=== PATIENT | male | born 1940 | race Two or more races ===

== ENCOUNTER 2020-01-24 09:19 | Emergency (ER) | payer MEDICARE, MEDICAID, SELFPAY | END 2020-01-24 12:16 | disposition left against medical advice (07) | PROVIDERS: Emergency Provider Emergency Medicine; PCP Family Medicine | DX: R10.9 Unspecified abdominal pain (principal) | CPT/HCPCS: 99281 ==

== ENCOUNTER 2020-04-13 00:20 | Emergency (ER) | payer OTHER, SELFPAY ==
[2020-04-13 00:28] VITALS: BMI 33.5
[2020-04-13 01:19] VITALS: BP 143/82; PULSE 72; RESP 16; TEMP 37.1; O2SAT 96
--- NOTE | 2020-04-13 01:20 | ED.EAR ---
HPI - Ear Problem General Chief complaint: Ear Problems Stated complaint: EAR INFECTION Time Seen by Provider: 04/13/20 01:19 Source: patient Mode of arrival: ambulatory Limitations: language barrier History of Present Illness HPI Narrative: Patient complaining of pain in the left ear for last 2 days got worse today no trauma no discharge MD Complaint: ear pain Location: left ear Duration: constant Severity: moderate Relieving factors: nothing Exacerbating factors: nothing Related Data Previous Rx's Medication Instructions Recorded amoxicillin-pot clavulanate 1 tab PO BID #20 tab 04/13/20 [Augmentin] ibuprofen 600 mg PO Q6H PRN #20 tab 04/13/20 Allergies Allergy/AdvReac Type Severity Reaction Status Date / Time Seafood Allergy Mild SWELLING Uncoded 12/27/19 15:18 shellfish Allergy Unknown Uncoded 03/14/14 00:00 Review of Systems Review of Systems: Yes all other systems are reviewed and are negative [facility] Social History Social History Advance Directives: No Advance Directives Information Provided: No Physical Exam Vital Signs: Vital Signs: Last Vital Signs Temp 98.8 F 04/13/20 01:19 Pulse 72 04/13/20 01:19 Resp 16 04/13/20 01:19 BP 143/82 H 04/13/20 01:19 Pulse Ox 96 04/13/20 01:19 Body Mass Index 33.5 Const: General: cooperative, healthy appearing, comfortable and no acute distress Orientation/consciousness: patient oriented x3 HENMT: Head: Yes normal to inspection Ears: hearing grossly normal bilaterally, TM normal on the right, Abnormal EAC present (Left ear) cerumen impaction and TM abnormal (Left side) dull and erythematous General nose exam: Normal external nose present Eyes: General: appearance normal, both eyes and all related structures Resp: Effort & Inspection: normal respiratory effort Auscultation: clear to auscultation bilaterally Cardio: Rate: regular rate Rhythm: regular rhythm Heart sounds: S1 normal heart sound present and S2 normal heart sound present Neuro: General: patient oriented x3 Procedures Ear Wax Removal Left Ear: Cerumenolytic Used: other (Water irrigation) Results: Re-examined: cerumen removed completely TM Examination: TM(s) erythematous Ear Canal Exam: atraumatic Patient Tolerated Procedure: well Complications: no problems Technique: ear canal irrigated Discharge Plan Discharge Clinical Impression: Excessive cerumen in left ear canal Otitis media Qualifiers: Otitis media type: suppurative Chronicity: acute Laterality: left Recurrence: non-recurrent Spontaneous tympanic membrane rupture: without spontaneous rupture Qualified Code(s): H66.002 - Acute suppurative otitis media without spontaneous rupture of ear drum, left ear Patient Disposition: Home, Self-Care Instructions: Ear Infection (ED) Additional Instructions: Take antibiotics as prescribed and follow with PCP Prescriptions: New amoxicillin-pot clavulanate [Augmentin] 875-125 mg tablet 1 tab PO BID Qty: 20 RF: 0 ibuprofen 600 mg tablet 600 mg PO Q6H PRN (Reason: pain) Qty: 20 RF: 0 Interventions: ED Discharge Assessment Last Done: 04/13/20 01:58 Discharge Date/Time: 04/13/20 01:58 Print Language: Bahamian
[2020-04-13] MEDS: Amoxicillin/Potassium Clav 875 MG TABLET PO (01:54)
[2020-04-13] MEDS: Ibuprofen 600 MG TABLET PO (01:55)
== END 2020-04-13 01:58 | disposition home or self-care (01) ==
PROVIDERS: Emergency Provider Internal Medicine
DX: H61.22 Impacted cerumen, left ear (principal); H92.02 Otalgia, left ear
CPT/HCPCS: 69209; 99283

== ENCOUNTER 2020-04-21 23:31 | Emergency (ER) | payer OTHER, SELFPAY ==
--- NOTE | 2020-04-22 | ECG_ITS ---
Test Reason : PE Blood Pressure : / mmHG Vent. Rate : 070 BPM Atrial Rate : 070 BPM P-R Int : 174 ms QRS Dur : 122 ms QT Int : 378 ms P-R-T Axes : 025 003 -16 degrees QTc Int : 408 ms Normal sinus rhythm Right bundle branch block T wave abnormality, consider lateral ischemia Abnormal ECG No previous ECGs available Referred By: Marie Triana Electronically Signed By:ZACKERY OLMOS MD
[2020-04-22 00:19] VITALS: BP 144/90; PULSE 101; PULSE 78; RESP 18; TEMP 36.8; O2SAT 95; BMI 32.3
--- NOTE | 2020-04-22 00:23 | PC.NURSE ---
PT TO ROOM WITH C/O BACK PAIN, FEVER, UNWITNESSED FALL, GENERAL WEAKNESS SINCE TODAY. PT LIVES AT HOME BUT HAS SERVICES COME TO HOME. PT ARRIVES ALERT, RESPIRATIONS N/L ON 4L NC WITH A PO 95%. PT CHG INTO GOWN AND ON MONITOR WITH A HR 78. PT AWAITING MD'S EVAL.
[2020-04-22 02:00] VITALS: BP 113/56; PULSE 76; RESP 16; TEMP 38.2; O2SAT 96
--- NOTE | 2020-04-22 03:29 | XR_ITS ---
EXAMINATION: XR CHEST CLINICAL INFORMATION: Fever COMPARISON: None TECHNIQUE: Frontal view of the chest was obtained. FINDINGS: Lung volumes are low. No focal airspace consolidation. A few reticular opacities are present in the bases, most likely related to the low lung volumes and atelectasis in the supine patient. No pneumothorax or pleural effusion. Cardiac and mediastinal contours are normal. No acute osseous findings. Osteoarthritis is present in the acromioclavicular and glenohumeral joints. XR/XR chest 1V IMPRESSION: Low lung volumes. No acute pulmonary findings.
--- NOTE | 2020-04-22 03:32 | XR_ITS ---
EXAMINATION: XR THORACIC SPINE XR LUMBAR SPINE CLINICAL INFORMATION: Fall. COMPARISON: None. TECHNIQUE: AP and lateral views of the thoracic spine and three views of the lumbar spine. FINDINGS: Thoracic: Vertebral body heights are normal. Alignment is anatomic without spondylolisthesis. Mild degenerative disc disease in the thoracic spine is characterized primarily by small marginal osteophytes. Vertebral body and intervertebral disc heights appear well-preserved. Paraspinal soft tissues are unremarkable. No osseous lesions are identified. Lumbar: Vertebral body heights are normal. No fracture or spondylolisthesis. Endplate osteophytes are present at most levels. Intervertebral disc height appear relatively well-preserved. There is facet arthropathy in the lower lumbar spine at L4-L5. Soft tissues are unremarkable. Imaged portions of the sacroiliac joints are normal. XR/XR thoracic spine 2V IMPRESSION: No acute fracture or malalignment in the thoracolumbar spine. Mild multilevel degenerative disc disease.
--- NOTE | 2020-04-22 03:32 | XR_ITS ---
EXAMINATION: XR THORACIC SPINE XR LUMBAR SPINE CLINICAL INFORMATION: Fall. COMPARISON: None. TECHNIQUE: AP and lateral views of the thoracic spine and three views of the lumbar spine. FINDINGS: Thoracic: Vertebral body heights are normal. Alignment is anatomic without spondylolisthesis. Mild degenerative disc disease in the thoracic spine is characterized primarily by small marginal osteophytes. Vertebral body and intervertebral disc heights appear well-preserved. Paraspinal soft tissues are unremarkable. No osseous lesions are identified. Lumbar: Vertebral body heights are normal. No fracture or spondylolisthesis. Endplate osteophytes are present at most levels. Intervertebral disc height appear relatively well-preserved. There is facet arthropathy in the lower lumbar spine at L4-L5. Soft tissues are unremarkable. Imaged portions of the sacroiliac joints are normal. XR/XR lumbar spine 2-3V IMPRESSION: No acute fracture or malalignment in the thoracolumbar spine. Mild multilevel degenerative disc disease.
[2020-04-22 04:30] VITALS: PULSE 70; RESP 20; O2SAT 92
--- NOTE | 2020-04-22 04:31 | PC.NURSE ---
IV #18G TO LAC, LABS DRAWN TO LAB, COVID SWAB OBTAINED TO LAB. PT TRYING TO URINATE AT THIS TIME. WILL CONTINUE TO MONITOR PT. PT REMAINS ON MONITOR WITH HR 70. PT DENIES ANY COMPLAINTS AT THIS TIME.
[2020-04-22 04:36] LABS: Basophils Percent Auto 0.2 % (0-2); MANUAL DIFF FLAG SCAN; PLT CLUMP 1; Red Cell Distribution Width 12.6 % (11.0-16.0); SCAN SMEAR FLAG 1
[2020-04-22 04:38] LABS: Hematocrit 38.7 % (42-52); Hemoglobin 13.2 g/dl (14.0-18.0); Imm Gran Abs Auto 0.02 X10*3/uL (0.00-0.03); Imm Gran Pct Auto 0.3 % (0.0-0.4); Lymphocytes Absolute Auto 1.3 X10*3/uL (1.2-4.9); Lymphocytes Percent Auto 20.8 % (20-40); Mean Corpuscular HGB Conc 34.1 g/dl (31.0-36.0); Mean Corpuscular Hemoglobin 32.2 pg (27.0-33.0); Mean Corpuscular Volume 94.4 fL (80-98); Mean Platelet Volume 11.5 fL (9.4-12.4); Monocytes Absolute Auto 0.3 X10*3/uL (0.1-1.2); Monocytes Percent Auto 4.6 % (2-11); Neutrophils Absolute Auto 4.5 X10*3/uL (2.0-8.3); Neutrophils Percent Auto 74.1 % (45-73); Platelet Count 123 X10*3/uL (160-400); White Blood Count 6.1 X10*3/uL (4.8-10.8)
[2020-04-22 04:39] LABS: Prothrombin Time 12.2 SEC (10.8-13.0)
[2020-04-22 04:42] LABS: Partial Thromboplastin Time 30.1 SEC (24.1-38.0)
[2020-04-22 04:47] LABS: Lactic Acid 0.9 mmol/L (0.5-2.0)
[2020-04-22 04:54] LABS: Alanine Aminotransferase 11 U/L (0-40); Albumin Level 4.3 g/dL (3.5-5.0); Alkaline Phosphatase 48 U/L (39-117); Anion Gap 14 (12-20); Aspartate Amino Transferase 43 U/L (5-37); Bilirubin Direct 0.2 mg/dL (0.0-0.5); Bilirubin Total 0.3 mg/dL (0.0-1.0); Blood Urea Nitrogen 35 mg/dL (9-16); Calcium 9.5 mg/dL (8.4-10.2); Carbon Dioxide 31 mmol/L (22-29); Chloride 99 mmol/L (96-108); Creatinine Clr Calc Pharmacy 44.2; Estimated Glomerular Filt Rate 49; Glucose Random 167 mg/dL (60-115); Potassium 5.2 mmol/l (3.3-5.1); Sodium 139 mmol/L (135-145)
[2020-04-22 04:54] LABS: Glucose Urine UA NEG (NEG); Leukocyte Esterase Urine NEG (NEG); Nitrite Urine NEG (NEG); Specific Gravity - Urine >= 1.030 (1.005-1.025); Urine Blood TRACE (NEG); Urine Ketones 5 MG/DL (NEG); Urine Protein 1+ MG/DL (NEG-TRACE)
[2020-04-22 04:55] LABS: Appearance Urine CLEAR; Color Urine AMBER
[2020-04-22 05:02] LABS: Bacteria Urine TRACE /LPF; Mucus Urine 1+ /LPF; Squamous Epithelial Cell Urine 1+ /LPF; WBC Urine 0-2 /HPF (0-4)
[2020-04-22 05:03] LABS: SLIDE REVIEW VERIFIED
[2020-04-22 05:09] LABS: Influenza A PCR NEGATIVE (Negative); Influenza B PCR NEGATIVE (Negative); Resp Syncy Virus RNA Qual PCR NEGATIVE (Negative)
[2020-04-22 05:13] LABS: SARS COV2 PCR INHOUSE POSITIVE (Negative)
[2020-04-22 05:19] LABS: B Type Natriuretic Peptide 23 pg/mL (<100); Troponin-I High Sensitivity 15.3 ng/L (<3.5-35.0)
[2020-04-22] MEDS: 0.9 % Sodium Chloride 2,721 ML 2721 ML IVCONT (05:23)
--- NOTE | 2020-04-22 05:24 | PC.NURSE ---
PT STRAIGHT CATH FOR URINE SAMPLE. PT ON MONITOR WITH HR OF 70. VS OBTAINED. PT AWAITING FOR FURTHER ORDERS.
[2020-04-22 06:00] VITALS: BP 132/78; PULSE 78; RESP 18; O2SAT 95
--- NOTE | 2020-04-22 06:35 | ED_ITS ---
HPI - General Adult General Chief complaint: Back Pain/Injury Stated complaint: flu like symptoms Time Seen by Provider: 04/22/20 02:55 Source: patient and EMS Mode of arrival: EMS Limitations: no limitations History of Present Illness HPI narrative: Patient comes to emergency room via EMS, according to the family, EMS reports the patient has had general weakness, complaining of back pain, unwitnessed fall today, patient states that he did not hit his head, did not lose consciousness, does not have any head or neck pain. Patient states that he was getting out of his bed, hit his back on a piece of furniture, then went down to the floor sitting, head was not injured. Patient denies coughing, no shortness of breath, complaining of chills, but no known fever. MD complaint: Generalized weakness, fall Related Data Home Medications Medication Instructions Recorded Confirmed aripiprazole 15 mg tablet 15 mg PO DAILY 01/29/20 04/22/20 calcium carbonate 600 mg (1,500 1 tab PO BID 01/29/20 mg)-vitamin D3 400 unit tablet carbidopa 25 mg-levodopa 100 mg 0 tab PO 01/29/20 tablet gabapentin 300 mg capsule mg PO 01/29/20 lisinopril 10 mg tablet 10 mg PO DAILY 01/29/20 metformin 1,000 mg tablet 1,000 mg PO BID 01/29/20 mirtazapine 15 mg tablet 15 mg PO DAILY 01/29/20 paroxetine HCl 20 mg tablet 20 mg PO BEDTIME 01/29/20 simvastatin 20 mg tablet 20 mg PO BEDTIME 01/29/20 Allergies Allergy/AdvReac Type Severity Reaction Status Date / Time No Known Allergies Allergy Verified 04/22/20 03:28 Review of Systems Review of Systems: Constitutional : No Weight loss, complaining of chills, generalized weakness ENT/Mouth : No Hearing loss, No Ear Pain, No Nasal Congestion, No Sinus Pain, No Hoarseness, No sore throat, No Rhinorrhea, No Swallowing Difficulty Eyes: No Eye Pain, No Swelling, No Redness, No Foreign Body, No Discharge, No Vision Changes Cardiovascular : No Chest Pain, No SOB, No Dyspnea on Exertion, No Orthopnea, No Edema, No Palpitations Respiratory : No Cough, No Sputum, No Wheezing, No Smoke Exposure, No Dyspnea Gastrointestinal : No Nausea, No Vomiting, No Diarrhea, No Constipation, No abdominal Pain, No Hematochezia, No Melena Genitourinary : no irregular bleeding, No Dysuria, No Urinary Frequency, No Hematuria, No Urinary Incontinence, No Urgency, No Flank Pain, No Urinary Flow Changes, No Hesitancy Musculoskeletal : No joint pain, No Myalgias, No Joint Swelling Skin : No Skin Lesions, No rash Neuro : No Weakness, No Numbness, No Paresthesias, No Loss of Consciousness, No Dizziness, No Headache Psych : No Anxiety/Panic, No Depression, No SI/HI/AH/VH, No Social Issues, Heme/Lymph: No Bruising, No Bleeding,No Lymphadenopathy Endocrine : No Polyuria, No Polydipsia, No Temperature Intolerance [facility] Social History Social History Advance Directives: No Physical Exam Vital Signs: Vital Signs: Last Vital Signs Temp 100.8 F H 04/22/20 02:00 Pulse 70 04/22/20 04:30 Resp 20 04/22/20 04:30 BP 113/56 L 04/22/20 02:00 Pulse Ox 92 04/22/20 04:30 Body Mass Index 32.3 Course Course Course Narrative: No acute findings in the thoracic and lumbar spine. Chest x- ray do not show any infiltrates. Patient has been on room air saturating at 94%, patient was walked by me and his nurse, patient needs assistance of his cane, patient's oxygen saturation remained between 94 and 95%. Patient's COVID-19 test was positive. Sepsis is not suspected Medical Decision Making Lab Data Result diagrams: 04/22/20 04:16 04/22/20 04:15 Labs: Lab Results 04/22/20 04/22/20 04/22/20 Range/Units 04:12 04:15 04:16 WBC (4.8-10.8) X10*3/uL RBC (4.60-5.80) X10*6/uL Hgb (14.0-18.0) g/dl Hct (42-52) % MCV (80-98) fL MCH (27.0-33.0) pg MCHC (31.0-36.0) g/dl RDW (11.0-16.0) % Plt Count (160-400) X10*3/uL MPV (9.4-12.4) fL Immature Gran % (Auto) (0.0-0.4) % Neut % (Auto) (45-73) % Lymph % (Auto) (20-40) % Mcdowell % (Auto) (2-11) % Eos % (Auto) (0-4) % Baso % (Auto) (0-2) % Lymph # (Auto) (1.2-4.9) X10*3/uL Mcdowell # (Auto) (0.1-1.2) X10*3/uL Eos # (Auto) (0.0-0.4) X10*3/uL Baso # (Auto) (0.0-0.2) X10*3/uL Abs Immat Gran (auto) (0.00-0.03) X10*3/uL Absolute Neuts (auto) (2.0-8.3) X10*3/uL Absolute Nucleated RBC (0.0-0.012) X10*3/uL Nucleated RBC % (auto) (0.0-0.2) /100WBC Smear Tech's Comments PT (10.8-13.0) SEC INR (0.9-1.1) APTT (24.1-38.0) SEC Sodium 139 (135-145) mmol/L Potassium 5.2 H (3.3-5.1) mmol/l Chloride 99 (96-108) mmol/L Carbon Dioxide 31 H (22-29) mmol/L Anion Gap 14 (12-20) BUN 35 H (9-16) mg/dL Creatinine 1.38 (0.5-1.4) mg/dL Estim Creat Clear Calc 44.2 Estimated GFR 49 Random Glucose 167 H (60-115) mg/dL Lactic Acid 0.9 (0.5-2.0) mmol/L Calcium 9.5 (8.4-10.2) mg/dL Total Bilirubin 0.3 (0.0-1.0) mg/dL Direct Bilirubin 0.2 (0.0-0.5) mg/dL AST 43 H (5-37) U/L ALT 11 (0-40) U/L Alkaline Phosphatase 48 (39-117) U/L Troponin I High Sens 15.3 (<3.5-35.0) ng/L B-Natriuretic Peptide 23 (<100) pg/mL Total Protein 7.0 (6.5-8.0) g/dL Albumin 4.3 (3.5-5.0) g/dL Urine Color Urine Appearance Urine pH (5.0-8.0) Ur Specific [place] (1.005-1.025) Urine Protein (NEG-TRACE) MG/DL Urine Glucose (UA) (NEG) MG/DL Urine Ketones (NEG) MG/DL Urine Blood (NEG) Urine Nitrite (NEG) Ur Leukocyte Esterase (NEG) Urine RBC (0) /HPF Urine WBC (0-4) /HPF Ur Squamous Epith Cells /LPF Urine Bacteria /LPF Hyaline Casts /LPF Urine Mucus /LPF Coronavirus (PCR) (Negative) Influenza Type A (PCR) (Negative) Influenza Type B (PCR) (Negative) RSV RNA Qual (PCR) (Negative) 04/22/20 04/22/20 04/22/20 Range/Units 04:16 04:16 04:17 WBC 6.1 (4.8-10.8) X10*3/uL RBC 4.10 L (4.60-5.80) X10*6/uL Hgb 13.2 L (14.0-18.0) g/dl Hct 38.7 L (42-52) % MCV 94.4 (80-98) fL MCH 32.2 (27.0-33.0) pg MCHC 34.1 (31.0-36.0) g/dl RDW 12.6 (11.0-16.0) % Plt Count 123 L (160-400) X10*3/uL MPV 11.5 (9.4-12.4) fL Immature Gran % (Auto) 0.3 (0.0-0.4) % Neut % (Auto) 74.1 H (45-73) % Lymph % (Auto) 20.8 (20-40) % Mcdowell % (Auto) 4.6 (2-11) % Eos % (Auto) 0.0 (0-4) % Baso % (Auto) 0.2 (0-2) % Lymph # (Auto) 1.3 (1.2-4.9) X10*3/uL Mcdowell # (Auto) 0.3 (0.1-1.2) X10*3/uL Eos # (Auto) 0.0 (0.0-0.4) X10*3/uL Baso # (Auto) 0.0 (0.0-0.2) X10*3/uL Abs Immat Gran (auto) 0.02 (0.00-0.03) X10*3/uL Absolute Neuts (auto) 4.5 (2.0-8.3) X10*3/uL Absolute Nucleated RBC 0.000 (0.0-0.012) X10*3/uL Nucleated RBC % (auto) 0.0 (0.0-0.2) /100WBC Smear Tech's Comments VERIFIED PT 12.2 (10.8-13.0) SEC INR 1.0 (0.9-1.1) APTT 30.1 (24.1-38.0) SEC Sodium (135-145) mmol/L Potassium (3.3-5.1) mmol/l Chloride (96-108) mmol/L Carbon Dioxide (22-29) mmol/L Anion Gap (12-20) BUN (9-16) mg/dL Creatinine (0.5-1.4) mg/dL Estim Creat Clear Calc Estimated GFR Random Glucose (60-115) mg/dL Lactic Acid (0.5-2.0) mmol/L Calcium (8.4-10.2) mg/dL Total Bilirubin (0.0-1.0) mg/dL Direct Bilirubin (0.0-0.5) mg/dL AST (5-37) U/L ALT (0-40) U/L Alkaline Phosphatase (39-117) U/L Troponin I High Sens (<3.5-35.0) ng/L B-Natriuretic Peptide (<100) pg/mL Total Protein (6.5-8.0) g/dL Albumin (3.5-5.0) g/dL Urine Color Urine Appearance Urine pH (5.0-8.0) Ur Specific [place] (1.005-1.025) Urine Protein (NEG-TRACE) MG/DL Urine Glucose (UA) (NEG) MG/DL Urine Ketones (NEG) MG/DL Urine Blood (NEG) Urine Nitrite (NEG) Ur Leukocyte Esterase (NEG) Urine RBC (0) /HPF Urine WBC (0-4) /HPF Ur Squamous Epith Cells /LPF Urine Bacteria /LPF Hyaline Casts /LPF Urine Mucus /LPF Coronavirus (PCR) POSITIVE A (Negative) Influenza Type A (PCR) NEGATIVE (Negative) Influenza Type B (PCR) NEGATIVE (Negative) RSV RNA Qual (PCR) NEGATIVE (Negative) 04/22/20 Range/Units 04:17 WBC (4.8-10.8) X10*3/uL RBC (4.60-5.80) X10*6/uL Hgb (14.0-18.0) g/dl Hct (42-52) % MCV (80-98) fL MCH (27.0-33.0) pg MCHC (31.0-36.0) g/dl RDW (11.0-16.0) % Plt Count (160-400) X10*3/uL MPV (9.4-12.4) fL Immature Gran % (Auto) (0.0-0.4) % Neut % (Auto) (45-73) % Lymph % (Auto) (20-40) % Mcdowell % (Auto) (2-11) % Eos % (Auto) (0-4) % Baso % (Auto) (0-2) % Lymph # (Auto) (1.2-4.9) X10*3/uL Mcdowell # (Auto) (0.1-1.2) X10*3/uL Eos # (Auto) (0.0-0.4) X10*3/uL Baso # (Auto) (0.0-0.2) X10*3/uL Abs Immat Gran (auto) (0.00-0.03) X10*3/uL Absolute Neuts (auto) (2.0-8.3) X10*3/uL Absolute Nucleated RBC (0.0-0.012) X10*3/uL Nucleated RBC % (auto) (0.0-0.2) /100WBC Smear Tech's Comments PT (10.8-13.0) SEC INR (0.9-1.1) APTT (24.1-38.0) SEC Sodium (135-145) mmol/L Potassium (3.3-5.1) mmol/l Chloride (96-108) mmol/L Carbon Dioxide (22-29) mmol/L Anion Gap (12-20) BUN (9-16) mg/dL Creatinine (0.5-1.4) mg/dL Estim Creat Clear Calc Estimated GFR Random Glucose (60-115) mg/dL Lactic Acid (0.5-2.0) mmol/L Calcium (8.4-10.2) mg/dL Total Bilirubin (0.0-1.0) mg/dL Direct Bilirubin (0.0-0.5) mg/dL AST (5-37) U/L ALT (0-40) U/L Alkaline Phosphatase (39-117) U/L Troponin I High Sens (<3.5-35.0) ng/L B-Natriuretic Peptide (<100) pg/mL Total Protein (6.5-8.0) g/dL Albumin (3.5-5.0) g/dL Urine Color MISTY Urine Appearance CLEAR Urine pH 5.0 (5.0-8.0) Ur Specific [place] >= 1.030 H (1.005-1.025) Urine Protein 1+ H (NEG-TRACE) MG/DL Urine Glucose (UA) NEG (NEG) MG/DL Urine Ketones 5 (NEG) MG/DL Urine Blood TRACE (NEG) Urine Nitrite NEG (NEG) Ur Leukocyte Esterase NEG (NEG) Urine RBC 1-4 (0) /HPF Urine WBC 0-2 (0-4) /HPF Ur Squamous Epith Cells 1+ /LPF Urine Bacteria TRACE /LPF Hyaline Casts 1-4 /LPF Urine Mucus 1+ /LPF Coronavirus (PCR) (Negative) Influenza Type A (PCR) (Negative) Influenza Type B (PCR) (Negative) RSV RNA Qual (PCR) (Negative) Imaging Data Thoracic and lumbar spine x-ray: Radiologist's impression: Thoracic: Vertebral body heights are normal. Alignment is anatomic without spondylolisthesis. Mild degenerative disc disease in the thoracic spine is characterized primarily by small marginal osteophytes. Vertebral body and intervertebral disc heights appear well-preserved. Paraspinal soft tissues are unremarkable. No osseous lesions are identified. Lumbar: Vertebral body heights are normal. No fracture or spondylolisthesis. Endplate osteophytes are present at most levels. Intervertebral disc height appear relatively well-preserved. There is facet arthropathy in the lower lumbar spine at L4-L5. Soft tissues are unremarkable. Imaged portions of the sacroiliac joints are normal. XR/XR thoracic spine 2V IMPRESSION: No acute fracture or malalignment in the thoracolumbar spine. Mild multilevel degenerative disc disease. Chest x-ray: Radiologist's impression: Lung volumes are low. No focal airspace consolidation. A few reticular opacities are present in the bases, most likely related to the low lung volumes and atelectasis in the supine patient. No pneumothorax or pleural effusion. Cardiac and mediastinal contours are normal. No acute osseous findings. Osteoarthritis is present in the acromioclavicular and glenohumeral joints. XR/XR chest 1V IMPRESSION: Low lung volumes. No acute pulmonary findings. Discharge Plan Discharge Clinical Impression: COVID-19, Weakness Patient Disposition: Home, Self-Care Instructions: COVID-19 (Coronavirus Disease 2019) (ED) Additional Instructions: You tested positive for COVID-19. Please remain in quarantine for 14 days. If you have difficulty breathing, please return to the emergency room. Please follow-up with your primary care physician tomorrow. If you have any worsening or new symptoms, please return to the emergency room or call 911 Prescriptions: No Action aripiprazole 15 mg tablet 15 mg PO DAILY RF: 0 calcium carbonate-vitamin D3 600 mg(1,500mg) -400 unit tablet 1 tab PO BID RF: 0 lisinopril 10 mg tablet 10 mg PO DAILY RF: 0 mirtazapine 15 mg tablet 15 mg PO DAILY RF: 0 simvastatin 20 mg tablet 20 mg PO BEDTIME RF: 0 gabapentin 300 mg capsule PO RF: 0 metformin 1,000 mg tablet 1,000 mg PO BID RF: 0 carbidopa-levodopa 25-100 mg tablet 0 tab PO RF: 0 paroxetine HCl 20 mg tablet 20 mg PO BEDTIME RF: 0
--- NOTE | 2020-04-22 06:38 | PC.NURSE ---
PT AMBULATES WITH A CANE WITH A PO 95% ON RA WITH MD AT BEDSIDE. PT AWAITING FOR POSSIBLE D/C TO HOME.
[2020-04-22 09:10] VITALS: BP 129/66; PULSE 71; RESP 18; TEMP 36.9; O2SAT 94
== END 2020-04-22 10:36 | disposition home or self-care (01) ==
PROVIDERS: Emergency Provider Emergency Medicine
DX: U07.1 COVID-19 (principal); R53.1 Weakness; M54.5 Low back pain; Z79.899 Other long term (current) drug therapy
CPT/HCPCS: 0241U; 36415; 71045; 72070; 72100; 80048; 80076; 81001; 83605; 83880; 84484; 85025; 85610; 85730; 87040; 93005; 96361; 96374; 99284

== ENCOUNTER 2020-04-26 19:08 | Inpatient (IN) | payer OTHER, SELFPAY ==
[2020-04-26] VITALS (7 sets, daily range): BP systolic 126–148; BP diastolic 53–88; PULSE 61–78; RESP 18; TEMP 36.9–37.2; O2SAT 85–98; BMI 23.8
--- NOTE | 2020-04-26 19:27 | PC.NURSE ---
PT TO ED VIA AMBULANCE WITH C/O BACK PAIN. PT CHG INTO GOWN AND AWAITING MD'S EVAL. PT IS NIGERIAN SPEAKING. PT ARRIVES ALERT, RESPIRATIONS EASY, N/L.
--- NOTE | 2020-04-26 19:51 | ECG_ITS ---
Test Reason : CHEST PAIN Blood Pressure : / mmHG Vent. Rate : 067 BPM Atrial Rate : 067 BPM P-R Int : 200 ms QRS Dur : 124 ms QT Int : 372 ms P-R-T Axes : 053 003 -14 degrees QTc Int : 393 ms Normal sinus rhythm Right bundle branch block T wave abnormality, consider lateral ischemia Abnormal ECG When compared with ECG of 22-APR-2020 03:23, No significant change was found Referred By: Florencio Boucher Electronically Signed By:ZACKERY OLMOS MD
[2020-04-26] MEDS: 0.9 % Sodium Chloride 1,000 ML 999 ML IV ×2 (20:01→20:34)
[2020-04-26 20:23] LABS: Basophils Percent Auto 0.1 % (0-2); Hematocrit 37.9 % (42-52); Hemoglobin 12.9 g/dl (14.0-18.0); Imm Gran Abs Auto 0.09 X10*3/uL (0.00-0.03); Imm Gran Pct Auto 1.1 % (0.0-0.4); Lymphocytes Absolute Auto 0.5 X10*3/uL (1.2-4.9); MANUAL DIFF FLAG SCAN; Mean Corpuscular Hemoglobin 31.7 pg (27.0-33.0); Mean Corpuscular Volume 93.1 fL (80-98); Mean Platelet Volume 10.7 fL (9.4-12.4); Monocytes Absolute Auto 0.2 X10*3/uL (0.1-1.2); Monocytes Percent Auto 2.2 % (2-11); Neutrophils Absolute Auto 7.6 X10*3/uL (2.0-8.3); Neutrophils Percent Auto 90.6 % (45-73); Platelet Count 181 X10*3/uL (160-400); Red Blood Count 4.07 X10*6/uL (4.60-5.80); Red Cell Distribution Width 12.6 % (11.0-16.0); SCAN SMEAR FLAG 1; White Blood Count 8.3 X10*3/uL (4.8-10.8)
--- NOTE | 2020-04-26 20:25 | PC.NURSE ---
pt's son susan colorado jr will be calling back later this evening for updates regarding his father.
--- NOTE | 2020-04-26 20:26 | ED.GENADULT ---
HPI - General Adult General Chief complaint: Back Pain/Injury Stated complaint: BACK PAIN,PHILLIPS,DIZZY,COVID+ Time Seen by Provider: 04/26/20 19:34 Source: patient, EMS and RN notes reviewed History of Present Illness HPI narrative: Patient presents to the ED for upper back pain, headache, and dizziness. Patient was seen here for similar symptoms on the 22 of April. Patient brought to ED because he still having no symptoms. Patient denies any recent trauma to the back or falling to the ground. Patient also states generalized body aches. Related Data Home Medications Medication Instructions Recorded Confirmed aripiprazole 15 mg tablet 15 mg PO DAILY 01/29/20 04/22/20 calcium carbonate 600 mg (1,500 1 tab PO BID 01/29/20 mg)-vitamin D3 400 unit tablet carbidopa 25 mg-levodopa 100 mg 0 tab PO 01/29/20 tablet gabapentin 300 mg capsule mg PO 01/29/20 lisinopril 10 mg tablet 10 mg PO DAILY 01/29/20 metformin 1,000 mg tablet 1,000 mg PO BID 01/29/20 mirtazapine 15 mg tablet 15 mg PO DAILY 01/29/20 paroxetine HCl 20 mg tablet 20 mg PO BEDTIME 01/29/20 simvastatin 20 mg tablet 20 mg PO BEDTIME 01/29/20 Allergies Allergy/AdvReac Type Severity Reaction Status Date / Time No Known Allergies Allergy Verified 04/22/20 03:28 Review of Systems Review of Systems: Yes all other systems are reviewed and are negative Constitutional: Constitutional: Reports headache(s) Eyes: Eyes: Reports as per HPI and Reports no additional eye complaints ENT: Reports system reviewed and no additional complaints, except as documented, Reports as per HPI, Reports dizziness and Reports headache(s) Cardiovascular: Cardiovascular: Reports as per HPI and Reports no additional cardiovascular complaints Respiratory: Respiratory: Reports as per HPI and Reports no additional respiratory complaints Gastrointestinal: Gastrointestinal: Reports as per HPI and Reports no additional gastrointestinal complaints Genitourinary: Genitourinary: Reports no additional male genitourinary complaints and Reports as per HPI Musculoskeletal: Musculoskeletal: Reports no additional musculoskeletal complaints, Reports as per HPI and Reports back pain Comments: Upper back pain Neurologic: Reports system reviewed and no additional complaints, except as documented, Reports as per HPI, Reports dizziness and Reports headache(s) Psychiatric: Psychiatric: Reports no additional psychiatric complaints and Reports as per HPI [facility] Social History Social History Advance Directives: No Advance Directives Information Provided: No Physical Exam Vital Signs: Vital Signs: Last Vital Signs Temp 98.9 F 04/26/20 23:48 Pulse 61 04/26/20 23:48 Resp 18 04/26/20 23:48 BP 126/53 L 04/26/20 23:48 Pulse Ox 93 04/26/20 23:58 Body Mass Index 23.8 Const: General: cooperative, healthy appearing, comfortable, no acute distress and well developed HENMT: Head: Yes normal to inspection, Yes No palpable skull fracture present, Yes normocephalic and Yes atraumatic Eyes: General: appearance normal, both eyes and all related structures Neck: Neck: Yes normal visual inspection, Yes full ROM, Yes no lymphadenopathy, Yes no meningeal signs, Yes trachea midline, Yes supple and No tender Chest: Other: Positive for bilateral chest wall tenderness on palpation Chest palpation & inspection: normal inspection of the chest Resp: Effort & Inspection: normal respiratory effort and able to speak in complete sentences Auscultation: clear to auscultation bilaterally Cardio: Jugular venous distension: no JVD Heart sounds: S1 normal heart sound present and S2 normal heart sound present GI: Inspection: Yes normal to inspection Palpation (GI): Soft to palpation, not firm, nontender, no guarding and not rigid : General: No CVA tenderness and Yes no CVA tenderness Back/Spine/Pelvis: Back: no CVA tenderness, No CVA tenderness and back tenderness (Positive thoracic spine tenderness) Skin: General skin exam: no rashes or lesions noted and elasticity normal Neuro: Other: Patient is slow to answer which is baseline. Patient has chronic tremors due to Parkinson's. General: no meningeal signs Extrem: Other: Lower extremity negative for any swelling, pitting edema, calf tenderness General: Yes normal to inspection and Yes full ROM Psych: Appearance: grossly normal, well kempt and not disheveled Course Course Course Narrative: Patient was seen on the 12th of this month for similar symptoms. Patient had normal lumbar and thoracic x-ray. Chest x-ray was normal at that time. Due to patient's COVID positive and upper back pain will just send patient for chest CT to rule out PE. Patient given Toradol for pain Reevaluation(s) Reevaluation #1: Patient chest CT came back negative for PE. Chest CT confirmed bilateral COVID pneumonia. On ambulation patient oxygen saturation went down to 87% on room air. Plan is to admit patient and give Decadron. Time: 00:14 Reevaluation #2: Tried to contact son Zain gonzalez and daughter Lidia, but they could not be reached. Each of the cell phone number was called and there was no response back. Patient given Decadron and antibiotics. Case presented to hospitalist for admission. Time: 01:52 Medical Decision Making MDM Narrative Medical decision making narrative: COVID pneumonia Lab Data Result diagrams: 04/26/20 20:14 04/26/20 20:14 Labs: Lab Results 04/26/20 04/26/20 04/26/20 Range/Units 20:14 20:14 20:14 WBC 8.3 (4.8-10.8) X10*3/uL RBC 4.07 L (4.60-5.80) X10*6/uL Hgb 12.9 L (14.0-18.0) g/dl Hct 37.9 L (42-52) % MCV 93.1 (80-98) fL MCH 31.7 (27.0-33.0) pg MCHC 34.0 (31.0-36.0) g/dl RDW 12.6 (11.0-16.0) % Plt Count 181 D (160-400) X10*3/uL MPV 10.7 (9.4-12.4) fL Immature Gran % (Auto) 1.1 H (0.0-0.4) % Neut % (Auto) 90.6 H (45-73) % Lymph % (Auto) 6.0 L (20-40) % [place] % (Auto) 2.2 (2-11) % Eos % (Auto) 0.0 (0-4) % Baso % (Auto) 0.1 (0-2) % Lymph # (Auto) 0.5 L (1.2-4.9) X10*3/uL [place] # (Auto) 0.2 (0.1-1.2) X10*3/uL Eos # (Auto) 0.0 (0.0-0.4) X10*3/uL Baso # (Auto) 0.0 (0.0-0.2) X10*3/uL Abs Immat Gran (auto) 0.09 H (0.00-0.03) X10*3/uL Absolute Neuts (auto) 7.6 (2.0-8.3) X10*3/uL Absolute Nucleated RBC 0.000 (0.0-0.012) X10*3/uL Nucleated RBC % (auto) 0.0 (0.0-0.2) /100WBC Smear Tech's Comments VERIFIED PT 12.6 (10.8-13.0) SEC INR 1.1 (0.9-1.1) APTT 32.7 (24.1-38.0) SEC Sodium 140 (135-145) mmol/L Potassium 4.5 (3.3-5.1) mmol/l Chloride 101 (96-108) mmol/L Carbon Dioxide 26 (22-29) mmol/L Anion Gap 18 (12-20) BUN 34 H (9-16) mg/dL Creatinine 1.29 (0.5-1.4) mg/dL Estim Creat Clear Calc 39.0 Estimated GFR 53 Random Glucose 211 H (60-115) mg/dL Calcium 8.4 D (8.4-10.2) mg/dL Total Bilirubin 0.3 (0.0-1.0) mg/dL AST 41 H (5-37) U/L ALT 31 (0-40) U/L Alkaline Phosphatase 58 D (39-117) U/L Troponin I High Sens (<3.5-35.0) ng/L B-Natriuretic Peptide (<100) pg/mL Total Protein 6.8 (6.5-8.0) g/dL Albumin 3.9 (3.5-5.0) g/dL Urine Color Urine Appearance Urine pH (5.0-8.0) Ur Specific [place] (1.005-1.025) Urine Protein (NEG-TRACE) MG/DL Urine Glucose (UA) (NEG) MG/DL Urine Ketones (NEG) MG/DL Urine Blood (NEG) Urine Nitrite (NEG) Ur Leukocyte Esterase (NEG) Urine RBC (0) /HPF Urine WBC (0-4) /HPF Ur Squamous Epith Cells /LPF Amorphous Sediment /LPF Urine Bacteria /LPF Hyaline Casts /LPF Granular Casts /LPF Urine Mucus /LPF 04/26/20 04/26/20 04/26/20 Range/Units 20:14 22:40 22:41 WBC (4.8-10.8) X10*3/uL RBC (4.60-5.80) X10*6/uL Hgb (14.0-18.0) g/dl Hct (42-52) % MCV (80-98) fL MCH (27.0-33.0) pg MCHC (31.0-36.0) g/dl RDW (11.0-16.0) % Plt Count (160-400) X10*3/uL MPV (9.4-12.4) fL Immature Gran % (Auto) (0.0-0.4) % Neut % (Auto) (45-73) % Lymph % (Auto) (20-40) % [place] % (Auto) (2-11) % Eos % (Auto) (0-4) % Baso % (Auto) (0-2) % Lymph # (Auto) (1.2-4.9) X10*3/uL [place] # (Auto) (0.1-1.2) X10*3/uL Eos # (Auto) (0.0-0.4) X10*3/uL Baso # (Auto) (0.0-0.2) X10*3/uL Abs Immat Gran (auto) (0.00-0.03) X10*3/uL Absolute Neuts (auto) (2.0-8.3) X10*3/uL Absolute Nucleated RBC (0.0-0.012) X10*3/uL Nucleated RBC % (auto) (0.0-0.2) /100WBC Smear Tech's Comments PT (10.8-13.0) SEC INR (0.9-1.1) APTT (24.1-38.0) SEC Sodium (135-145) mmol/L Potassium (3.3-5.1) mmol/l Chloride (96-108) mmol/L Carbon Dioxide (22-29) mmol/L Anion Gap (12-20) BUN (9-16) mg/dL Creatinine (0.5-1.4) mg/dL Estim Creat Clear Calc Estimated GFR Random Glucose (60-115) mg/dL Calcium (8.4-10.2) mg/dL Total Bilirubin (0.0-1.0) mg/dL AST (5-37) U/L ALT (0-40) U/L Alkaline Phosphatase (39-117) U/L Troponin I High Sens 9.1 10.1 (<3.5-35.0) ng/L B-Natriuretic Peptide 88 (<100) pg/mL Total Protein (6.5-8.0) g/dL Albumin (3.5-5.0) g/dL Urine Color DARK YELLOW Urine Appearance CLEAR Urine pH 5.5 (5.0-8.0) Ur Specific [place] >= 1.030 H (1.005-1.025) Urine Protein 2+ H (NEG-TRACE) MG/DL Urine Glucose (UA) 250 H (NEG) MG/DL Urine Ketones 15 (NEG) MG/DL Urine Blood 1+ H (NEG) Urine Nitrite NEG (NEG) Ur Leukocyte Esterase NEG (NEG) Urine RBC 0-2 (0) /HPF Urine WBC 0-2 (0-4) /HPF Ur Squamous Epith Cells TRACE /LPF Amorphous Sediment 3+ /LPF Urine Bacteria NONE /LPF Hyaline Casts 1-4 /LPF Granular Casts 0-2 /LPF Urine Mucus TRACE /LPF ECG Data Interpretation: Normal sinus rhythm. Right bundle branch block. Ventricular rate 67. Pr interval 200. Care is 124. QTC 393. Negative STEMI Discharge Plan Discharge Clinical Impression: COVID-19 Patient Disposition: Admitted As Inpatient
[2020-04-26] MEDS: Ketorolac Tromethamine 15 MG/ML VIAL IVPUSH (20:33)
[2020-04-26 20:34] LABS: INTERNATIONAL NORM RATIO 1.1 (0.9-1.1); Prothrombin Time 12.6 SEC (10.8-13.0)
[2020-04-26 20:36] LABS: Partial Thromboplastin Time 32.7 SEC (24.1-38.0)
--- NOTE | 2020-04-26 20:41 | PC.NURSE ---
HL PLACED BY EMS 20G TO LFA. LABS DRAWN TO LAB. NS UP AND RUNNING W/O SITE INTACT. PT C/O UPPER BACK PAIN AND RATING PAIN 10/10, PT MEDICATED PER EMAR FOR PAIN. WILL CONTINUE TO MONITOR PT.
[2020-04-26 20:42] LABS: SLIDE REVIEW VERIFIED
[2020-04-26 20:47] LABS: Alanine Aminotransferase 31 U/L (0-40); Albumin Level 3.9 g/dL (3.5-5.0); Alkaline Phosphatase 58 U/L (39-117); Anion Gap 18 (12-20); Aspartate Amino Transferase 41 U/L (5-37); Bilirubin Total 0.3 mg/dL (0.0-1.0); Blood Urea Nitrogen 34 mg/dL (9-16); Calcium 8.4 mg/dL (8.4-10.2); Carbon Dioxide 26 mmol/L (22-29); Chloride 101 mmol/L (96-108); Estimated Glomerular Filt Rate 53; Glucose Random 211 mg/dL (60-115); Potassium 4.5 mmol/l (3.3-5.1); Sodium 140 mmol/L (135-145); Total Protein 6.8 g/dL (6.5-8.0)
[2020-04-26 20:50] LABS: B Type Natriuretic Peptide 88 pg/mL (<100); Troponin-I High Sensitivity 9.1 ng/L (<3.5-35.0)
--- NOTE | 2020-04-26 21:11 | CT_ITS ---
EXAMINATION: CT ANGIOGRAM OF THE CHEST WITH AND WITHOUT CONTRAST (CT PULMONARY ANGIOGRAM FOR PE) CLINICAL INFORMATION: Reason for Exam Covid positive. upper back pain. PE? spine fracture COMPARISON: None TECHNIQUE: Prior to contrast administration, noncontrast localization images were obtained. Subsequently, multidetector volumetric imaging was performed from the thoracic inlet to below the diaphragms following the administration of 80 mL Omnipaque 350 intravenous contrast. No contrast reaction reported Sagittal, coronal, and MIP oblique sagittal reformatted images were obtained on the CT workstation, uploaded to PACS, and reviewed. This CT examination was performed using dose optimization techniques as appropriate, variously including the following: *Automated exposure control *Adjustment of mA and/or kV according to patient size (this includes techniques or standardized protocols for targeted exams where dose is matched to indication/reason for exam; i.e. extremities or head) *Use of iterative reconstruction technique Total exam dose-length product 1354 mGy-cm FINDINGS: QUALITY OF STUDY/CONTRAST BOLUS: Satisfactory. PULMONARY ARTERIES: No central or segmental pulmonary emboli. THORACIC AORTA: No aneurysm or dissection. LUNG: The lungs are well-expanded with groundglass attenuation seen in both upper lobes, lower lobes, lingula and right middle lobe consistent with inflammatory or infectious etiology. PLEURA: No pleural effusion or pneumothorax. MEDIASTINUM: Normal heart size. No pericardial effusion. No hilar or mediastinal lymphadenopathy. No evidence of septal bowing or right heart strain. There is a small hiatal hernia CHEST WALL/AXILLA: No axillary or internal mammary lymphadenopathy. OSSEOUS STRUCTURES: No lytic or sclerotic process seen. UPPER ABDOMEN: Small gallstones visualized. Visualized liver, spleen, pancreas and bilateral adrenal glands are unremarkable. No reflux of contrast into the hepatic veins to suggest elevated right heart pressures. CT/CT angio chest PE protocol IMPRESSION: No evidence of PE. No evidence of aortic dissection. Diffuse parenchymal lung disease suggestive of infiltrative likely related to Covid disease Small hiatal hernia. Cholelithiasis. VTE: negative
--- NOTE | 2020-04-26 21:11 | CT_ITS ---
EXAMINATION: CT HEAD WITHOUT CONTRAST CLINICAL INFORMATION: ] Positive. COMPARISON: None TECHNIQUE: Contiguous axial imaging was performed from the skull base to vertex without intravenous administration of contrast. This CT examination was performed using dose optimization techniques as appropriate, variously including the following: *Automated exposure control *Adjustment of mA and/or kV according to patient size (this includes techniques or standardized protocols for targeted exams where dose is matched to indication/reason for exam; i.e. extremities or head) *Use of iterative reconstruction technique DLP: 1354 mGy-cm FINDINGS: There is no evidence of acute intracranial hemorrhage or territorial infarction. No abnormal mass effect or midline shift is seen. Campbell to white matter differentiation is well preserved. No extra-axial fluid collections are identified. The ventricles are normal in size. There is no abnormal attenuation within the brain parenchyma. The osseous structures and soft tissues are normal. The mastoid air cells and visualized portions of the paranasal sinuses are well aerated. CT/CT head/brain wo con IMPRESSION: No acute intracranial process seen
--- NOTE | 2020-04-26 21:54 | PC.NURSE ---
pt returned from ct scan.
[2020-04-26] MEDS: iohexoL 350 MG/ML 100 ML INFUS..BTL IV (22:04)
[2020-04-26 22:59] LABS: Glucose Urine UA 250 MG/DL (NEG); Leukocyte Esterase Urine NEG (NEG); Nitrite Urine NEG (NEG); PH 5.5 (5.0-8.0); Specific Gravity - Urine >= 1.030 (1.005-1.025); Urine Blood 1+ (NEG); Urine Ketones 15 MG/DL (NEG); Urine Protein 2+ MG/DL (NEG-TRACE)
[2020-04-26 23:02] LABS: Appearance Urine CLEAR; Color Urine DARK YELLOW
[2020-04-26 23:18] LABS: Amorphous Sediment Urine 3+ /LPF; Granular Casts Urine 0-2 /LPF; Mucus Urine TRACE /LPF; RBC Urine 0-2 /HPF (0); Squamous Epithelial Cell Urine TRACE /LPF; WBC Urine 0-2 /HPF (0-4)
[2020-04-26 23:22] LABS: Troponin-I High Sensitivity 10.1 ng/L (<3.5-35.0)
--- NOTE | 2020-04-26 23:51 | PC.NURSE ---
PT UP AND IN A STANDING POSITION WITH A PO OF 89% TIFFANY MACIAS AWARE. PT GETTING ADMITTED AT THIS TIME.
--- NOTE | 2020-04-26 23:55 | PC.NURSE ---
This pct ambulated pt with Jeff Matias his o2 sats were 85% on room air . rn aware
[2020-04-27] VITALS (11 sets, daily range): BP systolic 127–168; BP diastolic 58–75; PULSE 49–86; RESP 11–27; TEMP 36.6–37.2; O2SAT 92–97
[2020-04-27] MEDS: cefTRIAXone sodium 1 GM in 0.9 % Sodium Chloride 50 ML IV ×2 (01:10→21:02)
[2020-04-27] MEDS: Azithromycin 500 MG in 0.9 % Sodium Chloride 250 ML 125 MG IV ×2 (01:40→21:03)
[2020-04-27 01:50] LABS: Lactic Acid 1.4 mmol/L (0.5-2.0)
--- NOTE | 2020-04-27 01:54 | PC.NURSE ---
pt medicated as per emar.
--- NOTE | 2020-04-27 03:59 | P.HPHOSP_ITS ---
History of Present Illness Date of Service: 04/27/20 Chief Complaint: Back pain, body pain Patient is hard of hearing and could not answer questions so majority of history comes from the ED documentation. 79 year old man who originally presented on 04/22 with upper back pain, weakness, and malaise and had an unwitnessed fall at home. He tested positive for COVID and was discharged then as he was ambulating without difficulty and not hypoxic. He returns today with similar complaints- ongoing upper back pain and generalized weakness and body pain. He had lower oxygen sats on room air and dropped into the 80's with ambulation. He had CT angio done to eval for PE and scan noted bilateral groundglass opacities so he was started on decadron and antibiotics and referred for admission. He is resting quietly and not tachypneic at present. Review of Systems Review of Systems: Patient unable to offer ROS due to being very hard of hearing and due to language barrier. Neurologic: Reports system reviewed and no additional complaints, except as documented and Reports as per [facility] Medical History DMII (diabetes mellitus, type 2) Dyslipidemia HTN (hypertension) Parkinson disease Family history: reviewed and not pertinent Social History Advance Directives: No Advance Directives Information Provided: No Meds Allergies Allergy/AdvReac Type Severity Reaction Status Date / Time No Known Allergies Allergy Verified 04/22/20 03:28 Home Medications Medication Instructions Recorded Confirmed Type aripiprazole 15 mg tablet 15 mg PO DAILY 01/29/20 04/22/20 History calcium carbonate 600 mg (1,500 1 tab PO BID 01/29/20 History mg)-vitamin D3 400 unit tablet carbidopa 25 mg-levodopa 100 mg 0 tab PO 01/29/20 History tablet gabapentin 300 mg capsule mg PO 01/29/20 History lisinopril 10 mg tablet 10 mg PO DAILY 01/29/20 History metformin 1,000 mg tablet 1,000 mg PO BID 01/29/20 History mirtazapine 15 mg tablet 15 mg PO DAILY 01/29/20 History paroxetine HCl 20 mg tablet 20 mg PO BEDTIME 01/29/20 History simvastatin 20 mg tablet 20 mg PO BEDTIME 10/20/20 History omeprazole 1 cap PO QAM 04/27/20 04/27/20 History Physical Exam Vital Signs and Narrative: Vital Signs: Last Vital Signs Temp 98.8 F 04/27/20 02:00 Pulse 50 04/27/20 03:34 Resp 26 H 04/27/20 03:34 BP 134/64 04/27/20 03:34 Pulse Ox 97 04/27/20 03:34 Body Mass Index 23.8 Const: Other: Awake, alert, no distress HENMT: Mouth: Normal oral and palatal mucosa present Eyes: Other: No scleral icterus or conjunctival injections Neck: Other: Supple, no JVD Resp: Other: Diminished breath sounds at lung bases, slight insp crackles heard at bases, no exp wheezing Effort & Inspection: normal respiratory effort Cardio: Rate: regular rate Rhythm: regular rhythm Heart sounds: S1 normal heart sound present and S2 normal heart sound present GI: Other: Soft, nontender, bowel sounds present, no guarding or masses Skin: Other: No rashes or lesions Neuro: Other: Alert to voice. Extrem: Other: No leg edema Psych: Other: Not anxious or agitated Results Labs CBC and Chem 7: 04/26/20 20:14 04/26/20 20:14 Labs: Laboratory Results - last 24 hr 04/26/20 04/26/20 04/26/20 20:14 20:14 20:14 MCV 93.1 MCH 31.7 MCHC 34.0 RDW 12.6 Plt Count 181 D MPV 10.7 Immature Gran % (Auto) 1.1 H Neut % (Auto) 90.6 H Lymph % (Auto) 6.0 L [place] % (Auto) 2.2 Eos % (Auto) 0.0 Baso % (Auto) 0.1 Lymph # (Auto) 0.5 L [place] # (Auto) 0.2 Eos # (Auto) 0.0 Baso # (Auto) 0.0 Abs Immat Gran (auto) 0.09 H Absolute Neuts (auto) 7.6 Absolute Nucleated RBC 0.000 Nucleated RBC % (auto) 0.0 Smear Tech's Comments VERIFIED PT 12.6 INR 1.1 APTT 32.7 Anion Gap 18 Estim Creat Clear Calc 39.0 Estimated GFR 53 Random Glucose 211 H Lactic Acid Calcium 8.4 D Total Bilirubin 0.3 AST 41 H ALT 31 Alkaline Phosphatase 58 D Troponin I High Sens B-Natriuretic Peptide Total Protein 6.8 Albumin 3.9 Urine Color Urine Appearance Urine pH Ur Specific [place] Urine Protein Urine Glucose (UA) Urine Ketones Urine Blood Urine Nitrite Ur Leukocyte Esterase Urine RBC Urine WBC Ur Squamous Epith Cells Amorphous Sediment Urine Bacteria Hyaline Casts Granular Casts Urine Mucus 04/26/20 04/26/20 04/26/20 20:14 22:40 22:41 MCV MCH MCHC RDW Plt Count MPV Immature Gran % (Auto) Neut % (Auto) Lymph % (Auto) [place] % (Auto) Eos % (Auto) Baso % (Auto) Lymph # (Auto) [place] # (Auto) Eos # (Auto) Baso # (Auto) Abs Immat Gran (auto) Absolute Neuts (auto) Absolute Nucleated RBC Nucleated RBC % (auto) Smear Tech's Comments PT INR APTT Anion Gap Estim Creat Clear Calc Estimated GFR Random Glucose Lactic Acid Calcium Total Bilirubin AST ALT Alkaline Phosphatase Troponin I High Sens 9.1 10.1 B-Natriuretic Peptide 88 Total Protein Albumin Urine Color DARK YELLOW Urine Appearance CLEAR Urine pH 5.5 Ur Specific [place] >= 1.030 H Urine Protein 2+ H Urine Glucose (UA) 250 H Urine Ketones 15 Urine Blood 1+ H Urine Nitrite NEG Ur Leukocyte Esterase NEG Urine RBC 0-2 Urine WBC 0-2 Ur Squamous Epith Cells TRACE Amorphous Sediment 3+ Urine Bacteria NONE Hyaline Casts 1-4 Granular Casts 0-2 Urine Mucus TRACE 04/27/20 01:04 MCV MCH MCHC RDW Plt Count MPV Immature Gran % (Auto) Neut % (Auto) Lymph % (Auto) [place] % (Auto) Eos % (Auto) Baso % (Auto) Lymph # (Auto) [place] # (Auto) Eos # (Auto) Baso # (Auto) Abs Immat Gran (auto) Absolute Neuts (auto) Absolute Nucleated RBC Nucleated RBC % (auto) Smear Tech's Comments PT INR APTT Anion Gap Estim Creat Clear Calc Estimated GFR Random Glucose Lactic Acid 1.4 Calcium Total Bilirubin AST ALT Alkaline Phosphatase Troponin I High Sens B-Natriuretic Peptide Total Protein Albumin Urine Color Urine Appearance Urine pH Ur Specific [place] Urine Protein Urine Glucose (UA) Urine Ketones Urine Blood Urine Nitrite Ur Leukocyte Esterase Urine RBC Urine WBC Ur Squamous Epith Cells Amorphous Sediment Urine Bacteria Hyaline Casts Granular Casts Urine Mucus Imaging Radiologist's Impressions: Impressions Chest CTA 04/26/20 21:11 IMPRESSION: No evidence of PE. No evidence of aortic dissection. Diffuse parenchymal lung disease suggestive of infiltrative likely related to Covid disease Small hiatal hernia. Cholelithiasis. VTE: negative Head CT 04/26/20 21:11 IMPRESSION: No acute intracranial process seen Assessment and Plan (1) COVID-19: Status: Acute 79 year old man presenting with ongoing COVID symptoms and new hypoxia. Noted to have diffuse findings on CT angio suggestive of COVID inflammation and also relative lymphpenia on CBC. COVID, pneumonia Started on dexamethasome in ED. ID consult for Remdesivir. Trend CRP, D dimer, LDH and continue supportive care with supplemental oxygen-wean as tolerated. Started on Ceftriaxone and Azithromycin out of concern for superimposed pneumonia-continue for now. Parkinson disease Continue Sinemet at outpt dose. DM type 2, mild hyperglycemia Creatinine slightly elevated in 1.2-1.3 range. In light of this will hold Metformin and use sliding scale insulin. HTN Continue Lisinopril. Dyslipidemia Simvastatin is nonformulary so holding statin acutely. Depression Continue Paxil, Remeron GERD Continue PPI. Note: will need to confirm med list in AM once family can be reached. Especially for Sinement to confirm how often he takes it daily. DVT proph SC Heparin Code status Assume Full.
[2020-04-27] MEDS: 0.9 % Sodium Chloride 1,000 ML 100 ML IVCONT (04:30)
--- NOTE | 2020-04-27 04:30 | PC.NURSE ---
NS UP AND RUNNING AT 100ML/HR. PT DENIES ANY COMPLAINTS. PT AWAKE, SKIN W/D, RESPIRATIONS EASY, N/L. WILL CONTINUE TO MONITOR PT.
[2020-04-27] MEDS: Heparin Sodium,Porcine 5,000 UNIT/ML VIAL 5000 UNIT SUBCUT ×3 (05:28→21:03)
--- NOTE | 2020-04-27 06:18 | PC.NURSE ---
MESSAGE SENT TO DR DENNISON REGARDING HR DROPPING DOWN TO 34 AND SEVERAL TIMES INTO THE LOW 40S.
[2020-04-27 06:27] LABS: Glucose, Whole Blood 229 mg/dL (60-115)
--- NOTE | 2020-04-27 06:42 | ECG_ITS ---
Test Reason : LOW HR Blood Pressure : / mmHG Vent. Rate : 047 BPM Atrial Rate : 054 BPM P-R Int : 000 ms QRS Dur : 128 ms QT Int : 480 ms P-R-T Axes : 018 018 003 degrees QTc Int : 424 ms Sinus bradycardia with 2nd degree A-V block ([place] I) Right bundle branch block Abnormal ECG When compared with ECG of 26-APR-2020 20:25, Sinus rhythm is now with 2nd degree A-V block ([place] I) T wave inversion less evident in Anterior leads Referred By: Modesta Ascencio Electronically Signed By:ZACKERY OLMOS MD
[2020-04-27 06:51] LABS: D Dimer 810 NG/ML
[2020-04-27 06:55] LABS: Lactate Dehydrogenase 350 U/L (118-273)
[2020-04-27] MEDS: Insulin Lispro 100 UNIT/ML 3 ML VIAL SUBCUT ×4 (07:40→22:04)
--- NOTE | 2020-04-27 07:58 | PC.NURSE ---
INTRODUCED SELF TO PT. PT ALERT AND ORIENTED TO PERSON ONLY. PADS IN PLACE, BRADYCARDIC ON MONITOR IN LOW 40S WHILE ASLEEP, UP TO MID 50S WHEN AWAKE. SKIN COLOUR APPROPRIATE FOR ETHNICITY, WARM, DRY. SPO2 IN LOW 90S, O2 INCREASED TO 3.5L. FED BREAKFAST WITH NO ISSUE, NO COMPLAINTS OF PAIN OR SHORTNESS OF BREATH.
[2020-04-27] MEDS: Omeprazole 20 MG CAPSULE.DR PO (09:02)
[2020-04-27] MEDS: 0.9 % Sodium Chloride Flush 3 ML SYRINGE IVFLUSH ×2 (09:02→17:16)
[2020-04-27] MEDS: Carbidopa/Levodopa 25/100 TABLET 1 TAB PO ×4 (09:02→21:03)
[2020-04-27] MEDS: PARoxetine HCL 20 MG TABLET PO (09:02)
--- NOTE | 2020-04-27 11:31 | P.CONCA_ITS ---
History of Present Illness History of Present Illness Date of Service: 04/27/20 Requesting physician: Leonard Casillas Consult reason: shortness of breath and other (Bradycardia) Chief complaint: Covid, hypoxia Narrative: This is the inter professional consult on [facility] for noted bradycardia on the telemetry. Patient presented with progressive shortness of breath and noticed to be have hypoxic respiratory failure suspected to be secondary to COVID pneumonia. He is being admitted to the hospital and on currently cardiac telemetry. Noted to have bradycardia. Reviewed all the strips, all of these strips are consistent with Mobitz type 1 second-degree AV block consistent with AV Wenckebach. There junctional escapes and rare ventricular escape. There is no clear cardiac symptoms reported. Patient has significant oxygen requirement and respiratory distress. History was mostly obtained from the chart. Review of Systems Review of Systems: Yes Unobtainable due to mental condition Constitutional: Constitutional: Reports headache(s) ENT: Reports dizziness and Reports headache(s) Neurologic: Reports system reviewed and no additional complaints, except as documented, Reports as per HPI, Reports dizziness and Reports headache(s) [facility] Past Medical History Medical History DMII (diabetes mellitus, type 2) Dyslipidemia HTN (hypertension) Parkinson disease Family History Family history: reviewed and not pertinent Social History Social History Advance Directives: No Advance Directives Information Provided: No Meds Allergies Allergy/AdvReac Type Severity Reaction Status Date / Time No Known Allergies Allergy Verified 04/22/20 03:28 Home Medications Medication Instructions Recorded Confirmed Type aripiprazole 15 mg tablet 15 mg PO DAILY 01/29/20 04/22/20 History calcium carbonate 600 mg (1,500 1 tab PO BID 01/29/20 History mg)-vitamin D3 400 unit tablet carbidopa 25 mg-levodopa 100 mg 0 tab PO 01/29/20 History tablet gabapentin 300 mg capsule mg PO 01/29/20 History lisinopril 10 mg tablet 10 mg PO DAILY 01/29/20 History metformin 1,000 mg tablet 1,000 mg PO BID 01/29/20 History mirtazapine 15 mg tablet 15 mg PO DAILY 01/29/20 History paroxetine HCl 20 mg tablet 20 mg PO BEDTIME 01/29/20 History simvastatin 20 mg tablet 20 mg PO BEDTIME 01/29/20 History omeprazole 1 cap PO QAM 04/27/20 04/27/20 History Physical Exam Vital Signs: Vital Signs: Last Vital Signs Temp 98.7 F 04/27/20 10:45 Pulse 51 04/27/20 10:45 Resp 27 H 04/27/20 10:45 BP 131/58 L 04/27/20 10:45 Pulse Ox 92 04/27/20 10:45 Body Mass Index 23.8 Exam as per the hospitalist team Results Labs and Meds Result diagrams: 04/26/20 20:14 04/26/20 20:14 Lab results: Laboratory Results - last 24 hr 04/26/20 04/26/20 04/26/20 20:14 20:14 20:14 WBC 8.3 RBC 4.07 L Hgb 12.9 L Hct 37.9 L MCV 93.1 MCH 31.7 MCHC 34.0 RDW 12.6 Plt Count 181 D MPV 10.7 Immature Gran % (Auto) 1.1 H Neut % (Auto) 90.6 H Lymph % (Auto) 6.0 L [place] % (Auto) 2.2 Eos % (Auto) 0.0 Baso % (Auto) 0.1 Lymph # (Auto) 0.5 L [place] # (Auto) 0.2 Eos # (Auto) 0.0 Baso # (Auto) 0.0 Abs Immat Gran (auto) 0.09 H Absolute Neuts (auto) 7.6 Absolute Nucleated RBC 0.000 Nucleated RBC % (auto) 0.0 Smear Tech's Comments VERIFIED PT 12.6 INR 1.1 APTT 32.7 D-Dimer Sodium 140 Potassium 4.5 Chloride 101 Carbon Dioxide 26 Anion Gap 18 BUN 34 H Creatinine 1.29 Estim Creat Clear Calc 39.0 Estimated GFR 53 POC Glucose Random Glucose 211 H Lactic Acid Calcium 8.4 D Total Bilirubin 0.3 AST 41 H ALT 31 Alkaline Phosphatase 58 D Lactate Dehydrogenase Troponin I High Sens C-Reactive Protein B-Natriuretic Peptide Total Protein 6.8 Albumin 3.9 Urine Color Urine Appearance Urine pH Ur Specific [place] Urine Protein Urine Glucose (UA) Urine Ketones Urine Blood Urine Nitrite Ur Leukocyte Esterase Urine RBC Urine WBC Ur Squamous Epith Cells Amorphous Sediment Urine Bacteria Hyaline Casts Granular Casts Urine Mucus 04/26/20 04/26/2021 20:14 22:40 22:41 WBC RBC Hgb Hct MCV MCH MCHC RDW Plt Count MPV Immature Gran % (Auto) Neut % (Auto) Lymph % (Auto) [place] % (Auto) Eos % (Auto) Baso % (Auto) Lymph # (Auto) [place] # (Auto) Eos # (Auto) Baso # (Auto) Abs Immat Gran (auto) Absolute Neuts (auto) Absolute Nucleated RBC Nucleated RBC % (auto) Smear Tech's Comments PT INR APTT D-Dimer Sodium Potassium Chloride Carbon Dioxide Anion Gap BUN Creatinine Estim Creat Clear Calc Estimated GFR POC Glucose Random Glucose Lactic Acid Calcium Total Bilirubin AST ALT Alkaline Phosphatase Lactate Dehydrogenase Troponin I High Sens 9.1 10.1 C-Reactive Protein B-Natriuretic Peptide 88 Total Protein Albumin Urine Color DARK YELLOW Urine Appearance CLEAR Urine pH 5.5 Ur Specific [place] >= 1.030 H Urine Protein 2+ H Urine Glucose (UA) 250 H Urine Ketones 15 Urine Blood 1+ H Urine Nitrite NEG Ur Leukocyte Esterase NEG Urine RBC 0-2 Urine WBC 0-2 Ur Squamous Epith Cells TRACE Amorphous Sediment 3+ Urine Bacteria NONE Hyaline Casts 1-4 Granular Casts 0-2 Urine Mucus TRACE 04/27/20 04/27/20 04/27/20 01:04 06:20 06:20 WBC RBC Hgb Hct MCV MCH MCHC RDW Plt Count MPV Immature Gran % (Auto) Neut % (Auto) Lymph % (Auto) [place] % (Auto) Eos % (Auto) Baso % (Auto) Lymph # (Auto) [place] # (Auto) Eos # (Auto) Baso # (Auto) Abs Immat Gran (auto) Absolute Neuts (auto) Absolute Nucleated RBC Nucleated RBC % (auto) Smear Tech's Comments PT INR APTT D-Dimer 810 Sodium Potassium Chloride Carbon Dioxide Anion Gap BUN Creatinine Estim Creat Clear Calc Estimated GFR POC Glucose Random Glucose Lactic Acid 1.4 Calcium Total Bilirubin AST ALT Alkaline Phosphatase Lactate Dehydrogenase 350 H Troponin I High Sens C-Reactive Protein 16.30 H B-Natriuretic Peptide Total Protein Albumin Urine Color Urine Appearance Urine pH Ur Specific [place] Urine Protein Urine Glucose (UA) Urine Ketones Urine Blood Urine Nitrite Ur Leukocyte Esterase Urine RBC Urine WBC Ur Squamous Epith Cells Amorphous Sediment Urine Bacteria Hyaline Casts Granular Casts Urine Mucus 04/27/20 06:20 WBC RBC Hgb Hct MCV MCH MCHC RDW Plt Count MPV Immature Gran % (Auto) Neut % (Auto) Lymph % (Auto) [place] % (Auto) Eos % (Auto) Baso % (Auto) Lymph # (Auto) [place] # (Auto) Eos # (Auto) Baso # (Auto) Abs Immat Gran (auto) Absolute Neuts (auto) Absolute Nucleated RBC Nucleated RBC % (auto) Smear Tech's Comments PT INR APTT D-Dimer Sodium Potassium Chloride Carbon Dioxide Anion Gap BUN Creatinine Estim Creat Clear Calc Estimated GFR POC Glucose 229 H Random Glucose Lactic Acid Calcium Total Bilirubin AST ALT Alkaline Phosphatase Lactate Dehydrogenase Troponin I High Sens C-Reactive Protein B-Natriuretic Peptide Total Protein Albumin Urine Color Urine Appearance Urine pH Ur Specific [place] Urine Protein Urine Glucose (UA) Urine Ketones Urine Blood Urine Nitrite Ur Leukocyte Esterase Urine RBC Urine WBC Ur Squamous Epith Cells Amorphous Sediment Urine Bacteria Hyaline Casts Granular Casts Urine Mucus Initial EKG shows sinus rhythm with right bundle-branch block EKG this a.m. shows sinus bradycardia with Mobitz type 1 second-degree AV block and right bundle-branch block. Imaging Radiologist's impression: Impressions Chest CTA 04/26/20 21:11 IMPRESSION: No evidence of PE. No evidence of aortic dissection. Diffuse parenchymal lung disease suggestive of infiltrative likely related to Covid disease Small hiatal hernia. Cholelithiasis. VTE: negative Head CT 04/26/20 21:11 IMPRESSION: No acute intracranial process seen Assessment and Plan (1) Bradycardia: Status: Acute Bradycardia related to Mobitz type 1 second-degree AV block, see below. (2) Mobitz (type) I (Wenckebach's) atrioventricular block: Status: Acute Mobitz type 1 second-degree AV block is usually related to AV brittany block. Etiology is unclear. He does have underlying right bundle-branch block. However does not meet the criteria for any pacing at this time given that he is hemodynamically stable. His respiratory failure secondary to COVID pneumonia and not related to heart failure. No active interventions required. Avoid rate lowering medications. (3) Respiratory failure with hypoxia: Status: Acute Hypoxic respiratory failure due to COVID pneumonia. Continue supportive care and treatment as per the protocol. Continue high-flow oxygen therapy. Prognosis is guarded. Will follow the patient for bradycardia.
[2020-04-27 12:50] LABS: Glucose, Whole Blood 221 mg/dL (60-115)
--- NOTE | 2020-04-27 13:19 | PM.EVENT ---
Event Note Date of Service: 04/27/20 Event Note: S Seen and examined this afternoon in the ED sleeping currently d/w the RN - no issues; HR drops to high 30s while asleep and into the 50s when awake; she reports o2 sats dropping during sleep as well O vitals - last documented Gen - sleeping CVS - bradycardic in the 40s on the monitor Lungs - no distress, on 4L; sats 90s A/P 79 yo admitted for covid 19 causing hypoxic resp failure bradycardia with hearblock -- seen by cardiology, felt to be mobitz typ 1 - no indication for PPM; monitor and avoid rate control drugs med rec still incomplete -- resume home meds remainder per H&P done this AM
--- NOTE | 2020-04-27 13:28 | PC.NURSE ---
pt moved to armchair. fluids dc'd as per order.
[2020-04-27 18:12] LABS: Glucose, Whole Blood 216 mg/dL (60-115)
[2020-04-27] MEDS: Mirtazapine 15 MG TABLET PO (21:03)
[2020-04-28] VITALS (7 sets, daily range): BP systolic 138–196; BP diastolic 53–86; PULSE 46–82; RESP 18–26; TEMP 36.4–37; O2SAT 91–97; BMI 30.6
[2020-04-28] MEDS: 0.9 % Sodium Chloride Flush 3 ML SYRINGE IVFLUSH ×4 (00:16→23:50)
[2020-04-28] MEDS: Heparin Sodium,Porcine 5,000 UNIT/ML VIAL 5000 UNIT SUBCUT ×3 (05:20→20:44)
[2020-04-28 06:22] LABS: MANUAL DIFF FLAG NO
[2020-04-28 06:26] LABS: Hematocrit 38.7 % (42-52); Hemoglobin 12.9 g/dl (14.0-18.0); Imm Gran Pct Auto 1.3 % (0.0-0.4); Lymphocytes Absolute Auto 1.1 X10*3/uL (1.2-4.9); Lymphocytes Percent Auto 13.5 % (20-40); Mean Corpuscular HGB Conc 33.3 g/dl (31.0-36.0); Mean Corpuscular Hemoglobin 31.3 pg (27.0-33.0); Mean Corpuscular Volume 93.9 fL (80-98); Mean Platelet Volume 10.2 fL (9.4-12.4); Monocytes Absolute Auto 0.3 X10*3/uL (0.1-1.2); Monocytes Percent Auto 3.9 % (2-11); Neutrophils Absolute Auto 6.4 X10*3/uL (2.0-8.3); Neutrophils Percent Auto 81.3 % (45-73); Platelet Count 226 X10*3/uL (160-400); Red Blood Count 4.12 X10*6/uL (4.60-5.80); Red Cell Distribution Width 12.6 % (11.0-16.0); White Blood Count 7.9 X10*3/uL (4.8-10.8)
[2020-04-28 06:41] LABS: Glucose, Whole Blood 177 mg/dL (60-115)
[2020-04-28 06:41] LABS: Glucose, Whole Blood 187 mg/dL (60-115)
[2020-04-28 06:49] LABS: Anion Gap 15 (12-20); Blood Urea Nitrogen 22 mg/dL (9-16); Calcium 8.3 mg/dL (8.4-10.2); Carbon Dioxide 27 mmol/L (22-29); Chloride 104 mmol/L (96-108); Creatinine Clr Calc Pharmacy 71.1; Estimated Glomerular Filt Rate > 60; Glucose Random 198 mg/dL (60-115); Potassium 4.5 mmol/l (3.3-5.1); Sodium 141 mmol/L (135-145)
[2020-04-28 08:10] LABS: Glucose, Whole Blood 215 mg/dL (60-115)
[2020-04-28] MEDS: Insulin Lispro 100 UNIT/ML 3 ML VIAL SUBCUT ×4 (08:38→20:44)
[2020-04-28] MEDS: Carbidopa/Levodopa 25/100 TABLET 1 TAB PO ×2 (08:39→12:10)
[2020-04-28] MEDS: PARoxetine HCL 20 MG TABLET PO (08:39)
[2020-04-28] MEDS: Omeprazole 20 MG CAPSULE.DR PO (08:39)
--- NOTE | 2020-04-28 10:57 | P.PNCA_ITS ---
Subjective Subjective Date of Service: 04/28/20 Interval history: No relevant cardiac concerns in the last 24 hours. No specific symptoms. Review of Systems Review of Systems Yes all other systems are reviewed and are negative Constitutional: Reports headache(s) Reports dizziness and Reports headache(s) Cardiovascular: Reports as per HPI and Reports no additional cardiovascular complaints Reports system reviewed and no additional complaints, except as documented, Reports as per HPI, Reports dizziness and Reports headache(s) Physical Exam Vital Signs: Last Vital Signs Temp 98.1 F 04/28/20 07:36 Pulse 53 04/28/20 07:36 Resp 20 04/28/20 07:36 BP 170/68 H 04/28/20 07:36 Pulse Ox 93 04/28/20 07:36 Body Mass Index 30.6 Const General: cooperative, comfortable and no acute distress Orientation/consciousness: patient oriented x3 HENMT Other: Unremarkable Neck Neck: Yes normal visual inspection Chest Chest palpation & inspection: normal inspection of the chest Resp Auscultation: clear to auscultation bilaterally, no crackles and no wheezes Cardio Jugular venous distension: no JVD Palpation: normal PMI Heart sounds: S1 normal heart sound present, S2 normal heart sound present, no gallops, no murmurs and no rubs GI Palpation (GI): Soft to palpation Back/Spine/Pelvis Other: unremarkable Skin General skin exam: no rashes or lesions noted Neuro General: patient oriented x3 Extrem General: Yes no clubbing, cyanosis or edema Psych Mental Status: mental status grossly normal Results Labs and Meds Result diagrams: 04/28/20 06:18 04/28/20 06:18 Lab results: Laboratory Results - last 24 hr 04/27/20 04/27/20 04/27/20 07:27 13:45 18:15 WBC RBC Hgb Hct MCV MCH MCHC RDW Plt Count MPV Immature Gran % (Auto) Neut % (Auto) Lymph % (Auto) [place] % (Auto) Eos % (Auto) Baso % (Auto) Lymph # (Auto) [place] # (Auto) Eos # (Auto) Baso # (Auto) Abs Immat Gran (auto) Absolute Neuts (auto) Absolute Nucleated RBC Nucleated RBC % (auto) Sodium Potassium Chloride Carbon Dioxide Anion Gap BUN Creatinine Estim Creat Clear Calc Estimated GFR POC Glucose 221 H 216 H 187 H Random Glucose Calcium 0104/28/20 04/28/20 22:02 06:18 06:18 WBC 7.9 RBC 4.12 L Hgb 12.9 L Hct 38.7 L MCV 93.9 MCH 31.3 MCHC 33.3 RDW 12.6 Plt Count 226 MPV 10.2 Immature Gran % (Auto) 1.3 H Neut % (Auto) 81.3 H Lymph % (Auto) 13.5 L [place] % (Auto) 3.9 Eos % (Auto) 0.0 Baso % (Auto) 0.0 Lymph # (Auto) 1.1 L [place] # (Auto) 0.3 Eos # (Auto) 0.0 Baso # (Auto) 0.0 Abs Immat Gran (auto) 0.10 H Absolute Neuts (auto) 6.4 Absolute Nucleated RBC 0.000 Nucleated RBC % (auto) 0.0 Sodium 141 Potassium 4.5 Chloride 104 Carbon Dioxide 27 Anion Gap 15 BUN 22 H Creatinine 0.81 Estim Creat Clear Calc 71.1 Estimated GFR > 60 POC Glucose 177 H Random Glucose 198 H Calcium 8.3 L 04/28/20 07:34 WBC RBC Hgb Hct MCV MCH MCHC RDW Plt Count MPV Immature Gran % (Auto) Neut % (Auto) Lymph % (Auto) [place] % (Auto) Eos % (Auto) Baso % (Auto) Lymph # (Auto) [place] # (Auto) Eos # (Auto) Baso # (Auto) Abs Immat Gran (auto) Absolute Neuts (auto) Absolute Nucleated RBC Nucleated RBC % (auto) Sodium Potassium Chloride Carbon Dioxide Anion Gap BUN Creatinine Estim Creat Clear Calc Estimated GFR POC Glucose 215 H Random Glucose Calcium Progress Note: A&P Assessment and plan (1) Mobitz (type) I (Wenckebach's) atrioventricular block: Status: Acute (2) Bradycardia: Status: Acute (3) COVID-19: Status: Acute (4) Respiratory failure with hypoxia: Status: Acute Assessment and Plan: Telemetry reveals periods of Wenckebach type second-degree heart block but no evidence of any high-grade heart blocks. This is stable. No specific intervention is required at this time. Avoid rate slowing medications. Fall Risk Details Current Medications: Current Medications Generic Name Dose Route Start Last Admin Trade Name Freq PRN Reason Stop Dose Admin Acetaminophen 650 mg 04/27/20 04:29 Acetaminophen 325 Mg Tablet PO Q6H PRN Pain, Mild (Pain Scale 1-3) Carbidopa/Levodopa 1 tab 04/27/20 09:00 04/28/20 08:39 Carbidopa/Levodopa 25/100 Tablet PO 1 tab QID WILMA Administration Dexamethasone Sodium Phosphate 6 mg 04/28/20 09:05 Dexamethasone Sod Phosphate/Pf 10 Mg/Ml Vial IVPUSH DAILY WILMA Heparin Sodium (Porcine) 5,000 unit 04/27/20 04:30 04/28/20 05:20 Heparin Sodium,Porcine 5,000 Unit/Ml Vial SUBCUT 5,000 unit Q8H WILMA Administration Insulin Human Lispro 0 unit 04/27/20 07:30 04/28/20 08:38 Insulin Lispro 100 Unit/Ml 3 Ml Vial SUBCUT 4 unit QIDACHS WILMA Administration Protocol Lisinopril 10 mg 04/27/20 09:00 04/28/20 08:39 Lisinopril 10 Mg Tablet PO 10 mg DAILY WILMA Administration Protocol Mirtazapine 15 mg 04/27/20 21:00 04/27/20 21:03 Mirtazapine 15 Mg Tablet PO 15 mg BEDTIME WILMA Administration Omeprazole 20 mg 04/27/20 09:00 04/28/20 08:39 Omeprazole 20 Mg Capsule.Dr PO 20 mg DAILY WILMA Administration Paroxetine HCl 20 mg 04/27/20 09:00 04/28/20 08:39 Paroxetine Hcl 20 Mg Tablet PO 20 mg DAILY WILMA Administration Pharmacy Consult 1 each 04/27/20 13:11 Consult Rx Perform Med Rec MISCELLANE ONCE PRN Consult order Sodium Chloride 3 ml 04/27/20 08:00 04/28/20 08:38 0.9 % Sodium Chloride Flush 3 Ml Syringe IVFLUSH 3 ml QSHIFT WILMA Administration Time Spent With Patient Time: Total time spent is greater than 50% in coordination of care (as documented) at patient's floor/unit and/or counseling patient: Time with patient: less than 15 minutes
--- NOTE | 2020-04-28 12:02 | MHC.CM.PN ---
IMM 04/28/2020 Male 79 lives in the same building as his son. His son is hia [employer] thru [employer]. He was independent until recent illness. 2 assist to BR here. PCP Gabbie Hanson. He has daily VNA for medication management. He also has [employer] as mentioned. DP resume existing services vs STR. CM will follow.
[2020-04-28 12:06] LABS: Glucose, Whole Blood 191 mg/dL (60-115)
--- NOTE | 2020-04-28 14:56 | HO.PM.IMPN ---
Subjective Subjective Date of Service: 04/28/20 Interval History: sob Cardiovascular Cardiovascular: Reports no additional cardiovascular complaints Gastrointestinal Gastrointestinal: Reports no additional gastrointestinal complaints Physical Exam Vital Signs: Vital Signs: Last Vital Signs Temp 97.6 F 04/28/20 11:24 Pulse 82 04/28/20 11:24 Resp 18 04/28/20 11:24 BP 138/67 04/28/20 11:24 Pulse Ox 91 L 04/28/20 11:24 Body Mass Index 30.6 General: AO X 3, no acute distress Resp: CTA bilateral CVS: S1,S2,RRR GI: soft, non tender, non distended Neuro: motor grossly intact Psych: appropriate affect Objective Data Current Medications Generic Name Dose Route Start Last Admin Trade Name Freq PRN Reason Stop Dose Admin Acetaminophen 650 mg 04/27/20 04:29 Acetaminophen 325 Mg Tablet PO Q6H PRN Pain, Mild (Pain Scale 1-3) Aripiprazole 15 mg 04/29/20 09:00 Aripiprazole 15 Mg Tablet PO DAILY WILMA Carbidopa/Levodopa 1.5 tab 04/28/20 21:00 Carbidopa/Levodopa 25/100 Tablet PO BEDTIME WILMA Carbidopa/Levodopa 2 tab 04/28/20 17:00 Carbidopa/Levodopa 25/100 Tablet PO BID@0900,1700 WILMA Dexamethasone Sodium Phosphate 6 mg 04/28/20 09:05 04/28/20 12:10 Dexamethasone Sod Phosphate/Pf 10 Mg/Ml Vial IVPUSH 6 mg DAILY WILMA Administration Gabapentin 300 mg 04/28/20 14:53 Gabapentin 300 Mg Capsule PO BID PRN Pain Heparin Sodium (Porcine) 5,000 unit 04/27/20 04:30 04/28/20 12:10 Heparin Sodium,Porcine 5,000 Unit/Ml Vial SUBCUT 5,000 unit Q8H [facility] Administration Insulin Human Lispro 0 unit 04/27/20 07:30 04/28/20 12:10 Insulin Lispro 100 Unit/Ml 3 Ml Vial SUBCUT 2 unit QIDACHS [facility] Administration Protocol Lisinopril 10 mg 04/27/20 09:00 04/28/20 08:39 Lisinopril 10 Mg Tablet PO 10 mg DAILY WILMA Administration Protocol Metformin HCl 1,000 mg 04/28/20 17:00 Metformin Hcl 1,000 Mg Tablet PO BIDWM [facility] Mirtazapine 15 mg 04/27/20 21:00 04/27/20 21:03 Mirtazapine 15 Mg Tablet PO 15 mg BEDTIME WILMA Administration Omeprazole 20 mg 04/27/20 09:00 04/28/20 08:39 Omeprazole 20 Mg Capsule.Dr PO 20 mg DAILY WILMA Administration Paroxetine HCl 20 mg 04/27/20 09:00 04/28/20 08:39 Paroxetine Hcl 20 Mg Tablet PO 20 mg DAILY WILMA Administration Pharmacy Consult 1 each 04/27/20 13:11 Consult Rx Perform Med Rec MISCELLANE ONCE PRN Consult order Sodium Chloride 3 ml 04/27/20 08:00 04/28/20 08:38 0.9 % Sodium Chloride Flush 3 Ml Syringe IVFLUSH 3 ml QSHIFT [facility] Administration Labs CBC & Chem 7: 04/28/20 06:18 04/28/20 06:18 Microbiology Microbiology Results: Microbiology 04/27/20 01:26 Blood - Venous Blood Culture - Preliminary No growth after 24 hours. 04/27/20 01:04 Blood - Venous Blood Culture - Preliminary No growth after 24 hours. Assessment and Plan (1) COVID-19: Status: Acute Assessment and Plan: 79 year old man presenting with ongoing COVID symptoms and new hypoxia. Noted to have diffuse findings on CT angio suggestive of COVID inflammation and also relative lymphpenia on CBC. acute hypoxic respiratory failure due to COVID decadron Parkinson disease Continue Sinemet DM type 2, mild hyperglycemia insulin, metformin HTN Lisinopril. Depression Continue Paxil, Remeron GERD Continue PPI.
--- NOTE | 2020-04-28 16:00 | W.PM.IDCN ---
History of Present Illness Data of Consult Service Date: 04/28/20 Requesting physician: Robert Chamorro Primary Care Provider: Unknown Physician HPI Reason for consult: COVID He presents with weakness He has third degree heart block COVID positive on 04/22 and had symptoms several days before Review of Systems Review of Systems: Yes all other systems are reviewed and are negative Constitutional: Constitutional: Reports headache(s) ENT: Reports dizziness and Reports headache(s) Neurologic: Reports system reviewed and no additional complaints, except as documented, Reports as per HPI, Reports dizziness and Reports headache(s) PMFSH Past Medical History Medical History DMII (diabetes mellitus, type 2) Dyslipidemia HTN (hypertension) Parkinson disease Family History Family history: reviewed and not pertinent Social History Social History Household Members: Children Housing: Apartment Smoking Status: Never smoker service: No Current occupational status: retired [employer] Allergies Allergy/AdvReac Type Severity Reaction Status Date / Time No Known Allergies Allergy Verified 04/22/20 03:28 Home Medications Medication Instructions Recorded Confirmed Type aripiprazole 15 mg tablet 15 mg PO DAILY 01/29/20 04/28/20 History calcium carbonate 600 mg (1,500 1 tab PO BID 01/29/20 04/28/20 History mg)-vitamin D3 400 unit tablet carbidopa 25 mg-levodopa 100 mg 2 tab PO BID@0900,1700 01/29/20 04/28/20 History tablet gabapentin 300 mg capsule 300 mg PO BID PRN 01/29/20 04/28/20 History metformin 1,000 mg tablet 1,000 mg PO BIDWM 01/29/20 04/28/20 History mirtazapine 15 mg tablet 15 mg PO DAILY 01/29/20 04/28/20 History paroxetine HCl 20 mg tablet 20 mg PO BEDTIME 01/29/20 04/28/20 History omeprazole 1 cap PO DAILY@0630 04/27/20 04/28/20 History acetaminophen [Mapap Arthritis 650 mg PO Q8H PRN 04/28/20 04/28/20 History Pain] carbidopa-levodopa 1.5 tab PO BEDTIME 04/28/20 04/28/20 History Physical Exam Vital Signs: Vital Signs: Last Vital Signs Temp 97.9 F 04/28/20 15:30 Pulse 58 04/28/20 15:30 Resp 19 04/28/20 15:30 BP 163/77 H 04/28/20 15:30 Pulse Ox 92 04/28/20 15:30 Body Mass Index 30.6 Const: General: cooperative HENMT: Head: Yes normal to inspection General nose exam: Normal external nose present Face and sinus: Yes dry mucous membranes Resp: Effort & Inspection: normal respiratory effort Cardio: Rate: regular rate Rhythm: regular rhythm GI: Inspection: Yes normal to inspection Skin: General skin exam: no rashes or lesions noted Assessment and Plan (1) Respiratory failure with hypoxia: Problem details: He has long standing COVID He has no benefit of Remdesivir at this point Status: Acute Continue oxygen/supportive care Can use steroids No Remdesivir (2) Mobitz (type) I (Wenckebach's) atrioventricular block: Status: Acute Results Labs CBC & Chem 7: 05/04/20 05:56 05/04/20 05:56 Labs: Short CBC 04/28/20 Range/Units 06:18 WBC 7.9 (4.8-10.8) X10*3/uL Hgb 12.9 L (14.0-18.0) g/dl Hct 38.7 L (42-52) % Plt Count 226 (160-400) X10*3/uL BMP 04/28/20 06:18 Sodium 141 Potassium 4.5 Chloride 104 Carbon Dioxide 27 BUN 22 H Creatinine 0.81 Calcium 8.3 L Microbiology Microbiology Results: Microbiology 04/27/20 01:26 Blood - Venous Blood Culture - Preliminary No growth after 24 hours. 04/27/20 01:04 Blood - Venous Blood Culture - Preliminary No growth after 24 hours.
[2020-04-28 16:35] LABS: Glucose, Whole Blood 225 mg/dL (60-115)
[2020-04-28] MEDS: metFORMIN HCl 1,000 MG TABLET 1000 MG PO (16:42)
[2020-04-28] MEDS: Carbidopa/Levodopa 25/100 TABLET 2 TAB PO (16:43)
[2020-04-28 20:16] LABS: Glucose, Whole Blood 170 mg/dL (60-115)
[2020-04-28] MEDS: Carbidopa/Levodopa 25/100 TABLET 1.5 TAB PO (20:44)
[2020-04-28] MEDS: Mirtazapine 15 MG TABLET PO (20:44)
[2020-04-29] VITALS (7 sets, daily range): BP systolic 118–159; BP diastolic 61–83; PULSE 58–89; RESP 18–19; TEMP 36.3–37; O2SAT 91–94
[2020-04-29] MEDS: Heparin Sodium,Porcine 5,000 UNIT/ML VIAL 5000 UNIT SUBCUT ×3 (03:24→21:52)
[2020-04-29 06:18] LABS: MANUAL DIFF FLAG NO
[2020-04-29 06:20] LABS: Basophils Percent Auto 0.1 % (0-2); Imm Gran Abs Auto 0.09 X10*3/uL (0.00-0.03); Imm Gran Pct Auto 1.3 % (0.0-0.4); Lymphocytes Absolute Auto 0.9 X10*3/uL (1.2-4.9); Lymphocytes Percent Auto 12.5 % (20-40); Mean Corpuscular HGB Conc 33.3 g/dl (31.0-36.0); Mean Corpuscular Volume 92.9 fL (80-98); Mean Platelet Volume 10.4 fL (9.4-12.4); Monocytes Absolute Auto 0.4 X10*3/uL (0.1-1.2); Monocytes Percent Auto 5.1 % (2-11); Neutrophils Absolute Auto 5.6 X10*3/uL (2.0-8.3); Platelet Count 269 X10*3/uL (160-400); Red Cell Distribution Width 12.5 % (11.0-16.0); White Blood Count 6.9 X10*3/uL (4.8-10.8)
[2020-04-29 06:36] LABS: D Dimer 1188 NG/ML
[2020-04-29 06:54] LABS: Anion Gap 18 (12-20); Blood Urea Nitrogen 23 mg/dL (9-16); Calcium 8.2 mg/dL (8.4-10.2); Carbon Dioxide 22 mmol/L (22-29); Chloride 104 mmol/L (96-108); Estimated Glomerular Filt Rate > 60; Glucose Fasting 161 mg/dL (60-99); Potassium 4.6 mmol/l (3.3-5.1); Sodium 139 mmol/L (135-145)
[2020-04-29] MEDS: Insulin Lispro 100 UNIT/ML 3 ML VIAL SUBCUT ×4 (07:48→21:52)
[2020-04-29] MEDS: Omeprazole 20 MG CAPSULE.DR PO (07:55)
[2020-04-29] MEDS: metFORMIN HCl 1,000 MG TABLET 1000 MG PO ×2 (07:55→17:05)
[2020-04-29] MEDS: PARoxetine HCL 20 MG TABLET PO (07:55)
[2020-04-29] MEDS: ARIPiprazole 15 MG TABLET PO (07:55)
[2020-04-29] MEDS: 0.9 % Sodium Chloride Flush 3 ML SYRINGE IVFLUSH ×2 (07:57→14:47)
[2020-04-29 08:03] LABS: Glucose, Whole Blood 178 mg/dL (60-115)
[2020-04-29] MEDS: Carbidopa/Levodopa 25/100 TABLET 2 TAB PO ×2 (08:05→17:05)
[2020-04-29 11:59] LABS: Glucose, Whole Blood 208 mg/dL (60-115)
--- NOTE | 2020-04-29 12:10 | HO.PM.IMPN ---
Subjective Subjective Date of Service: 04/29/20 Interval History: improving Cardiovascular Cardiovascular: Reports no additional cardiovascular complaints Gastrointestinal Gastrointestinal: Reports no additional gastrointestinal complaints Physical Exam Vital Signs: Vital Signs: Last Vital Signs Temp 98.2 F 04/29/20 11:45 Pulse 62 04/29/20 11:45 Resp 18 04/29/20 11:45 BP 118/63 04/29/20 11:45 Pulse Ox 91 L 04/29/20 11:45 Body Mass Index 30.6 General: AO X 3, no acute distress Resp: CTA bilateral CVS: S1,S2,RRR GI: soft, non tender, non distended Neuro: motor grossly intact Psych: appropriate affect Objective Data Current Medications Generic Name Dose Route Start Last Admin Trade Name Freq PRN Reason Stop Dose Admin Acetaminophen 650 mg 04/27/20 04:29 Acetaminophen 325 Mg Tablet PO Q6H PRN Pain, Mild (Pain Scale 1-3) Aripiprazole 15 mg 04/29/20 09:00 04/29/20 07:55 Aripiprazole 15 Mg Tablet PO 15 mg DAILY WILMA Administration Carbidopa/Levodopa 1.5 tab 04/28/20 21:00 04/28/20 20:44 Carbidopa/Levodopa 25/100 Tablet PO 1.5 tab BEDTIME WILMA Administration Carbidopa/Levodopa 2 tab 04/28/20 17:00 04/29/20 08:05 Carbidopa/Levodopa 25/100 Tablet PO 2 tab BID@0900,1700 WILMA Administration Dexamethasone Sodium Phosphate 6 mg 04/28/20 09:05 04/29/20 07:48 Dexamethasone Sod Phosphate/Pf 10 Mg/Ml Vial IVPUSH 6 mg DAILY WILMA Administration Gabapentin 300 mg 04/28/20 14:53 Gabapentin 300 Mg Capsule PO BID PRN Pain Heparin Sodium (Porcine) 5,000 unit 04/27/20 04:30 04/29/20 12:03 Heparin Sodium,Porcine 5,000 Unit/Ml Vial SUBCUT 5,000 unit Q8H WILMA Administration Insulin Human Lispro 0 unit 04/27/20 07:30 04/29/20 12:03 Insulin Lispro 100 Unit/Ml 3 Ml Vial SUBCUT 4 unit QIDACHS WILMA Administration Protocol Lisinopril 10 mg 04/27/20 09:00 04/29/20 07:56 Lisinopril 10 Mg Tablet PO 10 mg DAILY WILMA Administration Protocol Metformin HCl 1,000 mg 04/28/20 17:00 04/29/20 07:55 Metformin Hcl 1,000 Mg Tablet PO 1,000 mg BIDWM WILMA Administration Mirtazapine 15 mg 04/27/20 21:00 04/28/20 20:44 Mirtazapine 15 Mg Tablet PO 15 mg BEDTIME WILMA Administration Omeprazole 20 mg 04/27/20 09:00 04/29/20 07:55 Omeprazole 20 Mg Capsule. PO 20 mg DAILY WILMA Administration Paroxetine HCl 20 mg 04/27/20 09:00 04/29/20 07:55 Paroxetine Hcl 20 Mg Tablet PO 20 mg DAILY WILMA Administration Pharmacy Consult 1 each 04/27/20 13:11 Consult Rx Perform Med Rec MISCELLANE ONCE PRN Consult order Sodium Chloride 3 ml 04/27/20 08:00 04/29/20 07:57 0.9 % Sodium Chloride Flush 3 Ml Syringe IVFLUSH 3 ml QSHIFT WILMA Administration Labs CBC & Chem 7: 04/29/20 05:30 04/29/20 05:30 Microbiology Microbiology Results: Microbiology 04/27/20 01:26 Blood - Venous Blood Culture - Preliminary No growth after 48 hours. 04/27/20 01:04 Blood - Venous Blood Culture - Preliminary No growth after 48 hours. Assessment and Plan (1) Respiratory failure with hypoxia: Problem details: He has long standing COVID He has no benefit of Remdesivir at this point Status: Acute (2) Mobitz (type) I (Wenckebach's) atrioventricular block: Status: Acute (3) COVID-19: Status: Acute Assessment and Plan: 79 year old man presenting with ongoing COVID symptoms and new hypoxia. Noted to have diffuse findings on CT angio suggestive of COVID inflammation and also relative lymphpenia on CBC. acute hypoxic respiratory failure due to COVID decadron day 2 Parkinson disease Continue Sinemet DM type 2, mild hyperglycemia insulin, metformin HTN Lisinopril. Depression Continue Paxil, Remeron GERD Continue PPI.
[2020-04-29 16:56] LABS: Glucose, Whole Blood 195 mg/dL (60-115)
[2020-04-29 20:15] LABS: Glucose, Whole Blood 167 mg/dL (60-115)
[2020-04-29] MEDS: Mirtazapine 15 MG TABLET PO (21:53)
[2020-04-29] MEDS: Carbidopa/Levodopa 25/100 TABLET 1.5 TAB PO (21:53)
[2020-04-30] MEDS: 0.9 % Sodium Chloride Flush 3 ML SYRINGE IVFLUSH ×3 (00:25→15:28)
[2020-04-30 04:00] VITALS: BP 159/63; PULSE 56; RESP 18; TEMP 36.8; O2SAT 91
[2020-04-30] MEDS: Heparin Sodium,Porcine 5,000 UNIT/ML VIAL 5000 UNIT SUBCUT ×3 (04:41→20:43)
[2020-04-30 07:47] LABS: Glucose, Whole Blood 120 mg/dL (60-115)
[2020-04-30 08:00] VITALS: BP 125/64; PULSE 58; RESP 22; TEMP 36.7; O2SAT 90
[2020-04-30] MEDS: Carbidopa/Levodopa 25/100 TABLET 2 TAB PO ×2 (09:41→17:06)
[2020-04-30] MEDS: Omeprazole 20 MG CAPSULE.DR PO (09:41)
[2020-04-30] MEDS: metFORMIN HCl 1,000 MG TABLET 1000 MG PO ×2 (09:41→17:06)
[2020-04-30] MEDS: PARoxetine HCL 20 MG TABLET PO (09:41)
[2020-04-30] MEDS: ARIPiprazole 15 MG TABLET PO (09:41)
[2020-04-30 11:04] VITALS: BP 100/53; PULSE 115; RESP 22; TEMP 36.6; O2SAT 98
[2020-04-30 11:24] LABS: Glucose, Whole Blood 189 mg/dL (60-115)
[2020-04-30] MEDS: Insulin Lispro 100 UNIT/ML 3 ML VIAL SUBCUT ×3 (11:34→20:45)
--- NOTE | 2020-04-30 12:27 | MHC.CM.PN ---
DP will be dependent on Pts recovery. Male 79 DX Covid+. DP return to home with services vs STR. CM will follow.
--- NOTE | 2020-04-30 12:28 | HO.PM.IMPN ---
Subjective Subjective Date of Service: 04/30/20 Interval History: sob Cardiovascular Cardiovascular: Reports no additional cardiovascular complaints Gastrointestinal Gastrointestinal: Reports no additional gastrointestinal complaints Physical Exam Vital Signs: Vital Signs: Last Vital Signs Temp 97.9 F 04/30/20 11:04 Pulse 115 H 04/30/20 11:04 Resp 22 H 04/30/20 11:04 BP 100/53 L 04/30/20 11:04 Pulse Ox 98 04/30/20 11:04 Body Mass Index 30.6 General: AO X 3, no acute distress Resp: CTA bilateral CVS: S1,S2,RRR GI: soft, non tender, non distended Neuro: motor grossly intact Psych: appropriate affect Objective Data Current Medications Generic Name Dose Route Start Last Admin Trade Name Freq PRN Reason Stop Dose Admin Acetaminophen 650 mg 04/27/20 04:29 Acetaminophen 325 Mg Tablet PO Q6H PRN Pain, Mild (Pain Scale 1-3) Aripiprazole 15 mg 04/29/20 09:00 04/30/20 09:41 Aripiprazole 15 Mg Tablet PO 15 mg DAILY WILMA Administration Carbidopa/Levodopa 1.5 tab 04/28/20 21:00 04/29/20 21:53 Carbidopa/Levodopa 25/100 Tablet PO 1.5 tab BEDTIME WILMA Administration Carbidopa/Levodopa 2 tab 04/28/20 17:00 04/30/20 09:41 Carbidopa/Levodopa 25/100 Tablet PO 2 tab BID@0900,1700 WILMA Administration Dexamethasone Sodium Phosphate 6 mg 04/28/20 09:05 04/30/20 09:41 Dexamethasone Sod Phosphate/Pf 10 Mg/Ml Vial IVPUSH 6 mg DAILY WILMA Administration Gabapentin 300 mg 04/28/20 14:53 Gabapentin 300 Mg Capsule PO BID PRN Pain Heparin Sodium (Porcine) 5,000 unit 04/27/20 04:30 04/30/20 04:41 Heparin Sodium,Porcine 5,000 Unit/Ml Vial SUBCUT 5,000 unit Q8H WILMA Administration Insulin Human Lispro 0 unit 04/27/20 07:30 04/30/20 11:34 Insulin Lispro 100 Unit/Ml 3 Ml Vial SUBCUT 2 unit QIDACHS WILMA Administration Protocol Lisinopril 10 mg 04/27/20 09:00 04/30/20 09:41 Lisinopril 10 Mg Tablet PO 10 mg DAILY WILMA Administration Protocol Metformin HCl 1,000 mg 04/28/20 17:00 04/30/20 09:41 Metformin Hcl 1,000 Mg Tablet PO 1,000 mg BIDWM WILMA Administration Mirtazapine 15 mg 04/27/20 21:00 04/29/20 21:53 Mirtazapine 15 Mg Tablet PO 15 mg BEDTIME WILMA Administration Omeprazole 20 mg 04/27/20 09:00 04/30/20 09:41 Omeprazole 20 Mg Capsule.Dr PO 20 mg DAILY WILMA Administration Paroxetine HCl 20 mg 04/27/20 09:00 04/30/20 09:41 Paroxetine Hcl 20 Mg Tablet PO 20 mg DAILY WILMA Administration Pharmacy Consult 1 each 04/27/20 13:11 Consult Rx Perform Med Rec MISCELLANE ONCE PRN Consult order Sodium Chloride 3 ml 04/27/20 08:00 04/30/20 09:40 0.9 % Sodium Chloride Flush 3 Ml Syringe IVFLUSH 3 ml QSHIFT WILMA Administration Labs CBC & Chem 7: 04/29/20 05:30 04/29/20 05:30 Microbiology Microbiology Results: Microbiology 04/27/20 01:26 Blood - Venous Blood Culture - Preliminary No growth after 48 hours. 04/27/20 01:04 Blood - Venous Blood Culture - Preliminary No growth after 48 hours. Assessment and Plan (1) Respiratory failure with hypoxia: Problem details: He has long standing COVID He has no benefit of Remdesivir at this point Status: Acute (2) Mobitz (type) I (Wenckebach's) atrioventricular block: Status: Acute (3) COVID-19: Status: Acute Assessment and Plan: 79 year old man presenting with ongoing COVID symptoms and new hypoxia. acute hypoxic respiratory failure due to COVID decadron day 3 Parkinson disease Continue Sinemet DM type 2, mild hyperglycemia insulin, metformin HTN Lisinopril. Depression Continue Paxil, Remeron GERD Continue PPI.
[2020-04-30 16:00] VITALS: BP 136/65; PULSE 56; RESP 18; TEMP 36.3; O2SAT 91
[2020-04-30 17:13] LABS: Glucose, Whole Blood 194 mg/dL (60-115)
[2020-04-30] MEDS: Acetaminophen 325 MG TABLET 650 MG PO (18:51)
[2020-04-30] MEDS: Gabapentin 300 MG CAPSULE PO (18:51)
[2020-04-30 19:30] VITALS: BP 148/67; PULSE 64; RESP 19; TEMP 36.3; O2SAT 91
[2020-04-30] MEDS: Carbidopa/Levodopa 25/100 TABLET 1.5 TAB PO (20:42)
[2020-04-30] MEDS: Mirtazapine 15 MG TABLET PO (20:42)
[2020-04-30 20:46] LABS: Glucose, Whole Blood 181 mg/dL (60-115)
[2020-04-30 23:48] VITALS: BP 145/69; PULSE 56; RESP 18; TEMP 37; O2SAT 92
[2020-05-01] VITALS (12 sets, daily range): BP systolic 116–170; BP diastolic 58–84; PULSE 33–70; RESP 18–20; TEMP 36.3–37.1; O2SAT 89–92; BMI 30.9
--- NOTE | 2020-05-01 | ECG_ITS ---
Test Reason : woodrow Blood Pressure : / mmHG Vent. Rate : 053 BPM Atrial Rate : 053 BPM P-R Int : 198 ms QRS Dur : 128 ms QT Int : 446 ms P-R-T Axes : 038 001 -05 degrees QTc Int : 418 ms Sinus bradycardia Right bundle branch block cannot exclude old Septal infarct , age undetermined Nonspecific ST and T wave abnormality Abnormal ECG When compared to the previous EKG of 27 apr 2020, no significant changes Referred By: Ghazal Multani Electronically Signed By:FREDY VALDEZ
[2020-05-01] MEDS: 0.9 % Sodium Chloride Flush 3 ML SYRINGE IVFLUSH ×4 (00:23→23:37)
--- NOTE | 2020-05-01 00:40 | PC.NURSE ---
Addendum entered by Natacha Jerez RN 05/01/20 01:59: gave the order for the 0.5mg atropine after EKG was given. HR went up to 60-70s for a bit, its been about 1.5hr since pt HR remaining 40-50s at this time. will cont to monitor pt and telemetry Original Note: pt woodrow most of evening when asleep 40s - approx 0030am pt dropped to 35 and then 33HR BP 145/69 - woke pt up - asymptomatic but can be poor historian at [facility]. contacted - new order to EKG and atropine
[2020-05-01] MEDS: Atropine Sulfate 1 MG/10 ML SYRINGE 0.5 MG IVPUSH (00:57)
[2020-05-01] MEDS: Heparin Sodium,Porcine 5,000 UNIT/ML VIAL 5000 UNIT SUBCUT ×3 (03:59→20:10)
--- NOTE | 2020-05-01 04:29 | PM.EVENT ---
Event Note Date of Service: 05/01/20 Event Note: pt Bradycardic with HR is the low 30s while asleep. Asymptomatic. received one dose of atropine. EKG shows sinus woodrow.
[2020-05-01] MEDS: ARIPiprazole 15 MG TABLET PO (07:34)
[2020-05-01] MEDS: PARoxetine HCL 20 MG TABLET PO (07:34)
[2020-05-01] MEDS: Carbidopa/Levodopa 25/100 TABLET 2 TAB PO ×2 (07:35→16:09)
[2020-05-01] MEDS: Omeprazole 20 MG CAPSULE.DR PO (07:35)
[2020-05-01] MEDS: metFORMIN HCl 1,000 MG TABLET 1000 MG PO ×2 (07:35→16:09)
[2020-05-01 07:36] LABS: Glucose, Whole Blood 123 mg/dL (60-115)
--- NOTE | 2020-05-01 10:05 | P.PNIM_ITS ---
Subjective Subjective Date of Service: 05/01/20 Interval History: no complaints, asking to go home Cardiovascular Cardiovascular: Reports no additional cardiovascular complaints Gastrointestinal Gastrointestinal: Reports no additional gastrointestinal complaints Physical Exam Vital Signs: Vital Signs: Last Vital Signs Temp 98.1 F 05/01/20 07:50 Pulse 56 05/01/20 07:50 Resp 20 05/01/20 07:50 BP 170/76 H 05/01/20 07:50 Pulse Ox 91 L 05/01/20 07:50 Body Mass Index 30.9 General: AO X 3, no acute distress Resp: CTA bilateral CVS: S1,S2,RRR GI: soft, non tender, non distended Neuro: motor grossly intact Psych: appropriate affect Objective Data Current Medications Generic Name Dose Route Start Last Admin Trade Name Freq PRN Reason Stop Dose Admin Acetaminophen 650 mg 04/27/20 04:29 04/30/20 18:51 Acetaminophen 325 Mg Tablet PO 650 mg Q6H PRN Administration Pain, Mild (Pain Scale 1-3) Aripiprazole 15 mg 04/29/20 09:00 05/01/20 07:34 Aripiprazole 15 Mg Tablet PO 15 mg DAILY WILMA Administration Carbidopa/Levodopa 1.5 tab 04/28/20 21:00 04/30/20 20:42 Carbidopa/Levodopa 25/100 Tablet PO 1.5 tab BEDTIME WILMA Administration Carbidopa/Levodopa 2 tab 04/28/20 17:00 05/01/20 07:35 Carbidopa/Levodopa 25/100 Tablet PO 2 tab BID@0900,1700 WILMA Administration Dexamethasone Sodium Phosphate 6 mg 04/28/20 09:05 05/01/20 07:34 Dexamethasone Sod Phosphate/Pf 10 Mg/Ml Vial IVPUSH 6 mg DAILY WILMA Administration Gabapentin 300 mg 04/28/20 14:53 04/30/20 18:51 Gabapentin 300 Mg Capsule PO 300 mg BID PRN Administration Pain Heparin Sodium (Porcine) 5,000 unit 04/27/20 04:30 05/01/20 03:59 Heparin Sodium,Porcine 5,000 Unit/Ml Vial SUBCUT 5,000 unit Q8H WILMA Administration Insulin Human Lispro 0 unit 04/27/20 07:30 05/01/20 07:34 Insulin Lispro 100 Unit/Ml 3 Ml Vial SUBCUT Not Given QIDACHS [facility] Protocol Lisinopril 10 mg 04/27/20 09:00 05/01/20 07:35 Lisinopril 10 Mg Tablet PO 10 mg DAILY WILMA Administration Protocol Metformin HCl 1,000 mg 04/28/20 17:00 05/01/20 07:35 Metformin Hcl 1,000 Mg Tablet PO 1,000 mg BIDWM WILMA Administration Mirtazapine 15 mg 04/27/20 21:00 04/30/20 20:42 Mirtazapine 15 Mg Tablet PO 15 mg BEDTIME WILMA Administration Omeprazole 20 mg 04/27/20 09:00 05/01/20 07:35 Omeprazole 20 Mg Capsule. PO 20 mg DAILY WILMA Administration Paroxetine HCl 20 mg 04/27/20 09:00 05/01/20 07:34 Paroxetine Hcl 20 Mg Tablet PO 20 mg DAILY WILMA Administration Pharmacy Consult 1 each 04/27/20 13:11 Consult Rx Perform Med Rec MISCELLANE ONCE PRN Consult order Sodium Chloride 3 ml 04/27/20 08:00 05/01/20 07:34 0.9 % Sodium Chloride Flush 3 Ml Syringe IVFLUSH 3 ml QSHIFT WILMA Administration Labs CBC & Chem 7: 04/29/20 05:30 04/29/20 05:30 Microbiology Microbiology Results: Microbiology 04/27/20 01:26 Blood - Venous Blood Culture - Preliminary No growth after 48 hours. 04/27/20 01:04 Blood - Venous Blood Culture - Preliminary No growth after 48 hours. Assessment and Plan (1) Respiratory failure with hypoxia: Problem details: He has long standing COVID He has no benefit of Remdesivir at this point Status: Acute (2) Mobitz (type) I (Wenckebach's) atrioventricular block: Status: Acute (3) COVID-19: Status: Acute Assessment and Plan: 79 year old man presenting with ongoing COVID symptoms and new hypoxia. acute hypoxic respiratory failure due to COVID decadron day 4 Mobitz type I asymptomatic no need for pacer, avoid chronotropes Parkinson disease Continue Sinemet DM type 2, mild hyperglycemia insulin, metformin HTN Lisinopril. Depression Continue Paxil, Remeron GERD Continue PPI.
[2020-05-01 11:47] LABS: Glucose, Whole Blood 173 mg/dL (60-115)
[2020-05-01] MEDS: Insulin Lispro 100 UNIT/ML 3 ML VIAL SUBCUT ×2 (11:56→16:10)
[2020-05-01 16:05] LABS: Glucose, Whole Blood 185 mg/dL (60-115)
[2020-05-01 20:04] LABS: Glucose, Whole Blood 137 mg/dL (60-115)
[2020-05-01] MEDS: Carbidopa/Levodopa 25/100 TABLET 1.5 TAB PO (20:09)
[2020-05-01] MEDS: Mirtazapine 15 MG TABLET PO (20:09)
[2020-05-02 03:51] VITALS: BP 139/65; PULSE 65; RESP 18; TEMP 36.8; O2SAT 92
[2020-05-02] MEDS: Heparin Sodium,Porcine 5,000 UNIT/ML VIAL 5000 UNIT SUBCUT ×3 (04:30→21:33)
--- NOTE | 2020-05-02 06:15 | PC.NURSE ---
CARE ASSUMED 23:15...RESTFUL/NAPPING OVERNIGHT..EASILY AROUSED..VERY HARD OF HEARING...VAGUE AT TIME...MONITOR S.POLA WITH FREQUENTS RUNS MOBITZ 1...VENTRICULAR RATE 40'S-50'S..ASYMPTOMATIC WHEN AWAKENED...RESPIRATIONS EASY ON 3 L/M NASAL CANNULA..
[2020-05-02 07:10] LABS: Hematocrit 40.1 % (42-52); Hemoglobin 13.6 g/dl (14.0-18.0); Mean Corpuscular HGB Conc 33.9 g/dl (31.0-36.0); Mean Corpuscular Hemoglobin 31.5 pg (27.0-33.0); Mean Corpuscular Volume 92.8 fL (80-98); Mean Platelet Volume 10.3 fL (9.4-12.4); Platelet Count 291 X10*3/uL (160-400); Red Blood Count 4.32 X10*6/uL (4.60-5.80); Red Cell Distribution Width 12.4 % (11.0-16.0); White Blood Count 9.2 X10*3/uL (4.8-10.8)
[2020-05-02 07:39] LABS: D Dimer 1434 NG/ML
[2020-05-02 07:41] LABS: Anion Gap 14 (12-20); Blood Urea Nitrogen 30 mg/dL (9-16); C Reactive Protein 3.65 mg/dL (< or = 0.50); Calcium 8.6 mg/dL (8.4-10.2); Carbon Dioxide 25 mmol/L (22-29); Chloride 104 mmol/L (96-108); Creatinine Clr Calc Pharmacy 69.7; Estimated Glomerular Filt Rate > 60; Glucose Fasting 123 mg/dL (60-99); Potassium 4.3 mmol/l (3.3-5.1); Sodium 139 mmol/L (135-145)
[2020-05-02 07:59] LABS: Glucose, Whole Blood 133 mg/dL (60-115)
[2020-05-02 08:00] VITALS: BP 135/60; PULSE 56; RESP 20; TEMP 36.3; O2SAT 89
[2020-05-02] MEDS: Carbidopa/Levodopa 25/100 TABLET 2 TAB PO ×2 (09:01→16:52)
[2020-05-02] MEDS: Omeprazole 20 MG CAPSULE.DR PO (09:01)
[2020-05-02] MEDS: metFORMIN HCl 1,000 MG TABLET 1000 MG PO ×2 (09:01→16:52)
[2020-05-02] MEDS: ARIPiprazole 15 MG TABLET PO (09:01)
[2020-05-02] MEDS: 0.9 % Sodium Chloride Flush 3 ML SYRINGE IVFLUSH ×3 (09:01→21:31)
[2020-05-02 10:10] LABS: Atypical Lymph Absolute Manual 0.2 x10*3/uL; Atypical Lymphs Percent Manual 2 % (0-6); Band Neutrophils Percent 1 % (3-5); Lymphocytes Percent Manual 11 % (20-40); Metamyelocytes Absolute 0.1 X10*3/uL; Metamyelocytes Percent 1 %; Monocytes Absolute Manual 0.2 X10*3/uL (0.0-1.2); Monocytes Percent Manual 2 % (2-11); Myelocytes Absolute 0.1 X10*/uL; Myelocytes Percent 1 %; Neutrophils Absolute Manual 7.6 X10*3/uL (2.2-7.9); Neutrophils Percent Manual 82 % (45-73)
[2020-05-02 10:11] LABS: Acanthocytes 1+; Platelet Estimate NORMAL (NORMAL); Platelet Morphology Comment NORMAL; RBC Morphology NOTED
[2020-05-02] MEDS: PARoxetine HCL 20 MG TABLET PO (10:24)
[2020-05-02 11:52] LABS: Glucose, Whole Blood 193 mg/dL (60-115)
--- NOTE | 2020-05-02 12:02 | HO.PM.IMPN ---
Subjective Subjective Date of Service: 05/02/20 Interval History: stable despite hypoxia Cardiovascular Cardiovascular: Reports no additional cardiovascular complaints Gastrointestinal Gastrointestinal: Reports no additional gastrointestinal complaints Physical Exam Vital Signs: Vital Signs: Last Vital Signs Temp 97.4 F 05/02/20 08:00 Pulse 56 05/02/20 08:00 Resp 20 05/02/20 08:00 BP 135/60 05/02/20 08:00 Pulse Ox 89 L 05/02/20 08:00 Body Mass Index 30.9 General: AO X 3, no acute distress Resp: CTA bilateral CVS: S1,S2,RRR GI: soft, non tender, non distended Neuro: motor grossly intact Psych: appropriate affect Objective Data Current Medications Generic Name Dose Route Start Last Admin Trade Name Freq PRN Reason Stop Dose Admin Acetaminophen 650 mg 04/27/20 04:29 04/30/20 18:51 Acetaminophen 325 Mg Tablet PO 650 mg Q6H PRN Administration Pain, Mild (Pain Scale 1-3) Aripiprazole 15 mg 04/29/20 09:00 05/02/20 09:01 Aripiprazole 15 Mg Tablet PO 15 mg DAILY WILMA Administration Carbidopa/Levodopa 1.5 tab 04/28/20 21:00 05/01/20 20:09 Carbidopa/Levodopa 25/100 Tablet PO 1.5 tab BEDTIME WILMA Administration Carbidopa/Levodopa 2 tab 04/28/20 17:00 05/02/20 09:01 Carbidopa/Levodopa 25/100 Tablet PO 2 tab BID@0900,1700 WILMA Administration Dexamethasone Sodium Phosphate 6 mg 04/28/20 09:05 05/02/20 09:02 Dexamethasone Sod Phosphate/Pf 10 Mg/Ml Vial IVPUSH 6 mg DAILY WILMA Administration Gabapentin 300 mg 04/28/20 14:53 04/30/20 18:51 Gabapentin 300 Mg Capsule PO 300 mg BID PRN Administration Pain Heparin Sodium (Porcine) 5,000 unit 04/27/20 04:30 05/02/20 04:30 Heparin Sodium,Porcine 5,000 Unit/Ml Vial SUBCUT 5,000 unit Q8H WILMA Administration Insulin Human Lispro 0 unit 04/27/20 07:30 05/02/20 08:58 Insulin Lispro 100 Unit/Ml 3 Ml Vial SUBCUT Not Given QIDACHS [facility] Protocol Lisinopril 10 mg 04/27/20 09:00 05/02/20 09:02 Lisinopril 10 Mg Tablet PO 10 mg DAILY WILMA Administration Protocol Metformin HCl 1,000 mg 04/28/20 17:00 05/02/20 09:01 Metformin Hcl 1,000 Mg Tablet PO 1,000 mg BIDWM WILMA Administration Mirtazapine 15 mg 04/27/20 21:00 05/01/20 20:09 Mirtazapine 15 Mg Tablet PO 15 mg BEDTIME WILMA Administration Omeprazole 20 mg 04/27/20 09:00 05/02/20 09:01 Omeprazole 20 Mg Capsule. PO 20 mg DAILY WILMA Administration Paroxetine HCl 20 mg 04/27/20 09:00 05/02/20 10:24 Paroxetine Hcl 20 Mg Tablet PO 20 mg DAILY WILMA Administration Pharmacy Consult 1 each 04/27/20 13:11 Consult Rx Perform Med Rec MISCELLANE ONCE PRN Consult order Sodium Chloride 3 ml 04/27/20 08:00 05/02/20 09:01 0.9 % Sodium Chloride Flush 3 Ml Syringe IVFLUSH 3 ml QSHIFT WILMA Administration Labs CBC & Chem 7: 05/02/20 06:18 05/02/20 06:18 Microbiology Microbiology Results: Microbiology 04/27/20 01:26 Blood - Venous Blood Culture - Final No growth after 5 days. 04/27/20 01:04 Blood - Venous Blood Culture - Final No growth after 5 days. Assessment and Plan (1) Respiratory failure with hypoxia: Problem details: He has long standing COVID He has no benefit of Remdesivir at this point Status: Acute (2) Mobitz (type) I (Wenckebach's) atrioventricular block: Status: Acute (3) COVID-19: Status: Acute Assessment and Plan: 79 year old man presenting with ongoing COVID symptoms and new hypoxia. acute hypoxic respiratory failure due to COVID decadron day 5 appears relatively asymptomatic, but requiring increasing levels of o2, porbably has not peaked yet, conitnue to monitor Mobitz type I asymptomatic no need for pacer, avoid chronotropes Parkinson disease Continue Sinemet DM type 2, mild hyperglycemia insulin, metformin HTN Lisinopril. Depression Continue Paxil, Remeron GERD Continue PPI.
[2020-05-02 12:17] VITALS: BP 122/59; PULSE 62; RESP 18; TEMP 37; O2SAT 92
[2020-05-02] MEDS: Insulin Lispro 100 UNIT/ML 3 ML VIAL SUBCUT ×2 (12:37→16:52)
--- NOTE | 2020-05-02 13:42 | MHC.CM.PN ---
DP Home with resumption of [facility] is 1st choice. Likely the Pt will require STR. CM will follow to address dc needs. He will need a home O2 eval prior to DC.
[2020-05-02 15:39] VITALS: BP 100/58; PULSE 69; RESP 18; TEMP 36.6; O2SAT 96
[2020-05-02 16:36] LABS: Glucose, Whole Blood 193 mg/dL (60-115)
[2020-05-02 16:47] LABS: Glucose, Whole Blood 190 mg/dL (60-115)
[2020-05-02 19:27] VITALS: BP 105/62; PULSE 63; RESP 18; TEMP 36.5; O2SAT 94
[2020-05-02 20:42] LABS: Glucose, Whole Blood 124 mg/dL (60-115)
[2020-05-02] MEDS: Carbidopa/Levodopa 25/100 TABLET 1.5 TAB PO (21:30)
[2020-05-02] MEDS: Mirtazapine 15 MG TABLET PO (21:30)
[2020-05-03] VITALS: BP 124/58; PULSE 111; RESP 16; TEMP 36.7; O2SAT 98
[2020-05-03 03:18] VITALS: BP 155/69; PULSE 53; RESP 18; TEMP 36.5; O2SAT 94
[2020-05-03] MEDS: Heparin Sodium,Porcine 5,000 UNIT/ML VIAL 5000 UNIT SUBCUT ×3 (04:28→20:21)
--- NOTE | 2020-05-03 04:42 | PC.NURSE ---
pt hr 30's ? complete heart block on tele, pt sleeping easily a rousable, no signs of distress offers no complaints, MD made aware. no new orders at this time.
[2020-05-03 07:27] LABS: Glucose, Whole Blood 110 mg/dL (60-115)
[2020-05-03 07:50] VITALS: BP 120/57; PULSE 81; RESP 18; TEMP 36.2; O2SAT 91
[2020-05-03] MEDS: 0.9 % Sodium Chloride Flush 3 ML SYRINGE IVFLUSH ×3 (10:45→20:22)
[2020-05-03] MEDS: metFORMIN HCl 1,000 MG TABLET 1000 MG PO ×2 (10:45→18:09)
[2020-05-03] MEDS: ARIPiprazole 15 MG TABLET PO (10:46)
[2020-05-03] MEDS: PARoxetine HCL 20 MG TABLET PO (10:46)
[2020-05-03] MEDS: Carbidopa/Levodopa 25/100 TABLET 2 TAB PO ×2 (10:46→18:10)
[2020-05-03] MEDS: Omeprazole 20 MG CAPSULE.DR PO (10:46)
[2020-05-03 11:41] LABS: Glucose, Whole Blood 224 mg/dL (60-115)
[2020-05-03 12:00] VITALS: BP 129/58; PULSE 71; RESP 18; TEMP 36.9; O2SAT 90
--- NOTE | 2020-05-03 12:12 | HO.PM.IMPN ---
Subjective Subjective Date of Service: 05/03/20 Interval History: no complaints Cardiovascular Cardiovascular: Reports no additional cardiovascular complaints Gastrointestinal Gastrointestinal: Reports no additional gastrointestinal complaints Physical Exam Vital Signs: Vital Signs: Last Vital Signs Temp 97.2 F 05/03/20 07:50 Pulse 81 05/03/20 07:50 Resp 18 05/03/20 07:50 BP 120/57 L 05/03/20 07:50 Pulse Ox 91 L 05/03/20 07:50 Body Mass Index 30.9 General: AO X 3, no acute distress Resp: CTA bilateral CVS: S1,S2,RRR GI: soft, non tender, non distended Neuro: motor grossly intact Psych: appropriate affect Objective Data Current Medications Generic Name Dose Route Start Last Admin Trade Name Freq PRN Reason Stop Dose Admin Acetaminophen 650 mg 04/27/20 04:29 04/30/20 18:51 Acetaminophen 325 Mg Tablet PO 650 mg Q6H PRN Administration Pain, Mild (Pain Scale 1-3) Aripiprazole 15 mg 04/29/20 09:00 05/03/20 10:46 Aripiprazole 15 Mg Tablet PO 15 mg DAILY WILMA Administration Carbidopa/Levodopa 1.5 tab 04/28/20 21:00 05/02/20 21:30 Carbidopa/Levodopa 25/100 Tablet PO 1.5 tab BEDTIME WILMA Administration Carbidopa/Levodopa 2 tab 04/28/20 17:00 05/03/20 10:46 Carbidopa/Levodopa 25/100 Tablet PO 2 tab BID@0900,1700 WILMA Administration Dexamethasone Sodium Phosphate 6 mg 04/28/20 09:05 05/03/20 10:45 Dexamethasone Sod Phosphate/Pf 10 Mg/Ml Vial IVPUSH 6 mg DAILY WILMA Administration Gabapentin 300 mg 04/28/20 14:53 04/30/20 18:51 Gabapentin 300 Mg Capsule PO 300 mg BID PRN Administration Pain Heparin Sodium (Porcine) 5,000 unit 04/27/20 04:30 05/03/20 10:46 Heparin Sodium,Porcine 5,000 Unit/Ml Vial SUBCUT 5,000 unit Q8H WILMA Administration Insulin Human Lispro 0 unit 04/27/20 07:30 05/03/20 07:30 Insulin Lispro 100 Unit/Ml 3 Ml Vial SUBCUT Not Given QIDACHS [facility] Protocol Lisinopril 10 mg 04/27/20 09:00 05/03/20 10:46 Lisinopril 10 Mg Tablet PO 10 mg DAILY WILMA Administration Protocol Metformin HCl 1,000 mg 04/28/20 17:00 05/03/20 10:45 Metformin Hcl 1,000 Mg Tablet PO 1,000 mg BIDWM WILMA Administration Mirtazapine 15 mg 04/27/20 21:00 05/02/20 21:30 Mirtazapine 15 Mg Tablet PO 15 mg BEDTIME WILMA Administration Omeprazole 20 mg 04/27/20 09:00 05/03/20 10:46 Omeprazole 20 Mg Capsule.Dr PO 20 mg DAILY WILMA Administration Paroxetine HCl 20 mg 04/27/20 09:00 05/03/20 10:46 Paroxetine Hcl 20 Mg Tablet PO 20 mg DAILY WILMA Administration Pharmacy Consult 1 each 04/27/20 13:11 Consult Rx Perform Med Rec MISCELLANE ONCE PRN Consult order Sodium Chloride 3 ml 04/27/20 08:00 05/03/20 10:45 0.9 % Sodium Chloride Flush 3 Ml Syringe IVFLUSH 3 ml QSHIFT WILMA Administration Labs CBC & Chem 7: 05/02/20 06:18 05/02/20 06:18 Microbiology Microbiology Results: Microbiology 04/27/20 01:26 Blood - Venous Blood Culture - Final No growth after 5 days. 04/27/20 01:04 Blood - Venous Blood Culture - Final No growth after 5 days. Assessment and Plan (1) Respiratory failure with hypoxia: Problem details: He has long standing COVID He has no benefit of Remdesivir at this point Status: Acute (2) Mobitz (type) I (Wenckebach's) atrioventricular block: Status: Acute (3) COVID-19: Status: Acute Assessment and Plan: 79 year old man presenting with ongoing COVID symptoms and new hypoxia. there was documented concern over possible complete heart block overnight acute hypoxic respiratory failure due to COVID decadron day 6 appears relatively asymptomatic, but requiring increasing levels of o2, porbably has not peaked yet, conitnue to monitor Mobitz type I asymptomatic no need for pacer, avoid chronotropes the documented events that were concern for complete heart block were reviewed with cardiology, there was no evidence of complete heart block. there were clearly conducted sinus complexes during these events. this was continuation of Mobitz 1 with transient 2:1 conduction. asymptomatic, no indication for intervention. patient is mostly in NSR while awake. Parkinson disease Continue Sinemet DM type 2, mild hyperglycemia insulin, metformin HTN Lisinopril. Depression Continue Paxil, Remeron GERD Continue PPI.
[2020-05-03] MEDS: Insulin Lispro 100 UNIT/ML 3 ML VIAL SUBCUT ×2 (13:05→18:09)
[2020-05-03 15:26] VITALS: BP 102/53; PULSE 70; RESP 19; TEMP 36; O2SAT 92
[2020-05-03 16:21] LABS: Glucose, Whole Blood 192 mg/dL (60-115)
[2020-05-03 19:33] VITALS: BP 104/64; PULSE 78; RESP 19; TEMP 36.4; O2SAT 96
[2020-05-03 20:07] LABS: Glucose, Whole Blood 143 mg/dL (60-115)
[2020-05-03] MEDS: Mirtazapine 15 MG TABLET PO (20:21)
[2020-05-03] MEDS: Carbidopa/Levodopa 25/100 TABLET 1.5 TAB PO (20:21)
[2020-05-04] VITALS (8 sets, daily range): BP systolic 97–126; BP diastolic 47–78; PULSE 40–95; RESP 18–20; TEMP 36.3–37.2; O2SAT 92–96; BMI 30.3
[2020-05-04] MEDS: Heparin Sodium,Porcine 5,000 UNIT/ML VIAL 5000 UNIT SUBCUT ×3 (04:42→22:03)
[2020-05-04 07:09] LABS: D Dimer 928 NG/ML
[2020-05-04 07:14] LABS: Hematocrit 40.4 % (42-52); Hemoglobin 13.5 g/dl (14.0-18.0); Mean Corpuscular HGB Conc 33.4 g/dl (31.0-36.0); Mean Corpuscular Volume 92.9 fL (80-98); Mean Platelet Volume 10.6 fL (9.4-12.4); Platelet Count 257 X10*3/uL (160-400); Red Blood Count 4.35 X10*6/uL (4.60-5.80); Red Cell Distribution Width 12.4 % (11.0-16.0); White Blood Count 7.1 X10*3/uL (4.8-10.8)
[2020-05-04 07:26] LABS: Anion Gap 14 (12-20); Blood Urea Nitrogen 25 mg/dL (9-16); Calcium 8.4 mg/dL (8.4-10.2); Carbon Dioxide 27 mmol/L (22-29); Chloride 103 mmol/L (96-108); Creatinine Clr Calc Pharmacy 72.5; Estimated Glomerular Filt Rate > 60; Glucose Fasting 138 mg/dL (60-99); Potassium 4.3 mmol/l (3.3-5.1); Sodium 140 mmol/L (135-145)
[2020-05-04 07:44] LABS: Glucose, Whole Blood 128 mg/dL (60-115)
[2020-05-04 08:22] LABS: Band Neutrophils Percent 0 % (3-5); Burr Cells 1+; Eosinophils Absolute Manual 0.1 X10*3/UL (0.0-0.8); Eosinophils Percent Manual 1 % (0-4); Lymphocytes Absolute Manual 0.4 X10*3/uL (0.6-4.8); Lymphocytes Percent Manual 6 % (20-40); Metamyelocytes Absolute 0.1 X10*3/uL; Metamyelocytes Percent 1 %; Monocytes Absolute Manual 0.1 X10*3/uL (0.0-1.2); Monocytes Percent Manual 1 % (2-11); Neutrophils Absolute Manual 6.5 X10*3/uL (2.2-7.9); Neutrophils Percent Manual 91 % (45-73); Platelet Estimate NORMAL (NORMAL); Platelet Morphology Comment NORMAL; Polychromasia 1+; RBC Morphology NOTED
[2020-05-04] MEDS: 0.9 % Sodium Chloride Flush 3 ML SYRINGE IVFLUSH ×2 (08:46→17:24)
[2020-05-04] MEDS: Omeprazole 20 MG CAPSULE.DR PO (08:47)
[2020-05-04] MEDS: ARIPiprazole 15 MG TABLET PO (08:47)
[2020-05-04] MEDS: PARoxetine HCL 20 MG TABLET PO (08:47)
[2020-05-04] MEDS: Carbidopa/Levodopa 25/100 TABLET 2 TAB PO ×2 (08:47→17:24)
[2020-05-04] MEDS: metFORMIN HCl 1,000 MG TABLET 1000 MG PO ×2 (08:48→17:24)
--- NOTE | 2020-05-04 11:18 | P.PNIM_ITS ---
Subjective Subjective Date of Service: 05/04/20 Interval History: feels well Cardiovascular Cardiovascular: Reports no additional cardiovascular complaints Gastrointestinal Gastrointestinal: Reports no additional gastrointestinal complaints Physical Exam Vital Signs: Vital Signs: Last Vital Signs Temp 97.8 F 05/04/20 08:00 Pulse 59 05/04/20 08:54 Resp 20 05/04/20 08:00 BP 97/47 L 05/04/20 08:54 Pulse Ox 96 05/04/20 08:00 Body Mass Index 30.3 General: AO X 3, no acute distress Resp: CTA bilateral CVS: S1,S2,RRR GI: soft, non tender, non distended Neuro: motor grossly intact Psych: appropriate affect Objective Data Current Medications Generic Name Dose Route Start Last Admin Trade Name Freq PRN Reason Stop Dose Admin Acetaminophen 650 mg 04/27/20 04:29 04/30/20 18:51 Acetaminophen 325 Mg Tablet PO 650 mg Q6H PRN Administration Pain, Mild (Pain Scale 1-3) Aripiprazole 15 mg 04/29/20 09:00 05/04/20 08:47 Aripiprazole 15 Mg Tablet PO 15 mg DAILY WILMA Administration Carbidopa/Levodopa 1.5 tab 04/28/20 21:00 05/03/20 20:21 Carbidopa/Levodopa 25/100 Tablet PO 1.5 tab BEDTIME WILMA Administration Carbidopa/Levodopa 2 tab 04/28/20 17:00 05/04/20 08:47 Carbidopa/Levodopa 25/100 Tablet PO 2 tab BID@0900,1700 WILMA Administration Dexamethasone Sodium Phosphate 6 mg 04/28/20 09:05 05/04/20 08:47 Dexamethasone Sod Phosphate/Pf 10 Mg/Ml Vial IVPUSH 6 mg DAILY WILMA Administration Gabapentin 300 mg 04/28/20 14:53 04/30/20 18:51 Gabapentin 300 Mg Capsule PO 300 mg BID PRN Administration Pain Heparin Sodium (Porcine) 5,000 unit 04/27/20 04:30 05/04/20 04:42 Heparin Sodium,Porcine 5,000 Unit/Ml Vial SUBCUT 5,000 unit Q8H WILMA Administration Insulin Human Lispro 0 unit 04/27/20 07:30 05/04/20 08:46 Insulin Lispro 100 Unit/Ml 3 Ml Vial SUBCUT Not Given [facility] Protocol Lisinopril 10 mg 04/27/20 09:00 05/04/20 08:54 Lisinopril 10 Mg Tablet PO Not Given DAILY WILMA Protocol Metformin HCl 1,000 mg 04/28/20 17:00 05/04/20 08:48 Metformin Hcl 1,000 Mg Tablet PO 1,000 mg BIDWM WILMA Administration Mirtazapine 15 mg 04/27/20 21:00 05/03/20 20:21 Mirtazapine 15 Mg Tablet PO 15 mg BEDTIME WILMA Administration Omeprazole 20 mg 04/27/20 09:00 05/04/20 08:47 Omeprazole 20 Mg Capsule. PO 20 mg DAILY WILMA Administration Paroxetine HCl 20 mg 04/27/20 09:00 05/04/20 08:47 Paroxetine Hcl 20 Mg Tablet PO 20 mg DAILY WILMA Administration Pharmacy Consult 1 each 04/27/20 13:11 Consult Rx Perform Med Rec MISCELLANE ONCE PRN Consult order Sodium Chloride 3 ml 04/27/20 08:00 05/04/20 08:46 0.9 % Sodium Chloride Flush 3 Ml Syringe IVFLUSH 3 ml QSHIFT WILMA Administration Labs CBC & Chem 7: 05/04/20 05:56 05/04/20 05:56 Microbiology Microbiology Results: Microbiology 04/27/20 01:26 Blood - Venous Blood Culture - Final No growth after 5 days. 04/27/20 01:04 Blood - Venous Blood Culture - Final No growth after 5 days. Assessment and Plan (1) Respiratory failure with hypoxia: Problem details: He has long standing COVID He has no benefit of Remdesivir at this point Status: Acute (2) Mobitz (type) I (Wenckebach's) atrioventricular block: Status: Acute (3) COVID-19: Status: Acute Assessment and Plan: 79 year old man presenting with ongoing COVID symptoms and new hypoxia. there was documented concern over possible complete heart block overnight 05/02- acute hypoxic respiratory failure due to COVID decadron day 7 appears relatively asymptomatic inflammatory markers starting to go down, once off o2 will dc home Mobitz type I asymptomatic no need for pacer, avoid chronotropes the documented events that were concern for complete heart block were reviewed with cardiology, there was no evidence of complete heart block. there were clearly conducted sinus complexes during these events. this was continuation of Mobitz 1 with transient 2:1 conduction. asymptomatic, no indication for intervention. patient is mostly in NSR while awake. Parkinson disease Continue Sinemet DM type 2, mild hyperglycemia insulin, metformin HTN Lisinopril. Depression Continue Paxil, Remeron GERD Continue PPI.
[2020-05-04 11:40] LABS: Glucose, Whole Blood 266 mg/dL (60-115)
[2020-05-04] MEDS: Insulin Lispro 100 UNIT/ML 3 ML VIAL SUBCUT ×2 (11:58→17:23)
[2020-05-04 16:47] LABS: Glucose, Whole Blood 207 mg/dL (60-115)
[2020-05-04 20:38] LABS: Glucose, Whole Blood 134 mg/dL (60-115)
[2020-05-04] MEDS: Carbidopa/Levodopa 25/100 TABLET 1.5 TAB PO (22:04)
[2020-05-04] MEDS: Mirtazapine 15 MG TABLET PO (22:04)
[2020-05-05 03:18] VITALS: BP 123/56; PULSE 72; RESP 18; TEMP 36.9; O2SAT 92
[2020-05-05] MEDS: Heparin Sodium,Porcine 5,000 UNIT/ML VIAL 5000 UNIT SUBCUT ×2 (06:23→11:58)
[2020-05-05 07:51] LABS: Glucose, Whole Blood 144 mg/dL (60-115)
[2020-05-05 08:00] VITALS: BP 116/68; PULSE 76; RESP 19; TEMP 36.3; O2SAT 87
[2020-05-05] MEDS: 0.9 % Sodium Chloride Flush 3 ML SYRINGE IVFLUSH (08:44)
[2020-05-05] MEDS: ARIPiprazole 15 MG TABLET PO (08:45)
[2020-05-05] MEDS: Carbidopa/Levodopa 25/100 TABLET 2 TAB PO (08:45)
[2020-05-05] MEDS: metFORMIN HCl 1,000 MG TABLET 1000 MG PO (08:45)
[2020-05-05] MEDS: Omeprazole 20 MG CAPSULE.DR PO (08:45)
[2020-05-05] MEDS: PARoxetine HCL 20 MG TABLET PO (08:45)
--- NOTE | 2020-05-05 11:47 | P.DS_ITS ---
DS: Providers Provider Date of Service: 05/05/20 Date of admission: 04/27/20 04:29 Primary care physician: Unknown Physician Consults: 04/27/20 04:37 Consult to Infectious Diseases Routine Consulting Provider: Lolly Baumann Reason for consultation: Remdesivir for COVID Has provider been notified: No 04/27/20 07:17 Consult to Cardiology Stat Consulting Provider: Jagjit Suresh Reason for consultation: bradycardia Has provider been notified: No DS: Diagnosis Discharge Diagnosis (1) Respiratory failure with hypoxia: Status: Acute Problem details: He has long standing COVID He has no benefit of Remdesivir at this point (2) Mobitz (type) I (Wenckebach's) atrioventricular block: Status: Acute (3) COVID-19: Status: Acute DS: Medications Discharge Medications Home Medications: Home Medications Medication Instructions Recorded Confirmed aripiprazole 15 mg tablet 15 mg PO DAILY 01/29/20 04/28/20 calcium carbonate 600 mg (1,500 1 tab PO BID 01/29/20 04/28/20 mg)-vitamin D3 400 unit tablet carbidopa 25 mg-levodopa 100 mg 2 tab PO BID@0900,1700 01/29/20 04/28/20 tablet gabapentin 300 mg capsule 300 mg PO BID PRN 01/29/20 04/28/20 metformin 1,000 mg tablet 1,000 mg PO BIDWM 01/29/20 04/28/20 mirtazapine 15 mg tablet 15 mg PO DAILY 01/29/20 04/28/20 paroxetine HCl 20 mg tablet 20 mg PO BEDTIME 01/29/20 04/28/20 omeprazole 1 cap PO DAILY@0630 04/27/20 04/28/20 acetaminophen [Mapap Arthritis 650 mg PO Q8H PRN 04/28/20 04/28/20 Pain] carbidopa-levodopa 1.5 tab PO BEDTIME 04/28/20 04/28/20 DS: Summary Hospital Course Hospital Course: Patient was admitted for acute hypoxic respiratory failure secondary to COVID pneumonia. He was treated with IV Decadron and O2 supplement. Throughout admission patient was relatively asymptomatic despite a hypoxia. He was able to be weaned down to 2 L of oxygen. His inflammatory markers of significantly improved. He appears to have already peaked and is eager to get home. He will be sent home with home O2 and PT. Patient was also noted to have Mobitz type 1 second-degree heart block. He was evaluated by Cardiology, given that he is asymptomatic, and heart rate improved appropriately on exertion. No need for any further intervention. He should avoid any chronotropic medications. Time Spent with Patient Time attestation: Total time spent providing and/or coordinating discharge services: Discharge coordination time: Greater than 30 minutes Physical Exam Vital Signs: Vital Signs: Last Vital Signs Temp 97.4 F 05/05/20 08:00 Pulse 76 05/05/20 08:00 Resp 19 05/05/20 08:00 BP 116/68 05/05/20 08:00 Pulse Ox 87 L 05/05/20 08:00 Body Mass Index 30.3 General: AO X 3, no acute distress Resp: CTA bilateral CVS: S1,S2,RRR GI: soft, non tender, non distended Neuro: motor grossly intact Psych: appropriate affect DS: Data Data Completed and Pending Labs on day of discharge: Laboratory Tests 04/26/20 04/26/20 04/26/20 20:14 20:14 20:14 WBC 8.3 RBC 4.07 L Hgb 12.9 L Hct 37.9 L MCV 93.1 MCH 31.7 MCHC 34.0 RDW 12.6 Plt Count 181 D MPV 10.7 Immature Gran % (Auto) 1.1 H Neut % (Auto) 90.6 H Lymph % (Auto) 6.0 L [place] % (Auto) 2.2 Eos % (Auto) 0.0 Baso % (Auto) 0.1 Lymph # (Auto) 0.5 L [place] # (Auto) 0.2 Eos # (Auto) 0.0 Baso # (Auto) 0.0 Abs Immat Gran (auto) 0.09 H Absolute Neuts (auto) 7.6 Absolute Nucleated RBC 0.000 Nucleated RBC % (auto) 0.0 Neutrophils % (Manual) Band Neutrophils % Lymphocytes % (Manual) Atypical Lymphs % (Man) Monocytes % (Manual) Eosinophils % (Manual) Metamyelocytes % Myelocytes % Abs Neuts (Manual) Lymphocytes # (Manual) Atyp Lymphs # (Manual) Monocytes # (Manual) Eosinophils # (Manual) Metamyelocytes # Myelocytes # Platelet Estimate Plt Morphology Comment RBC Morphology Polychromasia David Cells Acanthocytes (Spur) Smear Tech's Comments VERIFIED PT 12.6 INR 1.1 APTT 32.7 D-Dimer Sodium 140 Potassium 4.5 Chloride 101 Carbon Dioxide 26 Anion Gap 18 BUN 34 H Creatinine 1.29 Estim Creat Clear Calc 39.0 Estimated GFR 53 POC Glucose Random Glucose 211 H Fasting Glucose Lactic Acid Calcium 8.4 D Total Bilirubin 0.3 AST 41 H ALT 31 Alkaline Phosphatase 58 D Lactate Dehydrogenase Troponin I High Sens C-Reactive Protein B-Natriuretic Peptide Total Protein 6.8 Albumin 3.9 Urine Color Urine Appearance Urine pH Ur Specific [place] Urine Protein Urine Glucose (UA) Urine Ketones Urine Blood Urine Nitrite Ur Leukocyte Esterase Urine RBC Urine WBC Ur Squamous Epith Cells Amorphous Sediment Urine Bacteria Hyaline Casts Granular Casts Urine Mucus 04/26/20 04/26/20 04/26/20 20:14 22:40 22:41 WBC RBC Hgb Hct MCV MCH MCHC RDW Plt Count MPV Immature Gran % (Auto) Neut % (Auto) Lymph % (Auto) [place] % (Auto) Eos % (Auto) Baso % (Auto) Lymph # (Auto) [place] # (Auto) Eos # (Auto) Baso # (Auto) Abs Immat Gran (auto) Absolute Neuts (auto) Absolute Nucleated RBC Nucleated RBC % (auto) Neutrophils % (Manual) Band Neutrophils % Lymphocytes % (Manual) Atypical Lymphs % (Man) Monocytes % (Manual) Eosinophils % (Manual) Metamyelocytes % Myelocytes % Abs Neuts (Manual) Lymphocytes # (Manual) Atyp Lymphs # (Manual) Monocytes # (Manual) Eosinophils # (Manual) Metamyelocytes # Myelocytes # Platelet Estimate Plt Morphology Comment RBC Morphology Polychromasia David Cells Acanthocytes (Spur) Smear Tech's Comments PT INR APTT D-Dimer Sodium Potassium Chloride Carbon Dioxide Anion Gap BUN Creatinine Estim Creat Clear Calc Estimated GFR POC Glucose Random Glucose Fasting Glucose Lactic Acid Calcium Total Bilirubin AST ALT Alkaline Phosphatase Lactate Dehydrogenase Troponin I High Sens 9.1 10.1 C-Reactive Protein B-Natriuretic Peptide 88 Total Protein Albumin Urine Color DARK YELLOW Urine Appearance CLEAR Urine pH 5.5 Ur Specific [place] >= 1.030 H Urine Protein 2+ H Urine Glucose (UA) 250 H Urine Ketones 15 Urine Blood 1+ H Urine Nitrite NEG Ur Leukocyte Esterase NEG Urine RBC 0-2 Urine WBC 0-2 Ur Squamous Epith Cells TRACE Amorphous Sediment 3+ Urine Bacteria NONE Hyaline Casts 1-4 Granular Casts 0-2 Urine Mucus TRACE 04/27/20 04/27/20 04/27/20 01:04 06:20 06:20 WBC RBC Hgb Hct MCV MCH MCHC RDW Plt Count MPV Immature Gran % (Auto) Neut % (Auto) Lymph % (Auto) [place] % (Auto) Eos % (Auto) Baso % (Auto) Lymph # (Auto) [place] # (Auto) Eos # (Auto) Baso # (Auto) Abs Immat Gran (auto) Absolute Neuts (auto) Absolute Nucleated RBC Nucleated RBC % (auto) Neutrophils % (Manual) Band Neutrophils % Lymphocytes % (Manual) Atypical Lymphs % (Man) Monocytes % (Manual) Eosinophils % (Manual) Metamyelocytes % Myelocytes % Abs Neuts (Manual) Lymphocytes # (Manual) Atyp Lymphs # (Manual) Monocytes # (Manual) Eosinophils # (Manual) Metamyelocytes # Myelocytes # Platelet Estimate Plt Morphology Comment RBC Morphology Polychromasia David Cells Acanthocytes (Spur) Smear Tech's Comments PT INR APTT D-Dimer 810 Sodium Potassium Chloride Carbon Dioxide Anion Gap BUN Creatinine Estim Creat Clear Calc Estimated GFR POC Glucose Random Glucose Fasting Glucose Lactic Acid 1.4 Calcium Total Bilirubin AST ALT Alkaline Phosphatase Lactate Dehydrogenase 350 H Troponin I High Sens C-Reactive Protein 16.30 H B-Natriuretic Peptide Total Protein Albumin Urine Color Urine Appearance Urine pH Ur Specific [place] Urine Protein Urine Glucose (UA) Urine Ketones Urine Blood Urine Nitrite Ur Leukocyte Esterase Urine RBC Urine WBC Ur Squamous Epith Cells Amorphous Sediment Urine Bacteria Hyaline Casts Granular Casts Urine Mucus 04/27/20 04/27/20 04/27/20 06:20 07:27 13:45 WBC RBC Hgb Hct MCV MCH MCHC RDW Plt Count MPV Immature Gran % (Auto) Neut % (Auto) Lymph % (Auto) [place] % (Auto) Eos % (Auto) Baso % (Auto) Lymph # (Auto) [place] # (Auto) Eos # (Auto) Baso # (Auto) Abs Immat Gran (auto) Absolute Neuts (auto) Absolute Nucleated RBC Nucleated RBC % (auto) Neutrophils % (Manual) Band Neutrophils % Lymphocytes % (Manual) Atypical Lymphs % (Man) Monocytes % (Manual) Eosinophils % (Manual) Metamyelocytes % Myelocytes % Abs Neuts (Manual) Lymphocytes # (Manual) Atyp Lymphs # (Manual) Monocytes # (Manual) Eosinophils # (Manual) Metamyelocytes # Myelocytes # Platelet Estimate Plt Morphology Comment RBC Morphology Polychromasia David Cells Acanthocytes (Spur) Smear Tech's Comments PT INR APTT D-Dimer Sodium Potassium Chloride Carbon Dioxide Anion Gap BUN Creatinine Estim Creat Clear Calc Estimated GFR POC Glucose 229 H 221 H 216 H Random Glucose Fasting Glucose Lactic Acid Calcium Total Bilirubin AST ALT Alkaline Phosphatase Lactate Dehydrogenase Troponin I High Sens C-Reactive Protein B-Natriuretic Peptide Total Protein Albumin Urine Color Urine Appearance Urine pH Ur Specific [place] Urine Protein Urine Glucose (UA) Urine Ketones Urine Blood Urine Nitrite Ur Leukocyte Esterase Urine RBC Urine WBC Ur Squamous Epith Cells Amorphous Sediment Urine Bacteria Hyaline Casts Granular Casts Urine Mucus 04/27/20 04/27/20 04/28/20 18:15 22:02 06:18 WBC 7.9 RBC 4.12 L Hgb 12.9 L Hct 38.7 L MCV 93.9 MCH 31.3 MCHC 33.3 RDW 12.6 Plt Count 226 MPV 10.2 Immature Gran % (Auto) 1.3 H Neut % (Auto) 81.3 H Lymph % (Auto) 13.5 L [place] % (Auto) 3.9 Eos % (Auto) 0.0 Baso % (Auto) 0.0 Lymph # (Auto) 1.1 L [place] # (Auto) 0.3 Eos # (Auto) 0.0 Baso # (Auto) 0.0 Abs Immat Gran (auto) 0.10 H Absolute Neuts (auto) 6.4 Absolute Nucleated RBC 0.000 Nucleated RBC % (auto) 0.0 Neutrophils % (Manual) Band Neutrophils % Lymphocytes % (Manual) Atypical Lymphs % (Man) Monocytes % (Manual) Eosinophils % (Manual) Metamyelocytes % Myelocytes % Abs Neuts (Manual) Lymphocytes # (Manual) Atyp Lymphs # (Manual) Monocytes # (Manual) Eosinophils # (Manual) Metamyelocytes # Myelocytes # Platelet Estimate Plt Morphology Comment RBC Morphology Polychromasia David Cells Acanthocytes (Spur) Smear Tech's Comments PT INR APTT D-Dimer Sodium Potassium Chloride Carbon Dioxide Anion Gap BUN Creatinine Estim Creat Clear Calc Estimated GFR POC Glucose 187 H 177 H Random Glucose Fasting Glucose Lactic Acid Calcium Total Bilirubin AST ALT Alkaline Phosphatase Lactate Dehydrogenase Troponin I High Sens C-Reactive Protein B-Natriuretic Peptide Total Protein Albumin Urine Color Urine Appearance Urine pH Ur Specific [place] Urine Protein Urine Glucose (UA) Urine Ketones Urine Blood Urine Nitrite Ur Leukocyte Esterase Urine RBC Urine WBC Ur Squamous Epith Cells Amorphous Sediment Urine Bacteria Hyaline Casts Granular Casts Urine Mucus 04/28/20 04/28/20 04/28/20 06:18 07:34 11:19 WBC RBC Hgb Hct MCV MCH MCHC RDW Plt Count MPV Immature Gran % (Auto) Neut % (Auto) Lymph % (Auto) [place] % (Auto) Eos % (Auto) Baso % (Auto) Lymph # (Auto) [place] # (Auto) Eos # (Auto) Baso # (Auto) Abs Immat Gran (auto) Absolute Neuts (auto) Absolute Nucleated RBC Nucleated RBC % (auto) Neutrophils % (Manual) Band Neutrophils % Lymphocytes % (Manual) Atypical Lymphs % (Man) Monocytes % (Manual) Eosinophils % (Manual) Metamyelocytes % Myelocytes % Abs Neuts (Manual) Lymphocytes # (Manual) Atyp Lymphs # (Manual) Monocytes # (Manual) Eosinophils # (Manual) Metamyelocytes # Myelocytes # Platelet Estimate Plt Morphology Comment RBC Morphology Polychromasia [place] Cells Acanthocytes (Spur) Smear Tech's Comments PT INR APTT D-Dimer Sodium 141 Potassium 4.5 Chloride 104 Carbon Dioxide 27 Anion Gap 15 BUN 22 H Creatinine 0.81 Estim Creat Clear Calc 71.1 Estimated GFR > 60 POC Glucose 215 H 191 H Random Glucose 198 H Fasting Glucose Lactic Acid Calcium 8.3 L Total Bilirubin AST ALT Alkaline Phosphatase Lactate Dehydrogenase Troponin I High Sens C-Reactive Protein B-Natriuretic Peptide Total Protein Albumin Urine Color Urine Appearance Urine pH Ur Specific [place] Urine Protein Urine Glucose (UA) Urine Ketones Urine Blood Urine Nitrite Ur Leukocyte Esterase Urine RBC Urine WBC Ur Squamous Epith Cells Amorphous Sediment Urine Bacteria Hyaline Casts Granular Casts Urine Mucus 04/28/20 04/28/20 04/29/20 16:24 20:02 05:30 WBC 6.9 RBC 4.20 L Hgb 13.0 L Hct 39.0 L MCV 92.9 MCH 31.0 MCHC 33.3 RDW 12.5 Plt Count 269 MPV 10.4 Immature Gran % (Auto) 1.3 H Neut % (Auto) 81.0 H Lymph % (Auto) 12.5 L [place] % (Auto) 5.1 Eos % (Auto) 0.0 Baso % (Auto) 0.1 Lymph # (Auto) 0.9 L [place] # (Auto) 0.4 Eos # (Auto) 0.0 Baso # (Auto) 0.0 Abs Immat Gran (auto) 0.09 H Absolute Neuts (auto) 5.6 Absolute Nucleated RBC 0.000 Nucleated RBC % (auto) 0.0 Neutrophils % (Manual) Band Neutrophils % Lymphocytes % (Manual) Atypical Lymphs % (Man) Monocytes % (Manual) Eosinophils % (Manual) Metamyelocytes % Myelocytes % Abs Neuts (Manual) Lymphocytes # (Manual) Atyp Lymphs # (Manual) Monocytes # (Manual) Eosinophils # (Manual) Metamyelocytes # Myelocytes # Platelet Estimate Plt Morphology Comment RBC Morphology Polychromasia David Cells Acanthocytes (Spur) Smear Tech's Comments PT INR APTT D-Dimer Sodium Potassium Chloride Carbon Dioxide Anion Gap BUN Creatinine Estim Creat Clear Calc Estimated GFR POC Glucose 225 H 170 H Random Glucose Fasting Glucose Lactic Acid Calcium Total Bilirubin AST ALT Alkaline Phosphatase Lactate Dehydrogenase Troponin I High Sens C-Reactive Protein B-Natriuretic Peptide Total Protein Albumin Urine Color Urine Appearance Urine pH Ur Specific [place] Urine Protein Urine Glucose (UA) Urine Ketones Urine Blood Urine Nitrite Ur Leukocyte Esterase Urine RBC Urine WBC Ur Squamous Epith Cells Amorphous Sediment Urine Bacteria Hyaline Casts Granular Casts Urine Mucus 04/29/20 04/29/20 04/29/20 05:30 05:30 07:33 WBC RBC Hgb Hct MCV MCH MCHC RDW Plt Count MPV Immature Gran % (Auto) Neut % (Auto) Lymph % (Auto) [place] % (Auto) Eos % (Auto) Baso % (Auto) Lymph # (Auto) [place] # (Auto) Eos # (Auto) Baso # (Auto) Abs Immat Gran (auto) Absolute Neuts (auto) Absolute Nucleated RBC Nucleated RBC % (auto) Neutrophils % (Manual) Band Neutrophils % Lymphocytes % (Manual) Atypical Lymphs % (Man) Monocytes % (Manual) Eosinophils % (Manual) Metamyelocytes % Myelocytes % Abs Neuts (Manual) Lymphocytes # (Manual) Atyp Lymphs # (Manual) Monocytes # (Manual) Eosinophils # (Manual) Metamyelocytes # Myelocytes # Platelet Estimate Plt Morphology Comment RBC Morphology Polychromasia David Cells Acanthocytes (Spur) Smear Tech's Comments PT INR APTT D-Dimer 1188 Sodium 139 Potassium 4.6 Chloride 104 Carbon Dioxide 22 Anion Gap 18 BUN 23 H Creatinine 0.80 Estim Creat Clear Calc 72.0 Estimated GFR > 60 POC Glucose 178 H Random Glucose Fasting Glucose 161 H Lactic Acid Calcium 8.2 L Total Bilirubin AST ALT Alkaline Phosphatase Lactate Dehydrogenase Troponin I High Sens C-Reactive Protein B-Natriuretic Peptide Total Protein Albumin Urine Color Urine Appearance Urine pH Ur Specific [place] Urine Protein Urine Glucose (UA) Urine Ketones Urine Blood Urine Nitrite Ur Leukocyte Esterase Urine RBC Urine WBC Ur Squamous Epith Cells Amorphous Sediment Urine Bacteria Hyaline Casts Granular Casts Urine Mucus 04/29/20 04/29/20 04/29/20 11:56 16:39 20:03 WBC RBC Hgb Hct MCV MCH MCHC RDW Plt Count MPV Immature Gran % (Auto) Neut % (Auto) Lymph % (Auto) [place] % (Auto) Eos % (Auto) Baso % (Auto) Lymph # (Auto) [place] # (Auto) Eos # (Auto) Baso # (Auto) Abs Immat Gran (auto) Absolute Neuts (auto) Absolute Nucleated RBC Nucleated RBC % (auto) Neutrophils % (Manual) Band Neutrophils % Lymphocytes % (Manual) Atypical Lymphs % (Man) Monocytes % (Manual) Eosinophils % (Manual) Metamyelocytes % Myelocytes % Abs Neuts (Manual) Lymphocytes # (Manual) Atyp Lymphs # (Manual) Monocytes # (Manual) Eosinophils # (Manual) Metamyelocytes # Myelocytes # Platelet Estimate Plt Morphology Comment RBC Morphology Polychromasia David Cells Acanthocytes (Spur) Smear Tech's Comments PT INR APTT D-Dimer Sodium Potassium Chloride Carbon Dioxide Anion Gap BUN Creatinine Estim Creat Clear Calc Estimated GFR POC Glucose 208 H 195 H 167 H Random Glucose Fasting Glucose Lactic Acid Calcium Total Bilirubin AST ALT Alkaline Phosphatase Lactate Dehydrogenase Troponin I High Sens C-Reactive Protein B-Natriuretic Peptide Total Protein Albumin Urine Color Urine Appearance Urine pH Ur Specific [place] Urine Protein Urine Glucose (UA) Urine Ketones Urine Blood Urine Nitrite Ur Leukocyte Esterase Urine RBC Urine WBC Ur Squamous Epith Cells Amorphous Sediment Urine Bacteria Hyaline Casts Granular Casts Urine Mucus 04/30/20 04/30/20 04/30/20 07:20 11:15 16:06 WBC RBC Hgb Hct MCV MCH MCHC RDW Plt Count MPV Immature Gran % (Auto) Neut % (Auto) Lymph % (Auto) [place] % (Auto) Eos % (Auto) Baso % (Auto) Lymph # (Auto) [place] # (Auto) Eos # (Auto) Baso # (Auto) Abs Immat Gran (auto) Absolute Neuts (auto) Absolute Nucleated RBC Nucleated RBC % (auto) Neutrophils % (Manual) Band Neutrophils % Lymphocytes % (Manual) Atypical Lymphs % (Man) Monocytes % (Manual) Eosinophils % (Manual) Metamyelocytes % Myelocytes % Abs Neuts (Manual) Lymphocytes # (Manual) Atyp Lymphs # (Manual) Monocytes # (Manual) Eosinophils # (Manual) Metamyelocytes # Myelocytes # Platelet Estimate Plt Morphology Comment RBC Morphology Polychromasia [place] Cells Acanthocytes (Spur) Smear Tech's Comments PT INR APTT D-Dimer Sodium Potassium Chloride Carbon Dioxide Anion Gap BUN Creatinine Estim Creat Clear Calc Estimated GFR POC Glucose 120 H 189 H 194 H Random Glucose Fasting Glucose Lactic Acid Calcium Total Bilirubin AST ALT Alkaline Phosphatase Lactate Dehydrogenase Troponin I High Sens C-Reactive Protein B-Natriuretic Peptide Total Protein Albumin Urine Color Urine Appearance Urine pH Ur Specific [place] Urine Protein Urine Glucose (UA) Urine Ketones Urine Blood Urine Nitrite Ur Leukocyte Esterase Urine RBC Urine WBC Ur Squamous Epith Cells Amorphous Sediment Urine Bacteria Hyaline Casts Granular Casts Urine Mucus 04/30/20 05/01/20 05/01/20 19:33 07:24 11:32 WBC RBC Hgb Hct MCV MCH MCHC RDW Plt Count MPV Immature Gran % (Auto) Neut % (Auto) Lymph % (Auto) [place] % (Auto) Eos % (Auto) Baso % (Auto) Lymph # (Auto) [place] # (Auto) Eos # (Auto) Baso # (Auto) Abs Immat Gran (auto) Absolute Neuts (auto) Absolute Nucleated RBC Nucleated RBC % (auto) Neutrophils % (Manual) Band Neutrophils % Lymphocytes % (Manual) Atypical Lymphs % (Man) Monocytes % (Manual) Eosinophils % (Manual) Metamyelocytes % Myelocytes % Abs Neuts (Manual) Lymphocytes # (Manual) Atyp Lymphs # (Manual) Monocytes # (Manual) Eosinophils # (Manual) Metamyelocytes # Myelocytes # Platelet Estimate Plt Morphology Comment RBC Morphology Polychromasia David Cells Acanthocytes (Spur) Smear Tech's Comments PT INR APTT D-Dimer Sodium Potassium Chloride Carbon Dioxide Anion Gap BUN Creatinine Estim Creat Clear Calc Estimated GFR POC Glucose 181 H 123 H 173 H Random Glucose Fasting Glucose Lactic Acid Calcium Total Bilirubin AST ALT Alkaline Phosphatase Lactate Dehydrogenase Troponin I High Sens C-Reactive Protein B-Natriuretic Peptide Total Protein Albumin Urine Color Urine Appearance Urine pH Ur Specific [place] Urine Protein Urine Glucose (UA) Urine Ketones Urine Blood Urine Nitrite Ur Leukocyte Esterase Urine RBC Urine WBC Ur Squamous Epith Cells Amorphous Sediment Urine Bacteria Hyaline Casts Granular Casts Urine Mucus 05/01/20 05/01/20 05/02/20 15:24 19:27 06:18 WBC 9.2 RBC 4.32 L Hgb 13.6 L Hct 40.1 L MCV 92.8 MCH 31.5 MCHC 33.9 RDW 12.4 Plt Count 291 MPV 10.3 Immature Gran % (Auto) Cancelled Neut % (Auto) Cancelled Lymph % (Auto) Cancelled [place] % (Auto) Cancelled Eos % (Auto) Cancelled Baso % (Auto) Cancelled Lymph # (Auto) Cancelled [place] # (Auto) Cancelled Eos # (Auto) Cancelled Baso # (Auto) Cancelled Abs Immat Gran (auto) Cancelled Absolute Neuts (auto) Cancelled Absolute Nucleated RBC 0.000 Nucleated RBC % (auto) 0.0 Neutrophils % (Manual) 82 H Band Neutrophils % 1 L Lymphocytes % (Manual) 11 L Atypical Lymphs % (Man) 2 Monocytes % (Manual) 2 Eosinophils % (Manual) Metamyelocytes % 1 Myelocytes % 1 Abs Neuts (Manual) 7.6 Lymphocytes # (Manual) 1.0 Atyp Lymphs # (Manual) 0.2 Monocytes # (Manual) 0.2 Eosinophils # (Manual) Metamyelocytes # 0.1 Myelocytes # 0.1 Platelet Estimate NORMAL Plt Morphology Comment NORMAL RBC Morphology NOTED Polychromasia Mangham Cells Acanthocytes (Spur) 1+ Smear Tech's Comments PT INR APTT D-Dimer Sodium Potassium Chloride Carbon Dioxide Anion Gap BUN Creatinine Estim Creat Clear Calc Estimated GFR POC Glucose 185 H 137 H Random Glucose Fasting Glucose Lactic Acid Calcium Total Bilirubin AST ALT Alkaline Phosphatase Lactate Dehydrogenase Troponin I High Sens C-Reactive Protein B-Natriuretic Peptide Total Protein Albumin Urine Color Urine Appearance Urine pH Ur Specific [place] Urine Protein Urine Glucose (UA) Urine Ketones Urine Blood Urine Nitrite Ur Leukocyte Esterase Urine RBC Urine WBC Ur Squamous Epith Cells Amorphous Sediment Urine Bacteria Hyaline Casts Granular Casts Urine Mucus 05/02/20 05/02/20 05/02/20 06:18 06:18 07:45 WBC RBC Hgb Hct MCV MCH MCHC RDW Plt Count MPV Immature Gran % (Auto) Neut % (Auto) Lymph % (Auto) [place] % (Auto) Eos % (Auto) Baso % (Auto) Lymph # (Auto) [place] # (Auto) Eos # (Auto) Baso # (Auto) Abs Immat Gran (auto) Absolute Neuts (auto) Absolute Nucleated RBC Nucleated RBC % (auto) Neutrophils % (Manual) Band Neutrophils % Lymphocytes % (Manual) Atypical Lymphs % (Man) Monocytes % (Manual) Eosinophils % (Manual) Metamyelocytes % Myelocytes % Abs Neuts (Manual) Lymphocytes # (Manual) Atyp Lymphs # (Manual) Monocytes # (Manual) Eosinophils # (Manual) Metamyelocytes # Myelocytes # Platelet Estimate Plt Morphology Comment RBC Morphology Polychromasia Mangham Cells Acanthocytes (Spur) Smear Tech's Comments PT INR APTT D-Dimer 1434 Sodium 139 Potassium 4.3 Chloride 104 Carbon Dioxide 25 Anion Gap 14 BUN 30 H Creatinine 0.83 Estim Creat Clear Calc 69.7 Estimated GFR > 60 POC Glucose 133 H Random Glucose Fasting Glucose 123 H Lactic Acid Calcium 8.6 Total Bilirubin AST ALT Alkaline Phosphatase Lactate Dehydrogenase Troponin I High Sens C-Reactive Protein 3.65 H B-Natriuretic Peptide Total Protein Albumin Urine Color Urine Appearance Urine pH Ur Specific [place] Urine Protein Urine Glucose (UA) Urine Ketones Urine Blood Urine Nitrite Ur Leukocyte Esterase Urine RBC Urine WBC Ur Squamous Epith Cells Amorphous Sediment Urine Bacteria Hyaline Casts Granular Casts Urine Mucus 05/02/20 05/02/20 05/02/20 11:28 16:29 16:45 WBC RBC Hgb Hct MCV MCH MCHC RDW Plt Count MPV Immature Gran % (Auto) Neut % (Auto) Lymph % (Auto) [place] % (Auto) Eos % (Auto) Baso % (Auto) Lymph # (Auto) [place] # (Auto) Eos # (Auto) Baso # (Auto) Abs Immat Gran (auto) Absolute Neuts (auto) Absolute Nucleated RBC Nucleated RBC % (auto) Neutrophils % (Manual) Band Neutrophils % Lymphocytes % (Manual) Atypical Lymphs % (Man) Monocytes % (Manual) Eosinophils % (Manual) Metamyelocytes % Myelocytes % Abs Neuts (Manual) Lymphocytes # (Manual) Atyp Lymphs # (Manual) Monocytes # (Manual) Eosinophils # (Manual) Metamyelocytes # Myelocytes # Platelet Estimate Plt Morphology Comment RBC Morphology Polychromasia Mangham Cells Acanthocytes (Spur) Smear Tech's Comments PT INR APTT D-Dimer Sodium Potassium Chloride Carbon Dioxide Anion Gap BUN Creatinine Estim Creat Clear Calc Estimated GFR POC Glucose 193 H 193 H 190 H Random Glucose Fasting Glucose Lactic Acid Calcium Total Bilirubin AST ALT Alkaline Phosphatase Lactate Dehydrogenase Troponin I High Sens C-Reactive Protein B-Natriuretic Peptide Total Protein Albumin Urine Color Urine Appearance Urine pH Ur Specific [place] Urine Protein Urine Glucose (UA) Urine Ketones Urine Blood Urine Nitrite Ur Leukocyte Esterase Urine RBC Urine WBC Ur Squamous Epith Cells Amorphous Sediment Urine Bacteria Hyaline Casts Granular Casts Urine Mucus 05/02/20 05/03/20 05/03/20 20:32 07:23 11:37 WBC RBC Hgb Hct MCV MCH MCHC RDW Plt Count MPV Immature Gran % (Auto) Neut % (Auto) Lymph % (Auto) [place] % (Auto) Eos % (Auto) Baso % (Auto) Lymph # (Auto) [place] # (Auto) Eos # (Auto) Baso # (Auto) Abs Immat Gran (auto) Absolute Neuts (auto) Absolute Nucleated RBC Nucleated RBC % (auto) Neutrophils % (Manual) Band Neutrophils % Lymphocytes % (Manual) Atypical Lymphs % (Man) Monocytes % (Manual) Eosinophils % (Manual) Metamyelocytes % Myelocytes % Abs Neuts (Manual) Lymphocytes # (Manual) Atyp Lymphs # (Manual) Monocytes # (Manual) Eosinophils # (Manual) Metamyelocytes # Myelocytes # Platelet Estimate Plt Morphology Comment RBC Morphology Polychromasia [place] Cells Acanthocytes (Spur) Smear Tech's Comments PT INR APTT D-Dimer Sodium Potassium Chloride Carbon Dioxide Anion Gap BUN Creatinine Estim Creat Clear Calc Estimated GFR POC Glucose 124 H 110 224 H Random Glucose Fasting Glucose Lactic Acid Calcium Total Bilirubin AST ALT Alkaline Phosphatase Lactate Dehydrogenase Troponin I High Sens C-Reactive Protein B-Natriuretic Peptide Total Protein Albumin Urine Color Urine Appearance Urine pH Ur Specific Perkins Urine Protein Urine Glucose (UA) Urine Ketones Urine Blood Urine Nitrite Ur Leukocyte Esterase Urine RBC Urine WBC Ur Squamous Epith Cells Amorphous Sediment Urine Bacteria Hyaline Casts Granular Casts Urine Mucus 05/03/20 05/03/20 05/04/20 16:13 19:59 05:56 WBC 7.1 RBC 4.35 L Hgb 13.5 L Hct 40.4 L MCV 92.9 MCH 31.0 MCHC 33.4 RDW 12.4 Plt Count 257 MPV 10.6 Immature Gran % (Auto) Cancelled Neut % (Auto) Cancelled Lymph % (Auto) Cancelled [place] % (Auto) Cancelled Eos % (Auto) Cancelled Baso % (Auto) Cancelled Lymph # (Auto) Cancelled [place] # (Auto) Cancelled Eos # (Auto) Cancelled Baso # (Auto) Cancelled Abs Immat Gran (auto) Cancelled Absolute Neuts (auto) Cancelled Absolute Nucleated RBC 0.000 Nucleated RBC % (auto) 0.0 Neutrophils % (Manual) 91 H Band Neutrophils % 0 L Lymphocytes % (Manual) 6 L Atypical Lymphs % (Man) Monocytes % (Manual) 1 L Eosinophils % (Manual) 1 Metamyelocytes % 1 Myelocytes % Abs Neuts (Manual) 6.5 Lymphocytes # (Manual) 0.4 L Atyp Lymphs # (Manual) Monocytes # (Manual) 0.1 Eosinophils # (Manual) 0.1 Metamyelocytes # 0.1 Myelocytes # Platelet Estimate NORMAL Plt Morphology Comment NORMAL RBC Morphology NOTED Polychromasia 1+ David Cells 1+ Acanthocytes (Spur) Smear Tech's Comments PT INR APTT D-Dimer Sodium Potassium Chloride Carbon Dioxide Anion Gap BUN Creatinine Estim Creat Clear Calc Estimated GFR POC Glucose 192 H 143 H Random Glucose Fasting Glucose Lactic Acid Calcium Total Bilirubin AST ALT Alkaline Phosphatase Lactate Dehydrogenase Troponin I High Sens C-Reactive Protein B-Natriuretic Peptide Total Protein Albumin Urine Color Urine Appearance Urine pH Ur Specific Perkins Urine Protein Urine Glucose (UA) Urine Ketones Urine Blood Urine Nitrite Ur Leukocyte Esterase Urine RBC Urine WBC Ur Squamous Epith Cells Amorphous Sediment Urine Bacteria Hyaline Casts Granular Casts Urine Mucus 05/04/20 05/04/20 05/04/20 05:56 05:56 07:08 WBC RBC Hgb Hct MCV MCH MCHC RDW Plt Count MPV Immature Gran % (Auto) Neut % (Auto) Lymph % (Auto) [place] % (Auto) Eos % (Auto) Baso % (Auto) Lymph # (Auto) [place] # (Auto) Eos # (Auto) Baso # (Auto) Abs Immat Gran (auto) Absolute Neuts (auto) Absolute Nucleated RBC Nucleated RBC % (auto) Neutrophils % (Manual) Band Neutrophils % Lymphocytes % (Manual) Atypical Lymphs % (Man) Monocytes % (Manual) Eosinophils % (Manual) Metamyelocytes % Myelocytes % Abs Neuts (Manual) Lymphocytes # (Manual) Atyp Lymphs # (Manual) Monocytes # (Manual) Eosinophils # (Manual) Metamyelocytes # Myelocytes # Platelet Estimate Plt Morphology Comment RBC Morphology Polychromasia [place] Cells Acanthocytes (Spur) Smear Tech's Comments PT INR APTT D-Dimer 928 Sodium 140 Potassium 4.3 Chloride 103 Carbon Dioxide 27 Anion Gap 14 BUN 25 H Creatinine 0.79 Estim Creat Clear Calc 72.5 Estimated GFR > 60 POC Glucose 128 H Random Glucose Fasting Glucose 138 H Lactic Acid Calcium 8.4 Total Bilirubin AST ALT Alkaline Phosphatase Lactate Dehydrogenase Troponin I High Sens C-Reactive Protein B-Natriuretic Peptide Total Protein Albumin Urine Color Urine Appearance Urine pH Ur Specific [place] Urine Protein Urine Glucose (UA) Urine Ketones Urine Blood Urine Nitrite Ur Leukocyte Esterase Urine RBC Urine WBC Ur Squamous Epith Cells Amorphous Sediment Urine Bacteria Hyaline Casts Granular Casts Urine Mucus 05/04/20 05/04/20 05/04/20 11:14 16:28 20:22 WBC RBC Hgb Hct MCV MCH MCHC RDW Plt Count MPV Immature Gran % (Auto) Neut % (Auto) Lymph % (Auto) [place] % (Auto) Eos % (Auto) Baso % (Auto) Lymph # (Auto) [place] # (Auto) Eos # (Auto) Baso # (Auto) Abs Immat Gran (auto) Absolute Neuts (auto) Absolute Nucleated RBC Nucleated RBC % (auto) Neutrophils % (Manual) Band Neutrophils % Lymphocytes % (Manual) Atypical Lymphs % (Man) Monocytes % (Manual) Eosinophils % (Manual) Metamyelocytes % Myelocytes % Abs Neuts (Manual) Lymphocytes # (Manual) Atyp Lymphs # (Manual) Monocytes # (Manual) Eosinophils # (Manual) Metamyelocytes # Myelocytes # Platelet Estimate Plt Morphology Comment RBC Morphology Polychromasia David Cells Acanthocytes (Spur) Smear Tech's Comments PT INR APTT D-Dimer Sodium Potassium Chloride Carbon Dioxide Anion Gap BUN Creatinine Estim Creat Clear Calc Estimated GFR POC Glucose 266 H 207 H 134 H Random Glucose Fasting Glucose Lactic Acid Calcium Total Bilirubin AST ALT Alkaline Phosphatase Lactate Dehydrogenase Troponin I High Sens C-Reactive Protein B-Natriuretic Peptide Total Protein Albumin Urine Color Urine Appearance Urine pH Ur Specific [place] Urine Protein Urine Glucose (UA) Urine Ketones Urine Blood Urine Nitrite Ur Leukocyte Esterase Urine RBC Urine WBC Ur Squamous Epith Cells Amorphous Sediment Urine Bacteria Hyaline Casts Granular Casts Urine Mucus 05/05/20 07:41 WBC RBC Hgb Hct MCV MCH MCHC RDW Plt Count MPV Immature Gran % (Auto) Neut % (Auto) Lymph % (Auto) [place] % (Auto) Eos % (Auto) Baso % (Auto) Lymph # (Auto) [place] # (Auto) Eos # (Auto) Baso # (Auto) Abs Immat Gran (auto) Absolute Neuts (auto) Absolute Nucleated RBC Nucleated RBC % (auto) Neutrophils % (Manual) Band Neutrophils % Lymphocytes % (Manual) Atypical Lymphs % (Man) Monocytes % (Manual) Eosinophils % (Manual) Metamyelocytes % Myelocytes % Abs Neuts (Manual) Lymphocytes # (Manual) Atyp Lymphs # (Manual) Monocytes # (Manual) Eosinophils # (Manual) Metamyelocytes # Myelocytes # Platelet Estimate Plt Morphology Comment RBC Morphology Polychromasia David Cells Acanthocytes (Spur) Smear Tech's Comments PT INR APTT D-Dimer Sodium Potassium Chloride Carbon Dioxide Anion Gap BUN Creatinine Estim Creat Clear Calc Estimated GFR POC Glucose 144 H Random Glucose Fasting Glucose Lactic Acid Calcium Total Bilirubin AST ALT Alkaline Phosphatase Lactate Dehydrogenase Troponin I High Sens C-Reactive Protein B-Natriuretic Peptide Total Protein Albumin Urine Color Urine Appearance Urine pH Ur Specific [place] Urine Protein Urine Glucose (UA) Urine Ketones Urine Blood Urine Nitrite Ur Leukocyte Esterase Urine RBC Urine WBC Ur Squamous Epith Cells Amorphous Sediment Urine Bacteria Hyaline Casts Granular Casts Urine Mucus Discharge Plan Discharge Patient Disposition: Home Health Service Referrals: [facility] [Outside] Physician,Unknown [Primary Care Provider] - Discharge Medications: Continued omeprazole 20 mg capsule,delayed release(DR/EC) 1 cap PO DAILY@0630 RF: 0 acetaminophen [Mapap Arthritis Pain] 650 mg tablet extended release 650 mg PO Q8H PRN (Reason: Pain) RF: 0 carbidopa-levodopa 25-100 mg tablet 1.5 tab PO BEDTIME RF: 0 aripiprazole 15 mg tablet 15 mg PO DAILY RF: 0 calcium carbonate-vitamin D3 600 mg(1,500mg) -400 unit tablet 1 tab PO BID RF: 0 mirtazapine 15 mg tablet 15 mg PO DAILY RF: 0 gabapentin 300 mg capsule 300 mg PO BID PRN (Reason: Pain) RF: 0 metformin 1,000 mg tablet 1,000 mg PO BIDWM RF: 0 carbidopa-levodopa 25-100 mg tablet 2 tab PO BID@0900,1700 RF: 0 paroxetine HCl 20 mg tablet 20 mg PO BEDTIME RF: 0 Discharge Orders: Discharge Order (Routine); Ordered 05/05/20 Ordered By: Robert Chamorro Diet: advance to usual diet Activity on Discharge: As tolerated Stand Alone Forms: Patient Portal Discharge page Care Plan Goals: Recovery Health Concerns: COVID Plan of Treatment: Wean O2 as tolerated
[2020-05-05 11:52] LABS: Glucose, Whole Blood 203 mg/dL (60-115)
[2020-05-05] MEDS: Insulin Lispro 100 UNIT/ML 3 ML VIAL SUBCUT (11:58)
[2020-05-05 12:00] VITALS: BP 134/67; PULSE 84; RESP 22; TEMP 36.2; O2SAT 90
[2020-05-05 13:20] VITALS: BP 134/67; PULSE 84; O2SAT 90
[2020-05-05 15:05] VITALS: PULSE 82; PULSE 92; PULSE 94; O2SAT 88; O2SAT 90; O2SAT 92
--- NOTE | 2020-05-05 15:29 | MHC.CM.PN ---
DC today to home with New O2. 2L/24H. Sigifredo will resume care. A new referral to [facility] for SN and PT. Family is providing transportation.
== END 2020-05-05 17:14 | disposition home health service (06) | DRG 177 ==
LOC: HO.ED 04-27 01:54 → HO.EDOVER 04-27 05:06 → HO.IMC 04-28 05:55
PROVIDERS: Family Medicine; Physician Assistant; Admitting Provider Internal Medicine; Emergency Provider Emergency Medicine; Visit Provider Internal Medicine
DX: U07.1 COVID-19 (principal); J12.82 Pneumonia due to coronavirus disease 2019; J96.01 Acute respiratory failure with hypoxia; E78.5 Hyperlipidemia, unspecified; F32.9 Major depressive disorder, single episode, unspecified; K21.9 Gastro-esophageal reflux disease without esophagitis; I44.1 Atrioventricular block, second degree; G20 Parkinson's disease; E11.65 Type 2 diabetes mellitus with hyperglycemia; Z79.84 Long term (current) use of oral hypoglycemic drugs; Z79.899 Other long term (current) drug therapy
CPT/HCPCS: 36415; 70450; 71275; 80048; 80053; 81001; 82947; 83605; 83615; 83880; 84484; 85007; 85025; 85027; 85379; 85610; 85730; 86140; 87040; 93005; 96361; 96365; 96366; 96367; 96375; 97163; 99285; J0456; J0461; J0696; J1100; J1885; Q9967

== ENCOUNTER 2020-05-29 09:59 | Outpatient (REF) | payer OTHER, SELFPAY ==
--- NOTE | ~2020-05-29 | XR_ITS ---
EXAMINATION: XR CHEST CLINICAL INFORMATION: Cough COMPARISON: CT angiogram of April 26, 2020 and chest x-ray of April 22, 2020 TECHNIQUE: 2 views of the chest were obtained. FINDINGS: There are scattered regions of interstitial disease again noted bilaterally with a peripheral predominance consistent with Covid disease. This was present on prior CT scan of April 26, 2020. No pneumothorax or pleural effusion. Heart normal size. No evidence of pulmonary edema. XR/XR chest 2V IMPRESSION: Continued bilateral regions of groundglass opacity consistent with Covid disease.
== END 2020-05-29 10:00 | disposition home or self-care (01) ==
LOC: HO.XRAY 09:59
PROVIDERS: PCP Internal Medicine; Visit Provider Internal Medicine
DX: R05 Cough (principal)
CPT/HCPCS: 71046

== ENCOUNTER 2020-06-02 11:58 | Outpatient (REF) | payer OTHER, SELFPAY ==
[2020-06-02 14:13] LABS: Alanine Aminotransferase 8 U/L (0-40); Albumin Level 4.1 g/dL (3.5-5.0); Alkaline Phosphatase 68 U/L (39-117); Anion Gap 13 (12-20); Aspartate Amino Transferase 12 U/L (5-37); Bilirubin Total 0.5 mg/dL (0.0-1.0); Blood Urea Nitrogen 18 mg/dL (9-16); Calcium 9.6 mg/dL (8.4-10.2); Carbon Dioxide 29 mmol/L (22-29); Chloride 101 mmol/L (96-108); Cholesterol 137 mg/dL; Estimated Glomerular Filt Rate > 60; Glucose Fasting 178 mg/dL (60-99); HDL Cholesterol 40 mg/dL; LDL Cholesterol Calculated 62 mg/dl; Potassium 4.2 mmol/L (3.3-5.1); Sodium 139 mmol/L (135-145); Triglycerides 177 mg/dL
[2020-06-02 14:20] LABS: Creatinine Urine 242.12 mg/dL; Microalbum/Creatinine Ratio Ur 9.4 ug/mg cr
== END 2020-06-02 11:59 | disposition home or self-care (01) ==
LOC: HO.LAB 11:58
PROVIDERS: PCP Internal Medicine; Visit Provider Internal Medicine
DX: E11.9 Type 2 diabetes mellitus without complications (principal); E78.5 Hyperlipidemia, unspecified
CPT/HCPCS: 36415; 80053; 80061; 82043

== ENCOUNTER 2020-06-03 10:02 | Emergency (ER) | payer OTHER, SELFPAY ==
--- NOTE | ~2020-06-03 | XR_ITS ---
EXAMINATION: XR CHEST CLINICAL INFORMATION: Cough COMPARISON: Previous chest x-ray most recent 05/29/2020 TECHNIQUE: Frontal view of the chest was obtained. FINDINGS: The cardiac and mediastinal contours are normal. The lung volumes are low. There are are bilateral peripheral groundglass and interstitial lung infiltrates. This does not appear appreciably changed from most recent exam 05/29/2020. There is no pleural effusion or pneumothorax. Bony structures are unremarkable. XR/XR chest 1V IMPRESSION: Low lung volumes. Bilateral infiltrates similar to 05/29/2020 exam.
[2020-06-03 10:25] VITALS: BP 115/54; PULSE 74; RESP 18; TEMP 37.1; O2SAT 95; BMI 34.0
--- NOTE | 2020-06-03 10:25 | ED.URI ---
HPI - URI/Sore Throat General Chief Complaint: Upper Respiratory Symptoms Stated Complaint: COUGH,NO FEVER,COVID + IN APRIL Time Seen by Provider: 06/03/20 10:25 Source: patient, EMS and shell coremaker Mode of arrival: EMS Limitations: no limitations History of Present Illness HPI Narrative: 79 yo male DM, recent COVID with admission 04/27 - 05/05 completed dexamethasone, bradycardia - medical management, HTN, comes in with c/o cough RN unable to reach son who is HCP MD elicited complaint: cough Pertinent past history: other (COVID in April ) Onset (ago): month(s) (1) Consistency: intermittent Severity: mild Description of mucous: clear Able to tolerate fluids by mouth: Yes Exacerbating factors: nothing Relieving factors: nothing Associated symptoms: denies other symptoms Treatments prior to arrival: none Related Data Home Medications Medication Instructions Recorded Confirmed aripiprazole 15 mg tablet 15 mg PO DAILY 01/29/20 05/28/20 calcium carbonate 600 mg (1,500 1 tab PO BID 01/29/20 05/28/20 mg)-vitamin D3 400 unit tablet gabapentin 300 mg capsule 300 mg PO BID PRN 01/29/20 05/28/20 metformin 1,000 mg tablet 1,000 mg PO BIDWM 01/29/20 05/28/20 mirtazapine 15 mg tablet 15 mg PO DAILY 01/29/20 05/28/20 paroxetine HCl 20 mg tablet 20 mg PO BEDTIME 01/29/20 05/28/20 omeprazole 1 cap PO DAILY@0630 04/27/20 05/28/20 acetaminophen [Mapap Arthritis 650 mg PO Q8H PRN 04/28/20 05/28/20 Pain] carbidopa-levodopa 1.5 tab PO BEDTIME 04/28/20 05/28/20 Previous Rx's Medication Instructions Recorded benzonatate [Tessalon Perles] 100 mg PO TID PRN #30 cap 06/03/20 doxycycline hyclate 100 mg PO BID 7 Days #14 cap 06/03/20 Allergies Allergy/AdvReac Type Severity Reaction Status Date / Time No Known Allergies Allergy Verified 05/28/20 13:47 Review of Systems Review of Systems: Constitutional : No Fever, No Chills ENT/Mouth : No sore throat, No Rhinorrhea, No Swallowing Difficulty Eyes: No Eye Pain, No Swelling, No Redness Cardiovascular : No Chest Pain, no SOB, No Orthopnea, no Edema Respiratory : pos Cough, pos Sputum, No Wheezing, no dyspnea Gastrointestinal : No Nausea, No Vomiting, No Diarrhea, No abdominal Pain, No Hematochezia, No Melena Genitourinary : No Dysuria, No Urinary Frequency, No Hematuria Musculoskeletal : No joint pain, No Myalgias Skin : No Skin Lesions, No rash Neuro : No Weakness, No Numbness, No Dizziness, No Headache Psych : No Anxiety/Panic, No Depression Heme/Lymph: No Bruising, No Lymphadenopathy Endocrine : No Polyuria, No Polydipsia All other systems reviewed and are negative [facility] Past Medical History Medical History Diabetes mellitus DMII (diabetes mellitus, type 2) Dry cough Dyslipidemia Essential hypertension GERD (gastroesophageal reflux disease) Parkinson disease Unsteady gait Social History Social History Household Members: Children Housing: Apartment Smoking Status: Never smoker Advance Directives: No Advance Directives Information Provided: No service: No Current occupational status: retired Physical Exam Vital Signs: Vital Signs: Last Vital Signs Temp 98.7 F 06/03/20 10:25 Pulse 74 06/03/20 10:25 Resp 18 06/03/20 10:25 BP 115/54 L 06/03/20 10:25 Pulse Ox 95 06/03/20 10:25 Body Mass Index 34.0 Appearance: Alert. Oriented X3. No acute distress. Eyes: Pupils equal, round and reactive to light. ENT: Pharynx normal. Neck: Normal inspection. Neck supple. CVS: Normal heart rate and rhythm. Pulses normal. Respiratory: No respiratory distress. Breath sounds normal. intermittent dry cough Abdomen: Soft and nontender. Skin: Skin warm and dry. Normal skin color. Normal skin turgor. Extremities: No lower extremity edema. No calf ttp Neuro: Oriented X 3. No motor deficit. No sensory deficit. Course Course Course Narrative: no changes in new CXR - no fevers, no dyspnea likely POST covid appearance, will start on anti tussive, has pulm referral - will start on doxy as the patient states he has increased sputum production just in case there's underlying infection MDM - URI/Sore Throat MDM Narrative Medical decision making narrative: 79 yo male with COVID back in April states since then persistent cough, no CP/SOB no fevers, eating well, not on O2 anymore - states he has nothing to treat his cough Discharge Plan Discharge Clinical Impression: Dry cough Patient Disposition: Home, Self-Care Instructions: Chronic Cough (ED) Additional Instructions: return to ED for any worsening symptoms or concerns post covid this is likely going to be chronic on chest xray there is evidence of damage to the lungs, please follow up with the lung doctor Prescriptions: New benzonatate [Tessalon Perles] 100 mg capsule 100 mg PO TID PRN (Reason: cough) Qty: 30 RF: 0 doxycycline hyclate 100 mg capsule 100 mg PO BID 7 Days Qty: 14 RF: 0 No Action omeprazole 20 mg capsule,delayed release(DR/EC) 1 cap PO DAILY@0630 RF: 0 acetaminophen [Mapap Arthritis Pain] 650 mg tablet extended release 650 mg PO Q8H PRN (Reason: Pain) RF: 0 carbidopa-levodopa 25-100 mg tablet 1.5 tab PO BEDTIME RF: 0 aripiprazole 15 mg tablet 15 mg PO DAILY RF: 0 calcium carbonate-vitamin D3 600 mg(1,500mg) -400 unit tablet 1 tab PO BID RF: 0 mirtazapine 15 mg tablet 15 mg PO DAILY RF: 0 gabapentin 300 mg capsule 300 mg PO BID PRN (Reason: Pain) RF: 0 metformin 1,000 mg tablet 1,000 mg PO BIDWM RF: 0 paroxetine HCl 20 mg tablet 20 mg PO BEDTIME RF: 0 Referrals: Yolanda Vivas MD [Primary Care Provider] - 2 days (if not better) Print Language: Malagasy
== END 2020-06-04 16:00 | disposition home or self-care (01) ==
PROVIDERS: Emergency Provider Emergency Medicine; PCP Internal Medicine
DX: R05 Cough (principal); I10 Essential (primary) hypertension; E11.9 Type 2 diabetes mellitus without complications; K21.9 Gastro-esophageal reflux disease without esophagitis; G20 Parkinson's disease; Z86.16 Personal history of COVID-19; Z79.84 Long term (current) use of oral hypoglycemic drugs; Z79.899 Other long term (current) drug therapy
CPT/HCPCS: 71045; 99282; 99283

== ENCOUNTER → 2020-06-26 11:53 | Outpatient (BNVA) | payer OTHER, SELFPAY | PROVIDERS: PCP Internal Medicine; Visit Provider Internal Medicine Pulmonary Disease | DX: B94.8 Sequelae of other specified infectious and parasitic diseases (principal); R05 Cough | CPT/HCPCS: 99202 ==

== ENCOUNTER → 2020-08-27 12:22 | Outpatient (BNVA) | payer OTHER, SELFPAY | PROVIDERS: PCP Internal Medicine; Visit Provider Internal Medicine Pulmonary Disease | DX: R05 Cough (principal); B94.8 Sequelae of other specified infectious and parasitic diseases | CPT/HCPCS: 99212 ==

== ENCOUNTER 2020-12-01 13:47 | Outpatient (REF) | payer OTHER, SELFPAY ==
--- NOTE | 2020-12-01 15:26 | MHC.AU.AHA ---
Adult Audiological Evaluation Date of Visit: 12/01/20 Assembly Loader Used: Declined by Patient Reason for Appointment: Audiological re-evaluation due to concern for decreased hearing. Patient was previously seen here in 2012 and diagnosed with a bilateral hearing loss. He was issued hearing aids, but notes that he has since lost them. He feels he has more difficulty hearing from the right ear. He denies any significant changes to his medical history. [place] [facility] [place] Mild sloping to severe sensorineural hearing loss bilaterally. 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, bradycardia Allergies: Shellfish, seafood Medication List: See list Hearing Instrument History- Right Ear: Delivery Table Operator: OtherInbox Model: Unified Color [id number] Serial Number: [id number] Battery Size: 13 Warranty: Dispensed By: [facility] Date of Fittin Hearing Instrument History- Left Ear: Delivery Table Operator: Phonak Model: Unified Color [id number]-M13 Serial Number: [id number] Battery Size: 13 Warranty: Dispensed By: [facility] Date of Fittin Otoscopy: Right Ear: Completely occluded with cerumen Left Ear: Unremarkable Tympanometry: Tympanometry performed due to: To determine if cerumen blockage is fully occluding canal(s) Right Ear: Non-compliant Middle Ear System (Type B) Left Ear: Normal Middle Ear System (Type A) Hearing Evaluation: Transducer(s) Used: Insert Earphones, Bone Conduction Method: Conventional Audiometry Stimuli Used: Pure Tones Right Ear: Description of Hearing: Flat severe to profound mixed hearing loss from 250-8000 Hz. Left Ear: Description of Hearing: Flat moderately severe sensorineural hearing loss from 250-8000 Hz. Speech Recognition Threshold (SRT): Could not test, patient unable to follow instructions for task. Word Discrimination: Could not test, patient unable to follow instructions for task. Comparison: Compared to the most recent evaluation: Thresholds have decreased bilaterally. Recommendations: Audiological re-evaluation in one year. Trial with amplification is recommended. Medical clearance from a physician is required before fitting. Follow-up with physician for cerumen removal. Hearing aid(s) will be ordered after approval is received. Patient is interested in rechargeable in-the-ear style hearing aids. Will submit a prior authorization request to Mr. Avila's insurance. Once earwax removal has been completed, will bring Mr. Avila back in to recheck right ear thresholds and take earmold impressions for his new hearing aids. Diagnosis: Primary Diagnosis: H90.3 Bilateral Sensorineural Hearing Loss Secondary Diagnosis: H61.21 Impacted Cerumen, Right Ear Services Performed: Pure Tone- Air & Bone (CPT 07671) Tympanometry (CPT 17693) Signature: Provider: Urban Cifuentes, CCC-A
--- NOTE | 2020-12-01 16:28 | MHC.AU.MED ---
Medical Clearance for Hearing Instrumentation Date: 12/05/20 Patient Name: Zain Avila Date of : 1940 Referring Provider: Yolanda Vu MD We have seen your patient on 12/01/20 and have determined that they are a candidate for amplification (See accompanying report). Specifically, they would benefit from: Hearing aid use in both ears There is a statute that addresses Medical Evaluation Requirements prior to fitting a patient with a hearing aid. According to [place] statute 265 CMR:6.03(1), (a) General. Except as provided in 265 CMR 6.03(1)(b), a automatic machines supervisor shall not sell a hearing aid unless the prospective user has presented to the automatic machines supervisor a written statement signed by a licensed physician that states that the patient's hearing loss has been medically evaluated and the patient may be considered a candidate for a hearing aid. The medical evaluation must have taken place within the preceding six months. Please note: Due to the [place] Statute referenced above, we cannot accept a signature other than that of a licensed physician. EDUCATIONAL PROGRAMMING DIRECTOR and PA signatures cannot be accepted. I am in agreement with the above recommendation. There is no medical contraindication for hearing instrumentation. Physician Signature Date Physician Name (Printed)
== END 2020-12-01 13:48 | disposition home or self-care (01) ==
LOC: HO.SH 13:47
PROVIDERS: Visit Provider Internal Medicine
DX: H90.3 Sensorineural hearing loss, bilateral (principal)
CPT/HCPCS: 92553; 92567

== ENCOUNTER 2020-12-17 13:03 | Emergency (ER) | payer OTHER, SELFPAY ==
--- NOTE | 2020-12-17 | ECG_ITS ---
Test Reason : REPEAT Blood Pressure : / mmHG Vent. 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
--- NOTE | ~2020-12-17 | XR_ITS ---
EXAMINATION: XR CHEST CLINICAL INFORMATION: Volume overload COMPARISON: Previous chest x-cal most recent May 2020 TECHNIQUE: Frontal view of the chest was obtained. FINDINGS: The cardiac silhouette is upper normal in size. Hilar and mediastinal contours are unremarkable. The lungs are clear. There is no pleural effusion or pneumothorax. There are degenerative changes of the spine. XR/XR chest 1V IMPRESSION: No evidence for acute disease in the chest.
[2020-12-17 13:19] VITALS: BP 147/68; PULSE 55; RESP 16; TEMP 36.6; O2SAT 96; BMI 32.4
[2020-12-17 14:12] VITALS: BP 142/75; RESP 18; TEMP 36.7; O2SAT 95
[2020-12-17 14:15] LABS: MANUAL DIFF FLAG NO
--- NOTE | 2020-12-17 14:19 | PC.NURSE ---
L LOWER EXT 1-2+ PITTING EDEMA. AWARE.
[2020-12-17 14:20] LABS: Basophils Percent Auto 0.1 % (0-2); Eosinophils Percent Auto 0.4 % (0-4); Hematocrit 36.3 % (42-52); Hemoglobin 12.3 g/dl (14.0-18.0); Imm Gran Abs Auto 0.03 X10*3/uL (0.00-0.03); Imm Gran Pct Auto 0.4 % (0.0-0.4); Lymphocytes Absolute Auto 1.8 X10*3/uL (1.2-4.9); Lymphocytes Percent Auto 26.6 % (20-40); Mean Corpuscular HGB Conc 33.9 g/dl (31.0-36.0); Mean Corpuscular Hemoglobin 31.5 pg (27.0-33.0); Mean Corpuscular Volume 93.1 fL (80-98); Mean Platelet Volume 11.2 fL (9.4-12.4); Monocytes Absolute Auto 0.6 X10*3/uL (0.1-1.2); Monocytes Percent Auto 8.2 % (2-11); Neutrophils Absolute Auto 4.3 X10*3/uL (2.0-8.3); Neutrophils Percent Auto 64.3 % (45-73); Platelet Count 145 X10*3/uL (160-400); Red Cell Distribution Width 12.9 % (11.0-16.0); White Blood Count 6.7 X10*3/uL (4.8-10.8)
[2020-12-17 14:33] LABS: COVID-19 Test Negative (Negative)
--- NOTE | 2020-12-17 14:35 | PC.NURSE ---
PT PLACED ON HEAVY EQUIPMENT RENTAL MANAGER, HR 40-46, MLP (KECIA) AWARE, EKG DONE.
--- NOTE | 2020-12-17 14:36 | ED_ITS ---
HPI - General Adult General Chief complaint: General Medical Stated complaint: BOTH LEGS SWELLING Time Seen by Provider: 12/17/20 13:56 Source: patient Mode of arrival: ambulatory Limitations: language barrier and other (very [place]) History of Present Illness HPI narrative: 80 yo male with history of Parkinson's disease, hearing loss, anxiety, DM, HTN, hx COVID-19 PNA requiring admission, hx bradycardia with Wenkebech who presents to the ED for evaluation of bilateral ankle edema for the last 1 week. He is not short of breath or having any chest pains. He reports the swelling is new and somewhat bothersome. He is not on any diuretic medication. He is not clear on how much salt intake he has. He has no redness of his legs or pain when he walks. MD complaint: bilateral LE edema Onset (ago): week(s) (1) Location: left, right and lower extremity Radiation: proximal Severity: mild Severity scale (1-10): 4 Quality: aching Pain Consistency: intermittent Relieving factors: rest Exacerbating factors: other (palpation) Associated symptoms: malaise Treatments prior to arrival: none Related Data Home Medications Medication Instructions Recorded Confirmed aripiprazole 15 mg tablet 15 mg PO DAILY 01/29/20 12/17/20 calcium carbonate 600 mg (1,500 1 tab PO BID 01/29/20 12/17/20 mg)-vitamin D3 400 unit tablet gabapentin 300 mg capsule 300 mg PO BID PRN 01/29/20 12/17/20 metformin 1,000 mg tablet 1,000 mg PO BIDWM 01/29/20 12/17/20 mirtazapine 15 mg tablet 15 mg PO DAILY 01/29/20 12/17/20 paroxetine HCl 20 mg tablet 20 mg PO BEDTIME 01/29/20 12/17/20 omeprazole 20 mg capsule,delayed 1 cap PO DAILY@0630 04/27/20 12/17/20 release carbidopa 25 mg-levodopa 100 mg 1.5 tab PO BEDTIME 04/28/20 12/17/20 tablet lisinopril 10 mg tablet 10 mg PO DAILY 11/11/20 12/17/20 simvastatin 20 mg tablet 20 mg PO BEDTIME 11/11/20 12/17/20 carbidopa 25 mg-levodopa 100 mg 2 tab PO BID@0900,1500 12/17/20 12/17/20 tablet Previous Rx's Medication Instructions Recorded blood sugar diagnostic (FreeStyle #50 ea 06/03/20 Test) lancets 28 gauge (FreeStyle #100 ea 06/03/20 Lancets) furosemide 20 mg tablet (Lasix) 20 mg PO QAM #3 tab 12/17/20 Allergies Allergy/AdvReac Type Severity Reaction Status Date / Time No Known Allergies Allergy Verified 11/11/20 08:15 Review of Systems Review of Systems: Constitutional: No Fever, No Chills ENT/Mouth: No sore throat, No Rhinorrhea, No Swallowing Difficulty Eyes: No Eye Pain, No Swelling, No Redness Cardiovascular: No Chest Pain, No SOB, No Orthopnea, N+ Edema Respiratory: No Cough, No Sputum, No Wheezing, No dyspnea Gastrointestinal: No Nausea, No Vomiting, No Diarrhea, No abdominal Pain, No Hematochezia, No Melena Genitourinary: No Dysuria, No Urinary Frequency, No Hematuria Musculoskeletal: No joint pain, No Myalgias Skin: No Skin Lesions, No rash Neuro: + Weakness, No Numbness, No Dizziness, No Headache Psych: No Anxiety/Panic, No Depression Heme/Lymph: No Bruising, No Lymphadenopathy Endocrine: No Polyuria, No Polydipsia PMFSH Past Medical History Medical History (Updated 12/17/20 @ 15:36 by TIFFANY Vaughn) Diabetes mellitus DMII (diabetes mellitus, type 2) Dry cough Dyslipidemia Essential hypertension BETHANY (generalized anxiety disorder) GERD (gastroesophageal reflux disease) Hearing loss Mild major depression, single episode Parkinson disease Unsteady gait Surgical History (Updated 11/11/20 @ 08:01 by CHLOE Malloy) No pertinent past surgical history Family History Family History Mother No problems noted. Father No problems noted. Family/Other Substance use disorder Social History Social History Household Members: Children Household Members Other:: son Housing: Apartment Do you presently have visiting nurse or other home services: No Alcohol intake: never Patient Tobacco Use Status: Former Tobacco user Tobacco use type: Cigarette e-Cigarette/Vaping Use: Never Used Second Hand Smoke Exposure: No Use of substances other than those prescribed or required for medical reasons: No Advance Directives: Yes Advance Directives Information Provided: Yes Advance Directives on File: No service: No Current occupational status: retired Physical Exam Vital Signs: Vital Signs: Last Vital Signs Temp 98.2 F 12/17/20 15:27 Pulse 46 L 12/17/20 15:27 Resp 16 12/17/20 15:27 BP 130/66 12/17/20 15:27 Pulse Ox 97 12/17/20 15:27 Body Mass Index 32.4 Appearance: Alert, elderly male sitting up in bed. No acute distress. Eyes: Pupils equal, round and reactive to light. ENT: Pharynx normal. Neck: Normal inspection. Neck supple. CVS: Normal heart rate and rhythm. Pulses normal. Respiratory: No respiratory distress. Breath sounds normal. Abdomen: Soft and nontender. +BS x4 Skin: Skin warm and dry. Normal skin color. Normal skin turgor. No rashes. Extremities: 1+ bilateral lower extremity edema involving the ankles and distal lower leg only, no erythema, no calf tenderness Neuro: Oriented X 2, very hard of hearing. Non-focal, mild tremor right hand Course Course Course Narrative: 80 y/o male presenting with new onset of mild LE edema of the lower legs. No hx CHF. Exam is not consistent with DVT. He has not had an ECHO here. He was noted to be bradycardic to as low as 39 on the monitor, stable BP 140's systolic. Asymptomatic. EKG wtih ?complete heart block, reviewed with Dr. Valiente and will contact Cardiology for recs. Reevaluation(s) Reevaluation #1: Dr. 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 EKG repeated which shows this much better. His BNP is 124. His CXR is clear. Troponin negative. Exam is consistent with some mild fluid retention. Will give short course of lasix 20 mg for a few days until he can follow up with his PCP and cardiology. He likely needs an ECHO but there is no emergent need for this. He is hemodynamically stable HR 40-60s with stable blood pressures. He is stable for discharge home Medical Decision Making Lab Data Result diagrams: 12/17/20 14:11 12/17/20 14:11 Labs: Lab Results 12/17/20 12/17/20 12/17/20 Range/Units 14:11 14:11 14:11 WBC 6.7 (4.8-10.8) X10*3/uL RBC 3.90 L (4.60-5.80) X10*6/uL Hgb 12.3 L (14.0-18.0) g/dl Hct 36.3 L (42-52) % MCV 93.1 (80-98) fL MCH 31.5 (27.0-33.0) pg MCHC 33.9 (31.0-36.0) g/dl RDW 12.9 (11.0-16.0) % Plt Count 145 L D (160-400) X10*3/uL MPV 11.2 (9.4-12.4) fL Immature Gran % (Auto) 0.4 (0.0-0.4) % Neut % (Auto) 64.3 (45-73) % Lymph % (Auto) 26.6 (20-40) % [place] % (Auto) 8.2 (2-11) % Eos % (Auto) 0.4 (0-4) % Baso % (Auto) 0.1 (0-2) % Lymph # (Auto) 1.8 (1.2-4.9) X10*3/uL [place] # (Auto) 0.6 (0.1-1.2) X10*3/uL Eos # (Auto) 0.0 (0.0-0.4) X10*3/uL Baso # (Auto) 0.0 (0.0-0.2) X10*3/uL Abs Immat Gran (auto) 0.03 (0.00-0.03) X10*3/uL Absolute Neuts (auto) 4.3 (2.0-8.3) X10*3/uL Absolute Nucleated RBC 0.000 (0.0-0.012) X10*3/uL Nucleated RBC % (auto) 0.0 (0.0-0.2) /100WBC Sodium 138 (135-145) mmol/L Potassium 4.6 (3.3-5.1) mmol/L Chloride 105 (96-108) mmol/L Carbon Dioxide 29 (22-29) mmol/L Anion Gap 9 L (12-20) BUN 11 (9-16) mg/dL Creatinine 1.07 (0.5-1.4) mg/dL Estim Creat Clear Calc 52.5 Estimated GFR > 60 Random Glucose 158 H (60-115) mg/dL Calcium 9.2 (8.4-10.2) mg/dL Magnesium 1.6 (1.6-2.6) mg/dL Total Bilirubin 0.6 (0.0-1.0) mg/dL Direct Bilirubin 0.2 (0.0-0.5) mg/dL AST 15 (5-37) U/L ALT < 6 (0-40) U/L Alkaline Phosphatase 45 D (39-117) U/L Troponin I High Sens < 3.5 (<3.5-35.0) ng/L B-Natriuretic Peptide 124 H (<100) pg/mL Total Protein 6.5 (6.5-8.0) g/dL Albumin 4.1 (3.5-5.0) g/dL Urine Color Urine Appearance Urine pH (5.0-8.0) Ur Specific [place] (1.005-1.025) Urine Protein (NEG-TRACE) MG/DL Urine Glucose (UA) (NEG) MG/DL Urine Ketones (NEG) MG/DL Urine Blood (NEG) Urine Nitrite (NEG) Ur Leukocyte Esterase (NEG) Urine RBC (0) /HPF Urine WBC (0-4) /HPF Ur Squamous Epith Cells /LPF Calcium Oxalate Crystal /LPF Tyrosine Crystals /LPF Urine Bacteria /LPF Urine Mucus /LPF COVID-19 (FERNY) (Negative) COVID-19 Clin Com 12/17/20 12/17/20 Range/Units 14:11 15:43 WBC (4.8-10.8) X10*3/uL RBC (4.60-5.80) X10*6/uL Hgb (14.0-18.0) g/dl Hct (42-52) % MCV (80-98) fL MCH (27.0-33.0) pg MCHC (31.0-36.0) g/dl RDW (11.0-16.0) % Plt Count (160-400) X10*3/uL MPV (9.4-12.4) fL Immature Gran % (Auto) (0.0-0.4) % Neut % (Auto) (45-73) % Lymph % (Auto) (20-40) % [place] % (Auto) (2-11) % Eos % (Auto) (0-4) % Baso % (Auto) (0-2) % Lymph # (Auto) (1.2-4.9) X10*3/uL [place] # (Auto) (0.1-1.2) X10*3/uL Eos # (Auto) (0.0-0.4) X10*3/uL Baso # (Auto) (0.0-0.2) X10*3/uL Abs Immat Gran (auto) (0.00-0.03) X10*3/uL Absolute Neuts (auto) (2.0-8.3) X10*3/uL Absolute Nucleated RBC (0.0-0.012) X10*3/uL Nucleated RBC % (auto) (0.0-0.2) /100WBC Sodium (135-145) mmol/L Potassium (3.3-5.1) mmol/L Chloride (96-108) mmol/L Carbon Dioxide (22-29) mmol/L Anion Gap (12-20) BUN (9-16) mg/dL Creatinine (0.5-1.4) mg/dL Estim Creat Clear Calc Estimated GFR Random Glucose (60-115) mg/dL Calcium (8.4-10.2) mg/dL Magnesium (1.6-2.6) mg/dL Total Bilirubin (0.0-1.0) mg/dL Direct Bilirubin (0.0-0.5) mg/dL AST (5-37) U/L ALT (0-40) U/L Alkaline Phosphatase (39-117) U/L Troponin I High Sens (<3.5-35.0) ng/L B-Natriuretic Peptide (<100) pg/mL Total Protein (6.5-8.0) g/dL Albumin (3.5-5.0) g/dL Urine Color STRAW Urine Appearance CLEAR Urine pH 7.5 (5.0-8.0) Ur Specific [place] 1.010 (1.005-1.025) Urine Protein NEG (NEG-TRACE) MG/DL Urine Glucose (UA) NEG (NEG) MG/DL Urine Ketones NEG (NEG) MG/DL Urine Blood NEG (NEG) Urine Nitrite NEG (NEG) Ur Leukocyte Esterase TRACE H (NEG) Urine RBC 0 (0) /HPF Urine WBC 1-4 (0-4) /HPF Ur Squamous Epith Cells NONE /LPF Calcium Oxalate Crystal 1+ /LPF Tyrosine Crystals TRACE /LPF Urine Bacteria NONE /LPF Urine Mucus TRACE /LPF COVID-19 (FERNY) Negative (Negative) COVID-19 Clin Com See Note ECG Data Attestation: I personally reviewed and interpreted this ECG as follows: Prior ECG tracings: available for review Interpretation: #1 @ 14:26 - possible complete heart block vs 2nd degree heart block, Mobitz I, HR 45 bpm, prolonged and irregular SC intervals, RBBB, no ST segment elevations or depressions #2 @ 15:25 - sinus rhythm with 2nd degree heart block Mobitz type I, HR 46 bpm, RBBB, no ST segment elevations or depressions Discharge Plan Discharge Clinical Impression: Mobitz (type) I (Wenckebach's) atrioventricular block, Bilateral lower extremity edema Patient Disposition: Home, Self-Care Instructions: Heart Block (ED), Leg Edema (ED) Additional Instructions: You have very mild swelling in your ankles. Recommend trial of compression stockings. Elevate your legs whenever possible. Keep your diet to a LOW SALT diet. Take the prescribed diuretic medication for the next 3 days to help your body get rid of extra fluid. Follow up with your doctor this week to see if they would like to continue it. Recommend following up with Cardiology as well. If you develop worsening swelling, shortness of breath, chest pain or any other concerning symptoms call 911 or come back to the ER for further evaluation. Prescriptions: New furosemide [Lasix] 20 mg tablet 20 mg PO QAM Qty: 3 RF: 0 No Action (DME) FreeStyle Test Strip See Rx Instructions .ROUTE .MEDSUPPLY Qty: 50 RF: 11 (DME) lancets [FreeStyle Lancets] 28 gauge misc See Rx Instructions .ROUTE .MEDSUPPLY Qty: 100 RF: 11 carbidopa-levodopa 25-100 mg tablet 2 tab PO BID@0900,1500 RF: 0 omeprazole 20 mg capsule,delayed release(DR/EC) 1 cap PO DAILY@0630 RF: 0 carbidopa-levodopa 25-100 mg tablet 1.5 tab PO BEDTIME RF: 0 aripiprazole 15 mg tablet 15 mg PO DAILY RF: 0 calcium carbonate-vitamin D3 600 mg(1,500mg) -400 unit tablet 1 tab PO BID RF: 0 mirtazapine 15 mg tablet 15 mg PO DAILY RF: 0 gabapentin 300 mg capsule 300 mg PO BID PRN (Reason: Pain) RF: 0 metformin 1,000 mg tablet 1,000 mg PO BIDWM RF: 0 paroxetine HCl 20 mg tablet 20 mg PO BEDTIME RF: 0 lisinopril 10 mg tablet 10 mg PO DAILY RF: 0 simvastatin 20 mg tablet 20 mg PO BEDTIME RF: 0 Referrals: Fabian Arnett MD [Physician] - 1 week
[2020-12-17 14:37] LABS: Alanine Aminotransferase < 6 U/L (0-40); Albumin Level 4.1 g/dL (3.5-5.0); Alkaline Phosphatase 45 U/L (39-117); Anion Gap 9 (12-20); Aspartate Amino Transferase 15 U/L (5-37); Bilirubin Direct 0.2 mg/dL (0.0-0.5); Bilirubin Total 0.6 mg/dL (0.0-1.0); Blood Urea Nitrogen 11 mg/dL (9-16); Calcium 9.2 mg/dL (8.4-10.2); Carbon Dioxide 29 mmol/L (22-29); Chloride 105 mmol/L (96-108); Creatinine Clr Calc Pharmacy 52.5; Estimated Glomerular Filt Rate > 60; Glucose Random 158 mg/dL (60-115); Magnesium 1.6 mg/dL (1.6-2.6); Potassium 4.6 mmol/L (3.3-5.1); Sodium 138 mmol/L (135-145); Total Protein 6.5 g/dL (6.5-8.0)
[2020-12-17 14:46] LABS: B Type Natriuretic Peptide 124 pg/mL (<100)
[2020-12-17 15:00] LABS: Troponin-I High Sensitivity < 3.5 ng/L (<3.5-35.0)
[2020-12-17 15:03] VITALS: BP 147/62; PULSE 50; RESP 16; TEMP 36.7; O2SAT 97
--- NOTE | 2020-12-17 15:14 | ECG_ITS ---
Test Reason : BRADYCARDIA Blood Pressure : / mmHG Vent. Rate : 045 BPM Atrial Rate : 045 BPM P-R Int : 000 ms QRS Dur : 134 ms QT Int : 472 ms P-R-T Axes : 029 -06 -05 degrees QTc Int : 408 ms Sinus bradycardia with 2nd degree A-V block (Mobitz I) Right bundle branch block T wave abnormality, consider lateral ischemia Abnormal ECG When compared with ECG of 01-MAY-2020 00:55, Criteria for Septal infarct are no longer Present T wave inversion less evident in Anterior leads Referred By: Marisol Cope Electronically Signed By:CLARK SANDERS
[2020-12-17 15:27] VITALS: BP 130/66; PULSE 46; RESP 16; TEMP 36.8; O2SAT 97
[2020-12-17 15:49] LABS: Appearance Urine CLEAR; Color Urine STRAW; Glucose Urine UA NEG (NEG); Leukocyte Esterase Urine TRACE (NEG); Nitrite Urine NEG (NEG); PH 7.5 (5.0-8.0); UACC Culture Trigger YES; Urine Blood NEG (NEG); Urine Ketones NEG (NEG); Urine Protein NEG (NEG-TRACE)
[2020-12-17] MEDS: Furosemide 20 MG TABLET PO (15:53)
[2020-12-17 16:01] LABS: Calcium Oxalate Crystals Urine 1+ /LPF; Mucus Urine TRACE /LPF; RBC Urine 0 /HPF (0); Tyrosine Crystal Urine TRACE /LPF
== END 2020-12-17 16:38 | disposition home or self-care (01) ==
PROVIDERS: Physician Assistant; Emergency Provider Emergency Medicine Emergency Medical Services; PCP Internal Medicine
DX: I44.1 Atrioventricular block, second degree (principal); R60.0 Localized edema; R06.02 Shortness of breath; F17.210 Nicotine dependence, cigarettes, uncomplicated; Z20.822 Contact with and (suspected) exposure to COVID-19; Z71.6 Tobacco abuse counseling; Z79.899 Other long term (current) drug therapy
CPT/HCPCS: 36415; 71045; 80048; 80076; 81001; 83735; 83880; 84484; 85025; 87086; 87635; 93005; 99283; 99284

== ENCOUNTER 2020-12-30 20:02 | Emergency (ER) | payer OTHER, SELFPAY ==
[2020-12-30 20:18] VITALS: BP 134/72; PULSE 73; O2SAT 98
[2020-12-30 20:35] VITALS: BP 136/62; PULSE 68; RESP 18; TEMP 36.8; O2SAT 93
[2020-12-30 20:41] VITALS: BP 136/68; PULSE 68; RESP 18; TEMP 36.8; O2SAT 93; BMI 34.0
--- NOTE | 2020-12-30 21:14 | ED_ITS ---
HPI - Abdominal Pain General Chief Complaint: Abdominal Pain Stated Complaint: abd pain Time Seen by Provider: 12/30/20 21:14 Source: patient Mode of arrival: EMS Limitations: language barrier History of Present Illness HPI narrative: Patient brought by ambulance for black stool earlier today at home patient is very hard of hearing or according to patient's son patient moved his bowels today and has a oily blackish stool today same thing happened last week x2 also patient suffer with constipation patient is not on any anticoagulants not on any NSAID complaining of mild lower abdominal pain and chronic right sciatica pain patient never had any ulcers or bleeding problem before denies any dizziness chest pain shortness of breath Related Data Home Medications Medication Instructions Recorded Confirmed aripiprazole 15 mg tablet 15 mg PO DAILY 01/29/20 12/30/20 calcium carbonate 600 mg (1,500 1 tab PO BID 01/29/20 12/30/20 mg)-vitamin D3 400 unit tablet gabapentin 300 mg capsule 300 mg PO BID PRN 01/29/20 12/30/20 metformin 1,000 mg tablet 1,000 mg PO BIDWM 01/29/20 12/30/20 mirtazapine 15 mg tablet 15 mg PO DAILY 01/29/20 12/30/20 paroxetine HCl 20 mg tablet 20 mg PO BEDTIME 01/29/20 12/30/20 omeprazole 20 mg capsule,delayed 1 cap PO DAILY@0630 04/27/20 12/30/20 release carbidopa 25 mg-levodopa 100 mg 1.5 tab PO BEDTIME 04/28/20 12/30/20 tablet lisinopril 10 mg tablet 10 mg PO DAILY 11/11/20 12/30/20 simvastatin 20 mg tablet 20 mg PO BEDTIME 11/11/20 12/30/20 carbidopa 25 mg-levodopa 100 mg 2 tab PO BID@0900,1500 12/17/20 12/30/20 tablet Previous Rx's Medication Instructions Recorded blood sugar diagnostic (FreeStyle #50 ea 06/03/20 Test) lancets 28 gauge (FreeStyle #100 ea 06/03/20 Lancets) furosemide 20 mg tablet (Lasix) 20 mg PO QAM PRN 30 Days #30 tab 12/23/20 BLOOD PRESSURE MONITOR #1 ea 12/30/20 COMPRESSION SOCKS (knee high) - #2 ea 12/30/20 MEDIUM strength Allergies Allergy/AdvReac Type Severity Reaction Status Date / Time No Known Allergies Allergy Verified 12/30/20 11:07 Review of Systems Review of Systems Yes all other systems are reviewed and are negative Physical Exam Vital Signs: Vital Signs: Last Vital Signs Temp 98.3 F 12/30/20 20:41 Pulse 52 12/30/20 21:48 Resp 16 12/30/20 21:48 BP 125/54 L 12/30/20 21:48 Pulse Ox 96 12/30/20 21:48 Body Mass Index 34.0 Appearance: Alert. Oriented X3. No acute distress. Hard of hearing Eyes: PERRLA, No Nystagmus no pallor or icterus ENT: Pharynx normal. Oral Mucosa moist Neck: Normal inspection. Neck supple. CVS: Normal heart rate and rhythm. Pulses normal. Respiratory: No respiratory distress. Equal air entry bilateral, no wheezing/rales/rhonchi Abdomen: Soft and nontender. Bowel sounds are present, no mass palpable, no CVA tenderness rectal: Dark green stool guaiac negative Skin: Skin warm and dry. Normal skin color. Normal skin turgor. Extremities: No lower extremity edema. No calf tenderness right sciatic area tenderness Neuro: Oriented X 3. No motor deficit. 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 Lab Data Attestation: I reviewed the patient's lab results. Result diagrams: 12/30/20 21:37 12/30/20 21:37 Labs: Lab Results 12/30/20 12/30/20 12/30/20 Range/Units 21:37 21:37 21:52 WBC 6.5 (4.8-10.8) X10*3/uL RBC 3.92 L (4.60-5.80) X10*6/uL Hgb 12.4 L (14.0-18.0) g/dl Hct 36.9 L (42-52) % MCV 94.1 (80-98) fL MCH 31.6 (27.0-33.0) pg MCHC 33.6 (31.0-36.0) g/dl RDW 12.6 (11.0-16.0) % Plt Count 160 (160-400) X10*3/uL MPV 11.3 (9.4-12.4) fL Immature Gran % (Auto) 0.5 H (0.0-0.4) % Neut % (Auto) 61.5 (45-73) % Lymph % (Auto) 28.6 (20-40) % [place] % (Auto) 8.5 (2-11) % Eos % (Auto) 0.6 (0-4) % Baso % (Auto) 0.3 (0-2) % Lymph # (Auto) 1.9 (1.2-4.9) X10*3/uL [place] # (Auto) 0.6 (0.1-1.2) X10*3/uL Eos # (Auto) 0.0 (0.0-0.4) X10*3/uL Baso # (Auto) 0.0 (0.0-0.2) X10*3/uL Abs Immat Gran (auto) 0.03 (0.00-0.03) X10*3/uL Absolute Neuts (auto) 4.0 (2.0-8.3) X10*3/uL Absolute Nucleated RBC 0.000 (0.0-0.012) X10*3/uL Nucleated RBC % (auto) 0.0 (0.0-0.2) /100WBC PT 11.1 (9.9-13.0) SEC INR 1.0 (0.9-1.1) Sodium 138 (135-145) mmol/L Potassium 4.4 (3.3-5.1) mmol/L Chloride 104 (96-108) mmol/L Carbon Dioxide 27 (22-29) mmol/L Anion Gap 11 L (12-20) BUN 18 H D (9-16) mg/dL Creatinine 1.27 (0.5-1.4) mg/dL Estim Creat Clear Calc 45.3 Estimated GFR 54 POC Glucose (60-115) mg/dL Random Glucose 328 H D (60-115) mg/dL Calcium 10.0 D (8.4-10.2) mg/dL Total Bilirubin 0.5 (0.0-1.0) mg/dL Direct Bilirubin < 0.2 (0.0-0.5) mg/dL AST 15 (5-37) U/L ALT 16 (0-40) U/L Alkaline Phosphatase 47 (39-117) U/L Total Protein 6.6 (6.5-8.0) g/dL Albumin 4.2 (3.5-5.0) g/dL Lipase 36 (8-78) U/L Stool Occult Blood (NEGATIVE) 12/30/20 12/30/20 Range/Units 21:52 22:57 WBC (4.8-10.8) X10*3/uL RBC (4.60-5.80) X10*6/uL Hgb (14.0-18.0) g/dl Hct (42-52) % MCV (80-98) fL MCH (27.0-33.0) pg MCHC (31.0-36.0) g/dl RDW (11.0-16.0) % Plt Count (160-400) X10*3/uL MPV (9.4-12.4) fL Immature Gran % (Auto) (0.0-0.4) % Neut % (Auto) (45-73) % Lymph % (Auto) (20-40) % [place] % (Auto) (2-11) % Eos % (Auto) (0-4) % Baso % (Auto) (0-2) % Lymph # (Auto) (1.2-4.9) X10*3/uL [place] # (Auto) (0.1-1.2) X10*3/uL Eos # (Auto) (0.0-0.4) X10*3/uL Baso # (Auto) (0.0-0.2) X10*3/uL Abs Immat Gran (auto) (0.00-0.03) X10*3/uL Absolute Neuts (auto) (2.0-8.3) X10*3/uL Absolute Nucleated RBC (0.0-0.012) X10*3/uL Nucleated RBC % (auto) (0.0-0.2) /100WBC PT (9.9-13.0) SEC INR (0.9-1.1) Sodium (135-145) mmol/L Potassium (3.3-5.1) mmol/L Chloride (96-108) mmol/L Carbon Dioxide (22-29) mmol/L Anion Gap (12-20) BUN (9-16) mg/dL Creatinine (0.5-1.4) mg/dL Estim Creat Clear Calc Estimated GFR POC Glucose 242 H (60-115) mg/dL Random Glucose (60-115) mg/dL Calcium (8.4-10.2) mg/dL Total Bilirubin (0.0-1.0) mg/dL Direct Bilirubin (0.0-0.5) mg/dL AST (5-37) U/L ALT (0-40) U/L Alkaline Phosphatase (39-117) U/L Total Protein (6.5-8.0) g/dL Albumin (3.5-5.0) g/dL Lipase (8-78) U/L Stool Occult Blood NEGATIVE (NEGATIVE) Discharge Plan Discharge Clinical Impression: Dark stools Patient Disposition: Home, Self-Care Instructions: Melena (ED) Additional Instructions: No dark stool is not from the blood Drink plenty of fluids and follow-up with PCP Prescriptions: No Action (DME) FreeStyle Test Strip See Rx Instructions .ROUTE .MEDSUPPLY Qty: 50 RF: 11 (DME) lancets [FreeStyle Lancets] 28 gauge misc See Rx Instructions .ROUTE .MEDSUPPLY Qty: 100 RF: 11 carbidopa-levodopa 25-100 mg tablet 2 tab PO BID@0900,1500 RF: 0 omeprazole 20 mg capsule,delayed release(DR/EC) 1 cap PO DAILY@0630 RF: 0 carbidopa-levodopa 25-100 mg tablet 1.5 tab PO BEDTIME RF: 0 aripiprazole 15 mg tablet 15 mg PO DAILY RF: 0 calcium carbonate-vitamin D3 600 mg(1,500mg) -400 unit tablet 1 tab PO BID RF: 0 mirtazapine 15 mg tablet 15 mg PO DAILY RF: 0 gabapentin 300 mg capsule 300 mg PO BID PRN (Reason: Pain) RF: 0 metformin 1,000 mg tablet 1,000 mg PO BIDWM RF: 0 paroxetine HCl 20 mg tablet 20 mg PO BEDTIME RF: 0 lisinopril 10 mg tablet 10 mg PO DAILY RF: 0 simvastatin 20 mg tablet 20 mg PO BEDTIME RF: 0 furosemide [Lasix] 20 mg tablet 20 mg PO QAM PRN (Reason: edema) 30 Days Qty: 30 RF: 0 (DME) BLOOD PRESSURE MONITOR See Rx Instructions .Route .MEDSUPPLY Qty: 1 RF: 0 (DME) COMPRESSION SOCKS (knee high) - MEDIUM strength medium 20 mmHg See Rx Instructions .Route .MEDSUPPLY Qty: 2 RF: 0 PMFSH Past Medical History Medical History Diabetes mellitus DMII (diabetes mellitus, type 2) Dry cough Dyslipidemia Essential hypertension BETHANY (generalized anxiety disorder) GERD (gastroesophageal reflux disease) Hearing loss Mild major depression, single episode Normal colonoscopy (~06/18/11) Obesity (BMI 30-39.9) Parkinson disease Unsteady gait Surgical History No pertinent past surgical history Family History Family History Mother No problems noted. Father No problems noted. Family/Other Substance use disorder Social History Social History Household Members: Children Household Members Other:: son Housing: Apartment Do you presently have visiting nurse or other home services: No Alcohol intake: unknown Patient Tobacco Use Status: Former Tobacco user Tobacco use type: Cigarette e-Cigarette/Vaping Use: Never Used Second Hand Smoke Exposure: No Use of substances other than those prescribed or required for medical reasons: Yes Advance Directives: No Advance Directives Information Provided: No service: No Current occupational status: retired
[2020-12-30 21:41] LABS: MANUAL DIFF FLAG NO
[2020-12-30 21:43] LABS: Basophils Percent Auto 0.3 % (0-2); Eosinophils Percent Auto 0.6 % (0-4); Hematocrit 36.9 % (42-52); Hemoglobin 12.4 g/dl (14.0-18.0); Imm Gran Abs Auto 0.03 X10*3/uL (0.00-0.03); Imm Gran Pct Auto 0.5 % (0.0-0.4); Lymphocytes Absolute Auto 1.9 X10*3/uL (1.2-4.9); Lymphocytes Percent Auto 28.6 % (20-40); Mean Corpuscular HGB Conc 33.6 g/dl (31.0-36.0); Mean Corpuscular Hemoglobin 31.6 pg (27.0-33.0); Mean Corpuscular Volume 94.1 fL (80-98); Mean Platelet Volume 11.3 fL (9.4-12.4); Monocytes Absolute Auto 0.6 X10*3/uL (0.1-1.2); Monocytes Percent Auto 8.5 % (2-11); Neutrophils Percent Auto 61.5 % (45-73); Platelet Count 160 X10*3/uL (160-400); Red Blood Count 3.92 X10*6/uL (4.60-5.80); Red Cell Distribution Width 12.6 % (11.0-16.0); White Blood Count 6.5 X10*3/uL (4.8-10.8)
[2020-12-30 21:48] VITALS: BP 125/54; PULSE 52; RESP 16; O2SAT 96
[2020-12-30 22:04] LABS: OBS Int Ctl Valid YES; OBS1 NEGATIVE (NEGATIVE)
[2020-12-30 22:05] LABS: Prothrombin Time 11.1 SEC (9.9-13.0)
[2020-12-30 22:06] LABS: Alanine Aminotransferase 16 U/L (0-40); Albumin Level 4.2 g/dL (3.5-5.0); Alkaline Phosphatase 47 U/L (39-117); Anion Gap 11 (12-20); Aspartate Amino Transferase 15 U/L (5-37); Bilirubin Direct < 0.2 mg/dL (0.0-0.5); Bilirubin Total 0.5 mg/dL (0.0-1.0); Blood Urea Nitrogen 18 mg/dL (9-16); Carbon Dioxide 27 mmol/L (22-29); Chloride 104 mmol/L (96-108); Creatinine Clr Calc Pharmacy 45.3; Estimated Glomerular Filt Rate 54; Glucose Random 328 mg/dL (60-115); Lipase 36 U/L (8-78); Potassium 4.4 mmol/L (3.3-5.1); Sodium 138 mmol/L (135-145); Total Protein 6.6 g/dL (6.5-8.0)
--- NOTE | 2020-12-30 22:58 | PC.NURSE ---
poc taken 242 by this pct.
[2020-12-30 23:02] LABS: Glucose, Whole Blood 242 mg/dL (60-115)
== END 2020-12-30 23:48 | disposition home or self-care (01) ==
PROVIDERS: Emergency Provider Internal Medicine; PCP Internal Medicine
DX: R10.9 Unspecified abdominal pain (principal); K92.1 Melena; Z79.899 Other long term (current) drug therapy
CPT/HCPCS: 36415; 80048; 80076; 82272; 82947; 83690; 85025; 85610; 99283; 99284

== ENCOUNTER 2021-02-14 22:12 | Emergency (ER) | payer OTHER, SELFPAY ==
[2021-02-14 22:19] VITALS: BP 133/59; PULSE 77; RESP 16; TEMP 37; O2SAT 98; BMI 32.4
[2021-02-14 22:24] VITALS: BP 132/74; PULSE 72; O2SAT 98
--- NOTE | 2021-02-14 23:12 | ED.GENADULT ---
HPI - General Adult General Chief complaint: General Medical Stated complaint: L ear Pain Time Seen by Provider: 02/14/21 23:10 Source: patient and EMS Mode of arrival: EMS Limitations: no limitations History of Present Illness HPI narrative: History of dementia complaining of left ear pain for last 3 days no ear discharge no fever no chills no cough no trauma Related Data Previous Rx's Medication Instructions Recorded amoxicillin 875 mg-potassium 1 tab PO BID #20 tab 04/13/20 clavulanate 125 mg tablet (Augmentin) ibuprofen 600 mg tablet 600 mg PO Q6H PRN #20 tab 04/13/20 Allergies Allergy/AdvReac Type Severity Reaction Status Date / Time Seafood Allergy Mild SWELLING Uncoded 12/27/19 15:18 shellfish Allergy Unknown Uncoded 03/14/14 00:00 Review of Systems Review of Systems: Yes all other systems are reviewed and are negative [facility] Social History Social History (Reviewed 02/15/21 @ 01:44 EDT by Michael Mustafa MD) Advance Directives: No Advance Directives Information Provided: No Physical Exam Vital Signs: Vital Signs: Last Vital Signs Temp 98.6 F 02/14/21 22:19 Pulse 77 02/14/21 22:19 Resp 16 02/14/21 22:19 BP 133/59 L 02/14/21 22:19 Pulse Ox 98 02/14/21 22:19 Body Mass Index 32.4 Const: General: comfortable and no acute distress Orientation/consciousness: oriented to person and oriented to place HENMT: Head: Yes normal to inspection, Yes normocephalic and Yes atraumatic Ears: TM's normal bilaterally, EAC's normal, mastoids normal, no periauricular adenopathy, Abnormal EAC present excessive cerumen and hearing grossly impaired General nose exam: Normal external nose present Face and sinus: Yes normal facial exam Mouth: Normal oral and palatal mucosa present Eyes: General: appearance normal, both eyes and all related structures Resp: Effort & Inspection: normal respiratory effort Auscultation: clear to auscultation bilaterally Cardio: Palpation: normal PMI Rate: regular rate Rhythm: regular rhythm Heart sounds: S1 normal heart sound present and S2 normal heart sound present GI: Inspection: Yes normal to inspection Palpation (GI): Soft to palpation and nontender Neuro: General: oriented to person, oriented to place and no focal motor deficits Procedures Ear Wax Removal Both Ears: Cerumenolytic Used: other (Water irrigation) Results: Re-examined: cerumen removed completely TM Examination: TM(s) intact, normal appearance Ear Canal Exam: atraumatic Patient Tolerated Procedure: well Complications: no problems Technique: ear canal irrigated Discharge Plan Discharge Clinical Impression: Bilateral impacted cerumen Patient Disposition: Home, Self-Care Instructions: Earache (ED) Additional Instructions: Your pain in ear was secondary to wax which was removed Follow-up with PCP Prescriptions: No Action amoxicillin-pot clavulanate [Augmentin] 875-125 mg tablet 1 tab PO BID Qty: 20 RF: 0 ibuprofen 600 mg tablet 600 mg PO Q6H PRN (Reason: pain) Qty: 20 RF: 0 Interventions: ED Discharge Assessment Last Done: 02/14/21 23:31 Discharge Date/Time: 02/14/21 23:32
== END 2021-02-14 23:32 | disposition home or self-care (01) ==
PROVIDERS: Emergency Provider Internal Medicine
DX: H61.23 Impacted cerumen, bilateral (principal); H92.02 Otalgia, left ear; Z79.899 Other long term (current) drug therapy
CPT/HCPCS: 69209; 99283

== ENCOUNTER → 2021-04-13 09:18 | Outpatient (BNVA) | payer OTHER, SELFPAY | PROVIDERS: PCP Internal Medicine; Referring Provider Internal Medicine; Visit Provider Internal Medicine | DX: I45.9 Conduction disorder, unspecified (principal); I10 Essential (primary) hypertension; E11.8 Type 2 diabetes mellitus with unspecified complications | CPT/HCPCS: 99212 ==

== ENCOUNTER → 2021-05-07 09:47 | Outpatient (REF) | payer OTHER, SELFPAY | LOC: HO.CARD 09:47 | PROVIDERS: Visit Provider Internal Medicine | DX: I45.9 Conduction disorder, unspecified (principal) | CPT/HCPCS: 93242 ==

== ENCOUNTER → 2021-05-22 15:07 | Outpatient (REF) | payer OTHER, SELFPAY ==
--- NOTE | 2021-05-22 15:14 | HM_ITS ---
Conclusion: 1. Patient was monitored for total period of 3 days and 13 hours 2. Baseline rhythm is sinus rhythm 3. Average heart rate 54 beats per minute 4. Atrial fibrillation noted about 2% of the time longest episode 4 minutes and 59 seconds 5. Frequent episodes of AV dissociation consistent with third-degree AV block noted, reported at 65% of the time 6. No patient reported events MTDD
== END ==
LOC: HO.CARD 15:07
PROVIDERS: Visit Provider Internal Medicine
DX: I45.9 Conduction disorder, unspecified (principal)
CPT/HCPCS: 93242

== ENCOUNTER → 2021-06-11 10:13 | Outpatient (REF) | payer OTHER, SELFPAY ==
--- NOTE | 2021-06-11 10:16 | CA_ITS ---
Transthoracic Echocardiogram Patient (Last, First, Middle): Zain Avila, Gender: Male Date of : 1940 Age: 80 Procedure Date: 06/11/2021 Procedure Type: Transthoracic Echocardiogram Location: OP Height: 162.56 cm Weight: 85.28 kg BSA: 1.91 m2 Heart Rate: bpm BP: 126 / 74 mmHg Sports Attorney: CHASE Referring MD: Fabian Arnett MD Handle Sewer: Jagjit Suresh MD Symptoms: I45.9 - Conduction disorder, unspecified Study Quality: Good ECG Rhythm: Sinus Conclusions: - 1. Normal LV systolic function with LVEF of 60 65% with grade 1 diastolic dysfunction 2. Normal cardiac valvular Doppler 3. Normal RV systolic pressure 4. No gross pericardial effusion Findings Left Ventricle Normal left ventricular size, thickness, and systolic function. The visually estimated ejection fraction is between 60-65%. Spectral Doppler is indicative of an impaired relaxation filling pattern. E/E prime ratio is <8, consistent with normal filling pressures. Evidence suggests grade I (mild) diastolic dysfunction. Right Ventricle Normal right ventricular cavity size and systolic function. Atria Both atria are normal in size. There is no evidence of interatrial shunt. Aortic Valve The aortic valve structure and function is likely normal. There is no aortic valve stenosis. There is no aortic valve regurgitation. Mitral Valve There is mild anterior and posterior mitral leaflet thickening. There is mild mitral valve regurgitation. There is no mitral valve stenosis. Tricuspid Valve Normal tricuspid valve structure. The right ventricular systolic pressure is 20 mmHg. There is no evidence of pulmonary hypertension. Great Vessels All visible segments of the aorta are normal in size. The pulmonary artery was not well visualized. Venous The inferior vena cava is normal in size. Pericardium/Pleural There is no evidence of pericardial effusion. Prior Study Comparison No prior study available for comparison. Measurements 2D Linear Measurements IVSd: 0.83 0.6-0.9/0.6-1.0 cm LVIDd: 5.11 3.9-5.3/4.2-5.9 cm LVIDd Index: 2.68 2.4-3.2/2.2-3.1 cm/m2 LVIDs: 3.35 2.0-3.6 cm LVPWd: 0.90 0.7-1.1 cm LA Diam: 4.30 2.7-3.8/3.0-4.0 cm LAIDs Index: 2.25 1.5-2.3 cm/m2 LV Mass: 287.81 67-162/88-224 g LV Mass Index: 150.69 43-95/49-115 g/m2 LVOT Diam: 2.20 3.0+(-)1.3 cm 2D Systolic Function EF 4C: 69.10 >55% EF 2C: 65.90 >55% EF BiP: 67.70 >55% Mitral Valve MV Pk E: 0.51 MV PK A: 0.62 MV Decel Time: 211.00 E/A: 0.80 E'Lateral: 6.09 E'Medial: 5.22 E/E' Med: 9.70 E/E' Lat: 8.30 PHT: 62.00 MVA PHT: 3.55 Decel Henry: 2.39 Aortic Valve AoV Pk Shaggy: 1.01 AoV Mn Shaggy: 0.78 AoV VTI: 0.28 AoV Pk Grad: 4.00 Aov Mn Grad: 3.00 DEMETRIUS Cont.VTI: 2.71 LVOT LVOT Pk Shaggy: 0.82 LVOT Mn Shaggy: 0.58 LVOT VTI: 0.20 LVOT Pk Grad: 3.00 LVOT Mn Grad: 1.00 LVOT Diam: 2.20 LVOT Area: 3.80 Diastolic Function MV Pk E: 0.51 MV Pk A: 0.62 E/A: 0.80 E'Medial: 5.22 E/E' Med: 9.70 E' Laterial: 6.09 E/E' Lat: 8.30 Right Ventricle TAPSE (mm): 17.30 TVS' Shaggy: 8.92 Tricuspid Valve TR Pk Shaggy: 2.07 TR Pk Grad: 17.00 RA Press: 3.00 RVSP: 20.00 Great Vessels Aorta Ao Asc: 3.30 2.1-3.4 cm Ao Arch: 3.20 Updated in Other Vendor System with Status of Final Jagjit Suresh MD electronically signed on 06/12/2021 3:24:52 PM with status of Final
== END ==
LOC: HO.CARD 10:13
PROVIDERS: Visit Provider Internal Medicine
DX: I45.9 Conduction disorder, unspecified (principal)
CPT/HCPCS: 93306

== ENCOUNTER → 2021-06-29 14:26 | Outpatient (BNVA) | payer OTHER, SELFPAY | PROVIDERS: PCP Internal Medicine; Referring Provider Internal Medicine; Visit Provider Internal Medicine | DX: I45.9 Conduction disorder, unspecified (principal); I10 Essential (primary) hypertension; E11.8 Type 2 diabetes mellitus with unspecified complications | CPT/HCPCS: 93005; 99212 ==

== ENCOUNTER 2022-01-08 10:00 | Outpatient (REF) | payer OTHER, SELFPAY ==
[2022-01-08 10:12] LABS: MANUAL DIFF FLAG NO
[2022-01-08 10:36] LABS: Basophils Percent Auto 0.5 % (0-2); Eosinophils Absolute Auto 0.1 X10*3/uL (0.0-0.4); Eosinophils Percent Auto 1.3 % (0-4); Hematocrit 39.9 % (42.0-52.0); Hemoglobin 13.1 g/dl (14.0-18.0); Imm Gran Abs Auto 0.03 X10*3/uL (0.00-0.03); Imm Gran Pct Auto 0.5 % (0.0-0.4); Lymphocytes Absolute Auto 2.5 X10*3/uL (1.2-4.9); Lymphocytes Percent Auto 41.6 % (20-40); Mean Corpuscular HGB Conc 32.8 g/dl (31.0-36.0); Mean Corpuscular Hemoglobin 31.4 pg (27.0-33.0); Mean Corpuscular Volume 95.7 fL (80.0-98.0); Mean Platelet Volume 12.3 fL (9.4-12.4); Monocytes Absolute Auto 0.5 X10*3/uL (0.1-1.2); Monocytes Percent Auto 8.8 % (2-11); Neutrophils Absolute Auto 2.9 x10*3/uL (2.0-8.3); Neutrophils Percent Auto 47.3 % (45-73); Platelet Count 145 X10*3/uL (160-400); Red Blood Count 4.17 X10*6/uL (4.60-5.80); Red Cell Distribution Width 12.9 % (11.0-16.0); White Blood Count 6.1 X10*3/uL (4.8-10.8)
[2022-01-08 10:57] LABS: Alanine Aminotransferase 14 U/L (0-40); Albumin Level 4.4 g/dL (3.5-5.0); Alkaline Phosphatase 49 U/L (39-117); Anion Gap 16 (12-20); Aspartate Amino Transferase 19 U/L (5-37); Bilirubin Total 0.6 mg/dL (0.0-1.0); Blood Urea Nitrogen 13 mg/dL (9-16); Calcium 9.7 mg/dL (8.4-10.2); Carbon Dioxide 24 mmol/L (22-29); Chloride 104 mmol/L (96-108); Cholesterol 147 mg/dL; Estimated Glomerular Filt Rate 57; Glucose Fasting 167 mg/dL (60-99); HDL Cholesterol 48 mg/dL; LDL Cholesterol Calculated 60 mg/dl; Potassium 4.3 mmol/L (3.3-5.1); Sodium 140 mmol/L (135-145); Triglycerides 195 mg/dL
[2022-01-08 12:51] LABS: Creatinine Urine 182.61 mg/dL; Microalbum/Creatinine Ratio Ur 32.8 ug/mg cr
== END 2022-01-08 10:01 | disposition home or self-care (01) ==
LOC: HO.LAB 10:00
PROVIDERS: PCP Internal Medicine; Visit Provider Internal Medicine
DX: E78.5 Hyperlipidemia, unspecified (principal); E66.9 Obesity, unspecified; E11.8 Type 2 diabetes mellitus with unspecified complications
CPT/HCPCS: 36415; 80053; 80061; 82043; 85025

== ENCOUNTER 2022-03-23 15:05 | Emergency (ER) | payer OTHER, SELFPAY ==
--- NOTE | ~2022-03-23 | XR_ITS ---
EXAMINATION: XR CHEST CLINICAL INFORMATION: Lower extremity swelling. COMPARISON: 12/17/2020 chest radiograph. TECHNIQUE: Frontal view of the chest was obtained. FINDINGS: Low lung volumes limit evaluation. The lungs are clear. The heart and mediastinal structures are unremarkable. XR/XR chest 1V IMPRESSION: Limited study without overt acute cardiopulmonary process.
--- NOTE | ~2022-03-23 | CT_ITS ---
EXAMINATION: CT ABDOMEN AND PELVIS WITHOUT CONTRAST CLINICAL INFORMATION: Abdominal pain. No bowel movement. Rule out small bowel obstruction COMPARISON: None TECHNIQUE: Multidetector volumetric imaging was performed from the superior aspect of the liver through the pubic symphysis. Sagittal and coronal reformatted images were obtained on the technologist's workstation. This CT examination was performed using dose optimization techniques as appropriate, variously including the following: *Automated exposure control *Adjustment of mA and/or kV according to patient size (this includes techniques or standardized protocols for targeted exams where dose is matched to indication/reason for exam; i.e. extremities or head) *Use of iterative reconstruction technique DLP: 608 mGy-cm FINDINGS: LUNG BASES: Mild dependent bibasilar atelectasis. Sub-4 mm calcified granulomas in the right lung base. Left main and LAD coronary artery calcifications. LIVER, GALLBLADDER, AND BILIARY TREE: The liver is normal in size, shape, and attenuation. No focal hepatic lesion or biliary ductal dilatation is present. The gallbladder is moderately distended and contains a few small dependent gallstones. No gallbladder wall thickening or pericholecystic inflammatory changes. PANCREAS: Unremarkable. SPLEEN: Unremarkable. ADRENAL GLANDS: Unremarkable. KIDNEYS AND URETERS: Small 1.7 cm low-density benign-appearing left lower pole renal cyst. No further follow-up imaging recommended. No additional renal lesions. No radiodense urinary tract calculi. No hydronephrosis. Mild symmetric perirenal fascial stranding, nonspecific finding. BLADDER: Prominently distended. No bladder wall thickening. GASTROINTESTINAL TRACT: Moderate-sized stool ball distends the rectum. No rectal wall thickening or inflammatory change. Otherwise, small to moderate colonic stool burden. No dilated bowel loops. Normal appendix. No ascites or free air. ABDOMINAL WALL: Fat-containing left inguinal hernia with small fat-containing umbilical/periumbilical hernia. LYMPH NODES: No lymphadenopathy. VASCULAR: Mildly tortuous normal caliber abdominal aorta. Mild to moderate vascular calcifications. PELVIC VISCERA: Prostate gland is prominent size. Coarse parenchymal calcifications. OSSEOUS STRUCTURES: No acute fracture or suspicious osseous lesion. Mild multilevel spondylosis of the thoracolumbar spine. 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 CT/CT abdomen pelvis wo IV con IMPRESSION: 1. No evidence of bowel obstruction or other acute intra-abdominal process. 2. Moderate-sized stool ball distends the rectum. Correlate clinically with signs or symptoms of fecal impaction. Otherwise, small to moderate colonic stool burden. 3. Cholelithiasis. 4. Prominently distended urinary bladder. Correlate clinically with signs or symptoms of bladder outlet obstruction or bladder dysfunction. 5. Additional chronic findings, as described.
[2022-03-23 15:31] VITALS: BP 126/68; PULSE 62; O2SAT 95
[2022-03-23 15:36] VITALS: BP 141/87; PULSE 56; TEMP 36.7; BMI 28.8
--- NOTE | 2022-03-23 16:01 | ED_ITS ---
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 Patient stated he did not have a bowel movement for the past 3 days, no abdominal pain, no nausea, no vomiting, passing flatus, good normal appetite but patient is afraid to eat worry about abdominal pain, patient also feels pressure in the rectum area. Related Data Home Medications Medication Instructions Recorded Confirmed lisinopril 10 mg tablet 10 mg PO DAILY 11/11/20 01/14/22 simvastatin 20 mg tablet 20 mg PO BEDTIME 11/11/20 01/14/22 carbidopa 25 mg-levodopa 100 mg 2 tab PO BID@0900,1500 12/17/20 01/14/22 tablet Previous Rx's Medication Instructions Recorded ibuprofen 600 mg tablet 600 mg PO Q6H PRN pain #20 tabs 04/13/20 lancets 28 gauge (FreeStyle #100 ea 06/03/20 Lancets) BLOOD PRESSURE MONITOR #1 ea 12/30/20 COMPRESSION SOCKS (knee high) - #2 ea 12/30/20 MEDIUM strength paroxetine HCl 20 mg tablet 20 mg PO BEDTIME 90 days #90 tabs 02/05/21 blood sugar diagnostic (FreeStyle #50 ea 07/19/21 Test strips) omeprazole 20 mg capsule,delayed 20 mg PO DAILY@0630 90 days #90 10/02/21 release caps pioglitazone 45 mg tablet 45 mg PO DAILY 90 days #90 tabs 01/14/22 furosemide 20 mg tablet 20 mg PO QAM #30 tabs 02/05/22 gabapentin 300 mg capsule 300 mg PO BID PRN Pain 90 days 02/12/22 #180 caps mirtazapine 15 mg tablet 15 mg PO DAILY 90 days #90 tabs 02/19/22 metformin 1,000 mg tablet 1,000 mg PO BID 90 days #180 tabs 02/23/22 aripiprazole 15 mg tablet 15 mg PO DAILY #90 tabs 03/15/22 calcium carbonate 600 mg-vitamin 1 tab PO BID 90 days #180 tabs 03/23/22 D3 10 mcg (400 unit) tablet Allergies Allergy/AdvReac Type Severity Reaction Status Date / Time shellfish derived Allergy Mild swollen Verified 01/14/22 15:06 face shellfish Allergy Intermediate rash, itch Uncoded 01/14/22 15:06 Seafood Allergy Mild SWELLING Uncoded 01/14/22 15:06 Review of Systems Review of Systems: All other systems are reviewed and are negative Constitutional: Reports as per HPI and Reports no additional constitutional complaints Eyes: Reports as per HPI and Reports no additional eye complaints Reports system reviewed and no additional complaints, except as documented Cardiovascular: Reports as per HPI and Reports no additional cardiovascular complaints Respiratory: Reports as per HPI and Reports no additional respiratory complaints Gastrointestinal: Reports as per HPI and Reports no additional gastrointestinal complaints Genitourinary: Reports no additional female genitourinary complaints Musculoskeletal: Reports no additional musculoskeletal complaints Skin/Breast: Reports system reviewed and no additional complaints, except as docu Psychiatric: Reports no additional psychiatric complaints Endocrine: Reports no additional endocrine complaints Hematologic/Lymphatic: Reports no additional hematologic/lymphatic complaints Allergic/Immunologic: Reports no additional allergic/immunologic complaints Reports system reviewed and no additional complaints, except as documented and Reports Abnormal speech present [facility] Past Medical History Medical History Bradycardia Diabetes mellitus DMII (diabetes mellitus, type 2) Dry cough Dyslipidemia Essential hypertension BETHANY (generalized anxiety disorder) GERD (gastroesophageal reflux disease) Hearing loss Mild major depression, single episode Normal colonoscopy (~06/18/11) Obesity (BMI 30-39.9) Parkinson disease Physical exam Unsteady gait Surgical History No pertinent past surgical history Family History Family History Mother No problems noted. Father No problems noted. Family/Other Substance use disorder Social History Social History Household Members: Children Household Members Other:: son Housing: Apartment Do you presently have visiting nurse or other home services: No Alcohol intake: former Patient Tobacco Use Status: Former Tobacco user Tobacco use type: Cigarette e-Cigarette/Vaping Use: Never Used Second Hand Smoke Exposure: No Advance Directives: No Advance Directives Information Provided: Yes service: No Current occupational status: retired Cognitive needs: Yes Hearing needs: No Vision needs: Yes Physical Exam ED Vital Signs: Vital Signs - 24 hr 03/23/22 15:36 Temperature 98.0 F Pulse Rate 56 Blood Pressure 141/87 H Oxygen Delivery Method Room Air BMI result Body Mass Index 28.8 Vital signs have been reviewed as appeared to be correct. Blood pressure normal. Heart rate normal. Respiration rate normal. Temperature normal. Oxygen saturation normal. Appearance: Alert. Oriented X3. No acute distress. Head: Normal external exam. Normocephalic. Atraumatic. No Devi signs noted. No raccoon eyes noted Eyes: PERRLA. EOMI. Conjunctiva and sclera normal. Eyelids normal. ENT: TM's Normal. Pharynx normal. Uvula midline. Moist mucous membranes. No trismus noted. No drooling noted. No muffled voice noted. Neck: Normal inspection. Neck supple. FROM. No adenopathy. Thyroid Normal. No meningeal signs. No neck mass noted. CVS: Normal heart rate and rhythm. Heart sound normal. No murmurs noted. Pulses normal throughout. Respiratory: No respiratory distress. Painless inspiration. Breath sounds normal. No wheezes/rales/rhonchi noted. Chest nontender. No accessory muscle usage noted or decreased air movement noted. Abdomen: Soft and nontender. Bowel sounds normal in all 4 quadrants. No distention noted. No organomegaly noted. No visible injury noted. Rectal exam: No tenderness, no active bleeding, hard brown stool in the vault, guaiac negative. With successful digital rectal disimpaction. Back: No CVA tenderness. Full range of motion noted. Skin: Skin warm and dry. Normal skin color. Normal skin turgor. No rashes/lesions/lacerations noted. Extremities: No lower extremity edema. Extremities exhibit normal range of mot ion. Extremities nontender. Neuro: Oriented X 3. Cranial nerve exam: II-XII are grossly intact No motor deficit. No sensory deficit. Reflexes normal. Course Course Course Narrative: 81-year-old male came in for constipation for the last 3 days patient is asymptomatic, patient had relief after digital manual rectal disimpaction, CT of the abdomen pelvis otherwise showing no acute pathology, bilateral lower extremity swelling likely due to venous insufficiency. Patient can be discharged home and follow-up with PCP. Medications Administered Discontinued Medications Generic Name Dose Route Start Last Admin Trade Name Freq PRN Reason Stop Dose Admin Magnesium Hydroxide 30 ml 03/23/22 15:59 03/23/22 17:36 Milk Of Magnesia 30 Ml Oral.Susp PO 03/23/22 16:00 30 ml ONCE ONE Administration Mineral Oil 133 ml 03/23/22 15:59 03/23/22 17:36 Mineral Oil Enema 133 Ml Enema DC 03/23/22 16:00 133 ml ONCE ONE Administration Medical Decision Making Differential Diagnosis Differential Diagnoses: The differential diagnosis associated with the presentation includes (Abdominal pain, small-bowel obstruction, constipation, bilateral lower extremities edema due to congestive heart failure.) Lab Data MDM Lab Attestation statement: I reviewed the patient's lab results. Result Diagrams: 03/23/22 17:41 03/23/22 17:41 Labs: Lab Results 03/23/22 03/23/22 03/23/22 Range/Units 17:41 17:41 17:41 WBC 7.4 (4.8-10.8) X10*3/uL RBC 4.05 L (4.60-5.80) X10*6/uL Hgb 12.7 L (14.0-18.0) g/dl Hct 37.4 L (42.0-52.0) % MCV 92.3 (80.0-98.0) fL MCH 31.4 (27.0-33.0) pg MCHC 34.0 (31.0-36.0) g/dl RDW 12.5 (11.0-16.0) % Plt Count 151 L (160-400) X10*3/uL MPV 11.8 (9.4-12.4) fL Immature Gran % (Auto) 0.3 (0.0-0.4) % Neut % (Auto) 70.2 (45-73) % Lymph % (Auto) 21.7 (20-40) % Doddridge % (Auto) 7.0 (2-11) % Eos % (Auto) 0.3 (0-4) % Baso % (Auto) 0.5 (0-2) % Lymph # (Auto) 1.6 (1.2-4.9) X10*3/uL Doddridge # (Auto) 0.5 (0.1-1.2) X10*3/uL Eos # (Auto) 0.0 (0.0-0.4) X10*3/uL Baso # (Auto) 0.0 (0.0-0.2) X10*3/uL Abs Immat Gran (auto) 0.02 (0.00-0.03) X10*3/uL Absolute Neuts (auto) 5.2 (2.0-8.3) x10*3/uL Absolute Nucleated RBC 0.000 (0.0-0.012) X10*3/uL Nucleated RBC % (auto) 0.0 (0.0-0.2) /100WBC Sodium 139 (135-145) mmol/L Potassium 4.1 (3.3-5.1) mmol/L Chloride 102 (96-108) mmol/L Carbon Dioxide 30 H (22-29) mmol/L Anion Gap 11 L (12-20) BUN 14 (9-16) mg/dL Creatinine 1.28 (0.5-1.4) mg/dL Estim Creat Clear Calc 45.1 Estimated GFR 54 Random Glucose 173 H (60-115) mg/dL Calcium 9.6 (8.4-10.2) mg/dL Total Bilirubin 0.5 (0.0-1.0) mg/dL Direct Bilirubin 0.2 (0.0-0.5) mg/dL AST 14 (5-37) U/L ALT < 6 (0-40) U/L Alkaline Phosphatase 53 (39-117) U/L Troponin I High Sens 5.1 (<3.5-35.0) ng/L B-Natriuretic Peptide (<100) pg/mL Total Protein 6.4 L (6.5-8.0) g/dL Albumin 4.1 (3.5-5.0) g/dL Lipase 19 (8-78) U/L // Range/Units 17:41 WBC (4.8-10.8) X10*3/uL RBC (4.60-5.80) X10*6/uL Hgb (14.0-18.0) g/dl Hct (42.0-52.0) % MCV (80.0-98.0) fL MCH (27.0-33.0) pg MCHC (31.0-36.0) g/dl RDW (11.0-16.0) % Plt Count (160-400) X10*3/uL MPV (9.4-12.4) fL Immature Gran % (Auto) (0.0-0.4) % Neut % (Auto) (45-73) % Lymph % (Auto) (20-40) % Doddridge % (Auto) (2-11) % Eos % (Auto) (0-4) % Baso % (Auto) (0-2) % Lymph # (Auto) (1.2-4.9) X10*3/uL Doddridge # (Auto) (0.1-1.2) X10*3/uL Eos # (Auto) (0.0-0.4) X10*3/uL Baso # (Auto) (0.0-0.2) X10*3/uL Abs Immat Gran (auto) (0.00-0.03) X10*3/uL Absolute Neuts (auto) (2.0-8.3) x10*3/uL Absolute Nucleated RBC (0.0-0.012) X10*3/uL Nucleated RBC % (auto) (0.0-0.2) /100WBC Sodium (135-145) mmol/L Potassium (3.3-5.1) mmol/L Chloride (96-108) mmol/L Carbon Dioxide (22-29) mmol/L Anion Gap (12-20) BUN (9-16) mg/dL Creatinine (0.5-1.4) mg/dL Estim Creat Clear Calc Estimated GFR Random Glucose (60-115) mg/dL Calcium (8.4-10.2) mg/dL Total Bilirubin (0.0-1.0) mg/dL Direct Bilirubin (0.0-0.5) mg/dL AST (5-37) U/L ALT (0-40) U/L Alkaline Phosphatase (39-117) U/L Troponin I High Sens (<3.5-35.0) ng/L B-Natriuretic Peptide 117 H (<100) pg/mL Total Protein (6.5-8.0) g/dL Albumin (3.5-5.0) g/dL Lipase (8-78) U/L Independent Interpretation I performed an independent interpretation of an: Plain X-Ray (Chest: No acute pathology) and CT Scan (Abdomen and pelvis: Constipation.) Radiology Impression Discussion of test interpretation with radiology: I have reviewed the radiologist's reading. Discharge Plan Discharge Clinical Impression: Constipation Patient Disposition: Home, Self-Care Instructions: Constipation (ED) Prescriptions: No Action (DME) lancets [FreeStyle Lancets] 28 gauge misc See Rx Instructions .ROUTE .MEDSUPPLY Qty: 100 11RF Rx Instructions: Use 1 lancet once a day paroxetine HCl 20 mg tablet 20 mg PO BEDTIME 90 Days Qty: 90 1RF (DME) FreeStyle Test Strip See Rx Instructions .ROUTE .MEDSUPPLY Qty: 50 11RF Rx Instructions: Use 1 test strip once a day omeprazole 20 mg capsule,delayed release(DR/EC) 20 mg PO DAILY@0630 90 Days Qty: 90 1RF furosemide 20 mg tablet 20 mg PO QAM Qty: 30 0RF gabapentin 300 mg capsule 300 mg PO BID PRN (Reason: Pain) 90 Days Qty: 180 0RF mirtazapine 15 mg tablet 15 mg PO DAILY 90 Days Qty: 90 0RF metformin 1,000 mg tablet 1,000 mg PO BID 90 Days Qty: 180 1RF aripiprazole 15 mg tablet 15 mg PO DAILY Qty: 90 0RF calcium carbonate-vitamin D3 600 mg-10 mcg (400 unit) tablet 1 tab PO BID 90 Days Qty: 180 1RF ibuprofen 600 mg tablet 600 mg PO Q6H PRN (Reason: pain) Qty: 20 0RF carbidopa-levodopa 25-100 mg tablet 2 tab PO BID@0900,1500 lisinopril 10 mg tablet 10 mg PO DAILY simvastatin 20 mg tablet 20 mg PO BEDTIME (DME) BLOOD PRESSURE MONITOR See Rx Instructions .Route .MEDSUPPLY Qty: 1 0RF Rx Instructions: As directed (DME) COMPRESSION SOCKS (knee high) - MEDIUM strength medium 20 mmHg See Rx Instructions .Route .MEDSUPPLY Qty: 2 0RF Rx Instructions: As directed pioglitazone 45 mg tablet 45 mg PO DAILY 90 Days Qty: 90 1RF Referrals: Physician,Unknown J [Primary Care Provider] -
[2022-03-23] MEDS: Mineral OiL enema 133 ML ENEMA PR (17:36)
[2022-03-23] MEDS: Milk of Magnesia 30 ML ORAL.SUSP PO (17:36)
[2022-03-23 17:48] LABS: MANUAL DIFF FLAG NO
[2022-03-23 17:49] LABS: Basophils Percent Auto 0.5 % (0-2); Eosinophils Percent Auto 0.3 % (0-4); Hematocrit 37.4 % (42.0-52.0); Hemoglobin 12.7 g/dl (14.0-18.0); Imm Gran Abs Auto 0.02 X10*3/uL (0.00-0.03); Imm Gran Pct Auto 0.3 % (0.0-0.4); Lymphocytes Absolute Auto 1.6 X10*3/uL (1.2-4.9); Lymphocytes Percent Auto 21.7 % (20-40); Mean Corpuscular Hemoglobin 31.4 pg (27.0-33.0); Mean Corpuscular Volume 92.3 fL (80.0-98.0); Mean Platelet Volume 11.8 fL (9.4-12.4); Monocytes Absolute Auto 0.5 X10*3/uL (0.1-1.2); Neutrophils Absolute Auto 5.2 x10*3/uL (2.0-8.3); Neutrophils Percent Auto 70.2 % (45-73); Platelet Count 151 X10*3/uL (160-400); Red Blood Count 4.05 X10*6/uL (4.60-5.80); Red Cell Distribution Width 12.5 % (11.0-16.0); White Blood Count 7.4 X10*3/uL (4.8-10.8)
[2022-03-23 18:20] LABS: Alanine Aminotransferase < 6 U/L (0-40); Albumin Level 4.1 g/dL (3.5-5.0); Alkaline Phosphatase 53 U/L (39-117); Anion Gap 11 (12-20); Aspartate Amino Transferase 14 U/L (5-37); Bilirubin Direct 0.2 mg/dL (0.0-0.5); Bilirubin Total 0.5 mg/dL (0.0-1.0); Blood Urea Nitrogen 14 mg/dL (9-16); Calcium 9.6 mg/dL (8.4-10.2); Carbon Dioxide 30 mmol/L (22-29); Chloride 102 mmol/L (96-108); Creatinine Clr Calc Pharmacy 45.1; Estimated Glomerular Filt Rate 54; Glucose Random 173 mg/dL (60-115); Lipase 19 U/L (8-78); Potassium 4.1 mmol/L (3.3-5.1); Sodium 139 mmol/L (135-145); Total Protein 6.4 g/dL (6.5-8.0)
[2022-03-23 18:22] LABS: B Type Natriuretic Peptide 117 pg/mL (<100)
[2022-03-23 18:23] LABS: Troponin-I High Sensitivity 5.1 ng/L (<3.5-35.0)
--- NOTE | 2022-03-23 20:01 | PC.NURSE ---
PT A&Ox3, KETCHIKAN, denies any pain. Reports feeling the urge to have a BM. Pt assisted to bedside commode.
[2022-03-23 20:42] VITALS: BP 145/60; RESP 18; TEMP 36.8; O2SAT 97
[2022-03-23 20:46] VITALS: PULSE 55
== END 2022-03-23 21:00 | disposition home or self-care (01) ==
PROVIDERS: Emergency Provider Emergency Medicine
DX: K59.00 Constipation, unspecified (principal); R60.0 Localized edema; R06.02 Shortness of breath; R07.89 Other chest pain; Z79.899 Other long term (current) drug therapy; Z87.891 Personal history of nicotine dependence
CPT/HCPCS: 36415; 71045; 74176; 80048; 80076; 83690; 83880; 84484; 85025; 99283; 99284

== ENCOUNTER 2022-05-26 09:41 | Outpatient (REF) | payer OTHER, SELFPAY ==
[2022-05-26 11:23] LABS: Alanine Aminotransferase < 6 U/L (0-40); Albumin Level 4.3 g/dL (3.5-5.0); Alkaline Phosphatase 58 U/L (39-117); Anion Gap 18 (12-20); Aspartate Amino Transferase 22 U/L (5-37); Bilirubin Total 0.6 mg/dL (0.0-1.0); Blood Urea Nitrogen 27 mg/dL (9-16); Calcium 9.7 mg/dL (8.4-10.2); Carbon Dioxide 25 mmol/L (22-29); Chloride 104 mmol/L (96-108); Cholesterol 158 mg/dL; Estimated Glomerular Filt Rate 35; Glucose Fasting 149 mg/dL (60-99); HDL Cholesterol 40 mg/dL; LDL Cholesterol Calculated 81 mg/dl; Potassium 3.5 mmol/L (3.3-5.1); Sodium 143 mmol/L (135-145); Total Protein 6.8 g/dL (6.5-8.0); Triglycerides 186 mg/dL
[2022-05-26 11:45] LABS: Vitamin D 25-OH Total 25.3 ng/mL (>30)
[2022-05-26 12:39] LABS: Microalbum/Creatinine Ratio Ur 28.6 ug/mg cr
== END 2022-05-26 09:42 | disposition home or self-care (01) ==
LOC: HO.LAB 09:41
PROVIDERS: PCP Internal Medicine; Visit Provider Internal Medicine
DX: E11.9 Type 2 diabetes mellitus without complications (principal); E55.9 Vitamin D deficiency, unspecified; E78.5 Hyperlipidemia, unspecified
CPT/HCPCS: 36415; 80053; 80061; 82043; 82306

== ENCOUNTER 2022-08-15 22:50 | Inpatient (IN) | payer OTHER, SELFPAY ==
--- NOTE | ~2022-08-15 | XR_ITS ---
EXAMINATION: XR CHEST CLINICAL INFORMATION: Cough COMPARISON: 03/23/2022 TECHNIQUE: Frontal view of the chest was obtained. FINDINGS: Lungs appear hypoinflated. No focal consolidation is seen. No evidence of pneumothorax or significant pleural effusion. Central interstitial prominence is similar to prior, of uncertain significance in the setting of low lung volumes. Cardiomediastinal silhouette appears unremarkable in the setting of low lung volumes. No acute osseous findings are seen. XR/XR chest 1V IMPRESSION: Low lung volumes without focal consolidation.
--- NOTE | ~2022-08-15 | FL_ITS ---
EXAMINATION: XR FLUOROSCOPY WITH IMAGES CLINICAL INFORMATION: Pacemaker placement COMPARISON: Chest x-ray performed earlier same date TECHNIQUE: Fluoroscopy Supervised By: Dr Wright. Fluoroscopy Time: 363.9 seconds. Cumulative Dose: 133.25 mGy. Images: 5. FL/FL guidance in OR FINDINGS / IMPRESSION: 1. Images demonstrate placement of a right chest wall pacemaker. Pacemaker leads projecting the appropriate positions relative cardiac shadow. 2. There is a curvilinear density projecting over the cardiac shadow on the most recent image submitted for review -- please confirm whether this represents a foreign body, intentional or not.
[2022-08-15 23:04] VITALS: BP 131/70; PULSE 38; O2SAT 98
[2022-08-15 23:09] VITALS: BP 129/63; PULSE 45; RESP 14; TEMP 36.6; O2SAT 94
--- NOTE | 2022-08-15 23:21 | ECG_ITS ---
Test Reason : repeat/ chf Blood Pressure : / mmHG Vent. Rate : 037 BPM Atrial Rate : 036 BPM P-R Int : 000 ms QRS Dur : 126 ms QT Int : 510 ms P-R-T Axes : 053 -11 -13 degrees QTc Int : 400 ms High grade AV block Right bundle branch block Septal infarct (cited on or before 15-AUG-2022) T wave abnormality, consider lateral ischemia Abnormal ECG When compared with ECG of 15-AUG-2022 23:11, progression of heart block Referred By: Aileen Lopez Electronically Signed By:FREDY VALDEZ
--- NOTE | 2022-08-15 23:30 | PC.NURSE ---
Pt A&Ox4, reports BLL swelling and weakness, denies any pain. BLL edema noted, HR noted to be 45, Dr. Lopez notified and at bedside, pacer pads placed, code cart at bedside, IV line placed, blood work collected and sent to lab.
[2022-08-15 23:43] LABS: MANUAL DIFF FLAG NO
[2022-08-15] MEDS: 0.9 % Sodium Chloride 1,000 ML 999 ML IV (23:43)
[2022-08-15 23:48] LABS: Basophils Percent Auto 0.6 % (0-2); Eosinophils Absolute Auto 0.1 X10*3/uL (0.0-0.4); Eosinophils Percent Auto 1.3 % (0-4); Hematocrit 37.3 % (42.0-52.0); Hemoglobin 12.2 g/dl (14.0-18.0); Imm Gran Abs Auto 0.02 X10*3/uL (0.00-0.03); Imm Gran Pct Auto 0.4 % (0.0-0.4); Lymphocytes Absolute Auto 1.4 X10*3/uL (1.2-4.9); Lymphocytes Percent Auto 26.5 % (20-40); Mean Corpuscular HGB Conc 32.7 g/dl (31.0-36.0); Mean Corpuscular Volume 97.9 fL (80.0-98.0); Mean Platelet Volume 12.1 fL (9.4-12.4); Monocytes Absolute Auto 0.5 X10*3/uL (0.1-1.2); Monocytes Percent Auto 9.6 % (2-11); Neutrophils Absolute Auto 3.3 x10*3/uL (2.0-8.3); Neutrophils Percent Auto 61.6 % (45-73); Platelet Count 143 X10*3/uL (160-400); Red Blood Count 3.81 X10*6/uL (4.60-5.80); Red Cell Distribution Width 13.8 % (11.0-16.0); White Blood Count 5.4 X10*3/uL (4.8-10.8)
[2022-08-16] VITALS (11 sets, daily range): BP systolic 134–190; BP diastolic 50–84; PULSE 41–80; RESP 14–20; TEMP 36.3–37; O2SAT 93–98
[2022-08-16 00:01] LABS: Alanine Aminotransferase 14 U/L (0-40); Albumin Level 4.2 g/dL (3.5-5.0); Alkaline Phosphatase 53 U/L (39-117); Anion Gap 13 (12-20); Aspartate Amino Transferase 20 U/L (5-37); Bilirubin Total 0.5 mg/dL (0.0-1.0); Blood Urea Nitrogen 16 mg/dL (9-16); Calcium 9.7 mg/dL (8.4-10.2); Carbon Dioxide 28 mmol/L (22-29); Chloride 106 mmol/L (96-108); Creatinine Clr Calc Pharmacy 47.8; Estimated Glomerular Filt Rate > 60; Glucose Random 162 mg/dL (60-115); Magnesium 1.5 mg/dL (1.6-2.6); Potassium 4.8 mmol/L (3.3-5.1); Sodium 142 mmol/L (135-145); Total Protein 6.5 g/dL (6.5-8.0)
[2022-08-16 00:09] LABS: Troponin-I High Sensitivity 7.6 ng/L (<3.5-35.0)
[2022-08-16 00:12] LABS: B Type Natriuretic Peptide 107 pg/mL (<100)
--- NOTE | 2022-08-16 00:40 | PC.NURSE ---
Fluids stopped per Dr. Lopez.
[2022-08-16] MEDS: Magnesium Sulfate/D5W 1 GM/100 ML PIGGYBACK IV (00:42)
--- NOTE | 2022-08-16 01:32 | ED.GENADULT ---
HPI - General Adult General Chief complaint: General Medical Stated complaint: Bilateral Leg Pain,Weakness Time Seen by Provider: 08/15/22 23:12 Source: patient, family and EMS Mode of arrival: EMS History of Present Illness HPI narrative: 81-year-old male who is brought in by EMS for complaints of bilateral lower leg swelling for the past 3 days and mild shortness of breath without complaints of chest pain or palpitations. Patient has known bradycardia with second-degree heart block. Related Data Home Medications Medication Instructions Recorded Confirmed carbidopa 25 mg-levodopa 100 mg 2 tab PO BID@0900,1500 12/17/20 01/14/22 tablet Previous Rx's Medication Instructions Recorded lancets 28 gauge (FreeStyle #100 ea 06/03/20 Lancets) BLOOD PRESSURE MONITOR #1 ea 12/30/20 COMPRESSION SOCKS (knee high) - #2 ea 12/30/20 MEDIUM strength paroxetine HCl 20 mg tablet 20 mg PO BEDTIME 90 days #90 tabs 02/05/21 blood sugar diagnostic (FreeStyle #50 ea 07/19/21 Test strips) calcium carbonate 600 mg-vitamin 1 tab PO BID 90 days #180 tabs 03/23/22 D3 10 mcg (400 unit) tablet omeprazole 20 mg capsule,delayed 20 mg PO DAILY@0630 90 days #90 03/25/22 release caps gabapentin 300 mg capsule 300 mg PO BID PRN Pain 90 days 05/17/22 #180 caps ibuprofen 600 mg tablet 600 mg PO Q6H PRN pain #20 tabs 05/17/22 simvastatin 20 mg tablet 20 mg PO BEDTIME 90 days #90 tabs 05/17/22 pioglitazone 45 mg tablet 45 mg PO DAILY 90 days #90 tabs 07/07/22 aripiprazole 15 mg tablet 15 mg PO DAILY #90 tabs 07/19/22 lisinopril 10 mg tablet 10 mg PO DAILY 90 days #90 tabs 07/29/22 mirtazapine 15 mg tablet 15 mg PO DAILY 90 days #90 tabs 08/01/22 furosemide 20 mg tablet 20 mg PO QAM #30 tabs 08/03/22 metformin 1,000 mg tablet 1,000 mg PO BID 90 days #180 tabs 08/15/22 Allergies Allergy/AdvReac Type Severity Reaction Status Date / Time shellfish derived Allergy Mild swollen Verified 01/14/22 15:06 face shellfish Allergy Intermediate rash, itch Uncoded 01/14/22 15:06 Seafood Allergy Mild SWELLING Uncoded 01/14/22 15:06 Review of Systems Review of Systems: Pertinent positives and negatives as stated in HPI [facility] Past Medical History Source: nursing notes reviewed Medical History Bradycardia Diabetes mellitus DMII (diabetes mellitus, type 2) Dry cough Dyslipidemia Essential hypertension BETHANY (generalized anxiety disorder) GERD (gastroesophageal reflux disease) Hearing loss Mild major depression, single episode Normal colonoscopy (~06/18/11) Obesity (BMI 30-39.9) Parkinson disease Physical exam Unsteady gait Surgical History No pertinent past surgical history Family History Family History Mother No problems noted. Father No problems noted. Family/Other Substance use disorder Social History Social History Household Members: Children Household Members Other:: son Housing: Apartment Do you presently have visiting nurse or other home services: No Alcohol intake: former Patient Tobacco Use Status: Former Tobacco user Tobacco use type: Cigarette e-Cigarette/Vaping Use: Never Used Second Hand Smoke Exposure: No Advance Directives: No Advance Directives Information Provided: No service: No Current occupational status: retired Cognitive needs: Yes Hearing needs: No Vision needs: Yes Physical Exam ED Vital Signs: Vital Signs - 24 hr 08/15/22 23:09 08/16/22 00:32 08/16/22 01:51 Temperature 97.9 F 97.9 F Pulse Rate 45 L 45 L 41 L Respiratory Rate 14 17 14 Blood Pressure 129/63 138/63 154/55 H Pulse Oximetry 94 97 96 Oxygen Delivery Method Room Air Room Air Room Air BMI result Body Mass Index 30.0 VITAL SIGNS: Reviewed. GENERAL: Well developed, well nourished, in no acute distress. HEAD: Normocephalic/atraumatic EYES: PERRLA, EOMI EARS: Ext canals without abnormality NOSE: Nares patent bilateral OROPHARYNX: no oral lesions noted, posterior pharynx clear NECK: Supple, no adenopathy LUNGS: Normal breath sounds. No adventitious sounds or accessory muscle use. SpO2<97> CARDIOVASCULAR: Regular rate and rhythm without noted murmurs, no JVD but 1+ bilateral pitting edema ABDOMEN: Soft, non-tender, non-distended with bowel sounds. MUSCULOSKELETAL: No tenderness, deformities, or effusions noted on gross inspection. EXTREMITIES: No cyanosis, clubbing or edema. SKIN: Inspection of the skin reveals no rashes NEUROLOGIC: Alert and oriented x 3. Strength and sensation to light touch were grossly intact x 4. Medications Administered Discontinued Medications Generic Name Dose Route Start Last Admin Trade Name Freq PRN Reason Stop Dose Admin Furosemide 40 mg 08/16/22 01:30 08/16/22 01:55 Furosemide 40 Mg/4 Ml Vial IVPUSH 08/16/22 01:31 40 mg ONCE ONE Administration Protocol Sodium Chloride 1,000 mls @ 999 mls/hr 08/15/22 23:30 08/16/22 00:55 Ns IV 08/16/22 00:30 Infused .Q1H1M WILMA Infusion Magnesium Sulfate/Dextrose 1 gm in 100 mls @ 300 mls/hr 08/16/22 00:19 08/16/22 01:02 Magnesium Sulfate/D5w IV 08/16/22 00:38 Infused ONCE ONE Infusion Medical Decision Making Medical Decision Making MDM Narrative: 81-year-old male with history and clinical presentation of very mild 1+ pitting edema, blood pressure is stable although patient is noted to be with heart rate 45. Review of all investigations and my interpretation is as patient is in third-degree heart block with mild CHF exacerbation for which he will receive Lasix. He is otherwise hemodynamically stable and had extensive conversation with him a with the nurse who speaks Upper Sorbian and initially patient was declining pacemaker placement but then changed his mind and is on board with having pacemaker placed. Pads are in place and I discussed the case with the inpatient hospitalist at 02:13 and she accepts admission. This case has also been discussed with Dr. Suresh who recommended admission. Differential Diagnosis Please see the discussion above Consult Healthcare Provider Management of the patient was discussed with: Hospitalist and Tubing Oiler Please see the discussion above Lab Data Please see the discussion above 08/15/22 23:33 08/15/22 23:33 Labs: Lab Results 08/15/22 08/15/22 08/15/22 Range/Units 23:33 23:33 23:33 WBC 5.4 (4.8-10.8) X10*3/uL RBC 3.81 L (4.60-5.80) X10*6/uL Hgb 12.2 L (14.0-18.0) g/dl Hct 37.3 L (42.0-52.0) % MCV 97.9 (80.0-98.0) fL MCH 32.0 (27.0-33.0) pg MCHC 32.7 (31.0-36.0) g/dl RDW 13.8 (11.0-16.0) % Plt Count 143 L (160-400) X10*3/uL MPV 12.1 (9.4-12.4) fL Immature Gran % (Auto) 0.4 (0.0-0.4) % Neut % (Auto) 61.6 (45-73) % Lymph % (Auto) 26.5 (20-40) % [place] % (Auto) 9.6 (2-11) % Eos % (Auto) 1.3 (0-4) % Baso % (Auto) 0.6 (0-2) % Lymph # (Auto) 1.4 (1.2-4.9) X10*3/uL [place] # (Auto) 0.5 (0.1-1.2) X10*3/uL Eos # (Auto) 0.1 (0.0-0.4) X10*3/uL Baso # (Auto) 0.0 (0.0-0.2) X10*3/uL Abs Immat Gran (auto) 0.02 (0.00-0.03) X10*3/uL Absolute Neuts (auto) 3.3 (2.0-8.3) x10*3/uL Absolute Nucleated RBC 0.000 (0.0-0.012) X10*3/uL Nucleated RBC % (auto) 0.0 (0.0-0.2) /100WBC PT (10.0-13.1) SEC INR (0.9-1.1) Sodium 142 (135-145) mmol/L Potassium 4.8 D (3.3-5.1) mmol/L Chloride 106 (96-108) mmol/L Carbon Dioxide 28 (22-29) mmol/L Anion Gap 13 (12-20) BUN 16 (9-16) mg/dL Creatinine 1.15 (0.5-1.4) mg/dL Estim Creat Clear Calc 47.8 Estimated GFR > 60 Random Glucose 162 H (60-115) mg/dL Calcium 9.7 (8.4-10.2) mg/dL Magnesium 1.5 L (1.6-2.6) mg/dL Total Bilirubin 0.5 (0.0-1.0) mg/dL AST 20 (5-37) U/L ALT 14 (0-40) U/L Alkaline Phosphatase 53 (39-117) U/L Troponin I High Sens (<3.5-35.0) ng/L B-Natriuretic Peptide 107 H (<100) pg/mL Total Protein 6.5 (6.5-8.0) g/dL Albumin 4.2 (3.5-5.0) g/dL 08/15/22 08/15/22 Range/Units 23:33 23:33 WBC (4.8-10.8) X10*3/uL RBC (4.60-5.80) X10*6/uL Hgb (14.0-18.0) g/dl Hct (42.0-52.0) % MCV (80.0-98.0) fL MCH (27.0-33.0) pg MCHC (31.0-36.0) g/dl RDW (11.0-16.0) % Plt Count (160-400) X10*3/uL MPV (9.4-12.4) fL Immature Gran % (Auto) (0.0-0.4) % Neut % (Auto) (45-73) % Lymph % (Auto) (20-40) % [place] % (Auto) (2-11) % Eos % (Auto) (0-4) % Baso % (Auto) (0-2) % Lymph # (Auto) (1.2-4.9) X10*3/uL [place] # (Auto) (0.1-1.2) X10*3/uL Eos # (Auto) (0.0-0.4) X10*3/uL Baso # (Auto) (0.0-0.2) X10*3/uL Abs Immat Gran (auto) (0.00-0.03) X10*3/uL Absolute Neuts (auto) (2.0-8.3) x10*3/uL Absolute Nucleated RBC (0.0-0.012) X10*3/uL Nucleated RBC % (auto) (0.0-0.2) /100WBC PT 11.0 (10.0-13.1) SEC INR 1.0 (0.9-1.1) Sodium (135-145) mmol/L Potassium (3.3-5.1) mmol/L Chloride (96-108) mmol/L Carbon Dioxide (22-29) mmol/L Anion Gap (12-20) BUN (9-16) mg/dL Creatinine (0.5-1.4) mg/dL Estim Creat Clear Calc Estimated GFR Random Glucose (60-115) mg/dL Calcium (8.4-10.2) mg/dL Magnesium (1.6-2.6) mg/dL Total Bilirubin (0.0-1.0) mg/dL AST (5-37) U/L ALT (0-40) U/L Alkaline Phosphatase (39-117) U/L Troponin I High Sens 7.6 (<3.5-35.0) ng/L B-Natriuretic Peptide (<100) pg/mL Total Protein (6.5-8.0) g/dL Albumin (3.5-5.0) g/dL Independent Interpretation I performed an independent interpretation of an: EKG Interpretation: Sinus rhythm with third-degree AV block, QRS-126, QTC -403 Radiology Impression Radiologist Impression: My interpretation is in agreement with radiology's impression of the imaging studies. Chronic Conditions Patient?s care impacted by: Diabetes and Hypertension Discharge Plan Discharge Clinical Impression: AV block, 3rd degree, CHF exacerbation Patient Disposition: Admitted As Inpatient Prescriptions: No Action (DME) lancets [FreeStyle Lancets] 28 gauge misc See Rx Instructions .ROUTE .MEDSUPPLY Qty: 100 11RF Rx Instructions: Use 1 lancet once a day paroxetine HCl 20 mg tablet 20 mg PO BEDTIME 90 Days Qty: 90 1RF (DME) FreeStyle Test Strip See Rx Instructions .ROUTE .MEDSUPPLY Qty: 50 11RF Rx Instructions: Use 1 test strip once a day calcium carbonate-vitamin D3 600 mg-10 mcg (400 unit) tablet 1 tab PO BID 90 Days Qty: 180 1RF omeprazole 20 mg capsule,delayed release(DR/EC) 20 mg PO DAILY@0630 90 Days Qty: 90 1RF gabapentin 300 mg capsule 300 mg PO BID PRN (Reason: Pain) 90 Days Qty: 180 0RF ibuprofen 600 mg tablet 600 mg PO Q6H PRN (Reason: pain) Qty: 20 0RF simvastatin 20 mg tablet 20 mg PO BEDTIME 90 Days Qty: 90 1RF pioglitazone 45 mg tablet 45 mg PO DAILY 90 Days Qty: 90 1RF aripiprazole 15 mg tablet 15 mg PO DAILY Qty: 90 0RF lisinopril 10 mg tablet 10 mg PO DAILY 90 Days Qty: 90 0RF mirtazapine 15 mg tablet 15 mg PO DAILY 90 Days Qty: 90 0RF furosemide 20 mg tablet 20 mg PO QAM Qty: 30 0RF metformin 1,000 mg tablet 1,000 mg PO BID 90 Days Qty: 180 1RF carbidopa-levodopa 25-100 mg tablet 2 tab PO BID@0900,1500 ([facility] [place] [facility] [place] BLOOD PRESSURE MONITOR See Rx Instructions .Route .MEDSUPPLY Qty: 1 0RF Rx Instructions: As directed ([facility] [place] COMPRESSION SOCKS (knee high) - MEDIUM strength medium 20 mmHg See Rx Instructions .Route .MEDSUPPLY Qty: 2 0RF Rx Instructions: As directed
--- NOTE | 2022-08-16 01:36 | ECG_ITS ---
Test Reason : chf Blood Pressure : / mmHG Vent. Rate : 045 BPM Atrial Rate : 046 BPM P-R Int : 000 ms QRS Dur : 126 ms QT Int : 466 ms P-R-T Axes : 026 000 -40 degrees QTc Int : 403 ms High grade heart block Right bundle branch block Septal infarct , age undetermined T wave abnormality, consider lateral ischemia Abnormal ECG When compared with ECG of 17-DEC-2020 15:25, progression of heart block Referred By: Aileen Lopez Electronically Signed By:FREDY VALDEZ
[2022-08-16] MEDS: Furosemide 40 MG/4 ML VIAL IVPUSH ×2 (01:55→10:41)
--- NOTE | 2022-08-16 02:28 | P.HPHOSP_ITS ---
History of Present Illness Date of Service: 08/16/22 Chief Complaint: Leg swelling Patient is Icelandic-speaking primarily, but understands Bolivian, can answer questions appropriately when asked Bolivian, but the help of a Icelandic-speaking nurse was obtained to get full history This is an 81-year-old male with past medical history of type 2 diabetes, BETHANY, GERD, HFpEF, Parkinson's disease, history of second-degree heart block and per cardiology note with no evidence of any high-grade heart block in the past pre sents the hospital with complaints of lower extremity edema for the past 3 days. Patient reports worsening lower extremity edema, shortness of breath with exertion. Patient denies any chest pain, no palpitations, reports slightly feeling dizzy when walking, otherwise denies any abdominal pain, no nausea or vomiting, no diarrhea constipation, no urinary symptoms and no lower extremity weakness numbness or tingling. On arrival to the ED patient was found to have a heart rate of 45, EKG was done which showed third-degree AV block, pacer pads were placed on the patient, discussed with Cardiology who recommends admission to the hospital. Labs otherwise significant for hemoglobin of 12.2, hematocrit 37.3 which is around his baseline, creatinine of 1.15, magnesium 1.5, troponin of 7.6, BNP of 107 UA positive for leukocyte Estrace, WBC, Pacer pads in place, patient will be admitted for further management Review of Systems Review of Systems: Yes all other systems are reviewed and are negative [facility] Medical History Bradycardia Diabetes mellitus DMII (diabetes mellitus, type 2) Dry cough Dyslipidemia Essential hypertension BETHANY (generalized anxiety disorder) GERD (gastroesophageal reflux disease) Hearing loss Mild major depression, single episode Normal colonoscopy (~06/18/11) Obesity (BMI 30-39.9) Parkinson disease Physical exam Unsteady gait Family History Mother No problems noted. Father No problems noted. Family/Other Substance use disorder Surgical History No pertinent past surgical history Social History Household Members: Children Household Members Other:: son Housing: Apartment Do you presently have visiting nurse or other home services: No Alcohol intake: former Patient Tobacco Use Status: Former Tobacco user Tobacco use type: Cigarette e-Cigarette/Vaping Use: Never Used Second Hand Smoke Exposure: No Advance Directives: No Advance Directives Information Provided: No service: No Current occupational status: retired Cognitive needs: Yes Hearing needs: No Vision needs: Yes Meds Allergies Allergy/AdvReac Type Severity Reaction Status Date / Time shellfish derived Allergy Mild swollen Verified 01/14/22 15:06 face shellfish Allergy Intermediate rash, itch Uncoded 01/14/22 15:06 Seafood Allergy Mild SWELLING Uncoded 01/14/22 15:06 Home Medications Medication Instructions Recorded Confirmed Last Taken Type carbidopa 25 mg-levodopa 100 mg 2 tab PO BID@0900,1500 12/17/20 08/16/22 Unknown History tablet Physical Exam Vital Signs and Narrative: Vital Signs: Last Vital Signs Temp 97.9 F 08/16/22 00:32 Pulse 41 L 08/16/22 01:51 Resp 14 08/16/22 01:51 BP 154/55 H 08/16/22 01:51 Pulse Ox 96 08/16/22 01:51 O2 Del Method Room Air 08/16/22 01:51 BMI result Body Mass Index 30.0 Const: General: cooperative and no acute distress Orientation/consci ousness: patient oriented x3 Eyes: General: appearance normal, both eyes and all related structures Pupils: Equal, round and reactive pupils present Resp: Effort & Inspection: normal respiratory effort Auscultation: clear to auscultation bilaterally Cardio: Other: Currently on pacer pads, pacing at 70 beats per minute Rhythm: regular rhythm GI: Palpation (GI): Soft to palpation Auscultation: normal bowel sounds Skin: General skin exam: no rashes or lesions noted Neuro: General: patient oriented x3 Cranial nerves: Yes Equal, round and reactive pupils present Cognition (Neuro): normal cognition Extrem: General: Yes normal to inspection and Yes no pedal edema Results Labs 08/15/22 23:33 08/15/22 23:33 Labs: Laboratory Results - last 24 hr 08/15/22 08/15/22 08/15/22 23:33 23:33 23:33 MCV 97.9 MCH 32.0 MCHC 32.7 RDW 13.8 Plt Count 143 L MPV 12.1 Immature Gran % (Auto) 0.4 Neut % (Auto) 61.6 Lymph % (Auto) 26.5 [place] % (Auto) 9.6 Eos % (Auto) 1.3 Baso % (Auto) 0.6 Lymph # (Auto) 1.4 [place] # (Auto) 0.5 Eos # (Auto) 0.1 Baso # (Auto) 0.0 Abs Immat Gran (auto) 0.02 Absolute Neuts (auto) 3.3 Absolute Nucleated RBC 0.000 Nucleated RBC % (auto) 0.0 PT INR Anion Gap 13 Estim Creat Clear Calc 47.8 Estimated GFR > 60 Random Glucose 162 H Calcium 9.7 Magnesium 1.5 L Total Bilirubin 0.5 AST 20 ALT 14 Alkaline Phosphatase 53 Troponin I High Sens B-Natriuretic Peptide 107 H Total Protein 6.5 Albumin 4.2 08/15/22 08/15/22 23:33 23:33 MCV MCH MCHC RDW Plt Count MPV Immature Gran % (Auto) Neut % (Auto) Lymph % (Auto) [place] % (Auto) Eos % (Auto) Baso % (Auto) Lymph # (Auto) [place] # (Auto) Eos # (Auto) Baso # (Auto) Abs Immat Gran (auto) Absolute Neuts (auto) Absolute Nucleated RBC Nucleated RBC % (auto) PT 11.0 INR 1.0 Anion Gap Estim Creat Clear Calc Estimated GFR Random Glucose Calcium Magnesium Total Bilirubin AST ALT Alkaline Phosphatase Troponin I High Sens 7.6 B-Natriuretic Peptide Total Protein Albumin Imaging Radiologist's Impressions: Impressions Chest X-Ray 08/16/22 23:14 IMPRESSION: Low lung volumes without focal consolidation. Assessment and Plan (1) AV block, 3rd degree: Status: Acute (2) CHF exacerbation: Status: Acute Plan 81-year-old male with history of Mobitz type 1 with no high-grade AV block in the past, CHF with preserved ejection fraction, HTN, diabetes, presents to the hospital with lower extremity edema found to have third-degree AV block as well as CHF exacerbation # third-degree AV block - patient denies any symptoms acute CHF - pacer pads in place - will keep NPO - will obtain echocardiogram, cardiology consulted - admit to telemetry # acute CHF exacerbation - has lower extremity edema, orthopnea, PND, - dyspnea on exertion - slightly elevated BNP - will treat with IV Lasix - echo - cardiology consult in # hypo magnesemia - repleted - follow magnesium level # diabetes - hold oral antihyperglycemics - will add low-dose sliding scale insulin - diabetic diet # hypertension - stable - resume home antihypertensives # Parkinson's - continue carbidopa levodopa DVT prophylaxis: SCDs Given patient's need for pacer placement patient will require a minimum 2 nights inpatient hospital stay for further management and monitor Time Spent With Patient Time: Total time managing care of this patient today ____ minutes. Quality Stroke Does the patient have a stroke diagnosis?: No VTE Prior VTE?: No VTE Risk Level:: Medical - low VTE Device Contraindication: Treatment Not Indicated VTE Drug Contraindication: Treatment Not Indicated
--- NOTE | 2022-08-16 03:22 | PC.NURSE ---
Pt standing at bedside to use urinal, dropped urinal d/t hand tremors. Pt assisted to new hospital attire.
[2022-08-16 04:29] LABS: Appearance Urine Clear; Color Urine Yellow; Glucose Urine UA Negative (Negative); Leukocyte Esterase Urine Small (1+) (Negative); Nitrite Urine Negative (Negative); UMIC TRIGGER UACC YES; Urine Blood Large (3+) (Negative); Urine Ketones Negative (Negative); Urine Protein Negative (Neg-Trace)
[2022-08-16 04:50] LABS: Bacteria Urine None Seen (None Seen); Hyaline Casts Urine 0-2 /LPF (0-2); RBC Urine >20 /HPF (0-2); Squamous Epithelial Cell Urine 0-2 /HPF (0-2); UACC Culture Trigger YES
--- NOTE | 2022-08-16 07:00 | CA_ITS ---
Transthoracic Echocardiogram Patient (Last, First, Middle): Zain Avila, Gender: Male Date of : 1940 Age: 81 Procedure Date: 08/16/2022 Procedure Type: Transthoracic Echocardiogram Location: [facility] [place] Height: 165.1 cm Weight: 81.65 kg BSA: 1.89 m2 Heart Rate: 41 bpm BP: 147 / 51 mmHg Tool Designer: LUCINDA Referring MD: Ghazal Multani MD Symptoms: AV block , chf? Study Quality: Adequate w contrast ECG Rhythm: Heart block Conclusions: - The left ventricular systolic function is normal. The visually estimated ejection fraction is between 65-70%. - No obvious valvular pathology seen on this study. Findings Procedure Information Contrast agent, definity, is being given per protocol without apparent complications. Left Ventricle Normal left ventricular cavity size. There is mildly increased left ventricular wall thickness. The left ventricular systolic function is normal. The visually estimated ejection fraction is between 65-70%. There is no evidence of regional wall motion abnormalities. Diastolic function is normal for age. Right Ventricle Normal right ventricular cavity size. There is mildly decreased right ventricular systolic function. Atria The left atrium is mildly dilated. The right atrium is normal in size. Aortic Valve There is a normal trileaflet aortic valve. There is no aortic valve stenosis. There is no aortic valve regurgitation. Mitral Valve The mitral valve appears normal. There is trace mitral valve regurgitation. There is no mitral valve stenosis. Pulmonic Valve The pulmonic valve is likely normal. Tricuspid Valve There is trace tricuspid valve regurgitation. There is no evidence of pulmonary hypertension. Great Vessels The asc aorta is normal in size. Venous The inferior vena cava was not well visualized. The inferior vena cava is normal in size. Pericardium/Pleural There is no evidence of pericardial effusion. Prior Study Comparison No significant change compared to prior study dated: 06/11/2021. Recommendations, Care & Conclusions No obvious valvular pathology seen on this study. Measurements 2D Linear Measurements IVSd: 1.24 0.6-0.9/0.6-1.0 cm LVIDd: 4.53 3.9-5.3/4.2-5.9 cm LVIDd Index: 2.40 2.4-3.2/2.2-3.1 cm/m2 LVIDs: 2.58 2.0-3.6 cm LVPWd: 1.19 0.7-1.1 cm LA Diam: 3.90 2.7-3.8/3.0-4.0 cm LAIDs Index: 2.06 1.5-2.3 cm/m2 LV Mass: 253.96 67-162/88-224 g LV Mass Index: 134.37 43-95/49-115 g/m2 LVOT Diam: 2.20 3.0+(-)1.3 cm 2D Systolic Function EF 4C: 77.10 >55% EF 2C: 73.00 >55% EF BiP: 73.70 >55% Mitral Valve MV Pk E: 0.65 MV PK A: 0.63 MV Decel Time: 215.00 E/A: 1.00 E'Lateral: 8.70 E'Medial: 5.33 E/E' Med: 12.20 E/E' Lat: 7.50 PHT: 63.00 MVA PHT: 3.49 Decel [place]: 3.04 Aortic Valve AoV Pk Shaggy: 1.16 AoV Pk Grad: 5.00 DEMETRIUS: 2.95 LVOT LVOT Pk Shaggy: 0.86 LVOT Mn Shaggy: 0.59 LVOT VTI: 0.23 LVOT Pk Grad: 3.00 LVOT Mn Grad: 2.00 LVOT Diam: 2.20 LVOT Area: 3.80 Diastolic Function MV Pk E: 0.65 MV Pk A: 0.63 E/A: 1.00 E'Medial: 5.33 E/E' Med: 12.20 E' Laterial: 8.70 E/E' Lat: 7.50 Right Ventricle TAPSE (mm): 15.80 TVS' Shaggy: 9.79 Tricuspid Valve TR Pk Shaggy: 2.48 TR Pk Grad: 25.00 RA Press: 3.00 RVSP: 28.00 Great Vessels Aorta Sinus of Valsalva: 4.00 2.0-3.5 cm Ao Asc: 3.50 2.1-3.4 cm Pulmonary Valve PV Pk Shaggy: 0.86 Peak PV Grad: 3.00 Updated in Other Vendor System with Status of Final Fabian Arnett MD electronically signed on 08/16/2022 12:45:06 PM with status of Final
[2022-08-16 07:31] LABS: Alanine Aminotransferase 17 U/L (0-40); Albumin Level 4.1 g/dL (3.5-5.0); Alkaline Phosphatase 52 U/L (39-117); Anion Gap 13 (12-20); Aspartate Amino Transferase 19 U/L (5-37); Bilirubin Total 0.6 mg/dL (0.0-1.0); Blood Urea Nitrogen 15 mg/dL (9-16); Calcium 9.7 mg/dL (8.4-10.2); Carbon Dioxide 26 mmol/L (22-29); Chloride 108 mmol/L (96-108); Creatinine Clr Calc Pharmacy 49.1; Estimated Glomerular Filt Rate > 60; Glucose Random 125 mg/dL (60-115); Magnesium 1.8 mg/dL (1.6-2.6); Sodium 143 mmol/L (135-145); Total Protein 6.5 g/dL (6.5-8.0)
[2022-08-16 08:00] LABS: Glucose, Whole Blood 139 mg/dL (60-115)
--- NOTE | 2022-08-16 09:47 | PHA.MEDREC ---
Pharmacy Consult ? Medication Reconciliation Pharmacy has completed the medication reconciliation.Pharmacy has reviewed med rec done by Jessie Tan overnight and found several errors from meds entered from list. Provider was contacted to correct doses on gabapentin, ibuprofen, and mirtazapine, as well as adding in missing ropinirole. Paroxetine was removed from med list as patient is no longer on that.
--- NOTE | 2022-08-16 10:12 | P.CONCA_ITS ---
History of Present Illness History of Present Illness Date of Service: 08/16/22 Chief complaint: 3rd Degree Block Narrative: This is a cardiology consultation regarding complete heart block. 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 Patient states that he has not been feeling good for the last few days. He has had some leg swelling and has been feeling dizzy. Evaluation in the emergency room had shown complete heart block and subsequently, patient was admitted. Currently, patient states he feels okay. Patient was last seen in the clinic about an year ago. At that time, he had Mobitz 1 second-degree heart block and some complete heart block. However, that time he did not want a pacemaker and he did not have any symptoms either. We have not seen him since that time. Review of Systems Review of Systems: Yes all other systems are reviewed and are negative Constitutional: Constitutional: Reports as per HPI and Reports no additional constitutional complaints Eyes: Eyes: Reports as per HPI and Denies no additional eye complaints ENT: Denies system reviewed and no additional complaints, except as documented and Reports as per HPI Cardiovascular: Cardiovascular: Reports as per HPI, Reports no additional cardiovascular complaints, Denies acrocyanosis, Denies cool extremities, Denies chest pain, Denies leg edema, Denies lightheadedness, Denies palpitations and Denies dyspnea Respiratory: Respiratory: Reports as per HPI, Denies no additional respiratory complaints and Denies dyspnea Gastrointestinal: Gastrointestinal: Reports as per HPI and Denies no additional gastrointestinal complaints Genitourinary: Genitourinary: Reports no additional male genitourinary complaints and Reports as per HPI Musculoskeletal: Musculoskeletal: Reports no additional musculoskeletal complaints and Reports as per HPI Integumentary/Breasts: Skin/Breast: Reports system reviewed and no additional complaints, except as docu Neurologic: Reports system reviewed and no additional complaints, except as documented and Reports as per HPI Psychiatric: Psychiatric: Reports no additional psychiatric complaints and Reports as per HPI Endocrine: Endocrine: Reports no additional endocrine complaints, Reports as per HPI and Denies palpitations Hematologic/Lymphatic: Hematologic/Lymphatic: Reports no additional hematologic/lymphatic complaints and Reports as per HPI Allergic/Immunologic: Allergic/Immunologic: Reports no additional allergic/immunologic complaints and Reports as per HPI PMF Past Medical History Medical History Bradycardia Diabetes mellitus DMII (diabetes mellitus, type 2) Dry cough Dyslipidemia Essential hypertension BETHANY (generalized anxiety disorder) GERD (gastroesophageal reflux disease) Hearing loss Mild major depression, single episode Normal colonoscopy (~06/18/11) Obesity (BMI 30-39.9) Parkinson disease Physical exam Unsteady gait Family History Family History Mother No problems noted. Father No problems noted. Family/Other Substance use disorder Surgical History Surgical History No pertinent past surgical history Social History Social History Household Members: Children Household Members Other:: son Housing: Apartment Do you presently have visiting nurse or other home services: No Alcohol intake: former Patient Tobacco Use Status: Former Tobacco user Tobacco use type: Cigarette e-Cigarette/Vaping Use: Never Used Second Hand Smoke Exposure: No service: No Current occupational status: retired Cognitive needs: Yes Hearing needs: No Vision needs: Yes Meds Allergies Allergy/AdvReac Type Severity Reaction Status Date / Time shellfish derived Allergy Mild swollen Verified 01/14/22 15:06 face shellfish Allergy Intermediate rash, itch Uncoded 01/14/22 15:06 Seafood Allergy Mild SWELLING Uncoded 01/14/22 15:06 Active Medications: Current Medications Acetaminophen (Acetaminophen 325 Mg Tablet) 650 mg PO Q6H PRN PRN Reason: Pain, Mild (Pain Scale 1-3) Aripiprazole (Aripiprazole 15 Mg Tablet) 15 mg PO DAILY [facility] Atorvastatin Calcium (Atorvastatin Calcium 10 Mg Tablet) 10 mg PO BEDTIME [facility] Calcium Carbonate/Cholecalciferol (Calcium + Vitamin D 250 Mg Tablet) 250 mg PO BID [facility] Carbidopa/Levodopa (Carbidopa/Levodopa 25/100 Tablet) 2 tab PO TID@0900,1200,2100 [facility] Docusate Sodium (Docusate Sodium 100 Mg Capsule) 100 mg PO DAILY PRN PRN Reason: Constipation Furosemide (Furosemide 40 Mg/4 Ml Vial) 40 mg IVPUSH DAILY [facility]; Protocol Gabapentin (Gabapentin 300 Mg Capsule) 300 mg PO BID [facility] Glucose (Glucose Gel 15 Gm Gel..Gram.) 15 gm PO Q15M PRN; Protocol PRN Reason: per Hypoglycemia Standing Ord. Dextrose (D10) 250 mls @ 750 mls/hr IV Q15M PRN; Protocol PRN Reason: per Hypoglycemia Standing Ord. Insulin Human Lispro (Insulin Lispro 100 Unit/Ml 3 Ml Vial) 0 unit SUBCUT QIDACHS [facility]; Protocol Last Admin: 08/16/22 08:02 Dose: Not Given Lisinopril (Lisinopril 10 Mg Tablet) 10 mg PO DAILY [facility]; Protocol Mirtazapine (Mirtazapine 15 Mg Tablet) 15 mg PO BEDTIME [facility] Omeprazole (Omeprazole 20 Mg Capsule.Dr) 20 mg PO DAILY@0630 [facility] Last Admin: 08/16/22 09:57 Dose: Not Given Ondansetron HCl (Ondansetron Hcl 4 Mg/2 Ml Vial) 4 mg IVPUSH Q8H PRN PRN Reason: Nausea and Vomiting Ropinirole HCl (Ropinirole Hcl 0.25 Mg Tablet) 0.25 mg PO TID [facility] Sodium Chloride (0.9 % Sodium Chloride Flush 3 Ml Syringe) 3 ml IVFLUSH QSHIFT [facility] Last Admin: 08/16/22 08:03 Dose: Not Given Home Medications Medication Instructions Recorded Confirmed Last Taken Type carbidopa 25 mg-levodopa 100 mg 2 tab PO TID@0900,1200,2100 12/17/20 08/16/22 Unknown History tablet gabapentin 300 mg capsule 300 mg PO BID 08/16/22 08/16/22 Unknown History ibuprofen 600 mg tablet 600 mg PO TID PRN pain 08/16/22 08/16/22 Unknown History mirtazapine 15 mg tablet 15 mg PO BEDTIME 08/16/22 08/16/22 Unknown History ropinirole 0.25 mg tablet 0.25 mg PO TID 08/16/22 08/16/22 Unknown History Physical Exam Vital Signs: Vital Signs: Last Vital Signs Temp 97.8 F 08/16/22 09:16 Pulse 45 L 08/16/22 09:16 Resp 20 08/16/22 09:16 BP 134/53 L 08/16/22 09:16 Pulse Ox 98 08/16/22 09:16 O2 Del Method Room Air 08/16/22 09:16 BMI result Body Mass Index 30.0 Const: General: comfortable and no acute distress Orientation/consciousness: patient oriented x3 HEENT: Other: Unremarkable Head: Yes normal to inspection Neck: Neck: Yes normal visual inspection Chest: Chest palpation & inspection: normal inspection of the chest Resp: Auscultation: clear to auscultation bilaterally Cardio: Palpation: normal PMI Heart sounds: S1 normal heart sound present, S2 normal heart sound present, no gallops, no murmurs and no rubs GI: Palpation (GI): Soft to palpation Back/Spine/Pelvis: Other: unremarkable Skin: General skin exam: no rashes or lesions noted Neuro: General: patient oriented x3 Extrem: Other: 1+ edema General: Yes normal to inspection Psych: Mental Status: mental status grossly normal Objective Labs and Meds 08/15/22 23:33 08/16/22 06:33 Lab results: Laboratory Results - last 24 hr 08/15/22 08/15/22 08/15/22 23:33 23:33 23:33 WBC 5.4 RBC 3.81 L Hgb 12.2 L Hct 37.3 L MCV 97.9 MCH 32.0 MCHC 32.7 RDW 13.8 Plt Count 143 L MPV 12.1 Immature Gran % (Auto) 0.4 Neut % (Auto) 61.6 Lymph % (Auto) 26.5 [place] % (Auto) 9.6 Eos % (Auto) 1.3 Baso % (Auto) 0.6 Lymph # (Auto) 1.4 [place] # (Auto) 0.5 Eos # (Auto) 0.1 Baso # (Auto) 0.0 Abs Immat Gran (auto) 0.02 Absolute Neuts (auto) 3.3 Absolute Nucleated RBC 0.000 Nucleated RBC % (auto) 0.0 PT INR Sodium 142 Potassium 4.8 D Chloride 106 Carbon Dioxide 28 Anion Gap 13 BUN 16 Creatinine 1.15 Estim Creat Clear Calc 47.8 Estimated GFR > 60 POC Glucose Random Glucose 162 H Calcium 9.7 Magnesium 1.5 L Total Bilirubin 0.5 AST 20 ALT 14 Alkaline Phosphatase 53 Troponin I High Sens B-Natriuretic Peptide 107 H Total Protein 6.5 Albumin 4.2 Urine Color Urine Appearance Urine pH Ur Specific [place] Urine Protein Urine Glucose (UA) Urine Ketones Urine Blood Urine Nitrite Ur Leukocyte Esterase Urine RBC Urine WBC Ur Squamous Epith Cells Urine Bacteria Hyaline Casts 08/15/22 08/15/22 08/16/22 23:33 23:33 04:22 WBC RBC Hgb Hct MCV MCH MCHC RDW Plt Count MPV Immature Gran % (Auto) Neut % (Auto) Lymph % (Auto) [place] % (Auto) Eos % (Auto) Baso % (Auto) Lymph # (Auto) [place] # (Auto) Eos # (Auto) Baso # (Auto) Abs Immat Gran (auto) Absolute Neuts (auto) Absolute Nucleated RBC Nucleated RBC % (auto) PT 11.0 INR 1.0 Sodium Potassium Chloride Carbon Dioxide Anion Gap BUN Creatinine Estim Creat Clear Calc Estimated GFR POC Glucose Random Glucose Calcium Magnesium Total Bilirubin AST ALT Alkaline Phosphatase Troponin I High Sens 7.6 B-Natriuretic Peptide Total Protein Albumin Urine Color Yellow Urine Appearance Clear Urine pH 7.0 Ur Specific [place] 1.010 Urine Protein Negative Urine Glucose (UA) Negative Urine Ketones Negative Urine Blood Large (3+) H Urine Nitrite Negative Ur Leukocyte Esterase Small (1+) H Urine RBC >20 H Urine WBC 6-10 H Ur Squamous Epith Cells 0-2 Urine Bacteria None Seen Hyaline Casts 0-2 08/16/22 08/16/22 06:33 07:55 WBC RBC Hgb Hct MCV MCH MCHC RDW Plt Count MPV Immature Gran % (Auto) Neut % (Auto) Lymph % (Auto) [place] % (Auto) Eos % (Auto) Baso % (Auto) Lymph # (Auto) [place] # (Auto) Eos # (Auto) Baso # (Auto) Abs Immat Gran (auto) Absolute Neuts (auto) Absolute Nucleated RBC Nucleated RBC % (auto) PT INR Sodium 143 Potassium 4.0 Chloride 108 Carbon Dioxide 26 Anion Gap 13 BUN 15 Creatinine 1.12 Estim Creat Clear Calc 49.1 Estimated GFR > 60 POC Glucose 139 H Random Glucose 125 H Calcium 9.7 Magnesium 1.8 Total Bilirubin 0.6 AST 19 ALT 17 Alkaline Phosphatase 52 Troponin I High Sens B-Natriuretic Peptide Total Protein 6.5 Albumin 4.1 Urine Color Urine Appearance Urine pH Ur Specific [place] Urine Protein Urine Glucose (UA) Urine Ketones Urine Blood Urine Nitrite Ur Leukocyte Esterase Urine RBC Urine WBC Ur Squamous Epith Cells Urine Bacteria Hyaline Casts ECG Interpretation: EKGs and telemetry suggestive of high-grade heart block. Imaging Radiologist's impression: Impressions Chest X-Ray 08/16/22 23:14 IMPRESSION: Low lung volumes without focal consolidation. Assessment and Plan (1) AV block, 3rd degree: Status: Acute Plan High sensitivity troponins are within normal range. Echocardiogram last year with LVEF of 60-65%. No significant valvular issues. Overall, high-grade heart block with symptoms including dizziness and leg swelling. Discussed with patient about pacemaker implantation he is agreeable. May proceed with the same. Time Spent With Patient Time: Total time managing care of this patient today ____ minutes. Procedures Date of Service Date of Service: 08/16/22
[2022-08-16] MEDS: Carbidopa/Levodopa 25/100 TABLET 2 TAB PO ×2 (10:40→21:27)
[2022-08-16] MEDS: lisinopriL 10 MG TABLET PO (10:40)
[2022-08-16] MEDS: ARIPiprazole 15 MG TABLET PO (10:41)
--- NOTE | 2022-08-16 10:56 | PM.EVENT ---
Event Note Date of Service: 08/16/22 Event Note: Seen and evaluated this morning Feels better since admission on cardiac pacers No complaints at this point discussed with cardiology and thoracic surgery plan to PPM placement this afternoon Time Spent With Patient Time: Total time managing care of this patient today ____ minutes.
[2022-08-16 11:41] LABS: Glucose, Whole Blood 122 mg/dL (60-115)
--- NOTE | 2022-08-16 11:43 | MHC.CM.PN ---
[facility] DELIVERED INTAKE DONE WITH DRAFTING ENGINEER. LIVES ALONE IN AN APT. USES [place] FOR MOBILITY. HAS [employer]CHO[employer] DAILY, UNSURE OF HOURS. +HCP ON FILE. +COVID VAX X3 PCP DR. MARKHAM AT [facility] [place]. DP: HOME WITH RESUMPTION OF [employer]CHO[employer] SERVICES. MAY NEED VNA, REFERRAL SENT. SON WILL TRANSPORT ON DC. CM WILL CONTINUE TO FOLLOW FOR PLAN.
--- NOTE | 2022-08-16 12:43 | HO.ANESPROP2 ---
HPI - Anesthesia Eval Consult details Narrative: 81yo male patient for dual chamber pacemaker for complete heart block. Holter monitor 05/2021 showed complete heart block but patient was asymptomatic and did not want pacemaker (per cardiology note) [facility] Active Problems Active Problems: All Active Problems (Updated 08/16/22 @ 12:45 by Ingrid Miramontes MD) AV block, 3rd degree (Acute) CHF exacerbation (Acute) Encounter for annual wellness exam in Medicare patient (Acute) COVID-19 (Acute) Parkinson disease (Acute) Bradycardia (Acute) Mobitz (type) I (Wenckebach's) atrioventricular block (Acute) Respiratory failure with hypoxia (Acute) Dry cough (Acute) Diabetes mellitus (Acute) Unsteady gait (Acute) Essential hypertension (Acute) GERD (gastroesophageal reflux disease) (Acute) 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) Chronic cough (Acute) Hearing loss (Acute) Mild major depression, single episode (Acute) BETHANY (generalized anxiety disorder) (Acute) Bilateral lower extremity edema (Acute) Obesity (BMI 30-39.9) (Acute) Bradycardia (Acute) Heart block (Acute) Type 2 diabetes mellitus with unspecified complications (Acute) Essential hypertension (Acute) Physical exam (Acute) Past Medical History Medical History Bradycardia Diabetes mellitus DMII (diabetes mellitus, type 2) Dry cough Dyslipidemia Essential hypertension BETHANY (generalized anxiety disorder) GERD (gastroesophageal reflux disease) Hearing loss Mild major depression, single episode Normal colonoscopy (~06/18/11) Obesity (BMI 30-39.9) Parkinson disease Physical exam Unsteady gait Family History Family History Mother No problems noted. Father No problems noted. Family/Other Substance use disorder Family history of problems with anesthesia: No Surgical History Surgical History No pertinent past surgical history History of Problems with Anesthesia: No Social History Social History Household Members: None Household Members Other:: son Housing: Apartment Do you presently have visiting nurse or other home services: Yes Alcohol intake: former Patient Tobacco Use Status: Former Tobacco user Tobacco use type: Cigarette e-Cigarette/Vaping Use: Never Used Second Hand Smoke Exposure: No service: No Current occupational status: retired Cognitive needs: Yes Hearing needs: No Vision needs: Yes Meds Allergies Allergy/AdvReac Type Severity Reaction Status Date / Time shellfish derived Allergy Mild swollen Verified 01/14/22 15:06 face shellfish Allergy Intermediate rash, itch Uncoded 01/14/22 15:06 Seafood Allergy Mild SWELLING Uncoded 01/14/22 15:06 Active Medications: Current Medications Acetaminophen (Acetaminophen 325 Mg Tablet) 650 mg PO Q6H PRN PRN Reason: Pain, Mild (Pain Scale 1-3) Aripiprazole (Aripiprazole 15 Mg Tablet) 15 mg PO DAILY [facility] Last Admin: 08/16/22 10:41 Dose: 15 mg Atorvastatin Calcium (Atorvastatin Calcium 10 Mg Tablet) 10 mg PO BEDTIME [facility] Calcium Carbonate/Cholecalciferol (Calcium + Vitamin D 250 Mg Tablet) 250 mg PO BID [facility] Carbidopa/Levodopa (Carbidopa/Levodopa 25/100 Tablet) 2 tab PO TID@0900,1200,2100 [facility] Last Admin: 08/16/22 10:40 Dose: 2 tab Docusate Sodium (Docusate Sodium 100 Mg Capsule) 100 mg PO DAILY PRN PRN Reason: Constipation Furosemide (Furosemide 40 Mg/4 Ml Vial) 40 mg IVPUSH DAILY [facility]; Protocol Last Admin: 08/16/22 10:41 Dose: 40 mg Gabapentin (Gabapentin 300 Mg Capsule) 300 mg PO BID [facility] Glucose (Glucose Gel 15 Gm Gel..Gram.) 15 gm PO Q15M PRN; Protocol PRN Reason: per Hypoglycemia Standing Ord. Dextrose (D10) 250 mls @ 750 mls/hr IV Q15M PRN; Protocol PRN Reason: per Hypoglycemia Standing Ord. Insulin Human Lispro (Insulin Lispro 100 Unit/Ml 3 Ml Vial) 0 unit SUBCUT QIDACHS [facility]; Protocol Last Admin: 08/16/22 12:13 Dose: Not Given Lisinopril (Lisinopril 10 Mg Tablet) 10 mg PO DAILY [facility]; Protocol Last Admin: 08/16/22 10:40 Dose: 10 mg Mirtazapine (Mirtazapine 15 Mg Tablet) 15 mg PO BEDTIME [facility] Omeprazole (Omeprazole 20 Mg Capsule.Dr) 20 mg PO DAILY@0630 [facility] Last Admin: 08/16/22 09:57 Dose: Not Given Ondansetron HCl (Ondansetron Hcl 4 Mg/2 Ml Vial) 4 mg IVPUSH Q8H PRN PRN Reason: Nausea and Vomiting Ropinirole HCl (Ropinirole Hcl 0.25 Mg Tablet) 0.25 mg PO TID [facility] Sodium Chloride (0.9 % Sodium Chloride Flush 3 Ml Syringe) 3 ml IVFLUSH QSHIFT [facility] Last Admin: 08/16/22 08:03 Dose: Not Given Home Medications Medication Instructions Recorded Confirmed Last Taken Type carbidopa 25 mg-levodopa 100 mg 2 tab PO TID@0900,1200,2100 12/17/20 08/16/22 Unknown History tablet gabapentin 300 mg capsule 300 mg PO BID 08/16/22 08/16/22 Unknown History ibuprofen 600 mg tablet 600 mg PO TID PRN pain 08/16/22 08/16/22 Unknown History mirtazapine 15 mg tablet 15 mg PO BEDTIME 08/16/22 08/16/22 Unknown History ropinirole 0.25 mg tablet 0.25 mg PO TID 08/16/22 08/16/22 Unknown History Exam Exam Date and Time: August 16, 2022 1243 Height,Weight and Vital Signs: Height 5 ft 5 in Weight 81.647 kg Last Vital Signs Temp 97.8 F 08/16/22 09:16 Pulse 45 L 08/16/22 09:16 Resp 20 08/16/22 09:16 BP 134/53 L 08/16/22 09:16 Pulse Ox 98 08/16/22 09:16 O2 Del Method Room Air 08/16/22 09:16 Pertinent Lab Results Pertinent Lab Results: Laboratory Tests 08/15/22 08/15/22 08/15/22 23:33 23:33 23:33 WBC 5.4 RBC 3.81 L Hgb 12.2 L Hct 37.3 L MCV 97.9 MCH 32.0 MCHC 32.7 RDW 13.8 Plt Count 143 L MPV 12.1 Immature Gran % (Auto) 0.4 Neut % (Auto) 61.6 Lymph % (Auto) 26.5 [place] % (Auto) 9.6 Eos % (Auto) 1.3 Baso % (Auto) 0.6 Lymph # (Auto) 1.4 [place] # (Auto) 0.5 Eos # (Auto) 0.1 Baso # (Auto) 0.0 Abs Immat Gran (auto) 0.02 Absolute Neuts (auto) 3.3 Absolute Nucleated RBC 0.000 Nucleated RBC % (auto) 0.0 PT INR Sodium 142 Potassium 4.8 D Chloride 106 Carbon Dioxide 28 Anion Gap 13 BUN 16 Creatinine 1.15 Estim Creat Clear Calc 47.8 Estimated GFR > 60 POC Glucose Random Glucose 162 H Calcium 9.7 Magnesium 1.5 L Total Bilirubin 0.5 AST 20 ALT 14 Alkaline Phosphatase 53 Troponin I High Sens B-Natriuretic Peptide 107 H Total Protein 6.5 Albumin 4.2 Urine Color Urine Appearance Urine pH Ur Specific [place] Urine Protein Urine Glucose (UA) Urine Ketones Urine Blood Urine Nitrite Ur Leukocyte Esterase Urine RBC Urine WBC Ur Squamous Epith Cells Urine Bacteria Hyaline Casts 08/15/22 08/15/22 08/16/22 23:33 23:33 04:22 WBC RBC Hgb Hct MCV MCH MCHC RDW Plt Count MPV Immature Gran % (Auto) Neut % (Auto) Lymph % (Auto) [place] % (Auto) Eos % (Auto) Baso % (Auto) Lymph # (Auto) [place] # (Auto) Eos # (Auto) Baso # (Auto) Abs Immat Gran (auto) Absolute Neuts (auto) Absolute Nucleated RBC Nucleated RBC % (auto) PT 11.0 INR 1.0 Sodium Potassium Chloride Carbon Dioxide Anion Gap BUN Creatinine Estim Creat Clear Calc Estimated GFR POC Glucose Random Glucose Calcium Magnesium Total Bilirubin AST ALT Alkaline Phosphatase Troponin I High Sens 7.6 B-Natriuretic Peptide Total Protein Albumin Urine Color Yellow Urine Appearance Clear Urine pH 7.0 Ur Specific [place] 1.010 Urine Protein Negative Urine Glucose (UA) Negative Urine Ketones Negative Urine Blood Large (3+) H Urine Nitrite Negative Ur Leukocyte Esterase Small (1+) H Urine RBC >20 H Urine WBC 6-10 H Ur Squamous Epith Cells 0-2 Urine Bacteria None Seen Hyaline Casts 0-2 08/16/22 08/16/22 08/16/22 06:33 07:55 11:32 WBC RBC Hgb Hct MCV MCH MCHC RDW Plt Count MPV Immature Gran % (Auto) Neut % (Auto) Lymph % (Auto) [place] % (Auto) Eos % (Auto) Baso % (Auto) Lymph # (Auto) [place] # (Auto) Eos # (Auto) Baso # (Auto) Abs Immat Gran (auto) Absolute Neuts (auto) Absolute Nucleated RBC Nucleated RBC % (auto) PT INR Sodium 143 Potassium 4.0 Chloride 108 Carbon Dioxide 26 Anion Gap 13 BUN 15 Creatinine 1.12 Estim Creat Clear Calc 49.1 Estimated GFR > 60 POC Glucose 139 H 122 H Random Glucose 125 H Calcium 9.7 Magnesium 1.8 Total Bilirubin 0.6 AST 19 ALT 17 Alkaline Phosphatase 52 Troponin I High Sens B-Natriuretic Peptide Total Protein 6.5 Albumin 4.1 Urine Color Urine Appearance Urine pH Ur Specific [place] Urine Protein Urine Glucose (UA) Urine Ketones Urine Blood Urine Nitrite Ur Leukocyte Esterase Urine RBC Urine WBC Ur Squamous Epith Cells Urine Bacteria Hyaline Casts Narrative Narrative: Procedure Date:? 08/16/2022 Procedure Type:? Transthoracic Echocardiogram Location:? [facility] [place] Height:? 165.1 cm ? Weight: ? 81.65 kg BSA: ? 1.89 m2? Heart Rate: ? ? 41 bpm BP:? 147 / 51 mmHg Symptoms:? AV block , chf? Study Quality: ? Adequate w contrast ECG Rhythm:? ? ? Heart block ?? ? Conclusions: - The left ventricular systolic function is normal.? The visually estimated ejection fraction is between 65-70%. ? - No obvious valvular pathology seen on this study.? Findings Left Ventricle Normal left ventricular cavity size.? There is mildly increased left ventricular wall thickness.? The left ventricular systolic function is normal.? The visually estimated ejection fraction is between 65-70%.? There is no evidence of regional wall motion abnormalities.? Diastolic function is normal for age. Right Ventricle Normal right ventricular cavity size.? There is mildly decreased right ventricular systolic function. Atria The left atrium is mildly dilated.? The right atrium is normal in size. Aortic Valve There is a normal trileaflet aortic valve.? There is no aortic valve stenosis.? There is no aortic valve regurgitation. Mitral Valve The mitral valve appears normal.? There is trace mitral valve regurgitation. There is no mitral valve stenosis. Pulmonic Valve The pulmonic valve is likely normal. Tricuspid Valve There is trace tricuspid valve regurgitation.? There is no evidence of pulmonary hypertension. Great Vessels The asc aorta is normal in size. Venous The inferior vena cava was not well visualized.? The inferior vena cava is normal in size. Pericardium/Pleural There is no evidence of pericardial effusion. Prior Study Comparison No significant change compared to prior study dated:? 06/11/2021. Recommendations, Care & Conclusions No obvious valvular pathology seen on this study. 08/16/22 :12 lead EKG: Undetermined rhythm. Vent rate 45. RBBB. Septal infarct, age undetermined. T wave abnormality. ? Lateral ischemia Airway Mallampati Class: II TM Dist: >3cm Neck ROM: Full Denture: Upper and Lower Loose/Missing/Broken Teeth: Yes Heart: Irregular Lungs: CTAB Assessment and Plan Assessment Anesthesia Assessment: Anesthesia Plan Discussed and Chart Reviewed Final Anesthetic Review Family History of Problems with Anesthesia: No History of Problems with Anesthesia: No NPO: Yes ASA Class: IV and Emergency Final Preanesthetic Review: No Changes in Pt Med Stat, Meds/Allgs Chart Reviewed, Consent Obtained/Reviewed and Anes Risks/Benef Reviewed Patient Risk: High Procedure Risk: Intermediate Assessment/Block/Sedation in SS: Assess/Block/Sedation- Anesthetic Plan Anesthetic Plan: MAC: Disposition: Standard PACU and Inp. Admit - IMC
--- NOTE | 2022-08-16 12:59 | HO.THORCONS ---
History of Present Illness Consult details Consult date: 08/16/22 Narrative: Thoracic consult obtained for complete heart block evaluation for permanent pacemaker placement. Patient is very poor historian. Chart was reviewed and patient evaluated. Av block/third-degree heart block. [facility] Past Medical History Medical History Bradycardia Diabetes mellitus DMII (diabetes mellitus, type 2) Dry cough Dyslipidemia Essential hypertension BETHANY (generalized anxiety disorder) GERD (gastroesophageal reflux disease) Hearing loss Mild major depression, single episode Normal colonoscopy (~06/18/11) Obesity (BMI 30-39.9) Parkinson disease Physical exam Unsteady gait Family History Family History Mother No problems noted. Father No problems noted. Family/Other Substance use disorder Surgical History Surgical History No pertinent past surgical history Social History Social History Household Members: None Household Members Other:: son Housing: Apartment Do you presently have visiting nurse or other home services: Yes Alcohol intake: former Patient Tobacco Use Status: Former Tobacco user Tobacco use type: Cigarette e-Cigarette/Vaping Use: Never Used Second Hand Smoke Exposure: No service: No Current occupational status: retired Cognitive needs: Yes Hearing needs: No Vision needs: Yes Meds Allergies Allergy/AdvReac Type Severity Reaction Status Date / Time shellfish derived Allergy Mild swollen Verified 01/14/22 15:06 face shellfish Allergy Intermediate rash, itch Uncoded 01/14/22 15:06 Seafood Allergy Mild SWELLING Uncoded 01/14/22 15:06 Active Medications: Current Medications Acetaminophen (Acetaminophen 325 Mg Tablet) 650 mg PO Q6H PRN PRN Reason: Pain, Mild (Pain Scale 1-3) Aripiprazole (Aripiprazole 15 Mg Tablet) 15 mg PO DAILY [facility] Last Admin: 08/16/22 10:41 Dose: 15 mg Atorvastatin Calcium (Atorvastatin Calcium 10 Mg Tablet) 10 mg PO BEDTIME [facility] Calcium Carbonate/Cholecalciferol (Calcium + Vitamin D 250 Mg Tablet) 250 mg PO BID [facility] Carbidopa/Levodopa (Carbidopa/Levodopa 25/100 Tablet) 2 tab PO TID@0900,1200,2100 [facility] Last Admin: 08/16/22 10:40 Dose: 2 tab Docusate Sodium (Docusate Sodium 100 Mg Capsule) 100 mg PO DAILY PRN PRN Reason: Constipation Furosemide (Furosemide 40 Mg/4 Ml Vial) 40 mg IVPUSH DAILY [facility]; Protocol Last Admin: 08/16/22 10:41 Dose: 40 mg Gabapentin (Gabapentin 300 Mg Capsule) 300 mg PO BID [facility] Glucose (Glucose Gel 15 Gm Gel..Gram.) 15 gm PO Q15M PRN; Protocol PRN Reason: per Hypoglycemia Standing Ord. Dextrose (D10) 250 mls @ 750 mls/hr IV Q15M PRN; Protocol PRN Reason: per Hypoglycemia Standing Ord. Insulin Human Lispro (Insulin Lispro 100 Unit/Ml 3 Ml Vial) 0 unit SUBCUT QIDACHS [facility]; Protocol Last Admin: 08/16/22 12:13 Dose: Not Given Lisinopril (Lisinopril 10 Mg Tablet) 10 mg PO DAILY [facility]; Protocol Last Admin: 08/16/22 10:40 Dose: 10 mg Mirtazapine (Mirtazapine 15 Mg Tablet) 15 mg PO BEDTIME [facility] Omeprazole (Omeprazole 20 Mg Capsule.Dr) 20 mg PO DAILY@0630 [facility] Last Admin: 08/16/22 09:57 Dose: Not Given Ondansetron HCl (Ondansetron Hcl 4 Mg/2 Ml Vial) 4 mg IVPUSH Q8H PRN PRN Reason: Nausea and Vomiting Ropinirole HCl (Ropinirole Hcl 0.25 Mg Tablet) 0.25 mg PO TID [facility] Sodium Chloride (0.9 % Sodium Chloride Flush 3 Ml Syringe) 3 ml IVFLUSH QSHIFT [facility] Last Admin: 08/16/22 08:03 Dose: Not Given Home Medications Medication Instructions Recorded Confirmed Last Taken Type carbidopa 25 mg-levodopa 100 mg 2 tab PO TID@0900,1200,2100 12/17/20 08/16/22 Unknown History tablet gabapentin 300 mg capsule 300 mg PO BID 08/16/22 08/16/22 Unknown History ibuprofen 600 mg tablet 600 mg PO TID PRN pain 08/16/22 08/16/22 Unknown History mirtazapine 15 mg tablet 15 mg PO BEDTIME 08/16/22 08/16/22 Unknown History ropinirole 0.25 mg tablet 0.25 mg PO TID 08/16/22 08/16/22 Unknown History Physical Exam Vital Signs: Vital Signs: Last Vital Signs Temp 97.7 F 08/16/22 12:49 Pulse 41 L 08/16/22 12:49 Resp 18 08/16/22 12:49 BP 143/50 H 08/16/22 12:49 Pulse Ox 95 08/16/22 12:49 O2 Del Method Room Air 08/16/22 12:49 BMI result Body Mass Index 30.0 Chest: Other: Chest for sounds bilaterally, HS 1 and 2, GI: Other: Abdomen soft, corpulent, benign Results Labs 08/15/22 23:33 08/16/22 06:33 Labs: Abnormal lab results 08/15/22 08/15/22 08/15/22 Range/Units 23:33 23:33 23:33 RBC 3.81 L (4.60-5.80) X10*6/uL Hgb 12.2 L (14.0-18.0) g/dl Hct 37.3 L (42.0-52.0) % Plt Count 143 L (160-400) X10*3/uL POC Glucose (60-115) mg/dL Random Glucose 162 H (60-115) mg/dL Magnesium 1.5 L (1.6-2.6) mg/dL B-Natriuretic Peptide 107 H (<100) pg/mL Urine Blood (Negative) Ur Leukocyte Esterase (Negative) Urine RBC (0-2) /HPF Urine WBC (0-5) /HPF 08/16/22 08/16/22 08/16/22 Range/Units 04:22 06:33 07:55 RBC (4.60-5.80) X10*6/uL Hgb (14.0-18.0) g/dl Hct (42.0-52.0) % Plt Count (160-400) X10*3/uL POC Glucose 139 H (60-115) mg/dL Random Glucose 125 H (60-115) mg/dL Magnesium (1.6-2.6) mg/dL B-Natriuretic Peptide (<100) pg/mL Urine Blood Large (3+) H (Negative) Ur Leukocyte Esterase Small (1+) H (Negative) Urine RBC >20 H (0-2) /HPF Urine WBC 6-10 H (0-5) /HPF 08/16/22 Range/Units 11:32 RBC (4.60-5.80) X10*6/uL Hgb (14.0-18.0) g/dl Hct (42.0-52.0) % Plt Count (160-400) X10*3/uL POC Glucose 122 H (60-115) mg/dL Random Glucose (60-115) mg/dL Magnesium (1.6-2.6) mg/dL B-Natriuretic Peptide (<100) pg/mL Urine Blood (Negative) Ur Leukocyte Esterase (Negative) Urine RBC (0-2) /HPF Urine WBC (0-5) /HPF Short CBC 08/15/22 Range/Units 23:33 WBC 5.4 (4.8-10.8) X10*3/uL Hgb 12.2 L (14.0-18.0) g/dl Hct 37.3 L (42.0-52.0) % Plt Count 143 L (160-400) X10*3/uL BMP 08/15/22 08/16/22 23:33 06:33 Sodium 142 143 Potassium 4.8 D 4.0 Chloride 106 108 Carbon Dioxide 28 26 BUN 16 15 Creatinine 1.15 1.12 Calcium 9.7 9.7 Liver Function 08/15/22 08/16/22 Range/Units 23:33 06:33 Total Bilirubin 0.5 0.6 (0.0-1.0) mg/dL AST 20 19 (5-37) U/L ALT 14 17 (0-40) U/L Alkaline Phosphatase 53 52 (39-117) U/L Albumin 4.2 4.1 (3.5-5.0) g/dL Urine 08/16/22 Range/Units 04:22 Urine Color Yellow Urine Appearance Clear Urine pH 7.0 (5.0-9.0) Ur Specific Aragon 1.010 (1.005-1.025) Urine Protein Negative (Neg-Trace) mg/dL Urine Glucose (UA) Negative (Negative) mg/dL All other labs normal. Assessment and Plan (1) AV block, 3rd degree: Status: Acute Plan With an accelerator technician present, risks, benefits, alternatives of permanent pacemaker placement reviewed with the patient and included but not limited to bleeding, infection, pneumothorax, numbness, pain, scarring, lead dislodgement and the patient wishes to proceed. All questions were answered. Time Spent With Patient Time: Total time managing care of this patient today ____ minutes. Procedures Date of Service Date of Service: 08/16/22
--- NOTE | 2022-08-16 15:15 | W.PM.OPN ---
Operative Note Operative Note Date of Service: 08/16/22 Narrative: Preoperative diagnosis: Complete heart block Postop diagnosis: [] Same Procedure [] dual chamber permanent pacemaker placement with fluoroscopy Surgeon: [] Kyle Die Stamping Press Operator: [] Type of Anesthesia: [] MAC Indication for surgery: [] Complete heart block. For specifics of sensing and capture data, please refer to [facility] work sheet Findings: [] Patient was brought to the operating room, placed on the OR table supine position, after adequate level of MAC anesthesia was induced, shoulder roll was placed, patient positioned in Trendelenburg position, right arm pulled inferiorly, and after 1% lidocaine and Betadine prep local infiltration was performed, the right subclavian vein was uneventfully accessed and a wire advanced to the level of the superior vena cava under fluoroscopic guidance using Seldinger technique. A pocket was fashioned at the cannulation site using scalpel and Bovie. Dilating sheath was placed over the wire and the wire retained under fluoroscopic guidance. Ventricular lead was advanced over the sheath to the right ventricle with good positioning and sensing and capture, and uneventfully screw in. Good sensing and capture obtained were maintained. Peel-away sheath was removed and a dilating sheath placed over the retained wire used for atrial lead, which was placed under fluoroscopic guidance. Wire was retrieved and over the retained sheath, atrial lead was advanced with good positioning fluoroscopically and good sensing and capture after screw in lead was secured. Peel-away sheath was removed. Both leads were rechecked several times with good positioning and capture and sensing obtained. Each lead was secured using 2-0 silk x2 to the securing flange respectively. Each lead was appropriately connected to the generator and secured and tugged for security. Generator was then placed in the pocket. Wound was irrigated, secured hemostasis, and closed using interrupted inverted dermal 3-0 Vicryl sutures followed by Steri-Strips and sterile dressings. At completion of procedure, pacemaker was reinterrogate with good sensing and capture. Right upper extremity was then placed in this sling and swath. Postprocedure chest x-ray in the operating room demonstrated leads in good position with no pneumothorax. Sponge, needle, and instrument counts were reported correct. Patient tolerated the procedure well and emerged anesthesia stable condition. EBL minimal.
[2022-08-16 17:01] LABS: Glucose, Whole Blood 138 mg/dL (60-115)
[2022-08-16] MEDS: 0.9 % Sodium Chloride Flush 3 ML SYRINGE IVFLUSH (17:06)
[2022-08-16] MEDS: rOPINIRole HCL 0.25 MG TABLET PO ×2 (17:06→21:27)
[2022-08-16] MEDS: Gabapentin 300 MG CAPSULE PO (21:27)
[2022-08-16] MEDS: Calcium + Vitamin D 250 MG TABLET PO (21:27)
[2022-08-16] MEDS: Mirtazapine 15 MG TABLET PO (21:28)
[2022-08-16] MEDS: Atorvastatin Calcium 10 MG TABLET PO (21:28)
[2022-08-16] MEDS: Acetaminophen 325 MG TABLET 650 MG PO (21:33)
[2022-08-16 22:17] LABS: Glucose, Whole Blood 119 mg/dL (60-115)
[2022-08-17 03:02] VITALS: BP 170/72; PULSE 60; RESP 20; TEMP 36.3; O2SAT 92
[2022-08-17 05:03] LABS: Hematocrit 36.8 % (42.0-52.0); Hemoglobin 12.5 g/dl (14.0-18.0); Mean Corpuscular Hemoglobin 32.4 pg (27.0-33.0); Mean Corpuscular Volume 95.3 fL (80.0-98.0); Mean Platelet Volume 12.1 fL (9.4-12.4); Platelet Count 136 X10*3/uL (160-400); Red Blood Count 3.86 X10*6/uL (4.60-5.80); Red Cell Distribution Width 13.5 % (11.0-16.0)
[2022-08-17 05:18] LABS: Anion Gap 10 (12-20); Blood Urea Nitrogen 13 mg/dL (9-16); Calcium 9.4 mg/dL (8.4-10.2); Carbon Dioxide 28 mmol/L (22-29); Chloride 107 mmol/L (96-108); Creatinine Clr Calc Pharmacy 53.4; Estimated Glomerular Filt Rate > 60; Glucose Random 118 mg/dL (60-115); Sodium 141 mmol/L (135-145)
[2022-08-17 07:08] VITALS: BP 146/79; PULSE 62; RESP 20; TEMP 36.8; O2SAT 94
[2022-08-17 07:28] LABS: Glucose, Whole Blood 136 mg/dL (60-115)
[2022-08-17] MEDS: Carbidopa/Levodopa 25/100 TABLET 2 TAB PO ×2 (08:33→12:26)
[2022-08-17] MEDS: Calcium + Vitamin D 250 MG TABLET PO (08:33)
[2022-08-17] MEDS: Gabapentin 300 MG CAPSULE PO (08:34)
[2022-08-17] MEDS: rOPINIRole HCL 0.25 MG TABLET PO (08:34)
[2022-08-17] MEDS: ARIPiprazole 15 MG TABLET PO (08:34)
[2022-08-17] MEDS: lisinopriL 10 MG TABLET PO (08:34)
[2022-08-17] MEDS: Furosemide 40 MG/4 ML VIAL IVPUSH (08:34)
[2022-08-17] MEDS: 0.9 % Sodium Chloride Flush 3 ML SYRINGE IVFLUSH (08:35)
--- NOTE | 2022-08-17 08:35 | PM.PNTS ---
Subjective Subjective Date of Service: 08/17/22 Interval history: Uneventful evening. Physical Exam Vital Signs: Vital Signs: Last Vital Signs Temp 98.2 F 08/17/22 07:08 Pulse 62 08/17/22 07:08 Resp 20 08/17/22 07:08 BP 146/79 H 08/17/22 07:08 Pulse Ox 94 08/17/22 07:08 O2 Del Method Room Air 08/17/22 07:08 O2 Flow Rate 2 08/16/22 14:45 BMI result Body Mass Index 30.0 Chest: Other: Wound clean dry and intact. Right upper extremity in sling. Procedures Date of Service Date of Service: 08/17/22 Progress Note: A&P Assessment and plan (1) AV block, 3rd degree: Status: Acute Plan Follow-up in surgical clinic 1-2 weeks. Right upper extremity in sling for 1-2 weeks. For [facility] pacemaker interrogation this morning. Time Spent With Patient Time: Total time managing care of this patient today ____ minutes. Quality Stroke Does the patient have a stroke diagnosis?: No VTE Prior VTE?: No VTE Risk Level:: Medical - low VTE Device Contraindication: Treatment Not Indicated VTE Drug Contraindication: Treatment Not Indicated
[2022-08-17] MEDS: Pioglitazone HCL 45 MG TABLET PO (09:10)
--- NOTE | 2022-08-17 10:42 | P.PNCA_ITS ---
Subjective Subjective Date of Service: 08/17/22 Interval history: He states that he is feeling better. Underwent pacemaker yesterday. Review of Systems Review of Systems Yes all other systems are reviewed and are negative Constitutional: Reports as per HPI and Reports no additional constitutional com plaints Eyes: Reports as per HPI and Denies no additional eye complaints Denies system reviewed and no additional complaints, except as documented and Reports as per HPI Cardiovascular: Reports as per HPI, Reports no additional cardiovascular complaints, Denies acrocyanosis, Denies cool extremities, Denies chest pain, Denies leg edema, Denies lightheadedness, Denies palpitations and Denies dyspnea Respiratory: Reports as per HPI, Denies no additional respiratory complaints and Denies dyspnea Gastrointestinal: Reports as per HPI and Denies no additional gastrointestinal complaints Genitourinary: Reports no additional male genitourinary complaints and Reports as per HPI Musculoskeletal: Reports no additional musculoskeletal complaints and Reports as per HPI Skin/Breast: Reports system reviewed and no additional complaints, except as docu Reports system reviewed and no additional complaints, except as documented and Reports as per HPI Psychiatric: Reports no additional psychiatric complaints and Reports as per HPI Endocrine: Reports no additional endocrine complaints, Reports as per HPI and Denies palpitations Hematologic/Lymphatic: Reports no additional hematologic/lymphatic complaints and Reports as per HPI Allergic/Immunologic: Reports no additional allergic/immunologic complaints and Reports as per HPI Physical Exam Vital Signs: Last Vital Signs Temp 98.2 F 08/17/22 07:08 Pulse 62 08/17/22 07:08 Resp 20 08/17/22 07:08 BP 146/79 H 08/17/22 07:08 Pulse Ox 94 08/17/22 07:08 O2 Del Method Room Air 08/17/22 07:08 O2 Flow Rate 2 08/16/22 14:45 BMI result Body Mass Index 30.0 Const General: comfortable and no acute distress Orientation/consciousness: patient oriented x3 HEENT Other: Unremarkable Head: Yes normal to inspection Neck Neck: Yes normal visual inspection Chest Chest palpation & inspection: normal inspection of the chest Resp Auscultation: clear to auscultation bilaterally Cardio Palpation: normal PMI Heart sounds: S1 normal heart sound present, S2 normal heart sound present, no gallops, no murmurs and no rubs GI Palpation (GI): Soft to palpation Back/Spine/Pelvis Other: unremarkable Skin General skin exam: no rashes or lesions noted Neuro General: patient oriented x3 Extrem General: Yes normal to inspection Psych Mental Status: mental status grossly normal Objective Labs and Meds 08/17/22 04:43 08/17/22 04:43 Lab results: Laboratory Results - last 24 hr 08/16/22 08/16/22 08/16/22 11:32 16:21 22:04 WBC RBC Hgb Hct MCV MCH MCHC RDW Plt Count MPV Absolute Nucleated RBC Nucleated RBC % (auto) Sodium Potassium Chloride Carbon Dioxide Anion Gap BUN Creatinine Estim Creat Clear Calc Estimated GFR POC Glucose 122 H 138 H 119 H Random Glucose Calcium 08/17/22 08/17/22 08/17/22 04:43 04:43 07:19 WBC 7.0 RBC 3.86 L Hgb 12.5 L Hct 36.8 L MCV 95.3 MCH 32.4 MCHC 34.0 RDW 13.5 Plt Count 136 L MPV 12.1 Absolute Nucleated RBC 0.000 Nucleated RBC % (auto) 0.0 Sodium 141 Potassium 4.0 Chloride 107 Carbon Dioxide 28 Anion Gap 10 L BUN 13 Creatinine 1.03 Estim Creat Clear Calc 53.4 Estimated GFR > 60 POC Glucose 136 H Random Glucose 118 H Calcium 9.4 Imaging Radiologist's impression: Impressions Guidance Fluoroscopy 08/16/22 14:40 FINDINGS / IMPRESSION: 1. Images demonstrate placement of a right chest wall pacemaker. Pacemaker leads projecting the appropriate positions relative cardiac shadow. 2. There is a curvilinear density projecting over the cardiac shadow on the most recent image submitted for review -- please confirm whether this represents a foreign body, intentional or not. Progress Note: A&P Assessment and plan (1) AV block, 3rd degree: Status: Acute (2) Encounter for interrogation of cardiac pacemaker: Status: Acute (3) Acute CHF: Status: Acute Plan Patient presented with symptomatic high-grade heart block. Underwent pacemaker implantation as today. Seems to be of normal function by today's interrogation. Otherwise, recovering well from the procedure itself. Suspected heart failure precipitated by the heart block, acute diastolic CHF. That seems to be improving as well. Once cleared by surgery, discharge planning. Continue usual outpatient medications. Follow-up to be arranged. Time Spent With Patient Time: Total time managing care of this patient today ____ minutes. Progress Note: Quality Stroke Does the patient have a stroke diagnosis?: No Procedures Date of Service Date of Service: 08/17/22
--- NOTE | 2022-08-17 11:06 | P.DS_ITS ---
DS: Providers Provider Date of Service: 08/17/22 Date of admission: 08/16/22 02:26 Primary care physician: Yolanda Vu MD Consults: 08/16/22 06:20 Consult to Cardiology Routine Consulting Provider: [facility] [place] [facility] Reason for consultation: 3rd degree av-block Has provider been notified: Yes 08/16/22 09:02 Consult to General Surgery Routine Consulting Provider: Teja Wright Reason for consultation: CHB for PPM DS: Diagnosis Discharge Diagnosis (1) AV block, 3rd degree: Status: Acute (2) Encounter for interrogation of cardiac pacemaker: Status: Acute (3) Acute CHF: Status: Acute (4) CHF exacerbation: Status: Acute DS: Summary Hospital Course Hospital Course: Admission note HPI ?This is an 81-year-old male with past medical history of type 2 diabetes, BETHANY, GERD, HFpEF, Parkinson's disease, history of second-degree heart block and per cardiology note with no evidence of any high-grade heart block in the past presents the hospital with complaints of lower extremity edema for the past 3 days.? Patient reports worsening lower extremity edema, shortness of breath with exertion.? Patient denies any chest pain, no palpitations, reports slightly feeling dizzy when walking, otherwise denies any abdominal pain, no nausea or vomiting, no diarrhea constipation, no urinary symptoms and no lower extremity weakness numbness or tingling.? On arrival to the ED patient was found to have a heart rate of 45, EKG was done which showed third-degree AV block, pacer pads were placed on the patient, discussed with Cardiology who recommends admission to the hospital.? Labs otherwise significant for hemoglobin of 12.2, hematocrit 37.3 which is around his baseline, creatinine of 1.15, magnesium 1.5, troponin of 7.6, BNP of 107 UA positive for leukocyte Estrace, WBC, Pacer pads in place, patient will be admitted for further management Hospital course The patient was admitted for symptomatic 3rd degree heart block with dyspnea and LE edema. started on Lasix IV and placed on Pacers. seen by cardiology and thoracic surgery who recommended placement of PPM which was done by Dr Wright with good response as HR paced and improved with normal interrogation per cardiology. plan to follow as outpatient in 1-[address] Wright and cardiology. edema resolved and was able to ambulate with no dyspnea. Continue rest of home medications Follow-up in surgical clinic with dr Wright 1-2 weeks.? Right upper extremity in sling for 1-2 weeks.? Time Spent with Patient Time attestation: Total time managing care of this patient today ____ minutes. Discharge coordination time: Greater than 30 minutes Quality: Safe Use of Opioids Does Pt have an Active Cancer Diagnosis on the Problem List?: No Quality: Stroke Does the patient have a stroke diagnosis?: No Physical Exam Vital Signs: Vital Signs: Last Vital Signs Temp 98.2 F 08/17/22 07:08 Pulse 62 08/17/22 07:08 Resp 20 08/17/22 07:08 BP 146/79 H 08/17/22 07:08 Pulse Ox 94 08/17/22 07:08 O2 Del Method Room Air 08/17/22 07:08 O2 Flow Rate 2 08/16/22 14:45 BMI result Body Mass Index 30.0 Const: Other: Constitutional : Awake, interactive, not in distress Neck : Normal inspection, Supple Cardiovascular : RRR, no JVP, no lower extremity edema Respiratory : good bilateral air entry, no crackles, wheezes or rhonchi Gastrointestinal: soft, lax, Normal bowel sounds, Non tender Skin : Warm, Dry, PPM area clean with no erythema or drainage Neurological : Alert & oriented x3, No focal deficit DS: Data Data Completed and Pending Labs on day of discharge: Laboratory Results - last 24 hr 08/16/22 08/16/22 08/16/22 11:32 16:21 22:04 WBC RBC Hgb Hct MCV MCH MCHC RDW Plt Count MPV Absolute Nucleated RBC Nucleated RBC % (auto) Sodium Potassium Chloride Carbon Dioxide Anion Gap BUN Creatinine Estim Creat Clear Calc Estimated GFR POC Glucose 122 H 138 H 119 H Random Glucose Calcium 08/17/22 08/17/22 08/17/22 04:43 04:43 07:19 WBC 7.0 RBC 3.86 L Hgb 12.5 L Hct 36.8 L MCV 95.3 MCH 32.4 MCHC 34.0 RDW 13.5 Plt Count 136 L MPV 12.1 Absolute Nucleated RBC 0.000 Nucleated RBC % (auto) 0.0 Sodium 141 Potassium 4.0 Chloride 107 Carbon Dioxide 28 Anion Gap 10 L BUN 13 Creatinine 1.03 Estim Creat Clear Calc 53.4 Estimated GFR > 60 POC Glucose 136 H Random Glucose 118 H Calcium 9.4 Preliminary micro results at discharge 08/16/22 00:05 Blood Culture - Preliminary Blood - Venous No growth after 24 hours. 08/15/22 23:35 Blood Culture - Preliminary Blood - Venous No growth after 24 hours. Imaging Chest x-ray: Radiologist's impression: ITS Impressions Guidance Fluoroscopy 08/16/22 14:40 FINDINGS / IMPRESSION: 1. Images demonstrate placement of a right chest wall pacemaker. Pacemaker leads projecting the appropriate positions relative cardiac shadow. 2. There is a curvilinear density projecting over the cardiac shadow on the most recent image submitted for review -- please confirm whether this represents a foreign body, intentional or not. Chest X-Ray 08/16/22 23:14 IMPRESSION: Low lung volumes without focal consolidation. Discharge Plan Discharge Anticipated Discharge Date/Time: 08/17/22 11:03 Patient Disposition: Home, Self-Care Discharge Diagnosis: Symptomatic bradycardia Referrals: Yolanda Vivas MD [Primary Care Provider] - 1 Week Discharge Medications: Continued (DME) lancets [FreeStyle Lancets] 28 gauge misc See Rx Instructions .ROUTE .MEDSUPPLY Qty: 100 11RF Rx Instructions: Use 1 lancet once a day (DME) FreeStyle Test Strip See Rx Instructions .ROUTE .MEDSUPPLY Qty: 50 11RF Rx Instructions: Use 1 test strip once a day calcium carbonate-vitamin D3 600 mg-10 mcg (400 unit) tablet 1 tab PO BID 90 Days Qty: 180 1RF omeprazole 20 mg capsule,delayed release(DR/EC) 20 mg PO DAILY@0630 90 Days Qty: 90 1RF simvastatin 20 mg tablet 20 mg PO BEDTIME 90 Days Qty: 90 1RF pioglitazone 45 mg tablet 45 mg PO DAILY 90 Days Qty: 90 1RF aripiprazole 15 mg tablet 15 mg PO DAILY Qty: 90 0RF lisinopril 10 mg tablet 10 mg PO DAILY 90 Days Qty: 90 0RF furosemide 20 mg tablet 20 mg PO QAM Qty: 30 0RF metformin 1,000 mg tablet 1,000 mg PO BID 90 Days Qty: 180 1RF carbidopa-levodopa 25-100 mg tablet 2 tab PO TID@0900,1200,2100 gabapentin 300 mg capsule 300 mg PO BID ibuprofen 600 mg tablet 600 mg PO TID PRN (Reason: pain) mirtazapine 15 mg tablet 15 mg PO BEDTIME ropinirole 0.25 mg tablet 0.25 mg PO TID (DME) BLOOD PRESSURE MONITOR See Rx Instructions .Route .MEDSUPPLY Qty: 1 0RF Rx Instructions: As directed (DME) COMPRESSION SOCKS (knee high) - MEDIUM strength medium 20 mmHg See Rx Instructions .Route .MEDSUPPLY Qty: 2 0RF Rx Instructions: As directed Discharge Orders: Discharge Order (Routine); Ordered 08/17/22 Ordered By: Zoe Rhodes Diet: Low salt diet Activity on Discharge: As tolerated Stand Alone Forms: Patient Portal Discharge page Care Plan Goals: Read below Health Concerns: Read below Plan of Treatment: Read below Assessment: You were admitted to the hospital for slow heart rate and difficulties breathing. evaluated by installation technician and thoracic surgeon who placed a pacemaker to your heart with improvement in breathing and heart rate. Continue rest of home medications Follow-up in surgical clinic with dr Wright 1-2 weeks.? Right upper extremity in sling for 1-2 weeks.? Discharge Date/Time: 08/17/22 13:55
[2022-08-17 11:07] LABS: Glucose, Whole Blood 218 mg/dL (60-115)
[2022-08-17 11:11] VITALS: BP 118/58; PULSE 67; RESP 20; TEMP 36.5; O2SAT 96
--- NOTE | 2022-08-17 11:31 | MHC.CM.PN ---
DP: PT HAS BEEN MEDICALLY CLEARED FOR DC HOME, NO SERVICES. DAUGHTER/SON IN LAW AWARE AND WILL BE IN TO TRANSPORT. RN AWARE.
[2022-08-17] MEDS: Insulin Lispro 100 UNIT/ML 3 ML VIAL SUBCUT (12:26)
--- NOTE | 2022-08-17 14:06 | HO.POSTANES ---
Post Anesthesia Evaluation Post Anesthesia Evaluation Vital Signs: Vital Signs Temp Pulse Resp BP Pulse Ox O2 Del Method 08/17/22 11:11 97.7 F 67 20 118/58 L 96 Room Air 08/17/22 07:08 98.2 F 62 20 146/79 H 94 Room Air 08/17/22 03:02 97.3 F 60 20 170/72 H 92 Room Air Anesthesia: Monitored Mental Status: Awake Pain Control: Satisfactory Nausea/Vomiting: None Hydration: Adequate Anesthesia-Related Issues: No Anes. Related Issues
== END 2022-08-17 13:55 | disposition home or self-care (01) | DRG 243 ==
LOC: HO.ED 08-16 02:50 → HO.EDOVER 08-16 02:52 → HO.IMC 08-16 07:35
PROVIDERS: Surgery; Admitting Provider Internal Medicine; Emergency Provider Student in an Organized Health Care Education/Training Program; PCP Internal Medicine; Visit Provider Student in an Organized Health Care Education/Training Program
PROC: 0JH806Z Insertion of Pacemaker, Dual Chamber into Abdomen Subcutaneous Tissue and Fascia, Open Approach (ICD-10-PCS; principal; 2022-08-16 13:00)
DX: I44.2 Atrioventricular block, complete (principal); I50.32 Chronic diastolic (congestive) heart failure; F41.1 Generalized anxiety disorder; G20 Parkinson's disease; E11.9 Type 2 diabetes mellitus without complications; I11.0 Hypertensive heart disease with heart failure; E83.42 Hypomagnesemia; Z79.84 Long term (current) use of oral hypoglycemic drugs; Z79.899 Other long term (current) drug therapy
CPT/HCPCS: 36415; 71045; 80048; 80053; 81001; 82947; 83735; 83880; 84484; 85025; 85027; 85610; 87040; 87086; 93005; 93306; 99285; C1785; C1898; J0690; J1940; J2250; J2795; J3475; Q9957

== ENCOUNTER → 2022-09-13 13:20 | Outpatient (BNVA) | payer OTHER, SELFPAY | PROVIDERS: PCP Internal Medicine; Visit Provider Internal Medicine | DX: Z45.018 Encounter for adjustment and management of other part of cardiac pacemaker (principal); I44.2 Atrioventricular block, complete; I47.1 Supraventricular tachycardia | CPT/HCPCS: 93280; 99212 ==

== ENCOUNTER 2022-10-25 17:58 | Emergency (ER) | payer OTHER, SELFPAY ==
--- NOTE | ~2022-10-25 | XR_ITS ---
EXAMINATION: XR ABDOMEN KUB CLINICAL INDICATION: Constipation COMPARISON: Previous CT of the abdomen and pelvis March 2022 TECHNIQUE: AP view of the abdomen. FINDINGS: There is stool the colon suggestive of mild constipation. No dilated loops of bowel to suggest obstruction. No evidence of free air. Central pelvic calcification suggestive of calcifications in the prostate gland. Mild degenerative changes of the spine and hip joints. Partially visualized dual-chamber cardiac pacemaker. XR/XR KUB IMPRESSION: Mild constipation. No evidence of obstruction.
[2022-10-25 18:05] VITALS: BP 136/82; PULSE 80; O2SAT 99
[2022-10-25 18:40] VITALS: BP 118/61; PULSE 58; RESP 14; O2SAT 99; BMI 31.6
--- NOTE | 2022-10-25 18:50 | ED_ITS ---
HPI - Abdominal Pain General Chief Complaint: Abdominal Pain Stated Complaint: constipation, abd pain, per ems Time Seen by Provider: 10/25/22 18:21 Source: patient and EMS Mode of arrival: EMS Limitations: language barrier (Bulgarian-speaking biomedical equipment tech utilized) History of Present Illness HPI narrative: Patient is an 82-year-old male presents emergency department via EMS for evaluation of constipation. By his report he has been constipated for the past 4 days. He reports that this has happened in the past and he feels that an enema would be beneficial for him. He reports a very small amount of stool passage but feels like he is unable to completely evacuate his bowels. He denies any associated fevers, chills, chest pain, shortness of breath, nausea, vomiting, abdominal pain, prior bloody or dark stools, diarrhea, genitourinary symptoms. Related Data Home Medications Medication Instructions Recorded Confirmed carbidopa 25 mg-levodopa 100 mg 2 tab PO TID@0900,1200,2100 12/17/20 09/13/22 tablet gabapentin 300 mg capsule 300 mg PO BID 08/16/22 09/13/22 ibuprofen 600 mg tablet 600 mg PO TID PRN pain 08/16/22 09/13/22 ropinirole 0.25 mg tablet 0.25 mg PO TID 08/16/22 09/13/22 Previous Rx's Medication Instructions Recorded lancets 28 gauge (Annmarieyle #100 ea 06/03/20 Lancets) BLOOD PRESSURE MONITOR #1 ea 12/30/20 COMPRESSION SOCKS (knee high) - #2 ea 12/30/20 MEDIUM strength pioglitazone 45 mg tablet 45 mg PO DAILY 90 days #90 tabs 07/07/22 lisinopril 10 mg tablet 10 mg PO DAILY 90 days #90 tabs 07/29/22 metformin 1,000 mg tablet 1,000 mg PO BID 90 days #180 tabs 08/15/22 adult pull ups #100 ea 08/19/22 blood pressure test kit-large #1 ea 08/19/22 underpads 2.6 X 2.9 feet #36 ea 08/19/22 (Goodnites Bed Mats) weight scale #1 ea 08/19/22 metoprolol succinate 50 mg 50 mg PO DAILY #30 tabs 08/30/22 tablet,extended release 24 hr blood sugar diagnostic (FreeStyle #50 ea 09/11/22 Test strips) simvastatin 20 mg tablet 20 mg PO BEDTIME 90 days #90 tabs 09/11/22 aripiprazole 15 mg tablet 15 mg PO DAILY #90 tabs 09/12/22 calcium carbonate 600 mg-vitamin 1 tab PO BID 90 days #180 tabs 09/12/22 D3 10 mcg (400 unit) tablet omeprazole 20 mg capsule,delayed 20 mg PO DAILY@0630 90 days #90 09/12/22 release caps furosemide 20 mg tablet 20 mg PO QAM #30 tabs 10/17/22 mirtazapine 15 mg tablet 15 mg PO DAILY 90 days #90 tabs 10/25/22 polyethylene glycol 3350 17 17 g PO BID #119 grams 10/25/22 gram/dose oral powder (Miralax) Allergies Allergy/AdvReac Type Severity Reaction Status Date / Time shellfish derived Allergy Mild swollen Verified 09/13/22 13:40 face shellfish Allergy Intermediate rash, itch Uncoded 09/13/22 13:40 Seafood Allergy Mild SWELLING Uncoded 09/13/22 13:40 Review of Systems Review of Systems Constitutional : No Weight loss, No Fever, No Chills ENT/Mouth :? No sore throat, No Rhinorrhea Eyes: No Swelling, No Redness Cardiovascular : No Chest Pain, No SOB, No Edema Respiratory : No Cough, No Sputum, No Wheezing Gastrointestinal : No Nausea, no Vomiting, no Diarrhea, no abdominal pain, positive constipation, No Hematochezia, No Melena Genitourinary : No Dysuria, No Urinary Frequency, No Hematuria, No Urgency? Musculoskeletal : No joint pain, No Myalgias, No Joint Swelling Skin : No Skin Lesions, No rash Neuro : No Weakness, No Numbness, No Dizziness, No Headache Yes all other systems are reviewed and are negative [facility] Past Medical History Attestation statement: The following information was validated with the patient. Source: old records reviewed Medical History AV block, 3rd degree Bradycardia Diabetes mellitus DMII (diabetes mellitus, type 2) Dry cough Dyslipidemia Encounter for interrogation of cardiac pacemaker Essential hypertension BETHANY (generalized anxiety disorder) GERD (gastroesophageal reflux disease) Hearing loss Mild major depression, single episode Normal colonoscopy (~06/18/11) Obesity (BMI 30-39.9) Parkinson disease Physical exam Unsteady gait Surgical History No pertinent past surgical history Family History Family History Mother No problems noted. Father No problems noted. Family/Other Substance use disorder Social History Social History Household Members: None Household Members Other:: son Housing: Apartment Do you presently have visiting nurse or other home services: Yes Alcohol intake: former Patient Tobacco Use Status: Former Tobacco user Tobacco use type: Cigarette e-Cigarette/Vaping Use: Never Used Second Hand Smoke Exposure: No Advance Directives: No Advance Directives Information Provided: Yes service: No Current occupational status: retired Cognitive needs: Yes Hearing needs: No Vision needs: Yes Physical Exam ED Vital Signs: Vital Signs - 24 hr 10/25/22 18:40 10/25/22 19:45 10/25/22 23:16 Temperature 98.6 F 97.8 F Pulse Rate 58 59 59 Respiratory Rate 14 16 16 Blood Pressure 118/61 127/62 158/70 H Pulse Oximetry 99 97 96 Oxygen Delivery Method Room Air Room Air Room Air BMI result Body Mass Index 31.6 Appearance: Alert.?Oriented to person, place and time. No acute distress.?Normal affect. Eyes: Pupils equal, round and reactive to light.? ENT: Pharynx normal.?? Neck: Normal inspection.? Neck supple.?? CVS: Heart sounds normal. Normal heart rate and rhythm.? Pulses normal.?? Respiratory: No respiratory distress.? Lung sounds clear to auscultation bi laterally?? Abdomen: Soft and non-tender. Normoactive bowel sounds. No pulsatile mass.?? Skin: Skin warm and dry.? Normal skin color.? Extremities: No lower extremity edema.? Neuro: Moves all extremities spontaneously. Sensation intact bilaterally. No focal neuro deficits. Course Reevaluation(s) Reevaluation #1: CBC reveals no leukocytosis, normocytic anemia not needing transfusion criteria. Overall unremarkable CMP aside from mildly elevated BUN likely secondary to mild dehydration. Constipation unrelieved with mineral oil enema, KUB revealing mild constipation without evidence of obstruction. Discharge home, advised the use of MiraLax. Reviewed worrisome signs and symptoms that would warrant re-samir luation in the emergency department. All questions answered. Stable for discharge. Time: 22:57 Medical Decision Making Medical Decision Making [facility] Narrative: Patient is an 82-year-old male with past medical history of type 2 diabetes, dyslipidemia, hypertension, GERD, depression, obesity, Parkinson's, who presents to the emergency department for evaluation of constipation without any additional GI symptoms as per HPI. At the time of my examination he is overall well-appearing, nontoxic. Abdominal examination is benign. Rectal examination revealing no impacted stool in the rectal vault. Will trial mineral oil fleets enema and obtain KUB Differential Diagnosis Differential Diagnoses: The differential diagnosis associated with the presentation includes (Bowel obstruction, diverticulitis, constipation, medication side effect) Lab Data [facility] Lab Attestation statement: I reviewed the patient's lab results. (As per course narrative) 10/25/22 22:41 10/25/22 22:41 Labs: Lab Results 10/25/22 10/25/22 Range/Units 22:41 22:41 WBC 6.3 (4.8-10.8) X10*3/uL RBC 4.00 L (4.60-5.80) X10*6/uL Hgb 12.8 L (14.0-18.0) g/dl Hct 37.1 L (42.0-52.0) % MCV 92.8 (80.0-98.0) fL MCH 32.0 (27.0-33.0) pg MCHC 34.5 (31.0-36.0) g/dl RDW 12.4 (11.0-16.0) % Plt Count 141 L (160-400) X10*3/uL MPV 10.6 (9.4-12.4) fL Immature Gran % (Auto) 0.2 (0.0-0.4) % Neut % (Auto) 57.8 (45-73) % Lymph % (Auto) 33.6 (20-40) % Valencia % (Auto) 7.3 (2-11) % Eos % (Auto) 0.6 (0-4) % Baso % (Auto) 0.5 (0-2) % Lymph # (Auto) 2.1 (1.2-4.9) X10*3/uL Valencia # (Auto) 0.5 (0.1-1.2) X10*3/uL Eos # (Auto) 0.0 (0.0-0.4) X10*3/uL Baso # (Auto) 0.0 (0.0-0.2) X10*3/uL Abs Immat Gran (auto) 0.01 (0.00-0.03) X10*3/uL Absolute Neuts (auto) 3.7 (2.0-8.3) x10*3/uL Absolute Nucleated RBC 0.000 (0.0-0.012) X10*3/uL Nucleated RBC % (auto) 0.0 (0.0-0.2) /100WBC Sodium 139 (135-145) mmol/L Potassium 4.5 (3.3-5.1) mmol/L Chloride 105 (96-108) mmol/L Carbon Dioxide 25 (22-29) mmol/L Anion Gap 14 (12-20) BUN 22 H (9-16) mg/dL Creatinine 1.14 (0.5-1.4) mg/dL Estim Creat Clear Calc 46.9 Estimated GFR > 60 Random Glucose 114 (60-115) mg/dL Calcium 9.2 (8.4-10.2) mg/dL Independent Interpretation I performed an independent interpretation of an: Plain X-Ray (I have personally interpreted KUB and agree with radiologist impression, constipation present) Radiology Impression Discussion of test interpretation with radiology: I have reviewed the radiologist's reading. Radiologist Impression: XR/XR KUB IMPRESSION: Mild constipation. No evidence of obstruction. Prescription Management I considered prescription management with: Other (Laxative) Medications Administered Discontinued Medications Generic Name Dose Route Start Last Admin Trade Name Freq PRN Reason Stop Dose Admin Mineral Oil 133 ml 10/25/22 19:10 10/25/22 20:01 Mineral Oil Enema 133 Ml Enema MI 10/25/22 19:11 133 ml ONCE ONE Administration Polyethylene Glycol 17 gm 10/25/22 23:09 10/25/22 23:31 Polyethylene Glycol 3350 17 Gm Powd.Pack PO 10/25/22 23:10 17 gm ONCE ONE Administration Discharge Plan Discharge Clinical Impression: Constipation Patient Disposition: Home, Self-Care Instructions: Constipation (ED), High Fiber Diet (ED), Fleet Enema (ED) Additional Instructions: Your imaging today shows that your mildly constipated, you received an enema while in the emergency department. Please follow instructions on a high-fiber diet. Use MiraLax as prescribed. If you develop loose stools/diarrhea stop taking the MiraLax. Contact your primary care provider and arrange for follow- up within 1-3 days. You may return back to the emergency department any new or worsening symptoms or concerns. Prescriptions: New polyethylene glycol 3350 [Miralax] 17 gram/dose powder 17 g PO BID Qty: 119 0RF No Action (DME) lancets [FreeStyle Lancets] 28 gauge misc See Rx Instructions .ROUTE .MEDSUPPLY Qty: 100 11RF Rx Instructions: Use 1 lancet once a day pioglitazone 45 mg tablet 45 mg PO DAILY 90 Days Qty: 90 1RF lisinopril 10 mg tablet 10 mg PO DAILY 90 Days Qty: 90 0RF metformin 1,000 mg tablet 1,000 mg PO BID 90 Days Qty: 180 1RF (DME) adult pull ups Large See Rx Instructions .Route .MEDSUPPLY Qty: 100 0RF Rx Instructions: As directed (DME) Goodnites Bed Mats 2.6 X 2.9 feet pad See Rx Instructions .Route Qty: 36 12RF Rx Instructions: As directed (DME) blood pressure test kit-large Kit See Rx Instructions .Route Qty: 1 0RF Rx Instructions: As directed (DME) weight scale See Rx Instructions .Route .MEDSUPPLY Qty: 1 0RF Rx Instructions: As directed metoprolol succinate 50 mg tablet extended release 24 hr 50 mg PO DAILY Qty: 30 5RF (DME) FreeStyle Test Strip See Rx Instructions .ROUTE .MEDSUPPLY Qty: 50 11RF Rx Instructions: Use 1 test strip once a day simvastatin 20 mg tablet 20 mg PO BEDTIME 90 Days Qty: 90 1RF omeprazole 20 mg capsule,delayed release(DR/EC) 20 mg PO DAILY@0630 90 Days Qty: 90 1RF calcium carbonate-vitamin D3 600 mg-10 mcg (400 unit) tablet 1 tab PO BID 90 Days Qty: 180 1RF aripiprazole 15 mg tablet 15 mg PO DAILY Qty: 90 0RF furosemide 20 mg tablet 20 mg PO QAM Qty: 30 0RF mirtazapine 15 mg tablet 15 mg PO DAILY 90 Days Qty: 90 1RF carbidopa-levodopa 25-100 mg tablet 2 tab PO TID@0900,1200,2100 gabapentin 300 mg capsule 300 mg PO BID ibuprofen 600 mg tablet 600 mg PO TID PRN (Reason: pain) ropinirole 0.25 mg tablet 0.25 mg PO TID (DME) BLOOD PRESSURE MONITOR See Rx Instructions .Route .MEDSUPPLY Qty: 1 0RF Rx Instructions: As directed (DME) COMPRESSION SOCKS (knee high) - MEDIUM strength medium 20 mmHg See Rx Instructions .Route .MEDSUPPLY Qty: 2 0RF Rx Instructions: As directed Referrals: Physician,Nohelia J [Primary Care Provider] - Interventions: ED Discharge Assessment Last Done: 10/25/22 23:40 Discharge Date/Time: 10/25/22 23:41 Print Language: Bulgarian
[2022-10-25 19:45] VITALS: BP 127/62; PULSE 59; RESP 16; TEMP 37; O2SAT 97
[2022-10-25] MEDS: Mineral OiL enema 133 ML ENEMA PR (20:01)
[2022-10-25 22:47] LABS: MANUAL DIFF FLAG NO
[2022-10-25 22:50] LABS: Basophils Percent Auto 0.5 % (0-2); Eosinophils Percent Auto 0.6 % (0-4); Hematocrit 37.1 % (42.0-52.0); Hemoglobin 12.8 g/dl (14.0-18.0); Imm Gran Abs Auto 0.01 X10*3/uL (0.00-0.03); Imm Gran Pct Auto 0.2 % (0.0-0.4); Lymphocytes Absolute Auto 2.1 X10*3/uL (1.2-4.9); Lymphocytes Percent Auto 33.6 % (20-40); Mean Corpuscular HGB Conc 34.5 g/dl (31.0-36.0); Mean Corpuscular Volume 92.8 fL (80.0-98.0); Mean Platelet Volume 10.6 fL (9.4-12.4); Monocytes Absolute Auto 0.5 X10*3/uL (0.1-1.2); Monocytes Percent Auto 7.3 % (2-11); Neutrophils Absolute Auto 3.7 x10*3/uL (2.0-8.3); Neutrophils Percent Auto 57.8 % (45-73); Platelet Count 141 X10*3/uL (160-400); Red Cell Distribution Width 12.4 % (11.0-16.0); White Blood Count 6.3 X10*3/uL (4.8-10.8)
[2022-10-25 22:58] LABS: Anion Gap 14 (12-20); Blood Urea Nitrogen 22 mg/dL (9-16); Calcium 9.2 mg/dL (8.4-10.2); Carbon Dioxide 25 mmol/L (22-29); Chloride 105 mmol/L (96-108); Creatinine Clr Calc Pharmacy 46.9; Estimated Glomerular Filt Rate > 60; Glucose Random 114 mg/dL (60-115); Potassium 4.5 mmol/L (3.3-5.1); Sodium 139 mmol/L (135-145)
[2022-10-25 23:16] VITALS: BP 158/70; PULSE 59; RESP 16; TEMP 36.6; O2SAT 96
[2022-10-25] MEDS: polyethylene glycoL 3350 17 GM POWD.PACK PO (23:31)
== END 2022-10-25 23:41 | disposition home or self-care (01) ==
PROVIDERS: Nurse Practitioner Family; Emergency Provider Student in an Organized Health Care Education/Training Program
DX: K59.00 Constipation, unspecified (principal); E11.9 Type 2 diabetes mellitus without complications; I10 Essential (primary) hypertension; E78.5 Hyperlipidemia, unspecified; Z79.899 Other long term (current) drug therapy; Z79.84 Long term (current) use of oral hypoglycemic drugs; G20 Parkinson's disease; Z87.891 Personal history of nicotine dependence
CPT/HCPCS: 36415; 74018; 80048; 85025; 99283; 99284

== ENCOUNTER 2022-11-07 15:50 | Emergency (ER) | payer OTHER, SELFPAY ==
--- NOTE | 2022-11-07 16:13 | ED.FALL ---
HPI - Fall General Chief Complaint: Fall Stated Complaint: TRIP AND FALL OUTSIDE HX DEMENTIA Time Seen by Provider: 11/07/22 16:10 Source: patient Mode of arrival: EMS Limitations: no limitations History of Present Illness HPI Narrative: Patient with mild dementia walking on the street lost balance and fell no significant injury able to ambulate in the ER felt slightly dizzy as in the past no significant injuries patient able to ambulate patient had stable labs 2 weeks Related Data Home Medications Medication Instructions Recorded Confirmed carbidopa 25 mg-levodopa 100 mg 2 tab PO TID@0900,1200,2100 12/17/20 09/13/22 tablet gabapentin 300 mg capsule 300 mg PO BID 08/16/22 09/13/22 ibuprofen 600 mg tablet 600 mg PO TID PRN pain 08/16/22 09/13/22 ropinirole 0.25 mg tablet 0.25 mg PO TID 08/16/22 09/13/22 Previous Rx's Medication Instructions Recorded lancets 28 gauge (FreeStyle #100 ea 06/03/20 Lancets) BLOOD PRESSURE MONITOR #1 ea 12/30/20 COMPRESSION SOCKS (knee high) - #2 ea 12/30/20 MEDIUM strength pioglitazone 45 mg tablet 45 mg PO DAILY 90 days #90 tabs 07/07/22 metformin 1,000 mg tablet 1,000 mg PO BID 90 days #180 tabs 08/15/22 adult pull ups #100 ea 08/19/22 blood pressure test kit-large #1 08/19/22 underpads 2.6 X 2.9 feet #36 ea 08/19/22 (Goodnites Bed Mats) weight scale #1 ea 08/19/22 metoprolol succinate 50 mg 50 mg PO DAILY #30 tabs 08/30/22 tablet,extended release 24 hr blood sugar diagnostic (FreeStyle #50 ea 09/11/22 Test strips) simvastatin 20 mg tablet 20 mg PO BEDTIME 90 days #90 tabs 09/11/22 aripiprazole 15 mg tablet 15 mg PO DAILY #90 tabs 09/12/22 calcium carbonate 600 mg-vitamin 1 tab PO BID 90 days #180 tabs 09/12/22 D3 10 mcg (400 unit) tablet omeprazole 20 mg capsule,delayed 20 mg PO DAILY@0630 90 days #90 09/12/22 release caps furosemide 20 mg tablet 20 mg PO QAM #30 tabs 10/17/22 mirtazapine 15 mg tablet 15 mg PO DAILY 90 days #90 tabs 10/25/22 polyethylene glycol 3350 17 17 g PO BID #119 grams 10/25/22 gram/dose oral powder (Miralax) lisinopril 10 mg tablet 10 mg PO DAILY 90 days #90 tabs 10/30/22 Allergies Allergy/AdvReac Type Severity Reaction Status Date / Time shellfish derived Allergy Mild swollen Verified 11/07/22 16:53 face shellfish Allergy Intermediate rash, itch Uncoded 09/13/22 13:40 Seafood Allergy Mild SWELLING Uncoded 09/13/22 13:40 Review of Systems Review of Systems: Yes all other systems are reviewed and are negative [facility] Past Medical History Medical History (Updated 11/07/22 @ 17:53 by Michael Mustafa MD) AV block, 3rd degree Bradycardia Diabetes mellitus DMII (diabetes mellitus, type 2) Dry cough Dyslipidemia Encounter for interrogation of cardiac pacemaker Essential hypertension BETHANY (generalized anxiety disorder) GERD (gastroesophageal reflux disease) Hearing loss Mild major depression, single episode Normal colonoscopy (~06/18/11) Obesity (BMI 30-39.9) Pacemaker Parkinson disease Physical exam Unsteady gait Surgical History No pertinent past surgical history Family History Family History Mother No problems noted. Father No problems noted. Family/Other Substance use disorder Social History Social History Household Members: None Household Members Other:: son Housing: Apartment Do you presently have visiting nurse or other home services: Yes Alcohol intake: former Patient Tobacco Use Status: Former Tobacco user Tobacco use type: Cigarette Smoked in Last 30 Days: No e-Cigarette/Vaping Use: Never Used Second Hand Smoke Exposure: No Use of substances other than those prescribed or required for medical reasons: No Advance Directives: No Advance Directives Information Provided: No service: No Current occupational status: retired Cognitive needs: Yes Hearing needs: No Vision needs: Yes Physical Exam Vital Signs: Vital Signs: Last Vital Signs Temp 97.7 F 11/07/22 16:40 Pulse 60 11/07/22 16:49 Resp 18 07/30/23 16:40 BP 115/53 L 11/07/22 16:49 Pulse Ox 93 11/07/22 16:40 O2 Del Method Room Air 11/07/22 16:40 BMI result Body Mass Index 32.8 Appearance: Alert. Oriented X3. No acute distress. Eyes: PERRLA, No Nystagmus ENT: Pharynx normal. Oral Mucosa moist Neck: Normal inspection. Neck supple. CVS: Normal heart rate and rhythm. Pulses normal. Respiratory: No respiratory distress. Equal air entry bilateral, no wheezing/rales/rhonchi Abdomen: Soft and nontender. Bowel sounds are present, no mass palpable, no CVA tenderness Skin: Skin warm and dry. Normal skin color. Normal skin turgor. Extremities: No lower extremity edema. No calf tenderness Neuro: Oriented X 3. No motor deficit. No sensory deficit.No cerebellar signs , cranial nerves II-XII intact Medical Decision Making Medical Decision Making [facility] Narrative: Patient able to ambulate in the ER without significant problem vitals are stable orthostatic stable no signs of injury discharge patient home Differential Diagnosis Differential Diagnoses: The differential diagnosis associated with the presentation includes Syncope/cardiac arrhythmias/mechanical fall Lab Data [facility] Lab Attestation statement: I reviewed the patient's lab results. Labs: Lab Results 11/07/22 Range/Units 17:08 POC Glucose 119 H (60-115) mg/dL Discharge Plan Discharge Clinical Impression: Fall Patient Disposition: Home, Self-Care Instructions: Fall Prevention for Older Adults (ED) Additional Instructions: Care and cautions as advised Prescriptions: No Action (DME) lancets [FreeStyle Lancets] 28 gauge misc See Rx Instructions .ROUTE .MEDSUPPLY Qty: 100 11RF Rx Instructions: Use 1 lancet once a day pioglitazone 45 mg tablet 45 mg PO DAILY 90 Days Qty: 90 1RF metformin 1,000 mg tablet 1,000 mg PO BID 90 Days Qty: 180 1RF (DME) adult pull ups Large See Rx Instructions .Route .MEDSUPPLY Qty: 100 0RF Rx Instructions: As directed (DME) Goodnites Bed Mats 2.6 X 2.9 feet pad See Rx Instructions .Route Qty: 36 12RF Rx Instructions: As directed (DME) blood pressure test kit-large Kit See Rx Instructions .Route Qty: 1 0RF Rx Instructions: As directed (DME) weight scale See Rx Instructions .Route .MEDSUPPLY Qty: 1 0RF Rx Instructions: As directed metoprolol succinate 50 mg tablet extended release 24 hr 50 mg PO DAILY Qty: 30 5RF (DME) FreeStyle Test Strip See Rx Instructions .ROUTE .MEDSUPPLY Qty: 50 11RF Rx Instructions: Use 1 test strip once a day simvastatin 20 mg tablet 20 mg PO BEDTIME 90 Days Qty: 90 1RF omeprazole 20 mg capsule,delayed release(DR/EC) 20 mg PO DAILY@0630 90 Days Qty: 90 1RF calcium carbonate-vitamin D3 600 mg-10 mcg (400 unit) tablet 1 tab PO BID 90 Days Qty: 180 1RF aripiprazole 15 mg tablet 15 mg PO DAILY Qty: 90 0RF furosemide 20 mg tablet 20 mg PO QAM Qty: 30 0RF mirtazapine 15 mg tablet 15 mg PO DAILY 90 Days Qty: 90 1RF lisinopril 10 mg tablet 10 mg PO DAILY 90 Days Qty: 90 0RF carbidopa-levodopa 25-100 mg tablet 2 tab PO TID@0900,1200,2100 gabapentin 300 mg capsule 300 mg PO BID ibuprofen 600 mg tablet 600 mg PO TID PRN (Reason: pain) ropinirole 0.25 mg tablet 0.25 mg PO TID polyethylene glycol 3350 [Miralax] 17 gram/dose powder 17 g PO BID Qty: 119 0RF (DME) BLOOD PRESSURE MONITOR See Rx Instructions .Route .MEDSUPPLY Qty: 1 0RF Rx Instructions: As directed (DME) COMPRESSION SOCKS (knee high) - MEDIUM strength medium 20 mmHg See Rx Instructions .Route .MEDSUPPLY Qty: 2 0RF Rx Instructions: As directed
[2022-11-07 16:40] VITALS: BP 101/57; BP 120/70; PULSE 59; PULSE 64; RESP 18; TEMP 36.5; O2SAT 93; O2SAT 95; BMI 32.8
[2022-11-07 16:47] VITALS: BP 101/57; PULSE 57
[2022-11-07 16:48] VITALS: BP 101/58; PULSE 56
[2022-11-07 16:49] VITALS: BP 115/53; PULSE 60
[2022-11-07 17:11] LABS: Glucose, Whole Blood 119 mg/dL (60-115)
--- NOTE | 2022-11-07 17:25 | ECG_ITS ---
Test Reason : DIZZINESS Blood Pressure : / mmHG Vent. Rate : 060 BPM Atrial Rate : 060 BPM P-R Int : 230 ms QRS Dur : 154 ms QT Int : 432 ms P-R-T Axes : -10 -60 109 degrees QTc Int : 432 ms AV dual-paced rhythm with prolonged AV conduction Abnormal ECG When compared with ECG of 16-AUG-2022 01:36, pacemaker present Referred By: Michael Mustafa Electronically Signed By:FREDY VALDEZ
--- NOTE | 2022-11-07 17:57 | PC.NURSE ---
Pt reports feeling dizzy before falling, denies LOC/head strike, denies any pain,EKG obtained, Orthostatic vitals obtained, VSS. Pt able to stand at bedside.
== END 2022-11-07 18:20 | disposition home or self-care (01) ==
PROVIDERS: Emergency Provider Internal Medicine; PCP Internal Medicine
DX: R42 Dizziness and giddiness (principal); R94.31 Abnormal electrocardiogram [ECG] [EKG]; Z79.899 Other long term (current) drug therapy
CPT/HCPCS: 82947; 93005; 99284

== ENCOUNTER → 2022-11-07 17:25 | Outpatient (BNV) | payer OTHER, SELFPAY | PROVIDERS: Emergency Provider Internal Medicine; PCP Internal Medicine; Visit Provider Internal Medicine | DX: R94.31 Abnormal electrocardiogram [ECG] [EKG] (principal) | CPT/HCPCS: 93010 ==

== ENCOUNTER 2022-11-18 12:13 | Inpatient (IN) | payer OTHER, SELFPAY ==
[2022-11-18] VITALS (10 sets, daily range): BP systolic 102–161; BP diastolic 40–73; PULSE 32–60; RESP 13–18; TEMP 36.1–36.9; O2SAT 95–100; BMI 33.3
--- NOTE | ~2022-11-18 | XR_ITS ---
EXAMINATION: XR CHEST CLINICAL INFORMATION: Arrhythmia COMPARISON: 08/16/2022 TECHNIQUE: Frontal view of the chest was obtained. FINDINGS: An arrhythmia pad is present on the chest wall, focally obscuring the upper mediastinum. A right subclavian pacemaker device is new since the prior study. The lungs are clear. There are no pleural effusions. The cardiomediastinal silhouette is stable. XR/XR chest 1V IMPRESSION: 1. New right subclavian pacemaker device. 2. No acute disease or interval change otherwise.
--- NOTE | ~2022-11-18 | FL_ITS ---
EXAMINATION: XR FLUOROSCOPY WITH IMAGES CLINICAL INFORMATION: Pacemaker lead revision COMPARISON: 11/18/2022 TECHNIQUE: Fluoroscopy Supervised By: Dr. Wright. Fluoroscopy Time: 0.2 minutes. Cumulative Dose: 5.31 mGy. DAP: 1.05 Gycm2. Images: 1. FINDINGS: Cardiac pacer leads are seen overlying the expected position of the right atrium and right ventricle. FL/FL guidance in OR IMPRESSION: Fluoroscopic guidance for pacemaker revision.
--- NOTE | ~2022-11-18 | XR_ITS ---
EXAMINATION: XR CHEST CLINICAL INFORMATION: Ventricular recent repositioning, status post fall. COMPARISON: Chest radiograph 11/18/2022 at 1:24 PM. TECHNIQUE: AP view of the chest was obtained. FINDINGS: Stable prominence of the cardiomediastinal silhouette. Right-sided pacer with leads projecting over the right atrium and right ventricle. Similar degree of mild diffuse interstitial thickening. No focal airspace opacity. Trace amount of fluid tracking along the right minor fissure. No pleural effusion or pneumothorax. No displaced osseous fractures. XR/XR chest 1V IMPRESSION: Right-sided pacer with leads projecting over the right atrium and right ventricle. No pneumothorax.
--- NOTE | 2022-11-18 12:31 | ED.ARRPALP ---
HPI - Arrhythmia/Palpitations General Chief Complaint: General Medical Stated Complaint: LOW HEART RATE Time Seen by Provider: 11/18/22 12:20 Source: patient and EMS Mode of arrival: EMS History of Present Illness HPI narrative: 82-year-old male arrives via EMS when they were called because had noticed that patient was not as active as usual, appear to be fatigued and shortness of breath. EMS states that on their evaluation patient had stable blood pressure but appears that ppm is not capturing. Patient denies any shortness of breath at this time and denies any chest pain. Related Data Home Medications Medication Instructions Recorded Confirmed carbidopa 25 mg-levodopa 100 mg 2 tab PO TID@0900,1200,2100 12/17/20 09/13/22 tablet gabapentin 300 mg capsule 300 mg PO BID 08/16/22 09/13/22 ibuprofen 600 mg tablet 600 mg PO TID PRN pain 08/16/22 09/13/22 ropinirole 0.25 mg tablet 0.25 mg PO TID 08/16/22 09/13/22 Previous Rx's Medication Instructions Recorded lancets 28 gauge (FreeStyle #100 ea 06/03/20 Lancets) BLOOD PRESSURE MONITOR #1 ea 12/30/20 COMPRESSION SOCKS (knee high) - #2 ea 12/30/20 MEDIUM strength pioglitazone 45 mg tablet 45 mg PO DAILY 90 days #90 tabs 07/07/22 metformin 1,000 mg tablet 1,000 mg PO BID 90 days #180 tabs 08/15/22 adult pull ups #100 ea 08/19/22 blood pressure test kit-large #1 ea 08/19/22 underpads 2.6 X 2.9 feet #36 ea 08/19/22 (Goodnites Bed Mats) weight scale #1 ea 08/19/22 metoprolol succinate 50 mg 50 mg PO DAILY #30 tabs 08/30/22 tablet,extended release 24 hr blood sugar diagnostic (FreeStyle #50 ea 09/11/22 Test strips) simvastatin 20 mg tablet 20 mg PO BEDTIME 90 days #90 tabs 09/11/22 aripiprazole 15 mg tablet 15 mg PO DAILY #90 tabs 09/12/22 calcium carbonate 600 mg-vitamin 1 tab PO BID 90 days #180 tabs 09/12/22 D3 10 mcg (400 unit) tablet omeprazole 20 mg capsule,delayed 20 mg PO DAILY@0630 90 days #90 09/12/22 release caps mirtazapine 15 mg tablet 15 mg PO DAILY 90 days #90 tabs 10/25/22 polyethylene glycol 3350 17 17 g PO BID #119 grams 10/25/22 gram/dose oral powder (Miralax) lisinopril 10 mg tablet 10 mg PO DAILY 90 days #90 tabs 10/30/22 furosemide 20 mg tablet 20 mg PO QAM #30 tabs 11/12/22 Allergies Allergy/AdvReac Type Severity Reaction Status Date / Time shellfish derived Allergy Mild swollen Verified 11/07/22 16:53 face shellfish Allergy Intermediate rash, itch Uncoded 09/13/22 13:40 Seafood Allergy Mild SWELLING Uncoded 09/13/22 13:40 Review of Systems Review of Systems: Pertinent positives and negatives as stated in HPI [facility] Past Medical History Source: nursing notes reviewed Medical History AV block, 3rd degree Bradycardia Diabetes mellitus DMII (diabetes mellitus, type 2) Dry cough Dyslipidemia Encounter for interrogation of cardiac pacemaker Essential hypertension BETHANY (generalized anxiety disorder) GERD (gastroesophageal reflux disease) Hearing loss Mild major depression, single episode Normal colonoscopy (~06/18/11) Obesity (BMI 30-39.9) Pacemaker Parkinson disease Physical exam Unsteady gait Surgical History No pertinent past surgical history Family History Family History Mother No problems noted. Father No problems noted. Family/Other Substance use disorder Social History Social History Household Members: None Household Members Other:: son Housing: Apartment Do you presently have visiting nurse or other home services: Yes Alcohol intake: former Patient Tobacco Use Status: Former Tobacco user Tobacco use type: Cigarette e-Cigarette/Vaping Use: Never Used Second Hand Smoke Exposure: No Advance Directives: No service: No Current occupational status: retired Cognitive needs: Yes Hearing needs: No Vision needs: Yes Physical Exam Vital Signs: Vital Signs: Last Vital Signs Temp 97.5 F 11/18/22 12:27 Pulse 35 L 11/18/22 14:20 Resp 14 11/18/22 14:20 BP 115/42 L 11/18/22 14:20 Pulse Ox 95 11/18/22 12:27 O2 Del Method Room Air 11/18/22 12:27 BMI result Body Mass Index 33.3 VITAL SIGNS: Reviewed. GENERAL: Well developed, well nourished, in no acute distress. HEAD: Normocephalic/atraumatic EYES: PERRLA, EOMI EARS: Ext canals without abnormality NOSE: Nares patent bilateral OROPHARYNX: no oral lesions noted, posterior pharynx clear NECK: Supple, no adenopathy LUNGS: Normal breath sounds. No adventitious sounds or accessory muscle use. CARDIOVASCULAR: Regular rate and rhythm without noted murmurs, no JVD or lower extremity edema. ABDOMEN: Soft, non-tender, non-distended with bowel sounds. MUSCULOSKELETAL: No tenderness, deformities, or effusions noted on gross inspection. EXTREMITIES: No cyanosis, clubbing or edema. SKIN: Inspection of the skin reveals no rashes NEUROLOGIC: Alert and oriented x 4. Strength and sensation to light touch were grossly intact x 4. Medical Decision Making Medical Decision Making MDM Narrative: 1239: 82-year-old male with history and clinical presentation, DDX: Possible pacemaker malfunction, CHF exacerbation, less likely felt to be any infection/anemia. Patient is currently hemodynamically stable. Patient pads were placed in the event that external pacing is required. 1232: A contacted cardiology who has referred me to the surgeon that placed the pacemaker, this is Dr. Wright, I did contact him and he is looking to see to the self pay representative is for the [employer] pacemaker that was placed on 08/16/2022. 1356: I discussed the case with Dr. Wright who has identified that the ventricular lead looks to of malfunction and, he will be taking the patient emergently to the OR. I reviewed the remaining investigations, hematologic indices are grossly within normal limits and there is no leukocytosis or left shift, anemia is normocytic in nature and likely of chronic disease, thrombocytopenia is chronically stable. Coagulation studies are within normal limits. Chemistry indices are consistent with hypoperfusion with a noted ABRIL, CHF exacerbation but otherwise no electrolyte abnormalities and liver enzymes are within normal limits. Chest x-ray does not demonstrate an infiltrate and otherwise my interpretation is in agreement with radiology's impression. In my interpretation patient has heart failure and ABRIL secondary to hypoperfusion due to third-degree AV block with a stable blood pressure at this time and will be going emergently to the OR for adjustment pacemaker. 1423: I have discussed the case with inpatient hospitalist who accepts admission after the OR procedure. Differential Diagnosis Differential Diagnoses: The differential diagnosis associated with the presentation includes Please see the discussion above Admission/Observation Consideration of admission/observation: Escalation of care including admission/observation considered Please see the discussion above Consult Healthcare Provider Management of the patient was discussed with: Hospitalist and Remote Ruby On Rails Developer Please see the discussion above Lab Data MDM Lab Attestation statement: I reviewed the patient's lab results. Please see the discussion above 11/18/22 12:50 11/18/22 12:50 Labs: Lab Results 11/18/22 11/18/22 11/18/22 Range/Units 12:50 12:50 12:50 WBC 6.0 (4.8-10.8) X10*3/uL RBC 3.47 L (4.60-5.80) X10*6/uL Hgb 11.2 L (14.0-18.0) g/dl Hct 33.9 L (42.0-52.0) % MCV 97.7 (80.0-98.0) fL MCH 32.3 (27.0-33.0) pg MCHC 33.0 (31.0-36.0) g/dl RDW 13.2 (11.0-16.0) % Plt Count 125 L (160-400) X10*3/uL MPV 12.4 (9.4-12.4) fL Immature Gran % (Auto) 0.5 H (0.0-0.4) % Neut % (Auto) 66.8 (45-73) % Lymph % (Auto) 23.9 (20-40) % Fisher % (Auto) 7.7 (2-11) % Eos % (Auto) 0.8 (0-4) % Baso % (Auto) 0.3 (0-2) % Lymph # (Auto) 1.4 (1.2-4.9) X10*3/uL Fisher # (Auto) 0.5 (0.1-1.2) X10*3/uL Eos # (Auto) 0.1 (0.0-0.4) X10*3/uL Baso # (Auto) 0.0 (0.0-0.2) X10*3/uL Abs Immat Gran (auto) 0.03 (0.00-0.03) X10*3/uL Absolute Neuts (auto) 4.0 (2.0-8.3) x10*3/uL Absolute Nucleated RBC 0.000 (0.0-0.012) X10*3/uL Nucleated RBC % (auto) 0.0 (0.0-0.2) /100WBC PT 11.2 (11.1-13.3) SEC INR 0.9 (0.9-1.1) Sodium 144 (135-145) mmol/L Potassium 5.0 (3.3-5.1) mmol/L Chloride 111 H (96-108) mmol/L Carbon Dioxide 28 (22-29) mmol/L Anion Gap 10 L (12-20) BUN 34 H (9-16) mg/dL Creatinine 1.44 H (0.5-1.4) mg/dL Estim Creat Clear Calc 38.1 Estimated GFR 47 Random Glucose 167 H (60-115) mg/dL Calcium 9.7 (8.4-10.2) mg/dL Total Bilirubin 0.2 (0.0-1.0) mg/dL AST 19 (5-37) U/L ALT < 5 (0-40) U/L Alkaline Phosphatase 42 (39-117) U/L Troponin I High Sens (<3.5-35.0) ng/L B-Natriuretic Peptide (<100) pg/mL Total Protein 6.2 L (6.5-8.0) g/dL Albumin 3.8 (3.5-5.0) g/dL 11/18/22 11/18/22 Range/Units 12:50 12:50 WBC (4.8-10.8) X10*3/uL RBC (4.60-5.80) X10*6/uL Hgb (14.0-18.0) g/dl Hct (42.0-52.0) % MCV (80.0-98.0) fL MCH (27.0-33.0) pg MCHC (31.0-36.0) g/dl RDW (11.0-16.0) % Plt Count (160-400) X10*3/uL MPV (9.4-12.4) fL Immature Gran % (Auto) (0.0-0.4) % Neut % (Auto) (45-73) % Lymph % (Auto) (20-40) % Fisher % (Auto) (2-11) % Eos % (Auto) (0-4) % Baso % (Auto) (0-2) % Lymph # (Auto) (1.2-4.9) X10*3/uL Fisher # (Auto) (0.1-1.2) X10*3/uL Eos # (Auto) (0.0-0.4) X10*3/uL Baso # (Auto) (0.0-0.2) X10*3/uL Abs Immat Gran (auto) (0.00-0.03) X10*3/uL Absolute Neuts (auto) (2.0-8.3) x10*3/uL Absolute Nucleated RBC (0.0-0.012) X10*3/uL Nucleated RBC % (auto) (0.0-0.2) /100WBC PT (11.1-13.3) SEC INR (0.9-1.1) Sodium (135-145) mmol/L Potassium (3.3-5.1) mmol/L Chloride (96-108) mmol/L Carbon Dioxide (22-29) mmol/L Anion Gap (12-20) BUN (9-16) mg/dL Creatinine (0.5-1.4) mg/dL Estim Creat Clear Calc Estimated GFR Random Glucose (60-115) mg/dL Calcium (8.4-10.2) mg/dL Total Bilirubin (0.0-1.0) mg/dL AST (5-37) U/L ALT (0-40) U/L Alkaline Phosphatase (39-117) U/L Troponin I High Sens 6.3 (<3.5-35.0) ng/L B-Natriuretic Peptide 406 H (<100) pg/mL Total Protein (6.5-8.0) g/dL Albumin (3.5-5.0) g/dL Independent Interpretation I performed an independent interpretation of an: EKG Interpretation: Third-degree AV block, HR-31 Radiology Impression Discussion of test interpretation with radiology: I have reviewed the radiologist's reading. Radiologist Impression: Please see the discussion above External Record Review External record reviewed: Outpatient record and Prior outpatient labs Chronic Conditions Patient?s care impacted by: Diabetes and Hypertension Critical Care Time Critical Care Time Critical Care Time: Yes Total Critical Care Time: 60 Attestation: I personally attest to this time spent taking care of the patient. Discharge Plan Discharge Prescriptions: No Action (DME) lancets [FreeStyle Lancets] 28 gauge misc See Rx Instructions .ROUTE .MEDSUPPLY Qty: 100 11RF Rx Instructions: Use 1 lancet once a day pioglitazone 45 mg tablet 45 mg PO DAILY 90 Days Qty: 90 1RF metformin 1,000 mg tablet 1,000 mg PO BID 90 Days Qty: 180 1RF (DME) adult pull ups Large See Rx Instructions .Route .MEDSUPPLY Qty: 100 0RF Rx Instructions: As directed (DME) Goodnites Bed Mats 2.6 X 2.9 feet pad See Rx Instructions .Route Qty: 36 12RF Rx Instructions: As directed (DME) blood pressure test kit-large Kit See Rx Instructions .Route Qty: 1 0RF Rx Instructions: As directed (DME) weight scale See Rx Instructions .Route .MEDSUPPLY Qty: 1 0RF Rx Instructions: As directed metoprolol succinate 50 mg tablet extended release 24 hr 50 mg PO DAILY Qty: 30 5RF (DME) FreeStyle Test Strip See Rx Instructions .ROUTE .MEDSUPPLY Qty: 50 11RF Rx Instructions: Use 1 test strip once a day simvastatin 20 mg tablet 20 mg PO BEDTIME 90 Days Qty: 90 1RF omeprazole 20 mg capsule,delayed release(DR/EC) 20 mg PO DAILY@0630 90 Days Qty: 90 1RF calcium carbonate-vitamin D3 600 mg-10 mcg (400 unit) tablet 1 tab PO BID 90 Days Qty: 180 1RF aripiprazole 15 mg tablet 15 mg PO DAILY Qty: 90 0RF mirtazapine 15 mg tablet 15 mg PO DAILY 90 Days Qty: 90 1RF lisinopril 10 mg tablet 10 mg PO DAILY 90 Days Qty: 90 0RF furosemide 20 mg tablet 20 mg PO QAM Qty: 30 0RF carbidopa-levodopa 25-100 mg tablet 2 tab PO TID@0900,1200,2100 gabapentin 300 mg capsule 300 mg PO BID ibuprofen 600 mg tablet 600 mg PO TID PRN (Reason: pain) ropinirole 0.25 mg tablet 0.25 mg PO TID polyethylene glycol 3350 [Miralax] 17 gram/dose powder 17 g PO BID Qty: 119 0RF (DME) BLOOD PRESSURE MONITOR See Rx Instructions .Route .MEDSUPPLY Qty: 1 0RF Rx Instructions: As directed (DME) COMPRESSION SOCKS (knee high) - MEDIUM strength medium 20 mmHg See Rx Instructions .Route .MEDSUPPLY Qty: 2 0RF Rx Instructions: As directed
--- NOTE | 2022-11-18 12:32 | ECG_ITS ---
Test Reason : ARRYTHMIA Blood Pressure : / mmHG Vent. Rate : 033 BPM Atrial Rate : 000 BPM P-R Int : 000 ms QRS Dur : 128 ms QT Int : 480 ms P-R-T Axes : 000 003 -49 degrees QTc Int : 355 ms Idioventricular rhythm Right bundle branch block Pacemkaer dysfunction T wave abnormality, consider inferolateral ischemia Abnormal ECG When compared with ECG of 07-NOV-2022 17:48, Idioventricular rhythm has replaced Electronic ventricular pacemaker Pacemker dysfunction Referred By: Aileen Lopez Electronically Signed By:Ag Sullivan
--- NOTE | 2022-11-18 12:45 | PC.NURSE ---
pt comes with 20G to LAC. additional line, 22G placed to the RAC. labs drawn. pt placed on monitor, changed over to hospital attire. belongings list complete. pt a&o, slow to respond at baseline, bulgarian speaking, but can get by with little [place] citizen. call germain within reach. all pt needs met at this time
[2022-11-18 13:16] LABS: MANUAL DIFF FLAG NO
[2022-11-18 13:36] LABS: Basophils Percent Auto 0.3 % (0-2); Eosinophils Absolute Auto 0.1 X10*3/uL (0.0-0.4); Eosinophils Percent Auto 0.8 % (0-4); Hematocrit 33.9 % (42.0-52.0); Hemoglobin 11.2 g/dl (14.0-18.0); Imm Gran Abs Auto 0.03 X10*3/uL (0.00-0.03); Imm Gran Pct Auto 0.5 % (0.0-0.4); Lymphocytes Absolute Auto 1.4 X10*3/uL (1.2-4.9); Lymphocytes Percent Auto 23.9 % (20-40); Mean Corpuscular Hemoglobin 32.3 pg (27.0-33.0); Mean Corpuscular Volume 97.7 fL (80.0-98.0); Mean Platelet Volume 12.4 fL (9.4-12.4); Monocytes Absolute Auto 0.5 X10*3/uL (0.1-1.2); Monocytes Percent Auto 7.7 % (2-11); Neutrophils Percent Auto 66.8 % (45-73); Platelet Count 125 X10*3/uL (160-400); Red Blood Count 3.47 X10*6/uL (4.60-5.80); Red Cell Distribution Width 13.2 % (11.0-16.0)
[2022-11-18 13:44] LABS: INTERNATIONAL NORM RATIO 0.9 (0.9-1.1); Prothrombin Time 11.2 SEC (11.1-13.3)
[2022-11-18 13:48] LABS: B Type Natriuretic Peptide 406 pg/mL (<100)
[2022-11-18 13:54] LABS: Troponin-I High Sensitivity 6.3 ng/L (<3.5-35.0)
[2022-11-18 14:02] LABS: Alanine Aminotransferase < 5 U/L (0-40); Albumin Level 3.8 g/dL (3.5-5.0); Alkaline Phosphatase 42 U/L (39-117); Anion Gap 10 (12-20); Aspartate Amino Transferase 19 U/L (5-37); Bilirubin Total 0.2 mg/dL (0.0-1.0); Blood Urea Nitrogen 34 mg/dL (9-16); Calcium 9.7 mg/dL (8.4-10.2); Carbon Dioxide 28 mmol/L (22-29); Chloride 111 mmol/L (96-108); Creatinine Clr Calc Pharmacy 38.1; Estimated Glomerular Filt Rate 47; Glucose Random 167 mg/dL (60-115); Sodium 144 mmol/L (135-145); Total Protein 6.2 g/dL (6.5-8.0)
--- NOTE | 2022-11-18 14:44 | HO.THORCON_ITS ---
History of Present Illness Consult details Consult date: 11/18/22 Narrative: Patient is a 2-year-old male who is approximately 4 months status post permanent pacemaker placement for complete heart block who now presents here with recurrence of symptoms. Workup including interrogation, and x-ray suggest that atrial lead is intact and ventricular lead has dislodged. Chart was reviewed and patient evaluated. [facility] Past Medical History Medical History AV block, 3rd degree Bradycardia Diabetes mellitus DMII (diabetes mellitus, type 2) Dry cough Dyslipidemia Encounter for interrogation of cardiac pacemaker Essential hypertension BETHANY (generalized anxiety disorder) GERD (gastroesophageal reflux disease) Hearing loss Mild major depression, single episode Normal colonoscopy (~06/18/11) Obesity (BMI 30-39.9) Pacemaker Parkinson disease Physical exam Unsteady gait Family History Family History Mother No problems noted. Father No problems noted. Family/Other Substance use disorder Surgical History Surgical History No pertinent past surgical history Social History Social History Household Members: None Household Members Other:: son Housing: Apartment Do you presently have visiting nurse or other home services: Yes Alcohol intake: former Patient Tobacco Use Status: Former Tobacco user Tobacco use type: Cigarette e-Cigarette/Vaping Use: Never Used Second Hand Smoke Exposure: No Advance Directives: No service: No Current occupational status: retired Cognitive needs: Yes Hearing needs: No Vision needs: Yes Meds Allergies Allergy/AdvReac Type Severity Reaction Status Date / Time shellfish derived Allergy Mild swollen Verified 11/07/22 16:53 face shellfish Allergy Intermediate rash, itch Uncoded 09/13/22 13:40 Seafood Allergy Mild SWELLING Uncoded 09/13/22 13:40 Home Medications Medication Instructions Recorded Confirmed Last Taken Type carbidopa 25 mg-levodopa 100 mg 2 tab PO TID@0900,1200,2100 12/17/20 09/13/22 Unknown History tablet gabapentin 300 mg capsule 300 mg PO BID 08/16/22 09/13/22 Unknown History ibuprofen 600 mg tablet 600 mg PO TID PRN pain 08/16/22 09/13/22 Unknown History ropinirole 0.25 mg tablet 0.25 mg PO TID 08/16/22 09/13/22 Unknown History Physical Exam Vital Signs: Vital Signs: Last Vital Signs Temp 97.5 F 11/18/22 12:27 Pulse 35 L 11/18/22 14:20 Resp 14 11/18/22 14:20 BP 115/42 L 11/18/22 14:20 Pulse Ox 95 11/18/22 12:27 O2 Del Method Room Air 11/18/22 12:27 BMI result Body Mass Index 33.3 Chest: Other: Chest breath sounds bilaterally, right chest pacemaker pocket wound well healed. GI: Other: Abdomen soft, benign Results Labs 11/18/22 12:50 11/18/22 12:50 Labs: Abnormal lab results 11/18/22 11/18/22 11/18/22 Range/Units 12:50 12:50 12:50 RBC 3.47 L (4.60-5.80) X10*6/uL Hgb 11.2 L (14.0-18.0) g/dl Hct 33.9 L (42.0-52.0) % Plt Count 125 L (160-400) X10*3/uL Immature Gran % (Auto) 0.5 H (0.0-0.4) % Chloride 111 H (96-108) mmol/L Anion Gap 10 L (12-20) BUN 34 H (9-16) mg/dL Creatinine 1.44 H (0.5-1.4) mg/dL Random Glucose 167 H (60-115) mg/dL B-Natriuretic Peptide 406 H (<100) pg/mL Total Protein 6.2 L (6.5-8.0) g/dL Short CBC 11/18/22 Range/Units 12:50 WBC 6.0 (4.8-10.8) X10*3/uL Hgb 11.2 L (14.0-18.0) g/dl Hct 33.9 L (42.0-52.0) % Plt Count 125 L (160-400) X10*3/uL BMP 11/18/22 12:50 Sodium 144 Potassium 5.0 Chloride 111 H Carbon Dioxide 28 BUN 34 H Creatinine 1.44 H Calcium 9.7 Liver Function 08/10/23 Range/Units 12:50 Total Bilirubin 0.2 (0.0-1.0) mg/dL AST 19 (5-37) U/L ALT < 5 (0-40) U/L Alkaline Phosphatase 42 (39-117) U/L Albumin 3.8 (3.5-5.0) g/dL All other labs normal. Assessment and Plan (1) Heart block AV third degree: Status: Acute (2) Malfunction of cardiac pacemaker: Status: Acute Plan Telephone verbal consent was obtained through the patient's son, Saroj gonzalez. This was witnessed by 1 of the ER nurses who co signed the consent form. Risks, benefits, alternatives of lead revision were reviewed with the patient's son and included but not limited to bleeding, infection, pneumothorax, numbness, pain, scarring, recurrence and the patient's son wishes to proceed. All questions were answered. This will be undertaken shortly today. Time Spent With Patient Time: Total time managing care of this patient today ____ minutes. Procedures Date of Service Date of Service: 11/18/22
--- NOTE | 2022-11-18 14:58 | PC.NURSE ---
patient going to OR, transported by OR nurse and television anchor
--- NOTE | 2022-11-18 15:09 | HO.ANESPROP2 ---
FORMERLY [facility], [facility] Active Problems Active Problems: All Active Problems (Updated 11/18/22 @ 14:34 by Erick Ramirez) Heart block AV third degree (Acute) Malfunction of cardiac pacemaker (Acute) ABRIL (acute kidney injury) (Acute) CHF exacerbation (Acute) Encounter for interrogation of cardiac pacemaker (Acute) SVT (supraventricular tachycardia) (Acute) AV block, 3rd degree (Acute) Encounter for annual wellness exam in Medicare patient (Acute) COVID-19 (Acute) Parkinson disease (Acute) Bradycardia (Acute) Mobitz (type) I (Wenckebach's) atrioventricular block (Acute) Respiratory failure with hypoxia (Acute) Dry cough (Acute) Diabetes mellitus (Acute) Unsteady gait (Acute) Essential hypertension (Acute) GERD (gastroesophageal reflux disease) (Acute) 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) Chronic cough (Acute) Hearing loss (Acute) Mild major depression, single episode (Acute) BETHANY (generalized anxiety disorder) (Acute) Bilateral lower extremity edema (Acute) Obesity (BMI 30-39.9) (Acute) Bradycardia (Acute) Heart block (Acute) Type 2 diabetes mellitus with unspecified complications (Acute) Essential hypertension (Acute) Physical exam (Acute) Past Medical History Medical History AV block, 3rd degree Bradycardia Diabetes mellitus DMII (diabetes mellitus, type 2) Dry cough Dyslipidemia Encounter for interrogation of cardiac pacemaker Essential hypertension BETHANY (generalized anxiety disorder) GERD (gastroesophageal reflux disease) Hearing loss Mild major depression, single episode Normal colonoscopy (~06/18/11) Obesity (BMI 30-39.9) Pacemaker Parkinson disease Physical exam Unsteady gait Family History Family History Mother No problems noted. Father No problems noted. Family/Other Substance use disorder Family history of problems with anesthesia: No Surgical History Surgical History No pertinent past surgical history History of Problems with Anesthesia: No Social History Social History Household Members: None Household Members Other:: son Housing: Apartment Do you presently have visiting nurse or other home services: Yes Alcohol intake: former Patient Tobacco Use Status: Former Tobacco user Tobacco use type: Cigarette e-Cigarette/Vaping Use: Never Used Second Hand Smoke Exposure: No Are you DNR?: No Advance Directives: No service: No Current occupational status: retired Cognitive needs: Yes Hearing needs: No Vision needs: Yes Meds Allergies Allergy/AdvReac Type Severity Reaction Status Date / Time shellfish derived Allergy Mild swollen Verified 11/07/22 16:53 face shellfish Allergy Intermediate rash, itch Uncoded 09/13/22 13:40 Seafood Allergy Mild SWELLING Uncoded 09/13/22 13:40 Home Medications Medication Instructions Recorded Confirmed Last Taken Type carbidopa 25 mg-levodopa 100 mg 2 tab PO TID@0900,1200,2100 12/17/20 09/13/22 Unknown History tablet gabapentin 300 mg capsule 300 mg PO BID 08/16/22 09/13/22 Unknown History ibuprofen 600 mg tablet 600 mg PO TID PRN pain 08/16/22 09/13/22 Unknown History ropinirole 0.25 mg tablet 0.25 mg PO TID 08/16/22 09/13/22 Unknown History Exam Exam Date and Time: November 18, 2022 1509 Height,Weight and Vital Signs: Height 5 ft 4 in Weight 87.9 kg Last Vital Signs Temp 97 F 11/18/22 14:52 Pulse 36 L 11/18/22 14:57 Resp 16 11/18/22 14:52 BP 124/48 L 11/18/22 14:52 Pulse Ox 97 11/18/22 14:52 O2 Del Method Room Air 11/18/22 14:52 Pertinent Lab Results Pertinent Lab Results: Laboratory Tests 11/18/22 11/18/22 11/18/22 12:50 12:50 12:50 WBC 6.0 RBC 3.47 L Hgb 11.2 L Hct 33.9 L MCV 97.7 MCH 32.3 MCHC 33.0 RDW 13.2 Plt Count 125 L MPV 12.4 Immature Gran % (Auto) 0.5 H Neut % (Auto) 66.8 Lymph % (Auto) 23.9 Wells % (Auto) 7.7 Eos % (Auto) 0.8 Baso % (Auto) 0.3 Lymph # (Auto) 1.4 Wells # (Auto) 0.5 Eos # (Auto) 0.1 Baso # (Auto) 0.0 Abs Immat Gran (auto) 0.03 Absolute Neuts (auto) 4.0 Absolute Nucleated RBC 0.000 Nucleated RBC % (auto) 0.0 PT 11.2 INR 0.9 Sodium 144 Potassium 5.0 Chloride 111 H Carbon Dioxide 28 Anion Gap 10 L BUN 34 H Creatinine 1.44 H Estim Creat Clear Calc 38.1 Estimated GFR 47 Random Glucose 167 H Calcium 9.7 Total Bilirubin 0.2 AST 19 ALT < 5 Alkaline Phosphatase 42 Troponin I High Sens B-Natriuretic Peptide Total Protein 6.2 L Albumin 3.8 11/18/22 11/18/22 12:50 12:50 WBC RBC Hgb Hct MCV MCH MCHC RDW Plt Count MPV Immature Gran % (Auto) Neut % (Auto) Lymph % (Auto) Wells % (Auto) Eos % (Auto) Baso % (Auto) Lymph # (Auto) Wells # (Auto) Eos # (Auto) Baso # (Auto) Abs Immat Gran (auto) Absolute Neuts (auto) Absolute Nucleated RBC Nucleated RBC % (auto) PT INR Sodium Potassium Chloride Carbon Dioxide Anion Gap BUN Creatinine Estim Creat Clear Calc Estimated GFR Random Glucose Calcium Total Bilirubin AST ALT Alkaline Phosphatase Troponin I High Sens 6.3 B-Natriuretic Peptide 406 H Total Protein Albumin Assessment and Plan Assessment Anesthesia Assessment: Anesthesia Plan Discussed and Chart Reviewed Final Anesthetic Review Family History of Problems with Anesthesia: No History of Problems with Anesthesia: No NPO: Yes ASA Class: IV and Emergency Final Preanesthetic Review: No Changes in Pt Med Stat, Meds/Allgs Chart Reviewed, Consent Obtained/Reviewed and Anes Risks/Benef Reviewed Patient Risk: High Procedure Risk: Intermediate Anesthetic Plan Anesthetic Plan: GA Disposition: Standard PACU
--- NOTE | 2022-11-18 15:13 | PM.IMHP ---
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 Patient was last admitted to the hospital on 08/16/2022 through 08/17/2022 and found to have a third-degree AV block and was implanted with a PPM on 08/16/2022. Patient states his current symptoms began a few days ago when he noticed that he was feeling weak and tired. Patient is staying with his son and visiting nurse today noted patient's heart rate was in the 30s and he was thus sent to the ED for further evaluation. Patient otherwise has no acute complaints. No chest pain/pressure, palpitations. No shortness of breath. Denies lightheadedness or dizziness. No fever, chills, nausea, vomiting. Reports of diarrhea 5 days ago but none since. Patient said he fell 1 week ago while walking on the street, but denies trauma to his chest or any other injury or pain. In the ED patient was afebrile but bradycardic as low as 32 with soft BP is low as 102/48. Labs were significant for H&H stable 11.2/33.9, platelets 125, BUN 34, creatinine 1.44, BNP 406. CXR showed no acute disease or interval change. EKG demonstrated a ventricular rhythm with ventricular rate of 33 with right bundle-branch block and T-wave inversions in lateral and inferior leads. Thoracic surgery and cardiovascular were consulted and patient is being prepped for immediate ppm modification in the OR. Pt will be admitted to the hospital for treatment and further evaluation of symptomatic bradycardia secondary to dislodged pacemaker lead surgical intervention. Review of Systems Review of Systems: Bradycardia Weakness, fatigue Denies chest pain/pressure, palpitations No shortness of breath Denies fever, chills, nausea, vomiting, diarrhea No lightheadedness, dizziness, headache Yes all other systems are reviewed and are negative PMFSH Medical History AV block, 3rd degree Bradycardia Diabetes mellitus DMII (diabetes mellitus, type 2) Dry cough Dyslipidemia Encounter for interrogation of cardiac pacemaker Essential hypertension BETHANY (generalized anxiety disorder) GERD (gastroesophageal reflux disease) Hearing loss Mild major depression, single episode Normal colonoscopy (~06/18/11) Obesity (BMI 30-39.9) Pacemaker Parkinson disease Physical exam Unsteady gait Family History Mother No problems noted. Father No problems noted. Family/Other Substance use disorder Surgical History No pertinent past surgical history Social History Household Members: Family Household Members Other:: son Housing: Apartment Do you presently have visiting nurse or other home services: Yes Alcohol intake: former Patient Tobacco Use Status: Former Tobacco user Tobacco use type: Cigarette e-Cigarette/Vaping Use: Former Use Second Hand Smoke Exposure: No service: No Current occupational status: retired Cognitive needs: Yes Hearing needs: No Vision needs: Yes Meds Allergies Allergy/AdvReac Type Severity Reaction Status Date / Time shellfish derived Allergy Mild swollen Verified 11/07/22 16:53 face shellfish Allergy Intermediate rash, itch Uncoded 09/13/22 13:40 Seafood Allergy Mild SWELLING Uncoded 09/13/22 13:40 Active Medications: Current Medications Acetaminophen (Acetaminophen 325 Mg Tablet) 650 mg PO Q6H PRN PRN Reason: Pain, Mild (Pain Scale 1-3) Docusate Sodium (Docusate Sodium 100 Mg Capsule) 100 mg PO DAILY PRN PRN Reason: Constipation Ondansetron HCl (Ondansetron Hcl 4 Mg/2 Ml Vial) 4 mg IVPUSH Q8H PRN PRN Reason: Nausea and Vomiting Pharmacy Consult (Consult Rx Perform Med Rec) 1 each MISCELLANE ONCE PRN PRN Reason: Consult order Sodium Chloride (0.9 % Sodium Chloride Flush 3 Ml Syringe) 3 ml IVFLUSH [facility] Home Medications Medication Instructions Recorded Confirmed Last Taken Type carbidopa 25 mg-levodopa 100 mg 2 tab PO TID@0900,1200,2100 12/17/20 11/18/22 Unknown History tablet gabapentin 300 mg capsule 300 mg PO BID PRN Pain 05/08/23 08/10/23 Unknown History ropinirole 0.25 mg tablet 0.25 mg PO TID 08/16/22 11/18/22 Unknown History Physical Exam Vital Signs and Narrative: Vital Signs: Last Vital Signs Temp 97 F 11/18/22 14:52 Pulse 36 L 11/18/22 14:57 Resp 16 11/18/22 14:52 BP 124/48 L 11/18/22 14:52 Pulse Ox 97 11/18/22 14:52 O2 Del Method Room Air 11/18/22 14:52 BMI result Body Mass Index 33.3 Constitutional: Alert, in no acute distress. Mental Status: Oriented to person, place and time. Eyes: Pupils are equal, round, and reactive to light. Ear, Nose, and Throat: Oropharynx clear, mucous membranes moist. Ears and nose without deformities. Trachea midline. Respiratory: Clear to auscultation bilaterally. No wheezing, rales, or rhonchi. Cardiovascular: S1, S2, bradycardia. No murmurs, rubs, or gallops. Gastrointestinal: Abdomen soft, non-tender, non-distended. Normal bowel sounds. Neurologic: Cranial nerves II-XII are grossly intact bilaterally. No focal neurological deficits. Moves all extremities spontaneously. Skin: No rashes or lesions noted. Musculoskeletal: No cyanosis or clubbing. Extremities: No edema. Psychiatric: Normal mood and affect. Results Labs 11/18/22 12:50 11/18/22 12:50 Labs: Laboratory Results - last 24 hr 11/18/22 11/18/22 11/18/22 12:50 12:50 12:50 MCV 97.7 MCH 32.3 MCHC 33.0 RDW 13.2 Plt Count 125 L MPV 12.4 Immature Gran % (Auto) 0.5 H Neut % (Auto) 66.8 Lymph % (Auto) 23.9 Morrison % (Auto) 7.7 Eos % (Auto) 0.8 Baso % (Auto) 0.3 Lymph # (Auto) 1.4 Morrison # (Auto) 0.5 Eos # (Auto) 0.1 Baso # (Auto) 0.0 Abs Immat Gran (auto) 0.03 Absolute Neuts (auto) 4.0 Absolute Nucleated RBC 0.000 Nucleated RBC % (auto) 0.0 PT 11.2 INR 0.9 Anion Gap 10 L Estim Creat Clear Calc 38.1 Estimated GFR 47 Random Glucose 167 H Calcium 9.7 Total Bilirubin 0.2 AST 19 ALT < 5 Alkaline Phosphatase 42 B-Natriuretic Peptide Total Protein 6.2 L Albumin 3.8 11/18/22 12:50 MCV MCH MCHC RDW Plt Count MPV Immature Gran % (Auto) Neut % (Auto) Lymph % (Auto) Morrison % (Auto) Eos % (Auto) Baso % (Auto) Lymph # (Auto) Morrison # (Auto) Eos # (Auto) Baso # (Auto) Abs Immat Gran (auto) Absolute Neuts (auto) Absolute Nucleated RBC Nucleated RBC % (auto) PT INR Anion Gap Estim Creat Clear Calc Estimated GFR Random Glucose Calcium Total Bilirubin AST ALT Alkaline Phosphatase B-Natriuretic Peptide 406 H Total Protein Albumin Imaging Radiologist's Impressions: Impressions Chest X-Ray 11/18/22 13:33 IMPRESSION: 1. New right subclavian pacemaker device. 2. No acute disease or interval change otherwise. 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 Pt will be admitted to the hospital for treatment and further evaluation of symptomatic bradycardia secondary to dislodged pacemaker lead surgical intervention. Symptomatic bradycardia Heart rate in the 30s, patient had pacemaker implanted on 08/16/2022 for third-degree heart block Secondary to malfunctioning pacemaker likely secondary to dislodged lead Pacer pads in place Will keep NPO Patient scheduled to under go pacemaker modification in the OR this evening General surgery consult Cardiology consult Monitor on telemetry ABRIL Creatinine 1.44 at time presentation Likely secondary to hypoperfusion from malfunctioning pacemaker Will hold on additional fluids for now Monitor CBC HFpEF BNP elevated at 406 but pt does not clinically appear fluid overloaded A BNP elevation likely secondary to malfunctioning pacemaker Hold furosemide, resumed tomorrow if indicated HTN Hold metoprolol for now d/t soft BP, bradycardia Hold lisinopril d/t ABRIL Resume as warranted [id number] diabetes type 2 Hold home meds Will place sliding scale insulin Diabetic diet Parkinson's disease Continue carbidopa Full Code Attending:?Dr. Madrid DVT Prophylaxis: Pneumatic boots d/t pending surgical procedure Pt will require a hospitalization of at least two nights for treatment and further evaluation of symptomatic bradycardia secondary to dislodged pacemaker lead surgical intervention. Time Spent With Patient Time: Total time managing care of this patient today ____ minutes. Quality Stroke Does the patient have a stroke diagnosis?: No VTE Prior VTE?: No VTE Risk Level:: Medical - moderate - high VTE Device Contraindication: N/A - Device Ordered VTE Drug Contraindication: Treatment Not Indicated
--- NOTE | 2022-11-18 15:23 | PM.CNCAR ---
History of Present Illness History of Present Illness Date of Service: 11/18/22 Requesting physician: Aileen Lopez Chief complaint: Bradycardia, PPM dysfunction Narrative: [age] year gentleman who had recent pacemaker placement for complete heart block presenting with tiredness and sleepiness. The patient has Parkinson disease. He is denying any symptoms. He was noticed to be in complete heart block with noncapturing pacer spikes. Pacemaker was interrogated and we tried reprogramming but despite putting magnet etc there was no capture. He was hypotensive but was denying any symptoms. We had discussion with the [facility] Rep and Dr Wright and after assessment it was decided that he needs to go to OR for lead repositioning as chest xray showed lead dislodgement. [facility] Past Medical History Medical History AV block, 3rd degree Bradycardia Diabetes mellitus DMII (diabetes mellitus, type 2) Dry cough Dyslipidemia Encounter for interrogation of cardiac pacemaker Essential hypertension BETHANY (generalized anxiety disorder) GERD (gastroesophageal reflux disease) Hearing loss Mild major depression, single episode Normal colonoscopy (~06/18/11) Obesity (BMI 30-39.9) Pacemaker Parkinson disease Physical exam Unsteady gait Family History Family History Mother No problems noted. Father No problems noted. Family/Other Substance use disorder Surgical History Surgical History No pertinent past surgical history Social History Social History Household Members: None Household Members Other:: son Housing: Apartment Do you presently have visiting nurse or other home services: Yes Alcohol intake: former Patient Tobacco Use Status: Former Tobacco user Tobacco use type: Cigarette e-Cigarette/Vaping Use: Never Used Second Hand Smoke Exposure: No Are you DNR?: No Advance Directives: No service: No Current occupational status: retired Cognitive needs: Yes Hearing needs: No Vision needs: Yes Meds Allergies Allergy/AdvReac Type Severity Reaction Status Date / Time shellfish derived Allergy Mild swollen Verified 11/07/22 16:53 face shellfish Allergy Intermediate rash, itch Uncoded 09/13/22 13:40 Seafood Allergy Mild SWELLING Uncoded 09/13/22 13:40 Active Medications: Current Medications Acetaminophen (Acetaminophen 325 Mg Tablet) 650 mg PO Q6H PRN PRN Reason: Pain, Mild (Pain Scale 1-3) Docusate Sodium (Docusate Sodium 100 Mg Capsule) 100 mg PO DAILY PRN PRN Reason: Constipation Ondansetron HCl (Ondansetron Hcl 4 Mg/2 Ml Vial) 4 mg IVPUSH Q8H PRN PRN Reason: Nausea and Vomiting Pharmacy Consult (Consult Rx Perform Med Rec) 1 each MISCELLANE ONCE PRN PRN Reason: Consult order Sodium Chloride (0.9 % Sodium Chloride Flush 3 Ml Syringe) 3 ml [facility] Home Medications Medication Instructions Recorded Confirmed Last Taken Type carbidopa 25 mg-levodopa 100 mg 2 tab PO TID@0900,1200,2100 12/17/20 11/18/22 Unknown History tablet gabapentin 300 mg capsule 300 mg PO BID PRN Pain 08/16/22 11/18/22 Unknown History ropinirole 0.25 mg tablet 0.25 mg PO TID 08/16/22 11/18/22 Unknown History Physical Exam Vital Signs: Vital Signs: Last Vital Signs Temp 97 F 11/18/22 14:52 Pulse 36 L 11/18/22 14:57 Resp 16 11/18/22 14:52 BP 124/48 L 11/18/22 14:52 Pulse Ox 97 11/18/22 14:52 O2 Del Method Room Air 11/18/22 14:52 BMI result Body Mass Index 33.3 GENERAL APPEARANCE: in no acute distress. NECK: no carotid bruit, no jugular venous distention. SKIN: no suspicious lesions, warm and dry. HEART: no murmurs, bradycardia LUNGS: clear to auscultation bilaterally. ABDOMEN: soft, nontender. Objective Labs and Meds 11/18/22 12:50 11/18/22 12:50 Lab results: Laboratory Results - last 24 hr 11/18/22 11/18/22 11/18/22 12:50 12:50 12:50 WBC 6.0 RBC 3.47 L Hgb 11.2 L Hct 33.9 L MCV 97.7 MCH 32.3 MCHC 33.0 RDW 13.2 Plt Count 125 L MPV 12.4 Immature Gran % (Auto) 0.5 H Neut % (Auto) 66.8 Lymph % (Auto) 23.9 Bowman % (Auto) 7.7 Eos % (Auto) 0.8 Baso % (Auto) 0.3 Lymph # (Auto) 1.4 Bowman # (Auto) 0.5 Eos # (Auto) 0.1 Baso # (Auto) 0.0 Abs Immat Gran (auto) 0.03 Absolute Neuts (auto) 4.0 Absolute Nucleated RBC 0.000 Nucleated RBC % (auto) 0.0 PT 11.2 INR 0.9 Sodium 144 Potassium 5.0 Chloride 111 H Carbon Dioxide 28 Anion Gap 10 L BUN 34 H Creatinine 1.44 H Estim Creat Clear Calc 38.1 Estimated GFR 47 Random Glucose 167 H Calcium 9.7 Total Bilirubin 0.2 AST 19 ALT < 5 Alkaline Phosphatase 42 Troponin I High Sens B-Natriuretic Peptide Total Protein 6.2 L Albumin 3.8 11/18/22 11/18/22 12:50 12:50 WBC RBC Hgb Hct MCV MCH MCHC RDW Plt Count MPV Immature Gran % (Auto) Neut % (Auto) Lymph % (Auto) Bowman % (Auto) Eos % (Auto) Baso % (Auto) Lymph # (Auto) Bowman # (Auto) Eos # (Auto) Baso # (Auto) Abs Immat Gran (auto) Absolute Neuts (auto) Absolute Nucleated RBC Nucleated RBC % (auto) PT INR Sodium Potassium Chloride Carbon Dioxide Anion Gap BUN Creatinine Estim Creat Clear Calc Estimated GFR Random Glucose Calcium Total Bilirubin AST ALT Alkaline Phosphatase Troponin I High Sens 6.3 B-Natriuretic Peptide 406 H Total Protein Albumin Imaging Radiologist's impression: Impressions Chest X-Ray 11/18/22 13:33 IMPRESSION: 1. New right subclavian pacemaker device. 2. No acute disease or interval change otherwise. Assessment and Plan (1) Heart block AV third degree: Status: Acute (2) Malfunction of cardiac pacemaker: Status: Acute Plan 82 male with CHB and PPM now presenting with PPM dysfunction. He is going to OR for lead repositioning. We will follow along. Time Spent With Patient Time: Total time managing care of this patient today ____ minutes. Procedures Date of Service Date of Service: 11/18/22
--- NOTE | 2022-11-18 16:21 | PHA.MEDREC ---
Pharmacy Consult ? Medication Reconciliation Pharmacy has completed the medication reconciliation. Patient is currently in the OR unable to talk to patient. Previous medical records matched current claim history. Abena Escudero, MichelleD
--- NOTE | 2022-11-18 17:19 | W.PM.OPN ---
Operative Note Operative Note Date of Service: 11/18/22 Narrative: Preoperative diagnosis: [] Status post fall. Ventricular lead dislodgement Postop diagnosis: [] Same Procedure [] ventricular lead repositioning, fluoroscopy Surgeon: [] Kyle Purchasing Administrative Assistant: [] Type of Anesthesia: [] Mac Indication for surgery: [] Uneventful ventricular lead repositioning. For sensing and capture data, please referred to [facility] work sheet Findings: [] Patient brought to the operative room, placed on operative a supine position, after adequate level of MAC anesthesia was induced, the right neck and chest were prepped draped in usual sterile fashion. 1% lidocaine/0.5% Marcaine were infiltrated at the incision site from the previous pacer placement which was carried down through the prior scar through skin, subcutaneous tissue, to the generator pocket was identified and entered. Generator was removed and ventricular lead was uneventfully disconnected from the generator. A Wire was then advanced to the ventricular lead and under fluoroscopic guidance lead was prepared to be advanced and reposition.. Security flange of the ventricular lead had its stay sutures removed to allow lead to be moved. Ventricular lead had a screw-in tip component which was returned. Lead was then advanced into the ventricle with good sensing and capture obtained with fluoroscopic guidance of a good position. Screw-in lead was then uneventfully deployed. Please refer to [facility] work sheet regarding good sensing and capture numbers. Lead was once again evaluated fluoroscopically with good position confirmed and the lead secured via the flange using interrupted 2-0 silk sutures. Ventricular distal end was was then reconnected to the generator and screwed in and tested again with maintained values and position. Generator was then returned to the pocket. Wound was irrigated secured for hemostasis, and wound closure was accomplished using interrupted inverted dermal 3-0 Vicryl sutures followed by Steri-Strips and sterile dressings. Sponge, instrument and needle counts were reported to be correct. EBL minimal . Patient tolerated the procedure well and emerged emerged from anesthesia in stable condition Postprocedure C x-ray pending
[2022-11-18 17:47] LABS: Glucose, Whole Blood 90 mg/dL (60-115)
[2022-11-18 21:03] LABS: Glucose, Whole Blood 86 mg/dL (60-115)
[2022-11-18] MEDS: Furosemide 20 MG TABLET PO (23:05)
[2022-11-18] MEDS: Carbidopa/Levodopa 25/100 TABLET 2 TAB PO (23:08)
[2022-11-18] MEDS: rOPINIRole HCL 0.25 MG TABLET PO (23:08)
[2022-11-18] MEDS: Atorvastatin Calcium 10 MG TABLET PO (23:08)
[2022-11-18] MEDS: 0.9 % Sodium Chloride Flush 3 ML SYRINGE IVFLUSH (23:09)
[2022-11-18] MEDS: Acetaminophen 325 MG TABLET 650 MG PO (23:10)
[2022-11-19 04:00] VITALS: BP 165/77; PULSE 60; RESP 15; TEMP 36.2; O2SAT 100
[2022-11-19 06:38] LABS: Hematocrit 37.6 % (42.0-52.0); Hemoglobin 12.7 g/dl (14.0-18.0); Mean Corpuscular HGB Conc 33.8 g/dl (31.0-36.0); Mean Corpuscular Volume 94.7 fL (80.0-98.0); Mean Platelet Volume 11.5 fL (9.4-12.4); Platelet Count 130 X10*3/uL (160-400); Red Blood Count 3.97 X10*6/uL (4.60-5.80); Red Cell Distribution Width 12.9 % (11.0-16.0); White Blood Count 7.2 X10*3/uL (4.8-10.8)
[2022-11-19] MEDS: Omeprazole 20 MG CAPSULE.DR PO (06:48)
[2022-11-19 06:49] LABS: Anion Gap 11 (12-20); Blood Urea Nitrogen 28 mg/dL (9-16); Calcium 9.6 mg/dL (8.4-10.2); Carbon Dioxide 29 mmol/L (22-29); Chloride 106 mmol/L (96-108); Creatinine Clr Calc Pharmacy 46.9; Estimated Glomerular Filt Rate 59; Glucose Random 110 mg/dL (60-115); Potassium 4.1 mmol/L (3.3-5.1); Sodium 142 mmol/L (135-145)
[2022-11-19 07:22] VITALS: BP 165/79; PULSE 60; RESP 20; TEMP 36.3; O2SAT 98
[2022-11-19 07:56] LABS: Glucose, Whole Blood 88 mg/dL (60-115)
[2022-11-19] MEDS: rOPINIRole HCL 0.25 MG TABLET PO ×2 (08:58→16:21)
[2022-11-19] MEDS: Mirtazapine 15 MG TABLET PO (08:58)
[2022-11-19] MEDS: Acetaminophen 325 MG TABLET 650 MG PO (08:58)
[2022-11-19] MEDS: ARIPiprazole 15 MG TABLET PO (08:58)
[2022-11-19] MEDS: Carbidopa/Levodopa 25/100 TABLET 2 TAB PO ×2 (08:58→11:58)
[2022-11-19] MEDS: Pioglitazone HCL 45 MG TABLET PO (08:58)
[2022-11-19] MEDS: Furosemide 20 MG TABLET PO (08:58)
[2022-11-19] MEDS: 0.9 % Sodium Chloride Flush 3 ML SYRINGE IVFLUSH (09:03)
--- NOTE | 2022-11-19 09:29 | PM.PNCARD ---
Subjective Subjective Date of Service: 11/20/22 Interval history: Seen and examined at bedside using rotary drill operator. Denying any symptoms. He is status post lead replacement for pacemaker dysfunction. Physical Exam Vital Signs: Last Vital Signs Temp 97.3 F 11/19/22 07:22 Pulse 60 11/19/22 07:22 Resp 20 11/19/22 07:22 BP 165/79 H 11/19/22 07:22 Pulse Ox 98 11/19/22 07:22 O2 Del Method Nasal Cannula 11/19/22 07:22 O2 Flow Rate 2 11/19/22 07:22 BMI result Body Mass Index 33.3 GENERAL APPEARANCE: in no acute distress. NECK: no carotid bruit, no jugular venous distention. SKIN: no suspicious lesions, warm and dry. Right chest wall wound stable. HEART: no murmurs, regular rate and rhythm. LUNGS: clear to auscultation bilaterally. ABDOMEN: soft, nontender. Objective Labs and Meds 11/19/22 06:10 11/19/22 06:10 Lab results: Laboratory Results - last 24 hr 11/18/22 11/18/22 11/18/22 12:50 12:50 12:50 WBC 6.0 RBC 3.47 L Hgb 11.2 L Hct 33.9 L MCV 97.7 MCH 32.3 MCHC 33.0 RDW 13.2 Plt Count 125 L MPV 12.4 Immature Gran % (Auto) 0.5 H Neut % (Auto) 66.8 Lymph % (Auto) 23.9 Talbot % (Auto) 7.7 Eos % (Auto) 0.8 Baso % (Auto) 0.3 Lymph # (Auto) 1.4 Talbot # (Auto) 0.5 Eos # (Auto) 0.1 Baso # (Auto) 0.0 Abs Immat Gran (auto) 0.03 Absolute Neuts (auto) 4.0 Absolute Nucleated RBC 0.000 Nucleated RBC % (auto) 0.0 PT 11.2 INR 0.9 Sodium 144 Potassium 5.0 Chloride 111 H Carbon Dioxide 28 Anion Gap 10 L BUN 34 H Creatinine 1.44 H Estim Creat Clear Calc 38.1 Estimated GFR 47 POC Glucose Random Glucose 167 H Calcium 9.7 Total Bilirubin 0.2 AST 19 ALT < 5 Alkaline Phosphatase 42 Troponin I High Sens B-Natriuretic Peptide Total Protein 6.2 L Albumin 3.8 11/18/22 11/18/22 11/18/22 12:50 12:50 17:42 WBC RBC Hgb Hct MCV MCH MCHC RDW Plt Count MPV Immature Gran % (Auto) Neut % (Auto) Lymph % (Auto) Talbot % (Auto) Eos % (Auto) Baso % (Auto) Lymph # (Auto) Talbot # (Auto) Eos # (Auto) Baso # (Auto) Abs Immat Gran (auto) Absolute Neuts (auto) Absolute Nucleated RBC Nucleated RBC % (auto) PT INR Sodium Potassium Chloride Carbon Dioxide Anion Gap BUN Creatinine Estim Creat Clear Calc Estimated GFR POC Glucose 90 Random Glucose Calcium Total Bilirubin AST ALT Alkaline Phosphatase Troponin I High Sens 6.3 B-Natriuretic Peptide 406 H Total Protein Albumin 11/18/22 11/19/22 11/19/22 20:54 06:10 06:10 WBC 7.2 RBC 3.97 L Hgb 12.7 L Hct 37.6 L MCV 94.7 MCH 32.0 MCHC 33.8 RDW 12.9 Plt Count 130 L MPV 11.5 Immature Gran % (Auto) Neut % (Auto) Lymph % (Auto) Talbot % (Auto) Eos % (Auto) Baso % (Auto) Lymph # (Auto) Talbot # (Auto) Eos # (Auto) Baso # (Auto) Abs Immat Gran (auto) Absolute Neuts (auto) Absolute Nucleated RBC 0.000 Nucleated RBC % (auto) 0.0 PT INR Sodium 142 Potassium 4.1 Chloride 106 Carbon Dioxide 29 Anion Gap 11 L BUN 28 H Creatinine 1.17 Estim Creat Clear Calc 46.9 Estimated GFR 59 POC Glucose 86 Random Glucose 110 Calcium 9.6 Total Bilirubin AST ALT Alkaline Phosphatase Troponin I High Sens B-Natriuretic Peptide Total Protein Albumin 11/19/22 07:52 WBC RBC Hgb Hct MCV MCH MCHC RDW Plt Count MPV Immature Gran % (Auto) Neut % (Auto) Lymph % (Auto) Talbot % (Auto) Eos % (Auto) Baso % (Auto) Lymph # (Auto) [place]bot # (Auto) Eos # (Auto) Baso # (Auto) Abs Immat Gran (auto) Absolute Neuts (auto) Absolute Nucleated RBC Nucleated RBC % (auto) PT INR Sodium Potassium Chloride Carbon Dioxide Anion Gap BUN Creatinine Estim Creat Clear Calc Estimated GFR POC Glucose 88 Random Glucose Calcium Total Bilirubin AST ALT Alkaline Phosphatase Troponin I High Sens B-Natriuretic Peptide Total Protein Albumin Imaging Radiologist's impression: Impressions Chest X-Ray 11/18/22 13:33 IMPRESSION: 1. New right subclavian pacemaker device. 2. No acute disease or interval change otherwise. Guidance Fluoroscopy 11/18/22 17:07 IMPRESSION: Fluoroscopic guidance for pacemaker revision. Chest X-Ray 11/18/22 17:38 IMPRESSION: Right-sided pacer with leads projecting over the right atrium and right ventricle. No pneumothorax. Progress Note: A&P Assessment and plan (1) Malfunction of cardiac pacemaker: Status: Acute Plan [age] year gentleman who had pacemaker placement few months ago for AV block now presented 1 week after fall with fatigue and sleepiness. Noticed to be in complete heart block with pacemaker dysfunction. On x-ray his ventricular lead was dislodged. Went urgently for pacemaker lead replacement which was successfully done on 11/18/22. More awake and agitated. Kidney injury is resolving. Blood pressure is elevated. I think his home medications can be started. Can be discharged home. Thank you for allowing me to participate in the care of your patient. Please feel free to contact me if you have any questions. Time Spent With Patient Time: Total time managing care of this patient today ____ minutes. Progress Note: Quality Stroke Does the patient have a stroke diagnosis?: No Procedures Date of Service Date of Service: 11/20/22
--- NOTE | 2022-11-19 10:22 | PM.PNTS ---
Subjective Subjective Date of Service: 11/19/22 Interval history: uneventful evening. No cardiac issues. Physical Exam Vital Signs: Vital Signs: Last Vital Signs Temp 97.3 F 11/19/22 07:22 Pulse 60 11/19/22 07:22 Resp 20 11/19/22 07:22 BP 165/79 H 11/19/22 07:22 Pulse Ox 98 11/19/22 07:22 O2 Del Method Nasal Cannula 11/19/22 07:22 O2 Flow Rate 2 11/19/22 07:22 BMI result Body Mass Index 33.3 Chest: Other: Right pacer wound site clean dry and intact. Right upper extremity in sling Chest palpation & inspection: normal inspection of the chest Procedures Date of Service Date of Service: 11/19/22 Progress Note: A&P Assessment and plan (1) Malfunction of cardiac pacemaker: Status: Acute Plan pacemaker interrogated by [facility] this morning in all functioning well. Time Spent With Patient Time: Total time managing care of this patient today ____ minutes. Quality Stroke Does the patient have a stroke diagnosis?: No VTE Prior VTE?: No VTE Risk Level:: Medical - moderate - high VTE Device Contraindication: N/A - Device Ordered VTE Drug Contraindication: Treatment Not Indicated
--- NOTE | 2022-11-19 10:26 | PC.NURSE ---
Panamanian interp utilized for assessment. Patient A&OX4. LEE to command 4/5 sensation intact, +pp bilat no edema noted. Denies numbness/tingling to extremities. c/o headache 10/18 this am medicated with tylenol with good effect. Surgical site to right upper chest with steri strips no redness warmth or tenderness to site. AV paced on monitor 60. LSCTA denies shortness of breath or chest pain. BS+X4 abdomen soft non-tender denies nausea/vomiting tolerating diet. OOB to commode this am large BM. Pending PT eval. Will continue to monitor and report changes
[2022-11-19 10:52] VITALS: BP 165/79; PULSE 60; O2SAT 98
[2022-11-19 11:14] VITALS: BP 117/57; PULSE 60; RESP 20; TEMP 36.7; O2SAT 97
[2022-11-19 11:40] LABS: Glucose, Whole Blood 131 mg/dL (60-115)
--- NOTE | 2022-11-19 11:46 | PM.DS ---
DS: Providers Provider Date of Service: 11/19/22 Date of admission: 11/18/22 14:57 Date of discharge: 11/19/22 Primary care physician: Yolanda Vu MD Consults: 11/18/22 13:48 Consult to Cardiology Stat Consulting Provider: [facility] [place] Cardiovascular Services Reason for consultation: Complete Heart Block Has provider been notified: Yes 11/18/22 14:13 Consult to Thoracic Surgery Stat Consulting Provider: [facility] [place] Thoracic Surgeons Reason for consultation: PPM malfunction Has provider been notified: Yes 11/18/22 15:06 Consult to Cardiology Routine Consulting Provider: [facility] [place] Cardiovascular Services Reason for consultation: Bradycardia, undergoing PPM modification Consult to Thoracic Surgery Routine Consulting Provider: [facility] [place] Thoracic Surgeons Reason for consultation: PPM modification Attending physician on discharge: Aditya Madrid Discharging clinician: Aditya Madrid DS: Diagnosis Discharge Diagnosis (1) Malfunction of cardiac pacemaker: Status: Acute (2) ABRIL (acute kidney injury): Status: Acute DS: Summary Hospital Course Hospital Course: 82-year-old male with a PMH significant for 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 Patient is primarily Wolof-speaking; medical coder services utilized. Patient was last admitted to the hospital on 08/16/2022 through 08/17/2022 and found to have a third-degree AV block and was implanted with a PPM on 08/16/2022. Patient states his current symptoms began a few days ago when he noticed that he was feeling weak and tired.? Patient is staying with his son and visiting nurse today noted patient's heart rate was in the 30s and he was thus sent to the ED for further evaluation.? Patient otherwise has no acute complaints.? No chest pain/pressure, palpitations.? No shortness of breath.? Denies lightheadedness or dizziness.? No fever, chills, nausea, vomiting.? Reports of diarrhea 5 days ago but none since.? Patient said he fell 1 week ago while walking on the street, but denies trauma to his chest or any other injury or pain. In the ED patient was afebrile but bradycardic as low as 32 with soft BP is low as 102/48. Labs were significant for H&H stable 11.2/33.9, platelets 125, BUN 34, creatinine 1.44, BNP 406. CXR showed no acute disease or interval change. EKG demonstrated a ventricular rhythm with ventricular rate of 33 with right bundle-branch block and T-wave inversions in lateral and inferior leads.? Thoracic surgery and cardiovascular were consulted and patient is being prepped for immediate ppm modification in the OR. Pt will be admitted to the hospital for treatment and further evaluation of symptomatic bradycardia secondary to dislodged pacemaker lead surgical intervention. Hospital course: Patient came to the hospital becauseweakness, fatigue, and bradycardia for the past 2 days- patient had possible symptomatic bradycardia with pacemaker malfunction secondary to dislodged ventricular lead of pacemaker-subsequently seen by surgery and Cardiology: Status post for s/p ventricular lead repositioning. Now patient is asymptomatic heart rate also improved afterwards. Seems hemodynamically maintained. abril seems improved with holding bp meds and after pacemaker lead repositioning. start home meds . hold lisinopril for 2 days .then start back as per blood pressure and after repeating bmp. follow up with thoracic outpatient. cardiology may arrange their own appointment. plan: Status post for s/p ventricular lead repositioning-follow up with thoracic outpatient. abril improving -hold lisinopril for 2 days .then start back after repeating bmp. Above management discussed with the patient in detail length he understand and in agreement with the above plan, time spent 50 minutes and 50% time spent on counseling. Time Spent with Patient Time attestation: Total time managing care of this patient today ____ minutes. Discharge coordination time: Greater than 30 minutes Quality: Safe Use of Opioids Does Pt have an Active Cancer Diagnosis on the Problem List?: No Quality: Stroke Does the patient have a stroke diagnosis?: No Physical Exam Vital Signs: Vital Signs: Last Vital Signs Temp 98.0 F 11/19/22 11:14 Pulse 60 11/19/22 11:14 Resp 20 11/19/22 11:14 BP 117/57 L 11/19/22 11:14 Pulse Ox 97 11/19/22 11:14 O2 Del Method Nasal Cannula 11/19/22 11:14 O2 Flow Rate 1 11/19/22 11:14 BMI result Body Mass Index 33.3 Appearance: Alert.? Oriented X3.? not in distress.?. cvs: rrr, [id number] , right pectoral pacemaker area ( no erythema or sweling or pain). res: clear to auscultation ,no rhonchii or wheezing abd: no rebound or guarding ,nt, bs present. ext pulses present , no cyanosis . neuro: axo3 , nonfocal. DS: Data Data Completed and Pending Completed studies during hospitalization [Text1]: Procedures Insertion of Pacemaker Lead into Right Atrium, Percutaneous Approach (08/16/22) Insertion of Pacemaker Lead into Right Ventricle, Percutaneous Approach (08/16/22) Insertion of Pacemaker, Dual Chamber into Abdomen Subcutaneous Tissue and Fascia, Open Approach (08/16/22) Labs on day of discharge: Laboratory Results - last 24 hr 11/18/22 11/18/22 11/18/22 12:50 12:50 12:50 WBC 6.0 RBC 3.47 L Hgb 11.2 L Hct 33.9 L MCV 97.7 MCH 32.3 MCHC 33.0 RDW 13.2 Plt Count 125 L MPV 12.4 Immature Gran % (Auto) 0.5 H Neut % (Auto) 66.8 Lymph % (Auto) 23.9 Crenshaw % (Auto) 7.7 Eos % (Auto) 0.8 Baso % (Auto) 0.3 Lymph # (Auto) 1.4 Crenshaw # (Auto) 0.5 Eos # (Auto) 0.1 Baso # (Auto) 0.0 Abs Immat Gran (auto) 0.03 Absolute Neuts (auto) 4.0 Absolute Nucleated RBC 0.000 Nucleated RBC % (auto) 0.0 PT 11.2 INR 0.9 Sodium 144 Potassium 5.0 Chloride 111 H Carbon Dioxide 28 Anion Gap 10 L BUN 34 H Creatinine 1.44 H Estim Creat Clear Calc 38.1 Estimated GFR 47 POC Glucose Random Glucose 167 H Calcium 9.7 Total Bilirubin 0.2 AST 19 ALT < 5 Alkaline Phosphatase 42 Troponin I High Sens B-Natriuretic Peptide Total Protein 6.2 L Albumin 3.8 11/18/22 11/18/22 11/18/22 12:50 12:50 17:42 WBC RBC Hgb Hct MCV MCH MCHC RDW Plt Count MPV Immature Gran % (Auto) Neut % (Auto) Lymph % (Auto) Crenshaw % (Auto) Eos % (Auto) Baso % (Auto) Lymph # (Auto) Crenshaw # (Auto) Eos # (Auto) Baso # (Auto) Abs Immat Gran (auto) Absolute Neuts (auto) Absolute Nucleated RBC Nucleated RBC % (auto) PT INR Sodium Potassium Chloride Carbon Dioxide Anion Gap BUN Creatinine Estim Creat Clear Calc Estimated GFR POC Glucose 90 Random Glucose Calcium Total Bilirubin AST ALT Alkaline Phosphatase Troponin I High Sens 6.3 B-Natriuretic Peptide 406 H Total Protein Albumin 11/18/22 11/19/22 11/19/22 20:54 06:10 06:10 WBC 7.2 RBC 3.97 L Hgb 12.7 L Hct 37.6 L MCV 94.7 MCH 32.0 MCHC 33.8 RDW 12.9 Plt Count 130 L MPV 11.5 Immature Gran % (Auto) Neut % (Auto) Lymph % (Auto) Crenshaw % (Auto) Eos % (Auto) Baso % (Auto) Lymph # (Auto) Crenshaw # (Auto) Eos # (Auto) Baso # (Auto) Abs Immat Gran (auto) Absolute Neuts (auto) Absolute Nucleated RBC 0.000 Nucleated RBC % (auto) 0.0 PT INR Sodium 142 Potassium 4.1 Chloride 106 Carbon Dioxide 29 Anion Gap 11 L BUN 28 H Creatinine 1.17 Estim Creat Clear Calc 46.9 Estimated GFR 59 POC Glucose 86 Random Glucose 110 Calcium 9.6 Total Bilirubin AST ALT Alkaline Phosphatase Troponin I High Sens B-Natriuretic Peptide Total Protein Albumin 11/19/22 11/19/22 07:52 11:36 WBC RBC Hgb Hct MCV MCH MCHC RDW Plt Count MPV Immature Gran % (Auto) Neut % (Auto) Lymph % (Auto) Crenshaw % (Auto) Eos % (Auto) Baso % (Auto) Lymph # (Auto) Crenshaw # (Auto) Eos # (Auto) Baso # (Auto) Abs Immat Gran (auto) Absolute Neuts (auto) Absolute Nucleated RBC Nucleated RBC % (auto) PT INR Sodium Potassium Chloride Carbon Dioxide Anion Gap BUN Creatinine Estim Creat Clear Calc Estimated GFR POC Glucose 88 131 H Random Glucose Calcium Total Bilirubin AST ALT Alkaline Phosphatase Troponin I High Sens B-Natriuretic Peptide Total Protein Albumin Imaging Chest x-ray: Radiologist's impression: ITS Impressions Chest X-Ray 11/18/22 13:33 IMPRESSION: 1. New right subclavian pacemaker device. 2. No acute disease or interval change otherwise. Guidance Fluoroscopy 11/18/22 17:07 IMPRESSION: Fluoroscopic guidance for pacemaker revision. Chest X-Ray 11/18/22 17:38 IMPRESSION: Right-sided pacer with leads projecting over the right atrium and right ventricle. No pneumothorax. Discharge Plan Discharge Anticipated Discharge Date/Time: 11/19/22 11:29 Patient Disposition: er SNF Discharge Diagnosis: pacemaker 's malfunction sec to Ventricular lead dislodgement- s/p ventricular lead repositioning. Referrals: [facility] [Outside] - 1 Day (short term rehab) Yolanda Vivas MD [Primary Care Provider] - 1 Week Teja Wright MD [Physician] - 1 Week Discharge Medications: Continued (DME) lancets [FreeStyle Lancets] 28 gauge [facility] See Rx Instructions .ROUTE .MEDSUPPLY Qty: 100 11RF Rx Instructions: Use 1 lancet once a day pioglitazone 45 mg tablet 45 mg PO DAILY 90 Days Qty: 90 1RF metformin 1,000 mg tablet 1,000 mg PO BID 90 Days Qty: 180 1RF (DME) adult pull ups Large See Rx Instructions .Route .MEDSUPPLY Qty: 100 0RF Rx Instructions: As directed (DME) Goodnites Bed Mats 2.6 X 2.9 feet pad See Rx Instructions .Route Qty: 36 12RF Rx Instructions: As directed (DME) blood pressure test kit-large Kit See Rx Instructions .Route Qty: 1 0RF Rx Instructions: As directed (DME) weight scale See Rx Instructions .Route .MEDSUPPLY Qty: 1 0RF Rx Instructions: As directed metoprolol succinate 50 mg tablet extended release 24 hr 50 mg PO DAILY Qty: 30 5RF (DME) FreeStyle Test Strip See Rx Instructions .ROUTE .MEDSUPPLY Qty: 50 11RF Rx Instructions: Use 1 test strip once a day simvastatin 20 mg tablet 20 mg PO BEDTIME 90 Days Qty: 90 1RF omeprazole 20 mg capsule,delayed release(DR/EC) 20 mg PO DAILY@0630 90 Days Qty: 90 1RF calcium carbonate-vitamin D3 600 mg-10 mcg (400 unit) tablet 1 tab PO BID 90 Days Qty: 180 1RF aripiprazole 15 mg tablet 15 mg PO DAILY Qty: 90 0RF mirtazapine 15 mg tablet 15 mg PO DAILY 90 Days Qty: 90 1RF furosemide 20 mg tablet 20 mg PO QAM Qty: 30 0RF carbidopa-levodopa 25-100 mg tablet 2 tab PO TID@0900,1200,2100 gabapentin 300 mg capsule 300 mg PO BID PRN (Reason: Pain) ropinirole 0.25 mg tablet 0.25 mg PO TID (DME) BLOOD PRESSURE MONITOR See Rx Instructions .Route .MEDSUPPLY Qty: 1 0RF Rx Instructions: As directed (DME) COMPRESSION SOCKS (knee high) - MEDIUM strength medium 20 mmHg See Rx Instructions .Route .MEDSUPPLY Qty: 2 0RF Rx Instructions: As directed Held lisinopril 10 mg tablet 10 mg PO DAILY 90 Days Qty: 90 0RF Hold Instructions: Resume on 11/22/22. Discharge Orders: Discharge Order (Routine); Ordered 11/19/22 Ordered By: Aditya Madrid Diet: Advance to usual diet Activity on Discharge: As tolerated Stand Alone Forms: Patient Portal Discharge page Activity Restrictions/Additional Instructions: Ice to wound 20 minutes several times today and tomorrow. May shower in 2 days. Remove outside dressing only. Leave Steri-Strips intact. No strenuous activities . Right upper extremity sling Care Plan Goals: Patient came to the hospital becauseweakness, fatigue, and bradycardia for the past 2 days- patient had possible symptomatic bradycardia with pacemaker malfunction secondary to dislodged ventricular lead of pacemaker-subsequently seen by surgery and Cardiology: Status post for s/p ventricular lead repositioning. Now patient is asymptomatic heart rate also improved afterwards. Seems hemodynamically maintained. abril seems improved with holding bp meds and after pacemaker lead repositioning. start home meds . hold lisinopril for 2 days .then start back as per blood pressure and after repeating bmp. follow up with thoracic outpatient. cardiology may arrange their own appointment. Health Concerns: as above. Plan of Treatment: as above. Assessment: as above. Patient Instructions: Pacemaker (DC)
--- NOTE | 2022-11-19 12:15 | MHC.CM.PN ---
Addendum entered by Bernarda Romero RN 11/19/22 12:40: PT DID VERIFIY HCP ON FILE IS CORRECT, JOHN CASILLAS PCP AND PER RECORDS COVID VACCX3 Original Note: IMM 11/19/22, EMR REVIEWED, PT ADMITTED W/BRADYCARDIA AND PPM DYSFUNCTION, CM MET W/PT VIA DIE CAST TECHNICIAN PT ABLE TO ANSWER MANY QUESTIONS BUT DID NOT HAVE SOME DETAILS LIKE VNA/BIT BENDER HRS, PT GIVES VERBAL CONSENT FOR CM TO CONTACT HIS SON/HCP KYLEE VILLASENOR WHO PT STATES TAKES CARE OF ALL THAT FOR ME. PT DOES REPORT HE USES A CANE HOWEVER IS UNAWARE OF ANY OTHER DME. CM ATTEMPTED TO CONTACT PT'S SON ROSIBEL VILLASENOR AT 11:20AM HOWEVER KYLEE HAD STEPPED OUT OF HOUSE, CM REATTEMEPTED TO CONTACT SON AT 12:15PM AND NO ANSWER, MESSAGE LEFT W/CM CONTACT INFO. P.T. REC'S STR AND PER HOSPITALIST FRANCISCA VILLASENOR WAS GOING TO DISCUSS W/HIS SISTER, TY AWAITING CALL BACK SNF REFERRAL TO BE PLACED.
--- NOTE | 2022-11-19 12:42 | HO.POSTANES ---
Post Anesthesia Evaluation Post Anesthesia Evaluation Date of Service: 11/19/22 Vital Signs: Vital Signs Temp Pulse Resp BP Pulse Ox O2 Del Method O2 Flow Rate 11/19/22 11:14 98.0 F 60 20 117/57 L 97 Nasal Cannula 1 11/19/22 10:52 60 165/79 H 98 11/19/22 07:22 97.3 F 60 20 165/79 H 98 Nasal Cannula 2 11/19/22 04:00 97.1 F 60 15 165/77 H 100 Nasal Cannula 2 Anesthesia: Monitored Mental Status: Awake Pain Control: Satisfactory Nausea/Vomiting: None Hydration: Adequate Anesthesia-Related Issues: No Anes. Related Issues
--- NOTE | 2022-11-19 13:41 | MHC.CM.PN ---
Addendum entered by Bernarda Romero RN 11/19/22 15:33: [facility] RECEIVED AUTH, PT'S DIL/SON NOTIFIED AT 1525 AND CM MET W/PT VIA TREE TRIMMING LINE TECHNICIAN, PT AGREEABLE TO D/C AT 1730 VIA ALONSO. Addendum entered by Bernarda Romero RN 11/19/22 14:02: [facility] offering pt a bed and will go for auth, cm contacted pt's son/hcp Zain Santana who is aware pt will transfer once insurance auth is obtained and would like to be called if pt d/c's over w/e. Original Note: cm received call back from pt's dil who reported [facility], message sent to [facility] via referral, second choice would be [facility], cm will await response from [facility].
--- NOTE | 2022-11-19 14:13 | P.PNIM_ITS ---
Subjective Subjective Date of Service: 11/19/22 Interval History: Bradycardia, fatigue Review of Systems seems improving Denies any chest pain or shortness of breath or abdominal pain or fever or chills. Generalized weak. Physical Exam Vital Signs: Vital Signs: Last Vital Signs Temp 98.0 F 11/19/22 11:14 Pulse 60 11/19/22 11:14 Resp 20 11/19/22 11:14 BP 117/57 L 11/19/22 11:14 Pulse Ox 97 11/19/22 11:14 O2 Del Method Nasal Cannula 11/19/22 11:14 O2 Flow Rate 1 11/19/22 11:14 BMI result Body Mass Index 33.3 Appearance: Alert.? Oriented X3.? not in distress.? cvs: rrr, [id number]. res: clear to auscultation ,no rhonchii or wheezing abd: no rebound or guarding ,nt, bs present. ext pulses present , no cyanosis . pacemaker area -seems fine ,no erythema or dsicharge. neuro: axo3 , nonfocal. Objective Data Active Medications Acetaminophen (Acetaminophen 325 Mg Tablet) 650 mg PO Q6H PRN PRN Reason: Pain, Mild (Pain Scale 1-3) Last Admin: 11/19/22 08:58 Dose: 650 mg Documented By: CANDY Aripiprazole (Aripiprazole 15 Mg Tablet) 15 mg PO DAILY [facility] Last Admin: 11/19/22 08:58 Dose: 15 mg Documented By: CANDY Atorvastatin Calcium (Atorvastatin Calcium 10 Mg Tablet) 10 mg PO BEDTIME [facility] Last Admin: 11/18/22 23:08 Dose: 10 mg Documented By: QUITA Carbidopa/Levodopa (Carbidopa/Levodopa 25/100 Tablet) 2 tab PO TID@0900,1200,2100 [facility] Last Admin: 11/19/22 11:58 Dose: 2 tab Documented By: CANDY Dextrose (Dextrose 50 % 25 Gm/50 Ml Syringe) 25 gm IVPUSH Q15M PRN; Protocol PRN Reason: per Hypoglycemia Standing Ord. Docusate Sodium (Docusate Sodium 100 Mg Capsule) 100 mg PO DAILY PRN PRN Reason: Constipation Furosemide (Furosemide 20 Mg Tablet) 20 mg PO DAILY [facility]; Protocol Last Admin: 11/19/22 08:58 Dose: 20 mg Documented By: CANDY Gabapentin (Gabapentin 300 Mg Capsule) 300 mg PO BID PRN PRN Reason: Pain, Mild (Pain Scale 1-3) Glucose (Glucose Gel 15 Gm Gel..Gram.) 15 gm PO Q15M PRN; Protocol PRN Reason: per Hypoglycemia Standing Ord. Insulin Human Lispro (Insulin Lispro 100 Unit/Ml 3 Ml Vial) 0 unit SUBCUT QIDACHS [facility]; Protocol Last Admin: 11/19/22 11:50 Dose: Not Given Documented By: CANDY Non-Admin Reason: No Insulin Coverage Mirtazapine (Mirtazapine 15 Mg Tablet) 15 mg PO DAILY [facility] Last Admin: 11/19/22 08:58 Dose: 15 mg Documented By: CANDY Omeprazole (Omeprazole 20 Mg Capsule.) 20 mg PO DAILY@0630 [facility] Last Admin: 11/19/22 06:48 Dose: 20 mg Documented By: QUITA Ondansetron HCl (Ondansetron Hcl 4 Mg/2 Ml Vial) 4 mg IVPUSH Q8H PRN PRN Reason: Nausea and Vomiting Pharmacy Consult (Consult Rx Perform Med Rec) 1 each MISCELLANE ONCE PRN PRN Reason: Consult order Pioglitazone HCl (Pioglitazone Hcl 45 Mg Tablet) 45 mg PO DAILY [facility] Last Admin: 11/19/22 08:58 Dose: 45 mg Documented By: CANDY Ropinirole HCl (Ropinirole Hcl 0.25 Mg Tablet) 0.25 mg PO TID [facility] Last Admin: 11/19/22 08:58 Dose: 0.25 mg Documented By: CANDY Sodium Chloride (0.9 % Sodium Chloride Flush 3 Ml Syringe) 3 ml IVFLUSH QSHIFT [facility] Last Admin: 11/19/22 09:03 Dose: 3 ml Documented By: CANDY Labs 11/19/22 06:10 11/19/22 06:10 Labs: Laboratory Results - last 24 hr 11/18/22 11/18/22 11/19/22 17:42 20:54 06:10 MCV 94.7 MCH 32.0 MCHC 33.8 RDW 12.9 Plt Count 130 L MPV 11.5 Absolute Nucleated RBC 0.000 Nucleated RBC % (auto) 0.0 Anion Gap Estim Creat Clear Calc Estimated GFR POC Glucose 90 86 Random Glucose Calcium 11/19/22 11/19/2223 06:10 07:52 11:36 MCV MCH MCHC RDW Plt Count MPV Absolute Nucleated RBC Nucleated RBC % (auto) Anion Gap 11 L Estim Creat Clear Calc 46.9 Estimated GFR 59 POC Glucose 88 131 H Random Glucose 110 Calcium 9.6 Assessment and Plan (1) Heart block AV third degree: Status: Acute (2) ABRIL (acute kidney injury): Status: Acute Plan hospital becauseweakness, fatigue, and bradycardia for the past 2 days. complete heart block with pacemaker dysfunction: patient had possible symptomatic bradycardia with pacemaker malfunction secondary to dislodged ventricular lead of pacemaker-subsequently seen by surg fritz and Cardiology:? Status post for s/p ventricular lead repositioning.? Now patient is asymptomatic heart rate also improved afterwards.? Seems hemodynamically maintained.? abril seems improved with holding bp meds and after pacemaker lead repositioning. start home meds . hold lisinopril for 2 days .then start back as per blood pressure and after repeating bmp. follow up with thoracic outpatient. cardiology may arrange their own appointment. plan: ?Status post for s/p ventricular lead repositioning-follow up? with thoracic outpatient. abril improving -hold lisinopril for 2 days .then start back after repeating bmp. generalised weak: pt -recommended rehab. need for inpatient: Waiting for rehab placement. Family updated in detail. Time Spent With Patient Time: Total time managing care of this patient today ____ minutes. Quality Stroke Does the patient have a stroke diagnosis?: No VTE Prior VTE?: No VTE Risk Level:: Medical - moderate - high VTE Device Contraindication: N/A - Device Ordered VTE Drug Contraindication: Treatment Not Indicated
[2022-11-19 15:24] VITALS: BP 162/70; PULSE 95; RESP 20; TEMP 36.2; O2SAT 93
--- NOTE | 2022-11-19 16:08 | MHC.CM.PN ---
Cm met w/pt via warehouse hand to complete a HCP as pt has none on file, pt named his son Zain Avila as his HCA and eliz Avila as his alternate, pt provided w/educational handout, original and 2 copies, copy uploaded to [facility] and placed in chart.
[2022-11-19 16:09] LABS: Glucose, Whole Blood 129 mg/dL (60-115)
== END 2022-11-19 18:00 | disposition skilled nursing facility (03) | DRG 261 ==
LOC: HO.ED 14:29 → HO.SSS 14:33 → HO.EDOVER 17:20 → HO.IMC 17:26
PROVIDERS: Surgery; Absent Provider Student in an Organized Health Care Education/Training Program; Admitting Provider Student in an Organized Health Care Education/Training Program; Emergency Provider Student in an Organized Health Care Education/Training Program; PCP Internal Medicine; Visit Provider Internal Medicine
PROC: 02WA0MZ Revision of Cardiac Lead in Heart, Open Approach (ICD-10-PCS; principal; 2022-11-18 15:20)
DX: T82.120A Displacement of cardiac electrode, initial encounter (principal); I44.2 Atrioventricular block, complete; N17.9 Acute kidney failure, unspecified; I50.32 Chronic diastolic (congestive) heart failure; I11.0 Hypertensive heart disease with heart failure; E11.9 Type 2 diabetes mellitus without complications; G20 Parkinson's disease; Y71.8 Miscellaneous cardiovascular devices associated with adverse incidents, not elsewhere classified; R00.1 Bradycardia, unspecified; F41.1 Generalized anxiety disorder; Z87.891 Personal history of nicotine dependence; Z79.84 Long term (current) use of oral hypoglycemic drugs; Z79.899 Other long term (current) drug therapy
CPT/HCPCS: 36415; 71045; 80048; 80053; 82947; 83880; 84484; 85025; 85027; 85610; 93005; 97162; 99285; J0690; J2795; J3010

== ENCOUNTER → 2022-11-18 14:33 | Outpatient (BNV) | payer OTHER, SELFPAY | PROVIDERS: Emergency Provider Student in an Organized Health Care Education/Training Program; PCP Internal Medicine; Visit Provider Surgery | DX: T82.111A Breakdown (mechanical) of cardiac pulse generator (battery), initial encounter (principal) | CPT/HCPCS: 33215; 99024; 99222 ==

== ENCOUNTER → 2022-11-18 14:57 | Outpatient (BNV) | payer OTHER, SELFPAY | PROVIDERS: Absent Provider Student in an Organized Health Care Education/Training Program; Admitting Provider Student in an Organized Health Care Education/Training Program; Emergency Provider Student in an Organized Health Care Education/Training Program; PCP Internal Medicine; Visit Provider Internal Medicine Cardiovascular Disease | DX: T82.111A Breakdown (mechanical) of cardiac pulse generator (battery), initial encounter (principal) | CPT/HCPCS: 93010; 99223; 99232 ==

== ENCOUNTER → 2022-11-18 14:57 | Outpatient (BNV) | payer OTHER, SELFPAY | PROVIDERS: Absent Provider Student in an Organized Health Care Education/Training Program; Admitting Provider Student in an Organized Health Care Education/Training Program; Emergency Provider Student in an Organized Health Care Education/Training Program; PCP Internal Medicine; Visit Provider Internal Medicine | DX: T82.111A Breakdown (mechanical) of cardiac pulse generator (battery), initial encounter (principal); I44.2 Atrioventricular block, complete; N17.9 Acute kidney failure, unspecified | CPT/HCPCS: 99223; 99239 ==

== ENCOUNTER 2023-01-10 13:17 | Outpatient (AMB) | payer OTHER, SELFPAY ==
--- NOTE | 2023-01-10 14:14 | A.OFFVIS_ITS ---
Intake Vital Signs 01/10/23 14:15 Height 5 ft 4 in BP 100/50 L Blood Pressure Location Lt brachial Position Sitting Intake Visit Reasons: [address] [facility] Intake Note: 6 week follow up w/ device check and EKG Corrugator Supervisor Required: Yes Corrugator Supervisor Language: Manager Inpatient Name: Dilip [id number] Accompanied by: daughter in law Allergies shellfish derived Allergy (Mild, Verified 01/10/23 14:16) swollen face shellfish Allergy (Intermediate, Uncoded 01/10/23 14:16) rash, itch Seafood Allergy (Mild, Uncoded 01/10/23 14:16) SWELLING Medication List - Last Reconciled 01/10/23 by Fabian Arnett MD [adult pull ups As directed] aripiprazole mg PO [BLOOD PRESSURE MONITOR As directed] blood pressure test kit-large As directed blood sugar diagnostic (FreeStyle Test strips) Use 1 test strip once a day calcium carbonate-vitamin D3 600 mg-10 mcg (400 unit) 1 tab PO BID 90 days carbidopa-levodopa 25-100 mg 2 tabs PO TID@0900,1200,2100 [COMPRESSION SOCKS (knee high) - MEDIUM strength As directed] furosemide 20 mg PO QAM gabapentin 300 mg PO BID PRN lancets (FreeStyle Lancets) Use 1 lancet once a day lisinopril 10 mg PO DAILY 90 days metformin 1,000 mg PO BID 90 days metoprolol succinate ER 50 mg PO DAILY mirtazapine 15 mg PO DAILY 90 days omeprazole 20 mg PO DAILY@0630 90 days pioglitazone 45 mg PO DAILY 90 days ropinirole 0.25 mg PO TID simvastatin 20 mg PO BEDTIME 90 days underpads (Goodnites Bed Mats) As directed [weight scale As directed] HPI HPI Comments History of Present Illness Details Zain returns for follow-up. In August of this year, he had presented t o the [facility] with nonspecific sensation of feeling unwell, leg swelling, dizziness. Then was in complete heart block. Underwent pacemaker implantation. In November, he was readmitted and there was the ventricular rate issue and that was revised. Today, he comes for routine visit. States that he is doing fine. No cardiac symptoms at all. However, the ventricular rate is again not working. [facility] Medical History AV block, 3rd degree Bradycardia Diabetes mellitus DMII (diabetes mellitus, type 2) Dry cough Dyslipidemia Encounter for interrogation of cardiac pacemaker Essential hypertension BETHANY (generalized anxiety disorder) GERD (gastroesophageal reflux disease) Hearing loss Mild major depression, single episode Normal colonoscopy (~06/18/11) Obesity (BMI 30-39.9) Pacemaker Parkinson disease Physical exam Unsteady gait Surgical History No pertinent past surgical history Family History Mother No problems noted. Father No problems noted. Family/Other Substance use disorder Social History Household Members: Family Household Members Other:: son Housing: Apartment Do you presently have visiting nurse or other home services: Yes Alcohol intake: former Patient Tobacco Use Status: Former Tobacco user Tobacco use type: Cigarette e-Cigarette/Vaping Use: Former Use Second Hand Smoke Exposure: No service: No Current occupational status: retired Cognitive needs: Yes Hearing needs: No Vision needs: Yes Review of Systems Const Denies chills, Denies fatigue, Denies fever(s), Denies frequent falls, Denies weakness, Denies weight gain and Denies weight loss ENT Denies dizziness Card Denies chest pain, Denies leg edema, Denies lightheadedness, Denies palpitations, Denies dyspnea, Denies dyspnea on exertion, Denies orthopnea and Denies other (Loss of consciousness) Resp Denies cough, Denies dyspnea and Denies dyspnea on exertion GI Denies hematochezia and Denies change in bowel habits Reports no additional complaints and Reports as per HPI Musc Denies abnormal gait, Denies muscle weakness, Denies numbness, Denies radiating pain into limb and Denies tingling Skin/Breast Reports system reviewed and no additional complaints, except as documented and Reports as per HPI Neuro Denies abnormal gait, Denies dizziness, Denies frequent falls, Denies numbness, Denies tingling and Denies weakness Psych Reports no additional complaints and Reports as per HPI Endo Denies fatigue and Denies palpitations Bj/Lymph Reports no additional complaints and Reports as per HPI Physical Exam Vital Signs: Last Vital Signs BP 100/50 L 01/10/23 14:15 Const General: comfortable and no acute distress Orientation/consciousness: patient oriented x3 HEENT Other: Unremarkable Head: Yes normal to inspection Neck Neck: Yes normal visual inspection Chest Chest palpation & inspection: normal inspection of the chest Resp Auscultation: clear to auscultation bilaterally Cardio Palpation: normal PMI Heart sounds: S1 normal heart sound present, S2 normal heart sound present, no gallops, no murmurs and no rubs GI Palpation (GI): Soft to palpation Back/Spine/Pelvis Other: unremarkable Skin General skin exam: no rashes or lesions noted Neuro General: patient oriented x3 Extrem General: Yes normal to inspection Psych Mental Status: mental status grossly normal Office Procedures Cardiac Device Check Cardiac Device Check Details: Pacemaker interrogated today. Dual-chamber device, programmed DDD mode. Battery status 4.86.2 years. RV lead is nonfunctioning. Triggered 12/06/2022. 82665-BY Cardiac Device Check, pacemaker dual lead Procedure code (CPT) selection complete EKG Details: EKG with likely complete heart block with ventricular escape at a rate of 42/Min. 11270-[id number], Complete Assessment & Plan Assessment & Plan (1) AV block, 3rd degree: Code(s): I44.2 - Atrioventricular block, complete (2) Encounter for interrogation of cardiac pacemaker: Code(s): Z45.018 - Encounter for adjustment and management of other part of cardiac pacemaker (3) Pacemaker lead malfunction: Code(s): T82.110A - Breakdown (mechanical) of cardiac electrode, initial encounter Plan As mentioned above, the ventricular rate is not functioning and patient is in high-grade heart block. Clinically no overt symptoms but high likelihood of decompensation. Discussed with patient as well as significant other using mobile solutions architect. Also discussed with ER physician at [place]. Will refer him there for the time being. Then will need to be transferred to [facility] to be evaluated by EP for RV lead revision. Coding Level of Care Code Est Pt Level 5 (96668) Diagnoses AV block, 3rd degree I44.2 Encounter for interrogation of cardiac pacemaker Z45.018 Pacemaker lead malfunction T82.110A CPT Codes Cardiac Device Check - Cardiac Device 2: 80798-[id number] Cardiac Device Check, pacemaker dual lead ([id number]) EKG - CPT: 38906-[id number], Complete ([id number])
[2023-01-10 14:15] VITALS: BP 100/50
== END 2023-01-10 14:56 | disposition home or self-care (01) ==
PROVIDERS: PCP Internal Medicine; Visit Provider Internal Medicine
DX: I44.2 Atrioventricular block, complete (principal); T82.110A Breakdown (mechanical) of cardiac electrode, initial encounter; Z95.0 Presence of cardiac pacemaker
CPT/HCPCS: 93010; 93280; 99215

== ENCOUNTER → 2023-01-10 13:17 | Outpatient (BNVA) | payer OTHER, SELFPAY | PROVIDERS: PCP Internal Medicine; Visit Provider Internal Medicine ==

== ENCOUNTER 2023-01-10 14:34 | Emergency (ER) | payer OTHER, SELFPAY ==
--- NOTE | 2023-01-10 | ECG_ITS ---
Test Reason : heart block Blood Pressure : / mmHG Vent. Rate : 042 BPM Atrial Rate : 046 BPM P-R Int : 000 ms QRS Dur : 128 ms QT Int : 470 ms P-R-T Axes : 043 008 -78 degrees QTc Int : 392 ms Idioventricular rhythm with AV block Right bundle branch block T wave abnormality, consider inferolateral ischemia Abnormal ECG When compared with ECG of 18-NOV-2022 12:43, Pacemaker activity is no longer present Referred By: Zahraa Leyva Electronically Signed By:CLARK SANDERS
--- NOTE | ~2023-01-10 | XR_ITS ---
EXAMINATION: XR CHEST CLINICAL INFORMATION: Malfunctioning pacemaker COMPARISON: 11/18/2022 TECHNIQUE: Frontal view of the chest was obtained. FINDINGS: There is pacemaker battery and leads over the right atrium and ventricle. Lungs of low volume with ill-defined opacity in the right upper lobe adjacent to the fissure. There is cardiac device projecting over the heart. XR/XR chest 1V IMPRESSION: Low lung volume bilaterally and ill-defined opacity adjacent to the fissure in the right upper lobe
[2023-01-10 14:44] VITALS: PULSE 41; RESP 18; BMI 28.6
--- NOTE | 2023-01-10 14:48 | PC.NURSE ---
Patient from cardiology after found to be in heartblock. Patient HR 45, has pacemake in place. Patient denies n/v/s, chest pain or dizziness. SOB with exertion. EKG obtained, placed on monitors, pads placed. Patient alert and oriented, aware plan is for transfer to [facility]
[2023-01-10 14:52] VITALS: BP 135/47; PULSE 43; RESP 18; TEMP 37.1; O2SAT 97
--- NOTE | 2023-01-10 14:57 | ED_ITS ---
HPI - General Adult General Chief complaint: Arrhythmia/Palpitations Stated complaint: Abnormal ekg sent by cardiology Time Seen by Provider: 01/10/23 14:41 Source: patient and telemarketing fundraiser Mode of arrival: ambulatory Limitations: no limitations History of Present Illness HPI narrative: 82-year-old male with history of pacemaker implantation that needed revision for malfunctioning had his follow-up appointment with the graphic design professor the pacemaker still malfunctioning patient will be transferred to [facility] for further pacemaker adjustment. Patient currently has no specific complaint no SOB, no dizziness, no lightheadedness, no near syncopal or syncopal episodes, no CP. Related Data Home Medications Medication Instructions Recorded Confirmed carbidopa 25 mg-levodopa 100 mg 2 tab PO TID@0900,1200,2100 12/17/20 01/10/23 tablet gabapentin 300 mg capsule 300 mg PO BID PRN Pain 08/16/22 01/10/23 ropinirole 0.25 mg tablet 0.25 mg PO TID 08/16/22 01/10/23 aripiprazole 5 mg tablet mg PO 01/10/23 01/10/23 Previous Rx's Medication Instructions Recorded lancets 28 gauge (FreeStyle #100 ea 06/03/20 Lancets) BLOOD PRESSURE MONITOR #1 ea 12/30/20 COMPRESSION SOCKS (knee high) - #2 ea 12/30/20 MEDIUM strength metformin 1,000 mg tablet 1,000 mg PO BID 90 days #180 tabs 08/15/22 adult pull ups #100 ea 08/19/22 blood pressure test kit-large #1 08/19/22 underpads 2.6 X 2.9 feet #36 ea 08/19/22 (Goodnites Bed Mats) weight scale #1 ea 08/19/22 metoprolol succinate 50 mg 50 mg PO DAILY #30 tabs 08/30/22 tablet,extended release 24 hr blood sugar diagnostic (FreeStyle #50 ea 09/11/22 Test strips) simvastatin 20 mg tablet 20 mg PO BEDTIME 90 days #90 tabs 09/11/22 calcium carbonate 600 mg-vitamin 1 tab PO BID 90 days #180 tabs 09/12/22 D3 10 mcg (400 unit) tablet omeprazole 20 mg capsule,delayed 20 mg PO DAILY@0630 90 days #90 09/12/22 release caps mirtazapine 15 mg tablet 15 mg PO DAILY 90 days #90 tabs 10/25/22 lisinopril 10 mg tablet 10 mg PO DAILY 90 days #90 tabs 10/30/22 furosemide 20 mg tablet 20 mg PO QAM #30 tabs 01/02/23 pioglitazone 45 mg tablet 45 mg PO DAILY 90 days #90 tabs 01/02/23 Allergies Allergy/AdvReac Type Severity Reaction Status Date / Time shellfish derived Allergy Mild swollen Verified 01/10/23 14:16 face shellfish Allergy Intermediate rash, itch Uncoded 01/10/23 14:16 Seafood Allergy Mild SWELLING Uncoded 01/10/23 14:16 Review of Systems 2 Review of Systems: All other systems are reviewed and are negative Constitutional: Reports as per HPI and Reports no additional constitutional complaints Eyes: Reports as per HPI and Reports no additional eye complaints Reports system reviewed and no additional complaints, except as documented Cardiovascular: Reports as per HPI and Reports no additional cardiovascular complaints Respiratory: Reports as per HPI and Reports no additional respiratory complaints Gastrointestinal: Reports as per HPI and Reports no additional gastrointestinal complaints Genitourinary: Reports no additional female genitourinary complaints Musculoskeletal: Reports no additional musculoskeletal complaints Skin/Breast: Reports system reviewed and no additional complaints, except as docu Psychiatric: Reports no additional psychiatric complaints Endocrine: Reports no additional endocrine complaints Hematologic/Lymphatic: Reports no additional hematologic/lymphatic complaints Allergic/Immunologic: Reports no additional allergic/immunologic complaints Reports system reviewed and no additional complaints, except as documented and Reports Abnormal speech present [facility] Past Medical History Medical History Pacemaker Encounter for interrogation of cardiac pacemaker AV block, 3rd degree Physical exam Bradycardia Obesity (BMI 30-39.9) Normal colonoscopy (~06/18/11) BETHANY (generalized anxiety disorder) Mild major depression, single episode Hearing loss GERD (gastroesophageal reflux disease) Essential hypertension Unsteady gait Diabetes mellitus Dry cough DMII (diabetes mellitus, type 2) Parkinson disease Dyslipidemia Surgical History No pertinent past surgical history Family History Family History Mother No problems noted. Father No problems noted. Family/Other Substance use disorder Social History Social History Household Members: Family Household Members Other:: son Housing: Apartment Do you presently have visiting nurse or other home services: Yes Alcohol intake: former Patient Tobacco Use Status: Former Tobacco user Tobacco use type: Cigarette Smoked in Last 30 Days: No e-Cigarette/Vaping Use: Former Use Second Hand Smoke Exposure: No Use of substances other than those prescribed or required for medical reasons: No Advance Directives: No Advance Directives Information Provided: No service: No Current occupational status: retired Cognitive needs: Yes Hearing needs: No Vision needs: Yes Physical Exam ED Vital Signs: Vital Signs - 24 hr 01/10/23 14:44 01/10/23 14:52 Temperature 98.7 F Pulse Rate 41 L 43 L Respiratory Rate 18 18 Blood Pressure 135/47 L Pulse Oximetry 97 Oxygen Delivery Method Room Air BMI result Body Mass Index 28.6 Vital signs have been reviewed and appear to be correct. Blood pressure elevated. Heart rate low. Respiratory rate normal. Temperature normal. Oxygen saturation normal. Appearance: Alert. Oriented X3. No acute distress. Head: Normal external exam. Normocephalic. Atraumatic. No Devi signs noted. No raccoon eyes noted Eyes: PERRLA. EOMI. Conjunctiva and sclera normal. Eyelids normal. ENT: TM's Normal. Pharynx normal. Uvula midline. Moist mucous membranes. No trismus noted. No drooling noted. No muffled voice noted. Neck: Normal inspection. Neck supple. FROM. No adenopathy. Thyroid Normal. No meningeal signs. No neck mass noted. CVS: Normal heart rate and rhythm. Heart sound normal. No murmurs noted. Pulses normal throughout. Respiratory: No respiratory distress. Painless inspiration. Breath sounds normal. No wheezes/rales/rhonchi noted. Chest nontender. No accessory muscle usage noted or decreased air movement noted. Abdomen: Soft and nontender. Bowel sounds normal in all 4 quadrants. No distention noted. No organomegaly noted. No visible injury noted. Back: No CVA tenderness. Full range of motion noted. Skin: Skin warm and dry. Normal skin color. Normal skin turgor. No rashes/lesions/lacerations noted. Extremities: No lower extremity edema. Extremities exhibit normal range of motion. Extremities nontender. Neuro: Oriented X 3. Cranial nerve exam: II-XII are grossly intact No motor deficit. No sensory deficit. Reflexes normal. Course Course Course Narrative: 82-year-old male with malfunctioning pacemaker had a revision of pacemaker placement and the pacemaker still malfunctioning. Patient be transferred to [facility]. Dr. Arnett will arrange for transferring the patient to [facility] and the case was discussed with Dr. Dodge Medical Decision Making Differential Diagnosis Differential Diagnoses: The differential diagnosis associated with the presentation includes (Pacemaker malfunction, electrolyte abnormalities, severe anemia.) Admission/Observation Consideration of admission/observation: Escalation of care including admission/observation considered Lab Data MDM Lab Attestation statement: I reviewed the patient's lab results. 01/10/23 15:25 01/10/23 16:02 Labs: Lab Results 01/10/23 01/10/23 01/10/23 Range/Units 15:25 16:02 16:03 WBC 5.8 (4.8-10.8) X10*3/uL RBC 3.53 L (4.60-5.80) X10*6/uL Hgb 11.5 L (14.0-18.0) g/dl Hct 34.5 L (42.0-52.0) % MCV 97.7 (80.0-98.0) fL MCH 32.6 (27.0-33.0) pg MCHC 33.3 (31.0-36.0) g/dl RDW 13.2 (11.0-16.0) % Plt Count 158 L (160-400) X10*3/uL MPV 11.3 (9.4-12.4) fL Immature Gran % (Auto) 0.5 H (0.0-0.4) % Neut % (Auto) 68.1 (45-73) % Lymph % (Auto) 22.3 (20-40) % [place] % (Auto) 7.1 (2-11) % Eos % (Auto) 1.7 (0-4) % Baso % (Auto) 0.3 (0-2) % Lymph # (Auto) 1.3 (1.2-4.9) X10*3/uL [place] # (Auto) 0.4 (0.1-1.2) X10*3/uL Eos # (Auto) 0.1 (0.0-0.4) X10*3/uL Baso # (Auto) 0.0 (0.0-0.2) X10*3/uL Abs Immat Gran (auto) 0.03 (0.00-0.03) X10*3/uL Absolute Neuts (auto) 3.9 (2.0-8.3) x10*3/uL Absolute Nucleated RBC 0.000 (0.0-0.012) X10*3/uL Nucleated RBC % (auto) 0.0 (0.0-0.2) /100WBC Sodium 144 (135-145) mmol/L Potassium 4.2 (3.3-5.1) mmol/L Chloride 110 H (96-108) mmol/L Carbon Dioxide 28 (22-29) mmol/L Anion Gap 10 L (12-20) BUN 21 H (9-16) mg/dL Creatinine 1.24 (0.5-1.4) mg/dL Estim Creat Clear Calc 47.1 Estimated GFR 56 Random Glucose 116 H (60-115) mg/dL Calcium 9.6 (8.4-10.2) mg/dL Total Bilirubin 0.3 (0.0-1.0) mg/dL Direct Bilirubin 0.1 (0.0-0.5) mg/dL AST 17 (5-37) U/L ALT < 5 (0-40) U/L Alkaline Phosphatase 42 (39-117) U/L Troponin I High Sens 7.2 (<3.5-35.0) ng/L Total Protein 6.5 (6.5-8.0) g/dL Albumin 4.0 (3.5-5.0) g/dL Lipase 28 (8-78) U/L COVID-19 (FERNY) Negative (Negative) COVID-19 Clin Com See Note Independent Interpretation I performed an independent interpretation of an: Plain X-Ray (Low lung volume bilaterally and ill-defined opacity adjacent to the fissure in the right upper lobe) Radiology Impression Discussion of test interpretation with radiology: I have reviewed the radiologist's reading. Discharge Plan Discharge Clinical Impression: Malfunction of cardiac pacemaker [facility] Transfer Details: [facility] Prescriptions: No Action (DME) lancets [FreeStyle Lancets] 28 gauge misc See Rx Instructions .ROUTE .MEDSUPPLY Qty: 100 11RF Rx Instructions: Use 1 lancet once a day metformin 1,000 mg tablet 1,000 mg PO BID 90 Days Qty: 180 1RF (DME) adult pull ups Large See Rx Instructions .Route .MEDSUPPLY Qty: 100 0RF Rx Instructions: As directed (DME) Goodnites Bed Mats 2.6 X 2.9 feet pad See Rx Instructions .Route Qty: 36 12RF Rx Instructions: As directed (DME) blood pressure test kit-large Kit See Rx Instructions .Route Qty: 1 0RF Rx Instructions: As directed (DME) weight scale See Rx Instructions .Route .MEDSUPPLY Qty: 1 0RF Rx Instructions: As directed metoprolol succinate 50 mg tablet extended release 24 hr 50 mg PO DAILY Qty: 30 5RF (DME) FreeStyle Test Strip See Rx Instructions .ROUTE .MEDSUPPLY Qty: 50 11RF Rx Instructions: Use 1 test strip once a day simvastatin 20 mg tablet 20 mg PO BEDTIME 90 Days Qty: 90 1RF omeprazole 20 mg capsule,delayed release(DR/EC) 20 mg PO DAILY@0630 90 Days Qty: 90 1RF calcium carbonate-vitamin D3 600 mg-10 mcg (400 unit) tablet 1 tab PO BID 90 Days Qty: 180 1RF mirtazapine 15 mg tablet 15 mg PO DAILY 90 Days Qty: 90 1RF lisinopril 10 mg tablet 10 mg PO DAILY 90 Days Qty: 90 0RF Hold Instructions: Resume on 11/22/22. furosemide 20 mg tablet 20 mg PO QAM Qty: 30 0RF pioglitazone 45 mg tablet 45 mg PO DAILY 90 Days Qty: 90 1RF carbidopa-levodopa 25-100 mg tablet 2 tab PO TID@0900,1200,2100 gabapentin 300 mg capsule 300 mg PO BID PRN (Reason: Pain) ropinirole 0.25 mg tablet 0.25 mg PO TID (DME) BLOOD PRESSURE MONITOR See Rx Instructions .Route .MEDSUPPLY Qty: 1 0RF Rx Instructions: As directed (DME) COMPRESSION SOCKS (knee high) - MEDIUM strength medium 20 mmHg See Rx Instructions .Route .MEDSUPPLY Qty: 2 0RF Rx Instructions: As directed aripiprazole 5 mg tablet PO
--- NOTE | 2023-01-10 15:10 | MHC.EDTECH ---
Addendum entered by Krystin Billings 01/10/23 16:49: PADMINI FROM PT PLACEMENT CALLED AT 1645 WITH BED ASSIGNMENT. PT GOING TO 6 ROOM 14. ACCEPTING . Original Note: At 1512, Toshia from [facility] pt placement called and said that she will be calling back shortly with a room assignment for the pt.
[2023-01-10 15:33] LABS: MANUAL DIFF FLAG NO
[2023-01-10 15:57] LABS: Basophils Percent Auto 0.3 % (0-2); Eosinophils Absolute Auto 0.1 X10*3/uL (0.0-0.4); Eosinophils Percent Auto 1.7 % (0-4); Hematocrit 34.5 % (42.0-52.0); Hemoglobin 11.5 g/dl (14.0-18.0); Imm Gran Abs Auto 0.03 X10*3/uL (0.00-0.03); Imm Gran Pct Auto 0.5 % (0.0-0.4); Lymphocytes Absolute Auto 1.3 X10*3/uL (1.2-4.9); Lymphocytes Percent Auto 22.3 % (20-40); Mean Corpuscular HGB Conc 33.3 g/dl (31.0-36.0); Mean Corpuscular Hemoglobin 32.6 pg (27.0-33.0); Mean Corpuscular Volume 97.7 fL (80.0-98.0); Mean Platelet Volume 11.3 fL (9.4-12.4); Monocytes Absolute Auto 0.4 X10*3/uL (0.1-1.2); Monocytes Percent Auto 7.1 % (2-11); Neutrophils Absolute Auto 3.9 x10*3/uL (2.0-8.3); Neutrophils Percent Auto 68.1 % (45-73); Platelet Count 158 X10*3/uL (160-400); Red Blood Count 3.53 X10*6/uL (4.60-5.80); Red Cell Distribution Width 13.2 % (11.0-16.0); Troponin-I High Sensitivity 7.2 ng/L (<3.5-35.0); White Blood Count 5.8 X10*3/uL (4.8-10.8)
[2023-01-10 16:28] LABS: COVID-19 Test Negative (Negative); IDNOW Serial# 08D9AD1C
[2023-01-10 16:39] LABS: Alanine Aminotransferase < 5 U/L (0-40); Alkaline Phosphatase 42 U/L (39-117); Anion Gap 10 (12-20); Aspartate Amino Transferase 17 U/L (5-37); Bilirubin Direct 0.1 mg/dL (0.0-0.5); Bilirubin Total 0.3 mg/dL (0.0-1.0); Blood Urea Nitrogen 21 mg/dL (9-16); Calcium 9.6 mg/dL (8.4-10.2); Carbon Dioxide 28 mmol/L (22-29); Chloride 110 mmol/L (96-108); Creatinine Clr Calc Pharmacy 47.1; Estimated Glomerular Filt Rate 56; Glucose Random 116 mg/dL (60-115); Lipase 28 U/L (8-78); Potassium 4.2 mmol/L (3.3-5.1); Sodium 144 mmol/L (135-145); Total Protein 6.5 g/dL (6.5-8.0)
--- NOTE | 2023-01-10 17:24 | PC.NURSE ---
Multiple attempts to call report to [facility] unsuccessful. S crew came to pick patient up, stating ALS crew need to bring patient to [facility]. Patient remains asymptomatic
[2023-01-10 17:25] VITALS: PULSE 39; RESP 18; O2SAT 98
[2023-01-10 17:27] VITALS: BP 151/59; PULSE 39; RESP 18
--- NOTE | 2023-01-10 17:53 | PC.NURSE ---
Report given to ALS, [facility]
== END 2023-01-10 17:54 | disposition short-term general hospital (02) ==
PROVIDERS: Emergency Provider Emergency Medicine
DX: I49.9 Cardiac arrhythmia, unspecified (principal); T82.199A Other mechanical complication of unspecified cardiac device, initial encounter; Y71.8 Miscellaneous cardiovascular devices associated with adverse incidents, not elsewhere classified; Y92.9 Unspecified place or not applicable; R00.2 Palpitations; Z20.822 Contact with and (suspected) exposure to COVID-19; Z20.828 Contact with and (suspected) exposure to other viral communicable diseases; Z87.891 Personal history of nicotine dependence; Z79.899 Other long term (current) drug therapy
CPT/HCPCS: 36415; 71045; 80048; 80076; 83690; 84484; 85025; 87635; 93005; 93280; 99212; 99285

== ENCOUNTER 2023-01-17 09:17 | Outpatient (AMB) | payer OTHER, SELFPAY ==
[2023-01-17 09:38] VITALS: BP 114/60; PULSE 65; O2SAT 96; BMI 27.7
--- NOTE | 2023-01-17 09:38 | MHC.PC.OV ---
Vital Signs 01/17/23 09:38 Height 5 ft 8 in Weight 182 lb BMI 27.7 BP 114/60 Blood Pressure Location Lt brachial Position Sitting Pulse 65 Pulse Source Pulse Oximeter Pulse Oximetry (%) 96 Oxygen Delivery Method Room Air Intake Visit Reasons: [facility] 01/12 Intake Note: Patient here for [facility] follow up pacemaker 01/12 Grand Scribe Required: No Accompanied by: Family/Other Allergies shellfish derived Allergy (Mild, Verified 01/17/23 09:58) swollen face shellfish Allergy (Intermediate, Uncoded 01/17/23 09:58) rash, itch Seafood Allergy (Mild, Uncoded 01/17/23 09:58) SWELLING Medication List - Last Reconciled 01/17/23 by Yolanda Vu MD [adult pull ups As directed] aripiprazole mg PO [BLOOD PRESSURE MONITOR As directed] blood pressure test kit-large As directed blood sugar diagnostic (FreeStyle Test strips) Use 1 test strip once a day calcium carbonate-vitamin D3 600 mg-10 mcg (400 unit) 1 tab PO BID 90 days carbidopa-levodopa 25-100 mg 2 tabs PO TID@0900,1200,2100 [COMPRESSION SOCKS (knee high) - MEDIUM strength As directed] furosemide 20 mg PO QAM gabapentin 300 mg PO BID PRN lancets (FreeStyle Lancets) Use 1 lancet once a day lisinopril 10 mg PO DAILY 90 days metformin 1,000 mg PO BID 90 days metoprolol succinate ER 50 mg PO DAILY mirtazapine 15 mg PO DAILY 90 days omeprazole 20 mg PO DAILY@0630 90 days pioglitazone 45 mg PO DAILY 90 days ropinirole 0.25 mg PO TID simvastatin 20 mg PO BEDTIME 90 days underpads (Goodnites Bed Mats) As directed [weight scale As directed] Tobacco use date assessed: 01/17/23 Fall risk assessment: 1 Fall in past year Last assessed Fall Risk: 01/17/23 Dental Screening Dental Screen Date: 01/17/23 Did you have a dental visit in the last 12 months?: No Did you have a dental problem in the last 6 months where you did not have access to dental care?: No Was dental information given to patient?: Patient declined HPI HPI Comments History of Present Illness Details This is an 82 year old man with Parkinson's disease, diabetes mellitus type 2, and mild major depression that comes today accompanied by junior project coordinator as hospital discharge follow up from [facility] due to 3rd degree AV block. He went to see cardiology which notice a malfunction in his pacemaker and send him to ER. They transfer him to [facility] and they placed a new pacemaker. Discharge date from [facility] was 01/12/23. Parkinson's disease is stable with medication and this is follow by neurology. Still has some resting tremors. A1c within goal. Depression also stable. [facility] Medical History (Updated 01/18/23 @ 09:54 by Yolanda Vu MD) Pacemaker Encounter for interrogation of cardiac pacemaker AV block, 3rd degree Physical exam Bradycardia Obesity (BMI 30-39.9) Normal colonoscopy (~06/18/11) BETHANY (generalized anxiety disorder) Mild major depression, single episode Hearing loss GERD (gastroesophageal reflux disease) Essential hypertension Unsteady gait Diabetes mellitus Dry cough DMII (diabetes mellitus, type 2) Parkinson disease Dyslipidemia Surgical History (Updated 01/17/23 @ 09:48 by CHLOE Malloy) History of pacemaker Family History Mother No problems noted. Father No problems noted. Family/Other Substance use disorder Social History Household Members: Family Household Members Other:: son Housing: Apartment Do you presently have visiting nurse or other home services: Yes Alcohol intake: former Patient Tobacco Use Status: Former Tobacco user Tobacco use type: Cigarette e-Cigarette/Vaping Use: Former Use Second Hand Smoke Exposure: No service: No Current occupational status: retired Cognitive needs: Yes Hearing needs: No Vision needs: Yes Questionnaire PHQ-9 Over the last 2 weeks, how often have you been bothered by any of the following problems? 1. Little interest or pleasure in doing things: not at all 2. Feeling down, depressed, or hopeless: several days 3. Trouble falling or staying asleep, or sleeping too much: not at all 4. Feeling tired or having little energy: not at all 5. Poor appetite or overeating: not at all 6. Feeling bad about yourself - or that you are a failure or have let yourself or your family down: not at all 7. Trouble concentrating on things, such as reading the newspaper or watching television: not at all 8. Moving or speaking so slowly that other people could have noticed. Or the opposite - being so fidgety or restless that you have been moving around a lot more than usual: not at all 9. Thoughts that you would be better off or of hurting yourself in some way: not at all Total score: 1 Depression Screening Interpretation: Negative Depression Screening Done: Yes 31930 - PHQ-9 Billing: Yes Source: Developed by Drs. Raz Fraser, Jackelyn Rea, Wilner Cox and colleagues, with an educational delilah from [employer]. Thrive Questionnaire Date Thrive assessed: 01/17/23 I am a: Patient What is your living situation today?: I have a steady place to live Within the past 12 months, did the food you bought not last and you didn't have the money to get more?: Never true Within the past 12 months, did you worry whether your food would run out before you got money to buy more?: Never true Do you have trouble paying for medicines?: No Do you have trouble getting transportation to medical appointments?: No Do you have trouble paying your heating and electricity bill?: No Do you have trouble taking care of your child, family member or friend?: No Do you have trouble with day-to-day activities such as bathing, preparing meals, shopping, managing finances, etc.?: Yes Are you currently unemployed and looking for a job?: No Are you interested in more education?: No Please select the resources that you would like help with: None Currently or been in a relationship where the following occur: no concerns reported AUDIT C Alcohol Use Questionnaire (AUDIT-C) 1. How often do you have a drink containing alcohol?: Never Total Score: 0 Score Reviewed/Action Taken: No BETHANY-7 AMB Questionnaire BETHANY-7 Date BETHANY - 7 assessed: 01/17/23 Feeling nervous, anxious, or on edge: 0 = Not at all Not being able to stop or control worryin = Not at all Worrying too much about different things: 0 = Not at all Trouble relaxin = Not at all Being so restless that it is hard to sit still: 0 = Not at all Becoming easily annoyed or irritable: 0 = Not at all Feeling afraid as if something awful might happen: 0 = Not at all Total BETHANY-7 score (0-4 normal; 5-9 mild; 10-14 moderate; 15-21 severe): 0 Source: Developed by Drs. Raz Fraser, Jackelyn Rea, Wilner Cxo and colleagues, with an educational delilah from [employer]. BETHANY-7 Assessment Billing BETHANY-7 Assessment Tool: BETHANY-7 Assessment 02137 Review of Systems Const All systems reviewed & are unremarkable except as noted in HPI and below Eyes Reports no additional complaints, Denies change in vision and Denies other visual disturbances Card Denies chest pain at rest, Denies chest pain with activity, Denies edema, Denies irregular heart rhythm, Denies claudication, Denies dyspnea, Denies dyspnea on exertion, Denies orthopnea, Denies paroxysmal nocturnal dyspnea and Denies slow heart rate Resp Denies cough, Denies dyspnea and Denies dyspnea on exertion GI Denies abdominal pain, Denies change in bowel habits, Denies excessive flatus, Denies nausea and Denies vomiting Denies urinary hesitancy, Denies urinary incontinence and Denies urinary urgency Musc Denies abnormal gait, Denies atrophy, Denies deformity and Denies limited range of motion Skin/Breast Denies bleeding lesions, Denies changing lesions and Denies rash Neuro Denies abnormal gait, Denies lack of coordination and Reports tremor(s) Physical exam (Primary Care) Vital Signs: Last Vital Signs Pulse 65 01/17/23 09:38 BP 114/60 01/17/23 09:38 Pulse Ox 96 01/17/23 09:38 Oxygen Delivery Method Room Air 01/17/23 09:38 BMI result Body Mass Index 27.7 Tobacco/Smoking Status: Tobacco use Status Tobacco use date assessed 01/17/23 01/17/23 09:50 Patient Tobacco Use Status Former Tobacco user 01/17/23 09:42 Tobacco use type Cigarette 01/17/23 09:42 e-Cigarette/Vaping Use Former Use 01/17/23 09:42 PHQ-9: PHQ-9 Score PHQ-9: Total score 1 01/17/23 10:00 Depression Screening Interpretation: Negative Thrive Assessment: Date of Thrive Assessment Date Thrive assessed 01/17/23 01/17/23 09:50 Currently or been in a relationship where the following occur: no concerns reported Eyes General: appearance normal, both eyes and all related structures Eyelids: Yes eyelids normal Conjunctivae: conjunctivae normal Neck Neck: Yes normal visual inspection and Yes supple Resp Effort & Inspection: normal respiratory effort Auscultation: clear to auscultation bilaterally Cardio Jugular venous distension: no JVD Rate: regular rate Rhythm: regular rhythm Heart sounds: S1 normal heart sound present and S2 normal heart sound present Neuro Gait exam (Neuro): Shuffling gait present Motor exam (neuro): Tremors during motor activity present (hands) Extrem General: Yes full ROM Office Procedures Flu Questionnaire Does the patient have a severe egg allergy?: No Does the patient have severe life threatening allergies?: No Does the patient have a fever or illness today?: No Has the patient ever had Guillain-[place] Syndrome?: No Has the patient ever had any past reaction to a flu shot?: No Results AMB Hemoglobin A1c AMB Hemoglobin A1c 6.5 % Last Edit by CHLOE Malloy on 01/17/23 09:51 Immunizations flu vacc [id number] 6mos up(PF) 60 mcg(15 mcgx4)/0.5 mL IM syringe Performing Provider: Yolanda Vu MD Performing Location: [facility] Administered by: CHLOE Malloy on 01/17/23 10:09 Dose Route Admin Location Dispensed Lot Number Expiration Date NDC Bar Staff 0.5 mL IM Left Deltoid 0.5 mL [id number] 10/09/23 84525-434-65 [employer]igo VIS Given Date VIS Provided VIS Publication Date 01/17/23 Single Vaccine 20 Eligibility Eligibility Date Funding Source Not VFC Eligible 01/17/23 Private Results Reviewed Results Reviewed: Laboratory Last Values Hgb A1c (Clinic) 6.5 % (4.0-6.0) H 01/17/23 09:50 Assessment and Plan Assessment & Plan (1) Hospital discharge follow-up: Code(s): Z09 - Encounter for follow-up examination after completed treatment for conditions other than malignant neoplasm Plan: Discharge date from [facility] was 01/12/23 due to malfunction of pacemaker and 3rd degree AV block. New pacemaker was placed and patient is healing well. (2) Heart block AV third degree: Code(s): I44.2 - Atrioventricular block, complete Plan: New pacemaker placed. Follow up with cardiology. (3) Parkinson disease: Code(s): G20 - Parkinson's disease Plan: Continue carbidopa-levodopa. Follow up with neurology. (4) Diabetes mellitus: Code(s): E11.9 - Type 2 diabetes mellitus without complications Qualifiers: Diabetes mellitus type: type 2 Diabetes mellitus joint terminal attack controller insulin use: without detention use Diabetes mellitus complication status: without complication Qualified Code(s): E11.9 - Type 2 diabetes mellitus without complications Plan: Continue Metformin and Actos. A1c goal is less than 7 %. (5) Mild major depression, single episode: Code(s): F32.0 - Major depressive disorder, single episode, mild Plan: Continue Abilify. Orders: Orders AMB Hemoglobin A1c 01/17/23 E11.9 - Type 2 diabetes mellitus without complications Lipid Panel 4 Months E78.5 - Hyperlipidemia, unspecified Vitamin D 25-OH Total 4 Months E55.9 - Vitamin D deficiency, unspecified Comprehensive [place]. Panel Fast 4 Months E11.9 - Type 2 diabetes mellitus without complications NT-proBNP 4 Months I50.9 - Heart failure, unspecified Influenza [id number] Immunization 01/17/23 Z23 - Encounter for immunization Microalbumin, Random (w Creat) 4 Months E11.9 - Type 2 diabetes mellitus without complications Coding Level of Care Code TCM Mod MDM <= 7 Days Diagnoses Hospital discharge follow-up Z09 Heart block AV third degree I44.2 Parkinson disease G20 Type 2 diabetes mellitus without complication, without long-term current use of insulin E11.9 Diabetes mellitus type: type 2 Diabetes mellitus detention insulin use: without joint terminal attack controller use Diabetes mellitus complication status: without complication Mild major depression, single episode F32.0 Additional Codes BETHANY-7 Assessment Billing - BTEHANY-7 Assessment Tool: BETHANY-7 Assessment 15645 ([id number]) Time Spent (min) 24
== END 2023-01-17 10:15 | disposition home or self-care (01) ==
PROVIDERS: PCP Internal Medicine; Visit Provider Internal Medicine
DX: E11.9 Type 2 diabetes mellitus without complications (principal); Z23 Encounter for immunization
CPT/HCPCS: 83036; 90471; 90686; 99214

== ENCOUNTER 2023-01-19 13:36 | Outpatient (AMB) | payer OTHER, SELFPAY ==
[2023-01-19 13:39] VITALS: BP 124/80; PULSE 66; BMI 27.8
--- NOTE | 2023-01-19 13:39 | MHC.OFFVIS ---
Intake Vital Signs 01/19/23 13:39 Height 5 ft 8 in Weight 182 lb 15.739 oz BMI 27.8 BP 124/80 Blood Pressure Location Lt brachial Position Sitting Pulse 66 Intake Visit Reasons: 1 week wound check Intake Note: 1 week follow-up wound check feeling good Carton Forming Machine Helper Required: Yes Carton Forming Machine Helper Name: Patric ramirez Production Cook: Production Cook Present Accompanied by: Daughter Allergies shellfish derived Allergy (Mild, Verified 01/17/23 09:58) swollen face shellfish Allergy (Intermediate, Uncoded 01/17/23 09:58) rash, itch Seafood Allergy (Mild, Uncoded 01/17/23 09:58) SWELLING Medication List - Last Reconciled 01/19/23 by Brooklynn Ye NP [adult pull ups As directed] aripiprazole mg PO [BLOOD PRESSURE MONITOR As directed] blood pressure test kit-large As directed blood sugar diagnostic (FreeStyle Test strips) Use 1 test strip once a day calcium carbonate-vitamin D3 600 mg-10 mcg (400 unit) 1 tab PO BID 90 days carbidopa-levodopa 25-100 mg 2 tabs PO TID@0900,1200,2100 [COMPRESSION SOCKS (knee high) - MEDIUM strength As directed] furosemide 20 mg PO QAM gabapentin 300 mg PO BID PRN lancets (FreeStyle Lancets) Use 1 lancet once a day lisinopril 10 mg PO DAILY 90 days metformin 1,000 mg PO BID 90 days metoprolol succinate ER 50 mg PO DAILY mirtazapine 15 mg PO DAILY 90 days omeprazole 20 mg PO DAILY@0630 90 days pioglitazone 45 mg PO DAILY 90 days ropinirole 0.25 mg PO TID simvastatin 20 mg PO BEDTIME 90 days underpads (Goodnites Bed Mats) As directed [weight scale As directed] HPI HPI Comments History of Present Illness Details 82-year-old male presents today for a wound check after a [facility] pacemaker lead revision with Dr. Fonseca at [facility]. He reports feeling well since having the procedure on 01/12/23. Denies fever, chills, or pain at the pacer site. Sie is well approximated, with no redness or drainage. [facility] Medical History Pacemaker Encounter for interrogation of cardiac pacemaker AV block, 3rd degree Physical exam Bradycardia Obesity (BMI 30-39.9) Normal colonoscopy (~06/18/11) BETHANY (generalized anxiety disorder) Mild major depression, single episode Hearing loss GERD (gastroesophageal reflux disease) Essential hypertension Unsteady gait Diabetes mellitus Dry cough DMII (diabetes mellitus, type 2) Parkinson disease Dyslipidemia Surgical History History of pacemaker Family History Mother No problems noted. Father No problems noted. Family/Other Substance use disorder Social History Household Members: Family Household Members Other:: son Housing: Apartment Do you presently have visiting nurse or other home services: Yes Alcohol intake: former Patient Tobacco Use Status: Former Tobacco user Tobacco use type: Cigarette e-Cigarette/Vaping Use: Former Use Second Hand Smoke Exposure: No service: No Current occupational status: retired Cognitive needs: Yes Hearing needs: No Vision needs: Yes Review of Systems Const Denies chills, Denies fatigue, Denies fever(s), Denies frequent falls, Denies weakness, Denies weight gain and Denies weight loss ENT Denies dizziness Card Denies chest pain, Denies leg edema, Denies lightheadedness, Denies palpitations, Denies dyspnea, Denies dyspnea on exertion, Denies orthopnea and Denies other (loss of consciousness) Resp Denies cough, Denies dyspnea and Denies dyspnea on exertion GI Denies hematochezia and Denies change in stool character Musc Denies abnormal gait, Denies muscle weakness, Denies numbness, Denies radiating pain into limb and Denies tingling Neuro Denies abnormal gait, Denies dizziness, Denies frequent falls, Denies numbness, Denies tingling and Denies weakness Endo Denies fatigue and Denies palpitations Physical Exam Vital Signs: Last Vital Signs Pulse 66 01/19/23 13:39 BP 124/80 01/19/23 13:39 BMI result Body Mass Index 27.8 Const General: healthy appearing and no acute distress Orientation/consciousness: patient oriented x3 HEENT Head: Yes normal to inspection Eyes General: appearance normal, both eyes and all related structures Neck Neck: Yes normal visual inspection Chest Chest palpation & inspection: normal inspection of the chest Resp Effort & Inspection: normal respiratory effort Auscultation: clear to auscultation bilaterally Cardio Jugular venous distension: no JVD Palpation: normal PMI Rate: regular rate Rhythm: regular rhythm Heart sounds: S1 normal heart sound present, S2 normal heart sound present, no click, no gallops, no murmurs and no rubs GI Inspection: Yes normal to inspection Palpation (GI): Soft to palpation Skin General skin exam: no ecchymosis, no erythema and other (Surgical site well approximated. ) Wounds: wounds noted (Surgical site to right upper chest) Neuro General: patient oriented x3 Extrem General: Yes normal to inspection Psych Appearance: grossly normal Assessment & Plan Assessment & Plan (1) Pacemaker lead malfunction: Code(s): T82.110A - Breakdown (mechanical) of cardiac electrode, initial encounter Plan Lead revision on 01/12/[address] Fonseca. Continue to keep site dry and clean. Cleanse gently with mild soap and water. Avoid heavy lifting and strenous movement of extremity. Report any drainage, fever, pain, or opening of wound. Follow-up with Dr Arnett as planned or sooner if needed. Coding Level of Care Code Est Pt Level 3 (40787) Diagnoses Pacemaker lead malfunction T82.110A
== END 2023-01-19 14:06 | disposition home or self-care (01) ==
PROVIDERS: Visit Provider Nurse Practitioner
DX: T82.110A Breakdown (mechanical) of cardiac electrode, initial encounter (principal)
CPT/HCPCS: 99213

== ENCOUNTER → 2023-01-19 13:36 | Outpatient (BNVA) | payer OTHER, SELFPAY | PROVIDERS: Visit Provider Nurse Practitioner | DX: T82.110D Breakdown (mechanical) of cardiac electrode, subsequent encounter (principal) | CPT/HCPCS: 99212 ==

== ENCOUNTER → 2023-02-21 23:59 | Outpatient (BNV) | payer OTHER, SELFPAY ==
--- NOTE | 2023-02-25 15:25 | A.OFFVIS_ITS ---
Intake Intake Visit Reasons: Remote Device Check- [facility] Allergies shellfish derived Allergy (Mild, Verified 01/17/23 09:58) swollen face shellfish Allergy (Intermediate, Uncoded 01/17/23 09:58) rash, itch Seafood Allergy (Mild, Uncoded 01/17/23 09:58) SWELLING [facility] Medical History Pacemaker Encounter for interrogation of cardiac pacemaker AV block, 3rd degree Physical exam Bradycardia Obesity (BMI 30-39.9) Normal colonoscopy (~06/18/11) BETHANY (generalized anxiety disorder) Mild major depression, single episode Hearing loss GERD (gastroesophageal reflux disease) Essential hypertension Unsteady gait Diabetes mellitus Dry cough DMII (diabetes mellitus, type 2) Parkinson disease Dyslipidemia Surgical History History of pacemaker Family History Mother No problems noted. Father No problems noted. Family/Other Substance use disorder Social History Household Members: Family Household Members Other:: son Housing: Apartment Do you presently have visiting nurse or other home services: Yes Alcohol intake: former Patient Tobacco Use Status: Former Tobacco user Tobacco use type: Cigarette e-Cigarette/Vaping Use: Former Use Second Hand Smoke Exposure: No service: No Current occupational status: retired Cognitive needs: Yes Hearing needs: No Vision needs: Yes Office Procedures Cardiac Device Check Cardiac Device Check Details: Date of service- 02/21/2023 ; Battery life >6 years; normal lead parameters; AP 73%; BACTERIOLOGIST PHARMACEUTICAL >99%; no significant arrhythmias. Overall normal device function. [id number] Cardiac Device Interrogation, pacemaker Procedure code (CPT) selection complete Assessment & Plan Assessment & Plan (1) AV block, 3rd degree: Code(s): I44.2 - Atrioventricular block, complete Coding Level of Care Code Procedure Only Diagnoses AV block, 3rd degree I44.2 CPT Codes Cardiac Device Check - Cardiac Device 12: [id number] Cardiac Device Interrogation, pacemaker ([id number])
== END ==
PROVIDERS: Visit Provider Internal Medicine
DX: I44.2 Atrioventricular block, complete (principal); Z95.0 Presence of cardiac pacemaker
CPT/HCPCS: 93294

== ENCOUNTER 2023-03-09 15:53 | Emergency (ER) | payer OTHER, SELFPAY ==
[2023-03-09 16:12] VITALS: BP 126/82; BP 130/71; PULSE 75; PULSE 81; RESP 16; TEMP 37; O2SAT 96; BMI 30.9
--- NOTE | 2023-03-09 16:14 | ECG_ITS ---
Test Reason : DIZZINESS Blood Pressure : / mmHG Vent. Rate : 069 BPM Atrial Rate : 069 BPM P-R Int : 170 ms QRS Dur : 176 ms QT Int : 450 ms P-R-T Axes : 048 -45 114 degrees QTc Int : 482 ms Atrial-sensed ventricular-paced rhythm Abnormal ECG When compared with ECG of 10-JAN-2023 14:46, Electronic ventricular pacemaker Referred By: Generic ED Physician Electronically Signed By:TARAS HE MD
[2023-03-09 16:30] LABS: Basophils Percent Auto 0.2 % (0-2); Eosinophils Percent Auto 0.3 % (0-4); Hemoglobin 12.1 g/dl (14.0-18.0); Mean Corpuscular Hemoglobin 32.3 pg (27.0-33.0); PLT CLUMP 1; Red Blood Count 3.75 X10*6/uL (4.60-5.80); Red Cell Distribution Width 12.7 % (11.0-16.0); SCAN SMEAR FLAG 1
[2023-03-09 16:32] LABS: Hematocrit 35.5 % (42.0-52.0); Imm Gran Abs Auto 0.02 X10*3/uL (0.00-0.03); Imm Gran Pct Auto 0.3 % (0.0-0.4); Lymphocytes Absolute Auto 0.8 X10*3/uL (1.2-4.9); Lymphocytes Percent Auto 12.6 % (20-40); MANUAL DIFF FLAG SCAN; Mean Corpuscular HGB Conc 34.1 g/dl (31.0-36.0); Mean Corpuscular Volume 94.7 fL (80.0-98.0); Mean Platelet Volume 10.9 fL (9.4-12.4); Monocytes Absolute Auto 0.6 X10*3/uL (0.1-1.2); Monocytes Percent Auto 9.9 % (2-11); Neutrophils Absolute Auto 4.8 x10*3/uL (2.0-8.3); Neutrophils Percent Auto 76.7 % (45-73)
[2023-03-09 16:37] LABS: Platelet Count 136 X10*3/uL (160-400); White Blood Count 6.3 X10*3/uL (4.8-10.8)
--- NOTE | 2023-03-09 16:51 | ED.GENADULT ---
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 Admits stool is dark. Denies fever/chills, nausea/vomiting, abdominal pain, dysuria/hematuria lightheadedness/dizziness, CP/SOB. Poor historian Related Data Home Medications Medication Instructions Recorded Confirmed carbidopa 25 mg-levodopa 100 mg 2 tab PO TID@0900,1200,2100 12/17/20 01/17/23 tablet gabapentin 300 mg capsule 300 mg PO BID PRN Pain 08/16/22 01/17/23 ropinirole 0.25 mg tablet 0.25 mg PO TID 08/16/22 01/17/23 Previous Rx's Medication Instructions Recorded lancets 28 gauge (FreeStyle #100 ea 06/03/20 Lancets) BLOOD PRESSURE MONITOR #1 ea 12/30/20 COMPRESSION SOCKS (knee high) - #2 ea 12/30/20 MEDIUM strength adult pull ups #100 ea 08/19/22 blood pressure test kit-large #1 ea 08/19/22 underpads 2.6 X 2.9 feet #36 ea 08/19/22 (Goodnites Bed Mats) weight scale #1 ea 08/19/22 blood sugar diagnostic (FreeStyle #50 ea 09/11/22 Test strips) simvastatin 20 mg tablet 20 mg PO BEDTIME 90 days #90 tabs 09/11/22 mirtazapine 15 mg tablet 15 mg PO DAILY 90 days #90 tabs 10/25/22 pioglitazone 45 mg tablet 45 mg PO DAILY 90 days #90 tabs 01/02/23 furosemide 20 mg tablet 20 mg PO QAM #30 tabs 02/12/23 metformin 1,000 mg tablet 1,000 mg PO BID 90 days #180 tabs 02/15/23 metoprolol succinate 50 mg 50 mg PO DAILY #90 tabs 02/24/23 tablet,extended release 24 hr lisinopril 10 mg tablet 10 mg PO DAILY 90 days #90 tabs 02/28/23 calcium carbonate 600 mg-vitamin 1 tab PO BID 90 days #180 tabs 03/06/23 D3 10 mcg (400 unit) tablet omeprazole 20 mg capsule,delayed 20 mg PO DAILY@0630 90 days #90 03/06/23 release caps aripiprazole 15 mg tablet 15 mg PO DAILY 90 days #90 tabs 03/08/23 Allergies Allergy/AdvReac Type Severity Reaction Status Date / Time shellfish derived Allergy Mild swollen Verified 03/09/23 16:14 face shellfish Allergy Intermediate rash, itch Uncoded 03/09/23 16:14 Seafood Allergy Mild SWELLING Uncoded 03/09/23 16:14 Review of Systems Review of Systems: Constitutional: No Fever, No Chills, No Fatigue, No Malaise ENT/Mouth: No Ear Pain, No Nasal Congestion, No Sinus Pain, No sore throat, No Rhinorrhea, No Swallowing Difficulty Eyes: No Eye Pain, No Swelling, No Redness, No Vision Changes Cardiovascular: No Chest Pain, No SOB, No Palpitations Respiratory: No Cough, No Sputum, No Dyspnea Gastrointestinal: No Nausea, No Vomiting, +darrhea, No Constipation, No Abdominal pain, No Hematochezia, No Melena Genitourinary: No irregular bleeding, No Dysuria, No Urinary Frequency, No Hematuria, No Flank Pain Musculoskeletal: No joint pain, No Myalgias, No Joint Swelling Skin: No Skin Lesions, No rash Neuro: No Weakness, No Dizziness, No Headache Yes all other systems are reviewed and are negative Constitutional: Constitutional: Reports as per [facility] Past Medical History Attestation statement: The following information was validated with the patient. Source: old records reviewed Medical History Pacemaker Encounter for interrogation of cardiac pacemaker AV block, 3rd degree Physical exam Bradycardia Obesity (BMI 30-39.9) Normal colonoscopy (~06/18/11) BETHANY (generalized anxiety disorder) Mild major depression, single episode Hearing loss GERD (gastroesophageal reflux disease) Essential hypertension Unsteady gait Diabetes mellitus Dry cough DMII (diabetes mellitus, type 2) Parkinson disease Dyslipidemia Surgical History History of pacemaker Family History Family History Mother No problems noted. Father No problems noted. Family/Other Substance use disorder Social History Social History Household Members: Family Household Members Other:: son Housing: Apartment Do you presently have visiting nurse or other home services: Yes Alcohol intake: former Patient Tobacco Use Status: Former Tobacco user Tobacco use type: Cigarette Smoked in Last 30 Days: No e-Cigarette/Vaping Use: Former Use Second Hand Smoke Exposure: No Advance Directives: No service: No Current occupational status: retired Cognitive needs: Yes Hearing needs: No Vision needs: Yes Physical Exam ED Vital Signs: Vital Signs - 24 hr 03/09/23 16:12 03/09/23 19:13 03/09/23 19:19 Temperature 98.6 F Pulse Rate 75 69 71 Respiratory Rate 16 Blood Pressure 130/71 137/72 130/73 Pulse Oximetry 96 Oxygen Delivery Method Room Air 03/09/23 19:19 03/09/23 19:23 03/09/23 21:56 Temperature Pulse Rate 70 71 65 Respiratory Rate 19 16 Blood Pressure 112/76 139/57 L 131/65 Pulse Oximetry 94 96 Oxygen Delivery Method Room Air Room Air 03/10/23 00:43 03/10/23 02:00 Temperature 97.6 F Pulse Rate 68 65 Respiratory Rate 14 12 Blood Pressure 133/68 137/67 Pulse Oximetry 97 98 Oxygen Delivery Method Room Air Room Air BMI result Body Mass Index 30.9 Const General: cooperative, healthy appearing, no acute distress, alert and awake Orientation/consciousness: patient oriented x3 Limitations: no limitations HENMT Head: Yes normal to inspection and Yes atraumatic Ears: hearing grossly normal bilaterally General nose exam: Normal external nose present Face and sinus: Yes normal facial exam Eyes General: appearance normal, both eyes and all related structures EOM: EOMs intact bilaterally Neck Neck: Yes normal visual inspection and Yes no meningeal signs Resp Effort & Inspection: normal respiratory effort and no respiratory distress Auscultation: clear to auscultation bilaterally Cardio Rate: regular rate Heart sounds: S1 normal heart sound present and S2 normal heart sound present GI Inspection: Yes normal to inspection Palpation (GI): Soft to palpation, nontender, no guarding and not rigid General: Yes no CVA tenderness Back/Spine/Pelvis Back: no CVA tenderness Skin Rashes: no rashes Wounds: no wounds Neuro General: patient oriented x3, tone normal and no meningeal signs Cranial nerves: Yes CN's II-XII intact bilaterally Gait exam (Neuro): Normal gait present Extrem General: Yes normal to inspection Course Course Course Narrative: -1900--no leukocytosis. H&H stable. BUN acute on chronically elevated. Magnesium 1.3 >2g IV repletion ordered. Troponin 42 > will obtain 3 hour repeat -occult stool negative. COVID/flu/RSV negative -repeat troponin without rise, [place] unlikely. UA not infected > patient unable to supply stool sample -have tried multiple times to contact patient's son/caregiver. Patient unsafe discharge until son can be contacted. Message left. Will remain in the ED until the morning -0200--ED care transferred to Dr. Lopez pending safe dispo Medications Administered Discontinued Medications Generic Name Dose Route Start Last Admin Trade Name Freq PRN Reason Stop Dose Admin Acetaminophen 650 mg 03/10/23 01:35 03/10/23 02:11 Acetaminophen 325 Mg Tablet PO 03/10/23 01:36 650 mg ONCE ONE Administration Sodium Chloride 500 mls @ 999 mls/hr 03/09/23 18:15 03/09/23 22:26 Ns IV 03/09/23 18:45 Infused .Q31M WILMA Infusion Magnesium Sulfate 2 gm in 50 mls @ 25 mls/hr 03/09/23 18:37 03/09/23 22:26 Magnesium Sulfate/H2o IV 03/09/23 20:36 Infused ONCE ONE Infusion Medical Decision Making Medical Decision Making [facility] Narrative: 82-year-old male [place]er-speaking with a past history of 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 On exam vital signs stable, NAD, nontoxic appearing, abdomen soft/nontender. Concern for gastroenteritis vs metabolic abnormality vs infectious diarrhea or C diff vs GI bleed. Lower suspicion for appendicitis/diverticulitis, cholecystitis/lithiasis Plan: Labs, UA, occult stool, stool studies, orthostatics, re-evaluate Please refer to course for remaining clinical decision making, interpretation of labs/imaging results, and discussions with consultants and/or family members. Differential Diagnosis Differential Diagnoses: The differential diagnosis associated with the presentation includes As above Admission/Observation Consideration of admission/observation: Escalation of care including admission/observation considered Lab Data MDM Lab Attestation statement: I reviewed the patient's lab results. 03/09/23 16:23 03/09/23 17:42 Labs: Lab Results 03/09/23 03/09/23 03/09/23 Range/Units 16:23 17:42 17:45 WBC 6.3 (4.8-10.8) X10*3/uL RBC 3.75 L (4.60-5.80) X10*6/uL Hgb 12.1 L (14.0-18.0) g/dl Hct 35.5 L (42.0-52.0) % MCV 94.7 (80.0-98.0) fL MCH 32.3 (27.0-33.0) pg MCHC 34.1 (31.0-36.0) g/dl RDW 12.7 (11.0-16.0) % Plt Count 136 L (160-400) X10*3/uL MPV 10.9 (9.4-12.4) fL Immature Gran % (Auto) 0.3 (0.0-0.4) % Neut % (Auto) 76.7 H (45-73) % Lymph % (Auto) 12.6 L (20-40) % [place] % (Auto) 9.9 (2-11) % Eos % (Auto) 0.3 (0-4) % Baso % (Auto) 0.2 (0-2) % Lymph # (Auto) 0.8 L (1.2-4.9) X10*3/uL [place] # (Auto) 0.6 (0.1-1.2) X10*3/uL Eos # (Auto) 0.0 (0.0-0.4) X10*3/uL Baso # (Auto) 0.0 (0.0-0.2) X10*3/uL Abs Immat Gran (auto) 0.02 (0.00-0.03) X10*3/uL Absolute Neuts (auto) 4.8 (2.0-8.3) x10*3/uL Absolute Nucleated RBC 0.000 (0.0-0.012) X10*3/uL Nucleated RBC % (auto) 0.0 (0.0-0.2) /100WBC Smear Tech's Comments VERIFIED Sodium 139 (135-145) mmol/L Potassium 4.2 (3.3-5.1) mmol/L Chloride 102 (96-108) mmol/L Carbon Dioxide 27 (22-29) mmol/L Anion Gap 14 (12-20) BUN 28 H (9-16) mg/dL Creatinine 1.35 (0.5-1.4) mg/dL Estim Creat Clear Calc 39.2 Estimated GFR 50 Random Glucose 119 H (60-115) mg/dL Calcium 9.7 (8.4-10.2) mg/dL Magnesium 1.3 L* (1.6-2.6) mg/dL Total Bilirubin 0.6 (0.0-1.0) mg/dL AST 30 (5-37) U/L ALT 15 (0-40) U/L Alkaline Phosphatase 45 (39-117) U/L Troponin I High Sens 42.0 H D (<3.5-35.0) ng/L Total Protein 7.1 (6.5-8.0) g/dL Albumin 4.3 (3.5-5.0) g/dL Lipase 30 (8-78) U/L Urine Color Urine Appearance Urine pH (5.0-9.0) Ur Specific [place] (1.005-1.025) Urine Protein (Neg-Trace) mg/dL Urine Glucose (UA) (Negative) mg/dL Urine Ketones (Negative) mg/dL Urine Blood (Negative) Urine Nitrite (Negative) Ur Leukocyte Esterase (Negative) Urine RBC (0-2) /HPF Urine WBC (0-5) /HPF Ur Squamous Epith Cells (0-2) /HPF Urine Bacteria (None Seen) Hyaline Casts (0-2) /LPF Stool Occult Blood NEGATIVE (NEGATIVE) Influenza Type A (PCR) NEGATIVE (Negative) Influenza Type B (PCR) NEGATIVE (Negative) RSV RNA Qual (PCR) NEGATIVE (Negative) SARS-CoV-2 RNA (RT-PCR) NEGATIVE (Negative) 03/09/23 03/09/23 Range/Units 21:19 22:54 WBC (4.8-10.8) X10*3/uL RBC (4.60-5.80) X10*6/uL Hgb (14.0-18.0) g/dl Hct (42.0-52.0) % MCV (80.0-98.0) fL MCH (27.0-33.0) pg MCHC (31.0-36.0) g/dl RDW (11.0-16.0) % Plt Count (160-400) X10*3/uL MPV (9.4-12.4) fL Immature Gran % (Auto) (0.0-0.4) % Neut % (Auto) (45-73) % Lymph % (Auto) (20-40) % [place] % (Auto) (2-11) % Eos % (Auto) (0-4) % Baso % (Auto) (0-2) % Lymph # (Auto) (1.2-4.9) X10*3/uL [place] # (Auto) (0.1-1.2) X10*3/uL Eos # (Auto) (0.0-0.4) X10*3/uL Baso # (Auto) (0.0-0.2) X10*3/uL Abs Immat Gran (auto) (0.00-0.03) X10*3/uL Absolute Neuts (auto) (2.0-8.3) x10*3/uL Absolute Nucleated RBC (0.0-0.012) X10*3/uL Nucleated RBC % (auto) (0.0-0.2) /100WBC Smear Tech's Comments Sodium (135-145) mmol/L Potassium (3.3-5.1) mmol/L Chloride (96-108) mmol/L Carbon Dioxide (22-29) mmol/L Anion Gap (12-20) BUN (9-16) mg/dL Creatinine (0.5-1.4) mg/dL Estim Creat Clear Calc Estimated GFR Random Glucose (60-115) mg/dL Calcium (8.4-10.2) mg/dL Magnesium (1.6-2.6) mg/dL Total Bilirubin (0.0-1.0) mg/dL AST (5-37) U/L ALT (0-40) U/L Alkaline Phosphatase (39-117) U/L Troponin I High Sens 35.0 (<3.5-35.0) ng/L Total Protein (6.5-8.0) g/dL Albumin (3.5-5.0) g/dL Lipase (8-78) U/L Urine Color Yellow Urine Appearance Clear Urine pH 6.0 (5.0-9.0) Ur Specific [place] 1.020 (1.005-1.025) Urine Protein Negative (Neg-Trace) mg/dL Urine Glucose (UA) Negative (Negative) mg/dL Urine Ketones Negative (Negative) mg/dL Urine Blood Negative (Negative) Urine Nitrite Negative (Negative) Ur Leukocyte Esterase Trace H (Negative) Urine RBC 0-2 (0-2) /HPF Urine WBC 0-5 (0-5) /HPF Ur Squamous Epith Cells 0-2 (0-2) /HPF Urine Bacteria None Seen (None Seen) Hyaline Casts 0-2 (0-2) /LPF Stool Occult Blood (NEGATIVE) Influenza Type A (PCR) (Negative) Influenza Type B (PCR) (Negative) RSV RNA Qual (PCR) (Negative) SARS-CoV-2 RNA (RT-PCR) (Negative) Independent Interpretation I performed an independent interpretation of an: EKG Radiology Impression Discussion of test interpretation with radiology: I have reviewed the radiologist's reading. Independent Historian Clinical information obtained from an independent historian. History obtained from or confirmed by: EMS External Record Review External record reviewed: Inpatient record, Office record, Outpatient record, Prior outpatient labs, Prior outpatient radiology, Primary care record and Outside ED record Tests considered The following testing was considered but not selected: As above Chronic Conditions Patient?s care impacted by: Diabetes and Other (SVT, AV block) Discharge Plan Discharge Clinical Impression: Diarrhea, Hypomagnesemia Patient Disposition: Still a Patient Instructions: Acute Diarrhea (ED), Hypomagnesemia (ED) Additional Instructions: Please follow-up with your doctor your magnesium was mildly low today likely from your diarrhea, please follow-up with your doctor closely. Make sure youre staying hydrated If symptoms persist or worsen, you develop fever/chills, abdominal pain, chest pain /shortness of breath return to the ED Prescriptions: No Action (DME) lancets [FreeStyle Lancets] 28 gauge misc See Rx Instructions .ROUTE .MEDSUPPLY Qty: 100 11RF Rx Instructions: Use 1 lancet once a day (DME) adult pull ups Large See Rx Instructions .Route .MEDSUPPLY Qty: 100 0RF Rx Instructions: As directed (DME) Goodnites Bed Mats 2.6 X 2.9 feet pad See Rx Instructions .Route Qty: 36 12RF Rx Instructions: As directed (DME) blood pressure test kit-large Kit See Rx Instructions .Route Qty: 1 0RF Rx Instructions: As directed (DME) weight scale See Rx Instructions .Route .MEDSUPPLY Qty: 1 0RF Rx Instructions: As directed (DME) FreeStyle Test Strip See Rx Instructions .ROUTE .MEDSUPPLY Qty: 50 11RF Rx Instructions: Use 1 test strip once a day simvastatin 20 mg tablet 20 mg PO BEDTIME 90 Days Qty: 90 1RF mirtazapine 15 mg tablet 15 mg PO DAILY 90 Days Qty: 90 1RF pioglitazone 45 mg tablet 45 mg PO DAILY 90 Days Qty: 90 1RF furosemide 20 mg tablet 20 mg PO QAM Qty: 30 0RF metformin 1,000 mg tablet 1,000 mg PO BID 90 Days Qty: 180 1RF metoprolol succinate 50 mg tablet extended release 24 hr 50 mg PO DAILY Qty: 90 3RF lisinopril 10 mg tablet 10 mg PO DAILY 90 Days Qty: 90 0RF Hold Instructions: Resume on 11/22/22. calcium carbonate-vitamin D3 600 mg-10 mcg (400 unit) tablet 1 tab PO BID 90 Days Qty: 180 1RF omeprazole 20 mg capsule,delayed release(DR/EC) 20 mg PO DAILY@0630 90 Days Qty: 90 1RF aripiprazole 15 mg tablet 15 mg PO DAILY 90 Days Qty: 90 0RF carbidopa-levodopa 25-100 mg tablet 2 tab PO TID@0900,1200,2100 gabapentin 300 mg capsule 300 mg PO BID PRN (Reason: Pain) ropinirole 0.25 mg tablet 0.25 mg PO TID (DME) BLOOD PRESSURE MONITOR See Rx Instructions .Route .MEDSUPPLY Qty: 1 0RF Rx Instructions: As directed (DME) COMPRESSION SOCKS (knee high) - MEDIUM strength medium 20 mmHg See Rx Instructions .Route .MEDSUPPLY Qty: 2 0RF Rx Instructions: As directed Referrals: Physician,Unknown J [Primary Care Provider] -
[2023-03-09 17:10] LABS: Influenza A PCR NEGATIVE (Negative); Influenza B PCR NEGATIVE (Negative); Resp Syncy Virus RNA Qual PCR NEGATIVE (Negative); SARS COV2 PCR INHOUSE NEGATIVE (Negative)
[2023-03-09 17:56] LABS: OBS1 NEGATIVE (NEGATIVE)
[2023-03-09 17:57] LABS: OBS Int Ctl Valid YES
[2023-03-09 18:35] LABS: Alanine Aminotransferase 15 U/L (0-40); Albumin Level 4.3 g/dL (3.5-5.0); Alkaline Phosphatase 45 U/L (39-117); Anion Gap 14 (12-20); Aspartate Amino Transferase 30 U/L (5-37); Bilirubin Total 0.6 mg/dL (0.0-1.0); Blood Urea Nitrogen 28 mg/dL (9-16); Calcium 9.7 mg/dL (8.4-10.2); Carbon Dioxide 27 mmol/L (22-29); Chloride 102 mmol/L (96-108); Creatinine Clr Calc Pharmacy 39.2; Estimated Glomerular Filt Rate 50; Glucose Random 119 mg/dL (60-115); Lipase 30 U/L (8-78); Magnesium 1.3 mg/dL (1.6-2.6); Potassium 4.2 mmol/L (3.3-5.1); Sodium 139 mmol/L (135-145); Total Protein 7.1 g/dL (6.5-8.0)
[2023-03-09] MEDS: Magnesium Sulfate/H2O 2 GM/50 ML PIGGYBACK IV (19:00)
[2023-03-09 19:13] VITALS: BP 137/72; PULSE 69
[2023-03-09 19:19] VITALS: BP 112/76; BP 130/73; PULSE 70; PULSE 71
[2023-03-09 19:23] VITALS: BP 139/57; PULSE 71; RESP 19; O2SAT 94
--- NOTE | 2023-03-09 19:23 | PC.NURSE ---
ORTHOS NEGATIVE, TOLERATED WELL BY PT. DENIED DIZZINESS, PAIN THROUGHOUT. TYPICALLY USES CANE AT HOME. STOOD WITH MINIMAL ASSISTANCE. PT IS SOMNOLENT, AND CHEESH-NA.
[2023-03-09] MEDS: 0.9 % Sodium Chloride 500 ML 999 ML IV (19:25)
[2023-03-09 19:48] LABS: SLIDE REVIEW VERIFIED
[2023-03-09 21:56] VITALS: BP 131/65; PULSE 65; RESP 16; O2SAT 96
[2023-03-09 23:12] LABS: Appearance Urine Clear; Color Urine Yellow; Glucose Urine UA Negative (Negative); Leukocyte Esterase Urine Trace (Negative); Nitrite Urine Negative (Negative); UMIC TRIGGER UACC YES; Urine Blood Negative (Negative); Urine Ketones Negative (Negative); Urine Protein Negative (Neg-Trace)
[2023-03-09 23:17] LABS: Bacteria Urine None Seen (None Seen); Hyaline Casts Urine 0-2 /LPF (0-2); RBC Urine 0-2 /HPF (0-2); Squamous Epithelial Cell Urine 0-2 /HPF (0-2); WBC Urine 0-5 /HPF (0-5)
[2023-03-10 00:43] VITALS: BP 133/68; PULSE 68; RESP 14; TEMP 36.4; O2SAT 97
--- NOTE | 2023-03-10 00:46 | PC.NURSE ---
Attempted to call son at 0045, no answer and mailbox is full.
[2023-03-10 02:00] VITALS: BP 137/67; PULSE 65; RESP 12; O2SAT 98
[2023-03-10] MEDS: Acetaminophen 325 MG TABLET 650 MG PO (02:11)
--- NOTE | 2023-03-10 02:17 | PC.NURSE ---
Pt placed in Phys Obs until a safe plan can be confirmed. Multiple attempts have been made to reach family members with no success. Number given: [phone]
--- NOTE | 2023-03-10 02:56 | PC.NURSE ---
Report given to DANIEL Russell and pt will be moved to Overflow pending hospital bed.
[2023-03-10 04:14] LABS: CDiff Gene PCR NEGATIVE (Negative)
--- NOTE | 2023-03-10 04:19 | PC.NURSE ---
pt transferred from Main ED to Overflow unit
[2023-03-10 04:20] VITALS: BP 128/60; PULSE 65; RESP 16; TEMP 36.7; O2SAT 98
--- NOTE | 2023-03-10 04:30 | MHC.EDTECH ---
Patient just came to overflow from the main emergency department ,Patient got moved into hospital bed ,Vital taken ,Pt was asked if he like something to drink got no answer ,Bed alarm on bed warm blanket given .
--- NOTE | 2023-03-10 06:10 | PC.NURSE ---
pt slept during the night bedalarm set
--- NOTE | 2023-03-10 09:04 | MHC.CM.ED ---
Received case management consult from Kristen ALLEN. Patient came to the ER d/t dizziness. Work up essentially negative. Staff was unable to contact family to d/c home. Spoke with patient's son, Zain VILLASENOR via telephone at [phone]. He will be here at 1030am to transport patient home. Toshia SANCHEZ and Kristen ALLEN aware. Continue to monitor for d/c needs.
--- NOTE | 2023-03-10 11:25 | PC.NURSE ---
Patient alert to self, cooperative. Denies pain. Used urinal. No diarrhea this shift.Plan for discharge home today.
[2023-03-10 13:43] LABS: Adenovirus F 40/41 Not Detected (Not Detect.); Astrovirus Detected (Not Detect.); Campylobacter Not Detected (Not Detect.); Cryptosporidium Not Detected (Not Detect.); Cyclospora cayetanensis Not Detected (Not Detect.); E. coli EAEC Not Detected (Not Detect.); E. coli EPEC Not Detected (Not Detect.); E. coli ETEC Not Detected (Not Detect.); E. coli STEC Not Detected (Not Detect.); Entamoeba histolytica Not Detected (Not Detect.); Giardia lamblia Not Detected (Not Detect.); Norovirus GI/GII Not Detected (Not Detect.); Plesiomonas shigelloides Not Detected (Not Detect.); Rotavirus A Not Detected (Not Detect.); Salmonella Not Detected (Not Detect.); Sapovirus Not Detected (Not Detect.); Shigella sp./EIEC Not Detected (Not Detect.); Vibrio Not Detected (Not Detect.); Vibrio Cholerae Not Detected (Not Detect.); Yersinia enterocolitica Not Detected (Not Detect.)
== END 2023-03-10 11:15 | disposition home or self-care (01) ==
PROVIDERS: Physician Assistant; Emergency Provider Emergency Medicine
DX: R19.7 Diarrhea, unspecified (principal); R42 Dizziness and giddiness; E83.42 Hypomagnesemia; R94.31 Abnormal electrocardiogram [ECG] [EKG]; Z79.899 Other long term (current) drug therapy; Z20.822 Contact with and (suspected) exposure to COVID-19; Z20.828 Contact with and (suspected) exposure to other viral communicable diseases; Z87.891 Personal history of nicotine dependence
CPT/HCPCS: 0241U; 36415; 80053; 81001; 82272; 83690; 83735; 84484; 85025; 87493; 87507; 93005; 96365; 96366; 99285; J3475

== ENCOUNTER 2023-03-14 12:47 | Outpatient (AMB) | payer OTHER, SELFPAY ==
--- NOTE | 2023-03-14 13:03 | A.OFFVIS_ITS ---
Intake Vital Signs 03/14/23 13:05 Height 5 ft 4 in BMI Reason not done Patient refused/unable BP 94/62 Blood Pressure Location Lt brachial Position Sitting Pulse 66 Intake Visit Reasons: 6 month f/u w/pacer check Intake Note: 6 month follow up Zinc Etcher Required: No Accompanied by: Son Allergies shellfish derived Allergy (Mild, Verified 03/14/23 13:05) swollen face shellfish Allergy (Intermediate, Uncoded 03/14/23 13:05) rash, itch Seafood Allergy (Mild, Uncoded 03/14/23 13:05) SWELLING Medication List - Last Reconciled 03/14/23 by Fabian Arnett MD [adult pull ups As directed] aripiprazole 15 mg PO DAILY 90 days [BLOOD PRESSURE MONITOR As directed] blood pressure test kit-large As directed blood sugar diagnostic (FreeStyle Test strips) Use 1 test strip once a day calcium carbonate-vitamin D3 600 mg-10 mcg (400 unit) 1 tab PO BID 90 days carbidopa-levodopa 25-100 mg 2 tabs PO TID@0900,1200,2100 [COMPRESSION SOCKS (knee high) - MEDIUM strength As directed] furosemide 20 mg PO QAM gabapentin 300 mg PO BID PRN lancets (FreeStyle Lancets) Use 1 lancet once a day lisinopril 10 mg PO DAILY 90 days metformin 1,000 mg PO BID 90 days metoprolol succinate ER 50 mg PO DAILY mirtazapine 15 mg PO DAILY 90 days omeprazole 20 mg PO DAILY@0630 90 days pioglitazone 45 mg PO DAILY 90 days ropinirole 0.25 mg PO TID simvastatin 20 mg PO BEDTIME 90 days underpads (Goodnites Bed Mats) As directed [weight scale As directed] HPI HPI Comments History of Present Illness Details Zain returns for follow-up. In August of this year, he had presented to the hospital with nonspecific sensation of feeling unwell, leg swelling, dizziness. Then was in complete heart block. Underwent pacemaker implantation. In November, he was readmitted and there was the ventricular rate issue and that was revised. During the last office visit, again there was evidence of pacemaker malfunction and he was sent to [facility] where he had lead revision. Today, he states he is doing good. No cardiac symptoms. Family including son and his came for appointment. They state no concerns. PENDING SALE TO [facility] Medical History Pacemaker Encounter for interrogation of cardiac pacemaker AV block, 3rd degree Physical exam Bradycardia Obesity (BMI 30-39.9) Normal colonoscopy (~06/18/11) BETHANY (generalized anxiety disorder) Mild major depression, single episode Hearing loss GERD (gastroesophageal reflux disease) Essential hypertension Unsteady gait Diabetes mellitus Dry cough DMII (diabetes mellitus, type 2) Parkinson disease Dyslipidemia Surgical History History of pacemaker Family History Mother No problems noted. Father No problems noted. Family/Other Substance use disorder Social History Household Members: Family Household Members Other:: son Housing: Apartment Do you presently have visiting nurse or other home services: Yes Alcohol intake: former Patient Tobacco Use Status: Former Tobacco user Tobacco use type: Cigarette e-Cigarette/Vaping Use: Former Use Second Hand Smoke Exposure: No service: No Current occupational status: retired Cognitive needs: Yes Hearing needs: No Vision needs: Yes Review of Systems Const Denies weakness ENT Denies dizziness Card Denies chest pain, Denies chest pain with activity, Denies syncope, Denies rapid heart rate, Denies pedal edema, Denies edema, Denies leg edema, Denies lightheadedness, Denies palpitations, Denies dyspnea, Denies dyspnea on exertion and Denies orthopnea Resp Denies cough, Denies dyspnea and Denies dyspnea on exertion GI Denies hematochezia and Denies change in stool character Musc Denies abnormal gait, Denies muscle cramps, Denies muscle weakness, Denies numbness, Denies radiating pain into limb and Denies tingling Neuro Denies abnormal gait, Denies dizziness, Denies syncope, Denies numbness, Denies tingling and Denies weakness Endo Denies palpitations Physical Exam Vital Signs: Last Vital Signs Pulse 66 03/14/23 13:05 BP 94/62 03/14/23 13:05 Office Procedures Cardiac Device Check Cardiac Device Check Details: Pacemaker interrogated today. Programmed in DDDR mode. Battery status 6.8-7.4 years. After changes, 9.7 years. Atrial pacing 60%. Ventricular pacing 99%. Underlying ventricular rate at 30s. Normal lead parameters. One atrial tachycardia episode, 8 seconds. Atrial capture confirmed turned on. Overall, normal device function. 10215-ML Cardiac Device Check, pacemaker dual lead Procedure code (CPT) selection complete Assessment & Plan Assessment & Plan (1) AV block, 3rd degree: Code(s): I44.2 - Atrioventricular block, complete (2) Encounter for interrogation of cardiac pacemaker: Code(s): Z45.018 - Encounter for adjustment and management of other part of cardiac pacemaker Plan Status post lead revision x2. Currently, normal pacemaker function. We can follow this remotely. Discussed with patient's son and his . Coding Level of Care Code Est Pt Level 3 (43787) Diagnoses AV block, 3rd degree I44.2 Encounter for interrogation of cardiac pacemaker Z45.018 CPT Codes Cardiac Device Check - Cardiac Device 2: 69693-[id number] Cardiac Device Check, pacemaker dual lead ([id number])
[2023-03-14 13:05] VITALS: BP 94/62; PULSE 66
== END 2023-03-14 13:22 | disposition home or self-care (01) ==
PROVIDERS: PCP Internal Medicine; Visit Provider Internal Medicine
DX: I44.2 Atrioventricular block, complete (principal); Z95.0 Presence of cardiac pacemaker
CPT/HCPCS: 93280; 99213

== ENCOUNTER → 2023-03-14 12:47 | Outpatient (BNVA) | payer OTHER, SELFPAY | PROVIDERS: PCP Internal Medicine; Visit Provider Internal Medicine | DX: Z45.018 Encounter for adjustment and management of other part of cardiac pacemaker (principal); I44.2 Atrioventricular block, complete | CPT/HCPCS: 93280; 99212 ==

== ENCOUNTER 2023-05-19 08:30 | Outpatient (REF) | payer OTHER, SELFPAY ==
[2023-05-19 09:37] LABS: Creatinine Urine 139.45 mg/dL; Microalbum/Creatinine Ratio Ur 22.9 ug/mg cr (<30)
[2023-05-19 09:48] LABS: Alanine Aminotransferase 12 U/L (0-40); Albumin Level 4.1 g/dL (3.5-5.0); Alkaline Phosphatase 45 U/L (39-117); Anion Gap 12 (12-20); Aspartate Amino Transferase 19 U/L (5-37); Bilirubin Total 0.5 mg/dL (0.0-1.0); Blood Urea Nitrogen 32 mg/dL (9-16); Calcium 9.2 mg/dL (8.4-10.2); Carbon Dioxide 28 mmol/L (22-29); Chloride 102 mmol/L (96-108); Cholesterol 151 mg/dL (<200); Estimated Glomerular Filt Rate 49; Glucose Fasting 172 mg/dL (60-99); HDL Cholesterol 46 mg/dL (>40); LDL Cholesterol Calculated 80 mg/dL (<100); Potassium 4.2 mmol/L (3.3-5.1); Sodium 138 mmol/L (135-145); Total Protein 6.8 g/dL (6.5-8.0); Triglycerides 129 mg/dL (<150)
[2023-05-19 10:09] LABS: Vitamin D 25-OH Total 27.5 ng/mL (>30)
[2023-05-23 21:23] LABS: NT-proBNP 300 pg/mL (<450)
== END 2023-05-19 08:31 | disposition home or self-care (01) ==
LOC: HO.LAB 08:30
PROVIDERS: PCP Internal Medicine; Visit Provider Internal Medicine
DX: E11.9 Type 2 diabetes mellitus without complications (principal); I50.9 Heart failure, unspecified; E55.9 Vitamin D deficiency, unspecified; E78.5 Hyperlipidemia, unspecified
CPT/HCPCS: 36415; 80053; 80061; 82043; 82306; 82570; 83880

== ENCOUNTER 2023-05-23 13:38 | Outpatient (AMB) | payer OTHER, SELFPAY ==
--- NOTE | 2023-05-23 14:01 | A.OFFPC_ITS ---
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 Required: No Accompanied by: Family/Other Allergies shellfish derived Allergy (Mild, Verified 05/23/23 14:10) swollen face shellfish Allergy (Intermediate, Uncoded 03/14/23 13:05) rash, itch Seafood Allergy (Mild, Uncoded 03/14/23 13:05) SWELLING Medication List - Last Reconciled 05/23/23 by Yolanda Vu MD [adult pull ups As directed] aripiprazole 15 mg PO DAILY 90 days [BLOOD PRESSURE MONITOR As directed] blood pressure test kit-large As directed blood sugar diagnostic (FreeStyle Test strips) Use 1 test strip once a day calcium carbonate-vitamin D3 600 mg-10 mcg (400 unit) 1 tab PO BID 90 days carbidopa-levodopa 25-100 mg 2 tabs PO TID@0900,1200,2100 [COMPRESSION SOCKS (knee high) - MEDIUM strength As directed] furosemide 20 mg PO QAM gabapentin 300 mg PO BID PRN lancets (FreeStyle Lancets) Use 1 lancet once a day lisinopril 10 mg PO DAILY 90 days metformin 1,000 mg PO BID 90 days metoprolol succinate ER 50 mg PO DAILY mirtazapine 15 mg PO DAILY 90 days omeprazole 20 mg PO DAILY@0630 90 days pioglitazone 45 mg PO DAILY 90 days ropinirole 0.25 mg PO TID simvastatin 20 mg PO BEDTIME 90 days underpads (Goodnites Bed Mats) As directed [weight scale As directed] Tobacco use date assessed: 05/23/23 Fall risk assessment: No Falls in past year Last assessed Fall Risk: 05/23/23 Dental Screening Dental Screen Date: 05/23/23 Did you have a dental visit in the last 12 months?: No Did you have a dental problem in the last 6 months where you did not have access to dental care?: No Was dental information given to patient?: Patient has dentist HPI HPI Comments History of Present Illness Details This is an 82-year-old male with Parkinson's disease, mild major depression, diabetes mellitus type 2, hypertension and pure hypercholesterolemia that comes accompanied by MEDICAL RESIDENT for follow-up on his conditions. Has resting tremors due to Parkinson's disease and I will refer him again to neurology which he used to see at [facility]. Depression stable with SSRIs. A1c elevated and I will add Jardiance. Blood pressure stable. LDL within goal. Has metacarpal fusion and will be referred to rheumatology. [facility] Medical History (Updated 05/23/23 @ 15:25 by Yolanda Vu MD) ABRIL (acute kidney injury) Heart block AV third degree SVT (supraventricular tachycardia) Respiratory failure with hypoxia Pacemaker Encounter for interrogation of cardiac pacemaker AV block, 3rd degree Physical exam Bradycardia Obesity (BMI 30-39.9) Normal colonoscopy (~06/18/11) BETHANY (generalized anxiety disorder) Mild major depression, single episode Hearing loss GERD (gastroesophageal reflux disease) Essential hypertension Unsteady gait Diabetes mellitus Dry cough DMII (diabetes mellitus, type 2) Parkinson disease Dyslipidemia Surgical History History of pacemaker Family History Mother No problems noted. Father No problems noted. Family/Other Substance use disorder Social History Household Members: Family Household Members Other:: son Housing: Apartment Do you presently have visiting nurse or other home services: Yes Alcohol intake: former Patient Tobacco Use Status: Former Tobacco user Tobacco use type: Cigarette e-Cigarette/Vaping Use: Former Use Second Hand Smoke Exposure: No service: No Current occupational status: retired Cognitive needs: Yes Hearing needs: No Vision needs: Yes Questionnaire PHQ-9 Over the last 2 weeks, how often have you been bothered by any of the following problems? 1. Little interest or pleasure in doing things: not at all 2. Feeling down, depressed, or hopeless: not at all 3. Trouble falling or staying asleep, or sleeping too much: not at all 4. Feeling tired or having little energy: not at all 5. Poor appetite or overeating: not at all 6. Feeling bad about yourself - or that you are a failure or have let yourself or your family down: not at all 7. Trouble concentrating on things, such as reading the newspaper or watching television: not at all 8. Moving or speaking so slowly that other people could have noticed. Or the opposite - being so fidgety or restless that you have been moving around a lot more than usual: not at all 9. Thoughts that you would be better off or of hurting yourself in some way: not at all Total score: 0 Depression Screening Interpretation: Negative Depression Screening Done: Yes 58544 - PHQ-9 Billing: Yes Source: Developed by Drs. Raz Fraser, Jackelyn Rea, Wilner Cox and colleagues, with an educational delilah from [email or web address]. Thrive Questionnaire Date Thrive assessed: 05/23/23 I am a: Patient What is your living situation today?: I have a steady place to live Within the past 12 months, did the food you bought not last and you didn't have the money to get more?: Never true Within the past 12 months, did you worry whether your food would run out before you got money to buy more?: Never true Do you have trouble paying for medicines?: No Do you have trouble getting transportation to medical appointments?: No Do you have trouble paying your heating and electricity bill?: No Do you have trouble taking care of your child, family member or friend?: No Do you have trouble with day-to-day activities such as bathing, preparing meals, shopping, managing finances, etc.?: Yes Are you currently unemployed and looking for a job?: No Are you interested in more education?: No Please select the resources that you would like help with: None Currently or been in a relationship where the following occur: no concerns reported THRIVE Score: 0 AUDIT C Alcohol Use Questionnaire (AUDIT-C) 1. How often do you have a drink containing alcohol?: Never Total Score: 0 BETHANY-7 AMB Questionnaire BETHANY-7 Date BETHANY - 7 assessed: 05/23/23 Feeling nervous, anxious, or on edge: 0 = Not at all Not being able to stop or control worryin = Not at all Worrying too much about different things: 0 = Not at all Trouble relaxin = Not at all Being so restless that it is hard to sit still: 0 = Not at all Becoming easily annoyed or irritable: 0 = Not at all Feeling afraid as if something awful might happen: 0 = Not at all Total BETHANY-7 score (0-4 normal; 5-9 mild; 10-14 moderate; 15-21 severe): 0 Source: Developed by Drs. Raz Fraser, Jackelyn Rea, Wilner Cox and colleagues, with an educational delilah from [email or web address]. BETHANY-7 Assessment Billing BETHANY-7 Assessment Tool: BETHANY-7 Assessment 84249 Review of Systems Const All systems reviewed & are unremarkable except as noted in HPI and below Eyes Reports no additional complaints, Denies change in vision and Denies other visual disturbances Card Denies chest pain at rest, Denies chest pain with activity, Denies edema, Denies irregular heart rhythm, Denies claudication, Denies dyspnea, Denies dyspnea on exertion, Denies orthopnea, Denies paroxysmal nocturnal dyspnea and Denies slow heart rate Resp Denies cough, Denies dyspnea and Denies dyspnea on exertion GI Denies abdominal pain, Denies change in bowel habits, Denies excessive flatus, Denies nausea and Denies vomiting Denies urinary hesitancy, Denies urinary incontinence and Denies urinary urgency Musc Denies abnormal gait, Denies atrophy, Denies deformity and Denies limited range of motion Skin/Breast Denies bleeding lesions, Denies changing lesions and Denies rash Neuro Denies abnormal gait, Denies behavioral changes and Denies lack of coordination Psych Denies behavioral changes Physical exam (Primary Care) Vital Signs: Last Vital Signs BP 120/68 05/23/23 14:08 BMI result Body Mass Index 30.2 Tobacco/Smoking Status: Tobacco use Status Tobacco use date assessed 05/23/23 05/23/23 14:12 Patient Tobacco Use Status Former Tobacco user 05/23/23 14:03 Tobacco use type Cigarette 05/23/23 14:03 e-Cigarette/Vaping Use Former Use 05/23/23 14:03 PHQ-9: PHQ-9 Score PHQ-9: Total score 0 05/23/23 14:40 Depression Screening Interpretation: Negative Thrive Assessment: Date of Thrive Assessment Date Thrive assessed 05/23/23 05/23/23 14:12 Currently or been in a relationship where the following occur: no concerns reported Eyes General: appearance normal, both eyes and all related structures Eyelids: Yes eyelids normal Conjunctivae: conjunctivae normal Neck Neck: Yes normal visual inspection and Yes supple Resp Effort & Inspection: normal respiratory effort Auscultation: clear to auscultation bilaterally Cardio Jugular venous distension: no JVD Rate: regular rate Rhythm: regular rhythm Heart sounds: S1 normal heart sound present and S2 normal heart sound present Neuro Motor exam (neuro): Tremors during motor activity present bilateral upper extremity Extrem General: Yes full ROM Results AMB Hemoglobin A1c AMB Hemoglobin A1c 7.4 % Last Edit by CHLOE Malloy on 05/23/23 14:1 4 Results Reviewed Results Reviewed: Laboratory Last Values Hgb A1c (Clinic) 7.4 % (4.0-6.0) H 05/23/23 14:01 Assessment and Plan Assessment & Plan (1) Parkinson disease: Code(s): G20 - Parkinson's disease Plan: Continue carbidopa-levodopa. Referred to neurology. (2) Diabetes mellitus: Code(s): E11.9 - Type 2 diabetes mellitus without complications Qualifiers: Diabetes mellitus type: type 2 Diabetes mellitus halfway insulin use: without high school foreign language tutor use Diabetes mellitus complication status: without complication Qualified Code(s): E11.9 - Type 2 diabetes mellitus without c omplications Plan: Continue metformin and Actos. Start Jardiance. A1c goal is equal or less than 7% (3) Essential hypertension: Code(s): I10 - Essential (primary) hypertension Plan: Continue lisinopril. Blood pressure goal is equal or less than 130/80. (4) Mild major depression, single episode: Code(s): F32.0 - Major depressive disorder, single episode, mild Plan: Continue mirtazapine. Orders: Orders Microalbumin, Random (w Creat) 4 Months E11.9 - Type 2 diabetes mellitus without complications Comprehensive [place]. Panel Fast 4 Months I44.2 - Atrioventricular block, complete AMB Hemoglobin A1c Today E11.8 - Type 2 diabetes mellitus with unspecified complications Lipid Panel 4 Months E78.5 - Hyperlipidemia, unspecified Vitamin D 25-OH Total 4 Months E55.9 - Vitamin D deficiency, unspecified Vitamin B12 and Folate 4 Months E53.8 - Deficiency of other specified B group vi tamins Referrals Neurology Referral G20 - Parkinson's disease Rheumatology Referral M19.90 - Unspecified osteoarthritis, unspecified site Medications: New simvastatin 40 mg PO BEDTIME 90 days 90 tabs 1RF empagliflozin (Jardiance) 10 mg PO DAILY 90 days 90 tabs 1RF Refilled calcium carbonate-vitamin D3 600 mg-10 mcg (400 unit) 1 tab PO BID 90 days 180 tabs 1RF Discontinued simvastatin Discontinued Reason: Patient Completed Course 20 mg PO BEDTIME 90 days 90 tabs 1RF Coding Level of Care Code Est Pt Level 4 (84643) Diagnoses Parkinson disease G20 Type 2 diabetes mellitus without complication, without long-term current use of insulin E11.9 Diabetes mellitus type: type 2 Diabetes mellitus high school foreign language tutor insulin use: without high school foreign language tutor use Diabetes mellitus complication status: without complication Essential hypertension I10 Mild major depression, single episode F32.0 Additional Codes BETHANY-7 Assessment Billing - BETHANY-7 Assessment Tool: BETHANY-7 Assessment 74113 ([id number]) Time Spent (min) 24
[2023-05-23 14:08] VITALS: BP 120/68; BMI 30.2
== END 2023-05-23 14:39 | disposition home or self-care (01) ==
PROVIDERS: PCP Internal Medicine; Visit Provider Internal Medicine
DX: E11.8 Type 2 diabetes mellitus with unspecified complications (principal); G20.A1 Parkinson's disease without dyskinesia, without mention of fluctuations; F32.0 Major depressive disorder, single episode, mild; I10 Essential (primary) hypertension
CPT/HCPCS: 83036; 99214

== ENCOUNTER → 2023-05-24 23:59 | Outpatient (BNV) | payer OTHER, SELFPAY ==
--- NOTE | 2023-05-25 11:46 | MHC.OFFVIS ---
Intake Intake Visit Reasons: Remote Device Check- [facility] Allergies shellfish derived Allergy (Mild, Verified 05/23/23 14:10) swollen face shellfish Allergy (Intermediate, Uncoded 03/14/23 13:05) rash, itch Seafood Allergy (Mild, Uncoded 03/14/23 13:05) SWELLING [facility] Medical History (Updated 05/23/23 @ 15:25 by Yolanda Vu MD) ABRIL (acute kidney injury) Heart block AV third degree SVT (supraventricular tachycardia) Respiratory failure with hypoxia Pacemaker Encounter for interrogation of cardiac pacemaker AV block, 3rd degree Physical exam Bradycardia Obesity (BMI 30-39.9) Normal colonoscopy (~06/18/11) BETHANY (generalized anxiety disorder) Mild major depression, single episode Hearing loss GERD (gastroesophageal reflux disease) Essential hypertension Unsteady gait Diabetes mellitus Dry cough DMII (diabetes mellitus, type 2) Parkinson disease Dyslipidemia Surgical History History of pacemaker Family History Mother No problems noted. Father No problems noted. Family/Other Substance use disorder Social History Household Members: Family Household Members Other:: son Housing: Apartment Do you presently have visiting nurse or other home services: Yes Alcohol intake: former Patient Tobacco Use Status: Former Tobacco user Tobacco use type: Cigarette e-Cigarette/Vaping Use: Former Use Second Hand Smoke Exposure: No service: No Current occupational status: retired Cognitive needs: Yes Hearing needs: No Vision needs: Yes Office Procedures Cardiac Device Check Cardiac Device Check Details: Date of service- 05/24/2023 ; Battery life >9 years; normal lead parameters; AP 61%; 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 Overall normal device function. [id number] Cardiac Device Interrogation, pacemaker Procedure code (CPT) selection complete Assessment & Plan Assessment & Plan (1) AV block, 3rd degree: Code(s): I44.2 - Atrioventricular block, complete Plan x Coding Level of Care Code Procedure Only Diagnoses AV block, 3rd degree I44.2 CPT Codes Cardiac Device Check - Cardiac Device 12: [id number] Cardiac Device Interrogation, pacemaker ([id number])
== END ==
PROVIDERS: PCP Internal Medicine; Visit Provider Internal Medicine
DX: I44.2 Atrioventricular block, complete (principal); Z95.0 Presence of cardiac pacemaker
CPT/HCPCS: 93294

== ENCOUNTER 2023-08-11 17:36 | Emergency (ER) | payer OTHER, SELFPAY ==
--- NOTE | ~2023-08-11 | XR_ITS ---
EXAMINATION: XR CHEST CLINICAL INFORMATION: Generalized weakness COMPARISON: None available. TECHNIQUE: Frontal view of the chest was obtained. FINDINGS: Pacemaker leads in right atrium and right ventricle. Heart size is normal. The cardiac and mediastinal contours are normal. No pulmonary vascular congestion. Lungs are normally aerated. No pleural effusion and no pneumothorax. XR/XR chest 1V IMPRESSION: No acute abnormality of the chest.
--- NOTE | ~2023-08-11 | CT_ITS ---
EXAMINATION: CT HEAD WITHOUT CONTRAST CLINICAL INFORMATION: Altered mental status COMPARISON: 04/26/2020 TECHNIQUE: Multidetector volumetric imaging of the head was performed without intravenous contrast material. This CT examination was performed using dose optimization techniques as appropriate, variously including the following: *Automated exposure control *Adjustment of mA and/or kV according to patient size (this includes techniques or standardized protocols for targeted exams where dose is matched to indication/reason for exam; i.e. extremities or head) *Use of iterative reconstruction technique Dose: 733 mGy-cm FINDINGS: There is no evidence of acute intracranial hemorrhage or territorial infarction. No abnormal mass-effect or midline shift is seen. Campbell to white matter differentiation is well preserved. No extra axial fluid collections. There is commensurate enlargement of the ventricles and extraaxial CSF spaces consistent with mild volume loss. A few foci of hypoattenuation in the subcortical and periventricular white matter are most consistent with chronic microangiopathic changes. Atherosclerotic calcifications are present in the abdominal aorta. No aneurysmal dilatation. The soft tissues and osseous structures are normal. The sinuses and mastoid air cells are clear. CT/CT head/brain wo IV con IMPRESSION: No acute intracranial pathology.
[2023-08-11 17:47] VITALS: BP 110/70; BP 118/60; PULSE 60; PULSE 66; RESP 15; TEMP 36.5; O2SAT 98; BMI 31.2
--- NOTE | 2023-08-11 18:00 | PC.NURSE ---
this rn assumed care of pt from [facility]. pt maltese speaking dr collins to bedside 20g ic placed in R AC. labs obtained and sent down pt on training executive. unknown who called [facility] on patient
--- NOTE | 2023-08-11 18:00 | ED_ITS ---
HPI - General Adult General Chief complaint: Altered Mental Status Stated complaint: increased confusion, foul smelling urine Time Seen by Provider: 08/11/23 17:58 History of Present Illness HPI narrative: The patient is an 82-year-old male with a history of Parkinson's disease who lives at home with his family. History is from paramedics as the patient was brought here by ambulance without family members. Paramedics were told that the patient has not been himself today. He seems more confused than usual. Family also thought that his urine might be foul-smelling. The family felt the patient is seeming weaker than usual. Additionally the family says that his legs have been more swollen over the last week. I attempted to contact the family for additional history. They were not at the bedside. The phone numbers in the computer system were not active numbers. Ultimately many hours after the patient's arrival his oxfbflkq-sb-vnn Niki called. She says that they felt the patient seemed more confused than usual this morning. They did not feel there was any clear reason for the patient has change in mental status. She also confirmed that the patient's lower extremities has been more swollen over the last couple of weeks. Related Data Home Medications ?Medication ?Instructions ?Recorded ?Confirmed carbidopa 25 mg-levodopa 100 mg 2 tab PO TID@0900,1200,2100 12/17/20 05/23/23 tablet gabapentin 300 mg capsule 300 mg PO BID PRN Pain 08/16/22 05/23/23 ropinirole 0.25 mg tablet 0.25 mg PO TID 08/16/22 05/23/23 Previous Rx's ?Medication ?Instructions ?Recorded lancets 28 gauge (FreeStyle #100 ea 06/03/20 Lancets) BLOOD PRESSURE MONITOR #1 ea 12/30/20 COMPRESSION SOCKS (knee high) - #2 ea 12/30/20 MEDIUM strength adult pull ups #100 ea 08/19/22 blood pressure test kit-large #1 ea 08/19/22 underpads 2.6 X 2.9 feet #36 ea 08/19/22 (Goodnites Bed Mats) weight scale #1 ea 08/19/22 blood sugar diagnostic (FreeStyle #50 ea 09/11/22 Test strips) metformin 1,000 mg tablet 1,000 mg PO BID 90 days #180 tabs 02/15/23 metoprolol succinate 50 mg 50 mg PO DAILY #90 tabs 02/24/23 tablet,extended release 24 hr omeprazole 20 mg capsule,delayed 20 mg PO DAILY@0630 90 days #90 03/06/23 release caps mirtazapine 15 mg tablet 15 mg PO DAILY 90 days #90 tabs 04/22/23 calcium carbonate 600 mg-vitamin 1 tab PO BID 90 days #180 tabs 05/23/23 D3 10 mcg (400 unit) tablet empagliflozin 10 mg tablet 10 mg PO DAILY 90 days #90 tabs 05/23/23 (Jardiance) lisinopril 10 mg tablet 10 mg PO DAILY 90 days #90 tabs 05/23/23 simvastatin 40 mg tablet 40 mg PO BEDTIME 90 days #90 tabs 05/23/23 aripiprazole 15 mg tablet 15 mg PO DAILY 90 days #90 tabs 06/05/23 pioglitazone 45 mg tablet 45 mg PO DAILY 90 days #90 tabs 07/05/23 furosemide 20 mg tablet 20 mg PO QAM #30 tabs 07/18/23 apixaban 5 mg tablet (Eliquis) 5 mg PO BID 30 days #60 tabs 08/11/23 Allergies Allergy/AdvReac Type Severity Reaction Status Date / Time shellfish derived Allergy Mild swollen Verified 08/11/23 17:53 face shellfish Allergy Intermediate rash, itch Uncoded 03/14/23 13:05 Seafood Allergy Mild SWELLING Uncoded 03/14/23 13:05 Review of Systems 2 Review of Systems: Yes all other systems are reviewed and are negative [facility] Past Medical History Medical History (Updated 08/12/23 @ 01:49 by Da Hoyos MD) ABRIL (acute kidney injury) Heart block AV third degree SVT (supraventricular tachycardia) Respiratory failure with hypoxia Pacemaker Encounter for interrogation of cardiac pacemaker AV block, 3rd degree Physical exam Bradycardia Obesity (BMI 30-39.9) Normal colonoscopy (~06/18/11) BETHANY (generalized anxiety disorder) Mild major depression, single episode Hearing loss GERD (gastroesophageal reflux disease) Essential hypertension Unsteady gait Diabetes mellitus Dry cough DMII (diabetes mellitus, type 2) Parkinson disease Dyslipidemia Surgical History History of pacemaker Family History Family History Mother No problems noted. Father No problems noted. Family/Other Substance use disorder Social History Social History Household Members: Family Household Members Other:: son Housing: Apartment Do you presently have visiting nurse or other home services: Yes Alcohol intake: former Patient Tobacco Use Status: Former Tobacco user Tobacco use type: Cigarette Smoked in Last 30 Days: No e-Cigarette/Vaping Use: Former Use Second Hand Smoke Exposure: No Use of substances other than those prescribed or required for medical reasons: No Advance Directives: No Advance Directives Information Provided: No service: No Current occupational status: retired Cognitive needs: Yes Hearing needs: No Vision needs: Yes Physical Exam ED Vital Signs: Vital Signs - 24 hr 08/11/23 17:47 08/11/23 19:02 08/11/23 19:28 Temperature 97.7 F 98.1 F 98.2 F Pulse Rate 66 61 66 Respiratory Rate 15 25 H 15 Blood Pressure 118/60 169/78 H 113/57 L Pulse Oximetry 98 95 99 Oxygen Delivery Method Room Air Room Air Room Air 08/11/23 22:44 08/12/23 00:21 Temperature 97.7 F 97.7 F Pulse Rate 65 70 Respiratory Rate 14 12 Blood Pressure 127/66 113/59 L Pulse Oximetry 98 9 L Oxygen Delivery Method Room Air Room Air BMI result Body Mass Index 31.2 Const Other: The patient is an older man who was awake and alert. He did not seem in obvious distress. He seemed to have a pleasant demeanor. My impression that he was mildly demented. He was a poor historian he did not seem in distress or obviously acutely ill. HENNM Other: Face is symmetrical. Mucous membranes moist. Eyes Other: Pupils were round equal, conjunctivae clear Neck Other: No JVD, no adenopathy Resp Effort & Inspection: normal respiratory effort Auscultation: clear to auscultation bilaterally Cardio Rate: regular rate Rhythm: regular rhythm Heart sounds: S1 normal heart sound present and S2 normal heart sound present GI Other: The abdomen was soft and entirely nontender. Back/Spine/Pelvis Other: No CVA percussion tenderness on either flank Skin Other: Skin is dry and unremarkable. Neuro Other: The patient was awake. He was poorly oriented and gave the impression of dementia. Pupils were round equal, extraocular movements intact, face is symmetrical, he moves his extremities symmetrically. No lateralizing findings Extrem Other: Mild bilateral lower extremity edema Medications Administered Discontinued Medications Generic Name Dose Route Start Last Admin Trade Name Clari PRN Reason Stop Dose Admin Carbidopa/Levodopa 2 tab 08/11/23 20:17 08/11/23 21:31 Carbidopa/Levodopa 25/100 Tablet PO 08/11/23 20:18 2 tab ONCE ONE Administration Sodium Chloride 500 mls @ 500 mls/hr 08/11/23 21:00 08/11/23 21:33 Ns IV 08/11/23 21:59 500 mls/hr .Q1H WILMA Administration Medical Decision Making Medical Decision Making [facility] Narrative: The patient is an 82-year-old male with a history of Parkinson's disease. He is on carbidopa-levodopa. He arrived at the emergency room by ambulance. Apparently family had told paramedics the patient seemed more confused than usual and that this had started today. Unfortunately the family did not arrive with the patient and I could not reach them by phone for a long time. The patient's struck me as being somewhat pleasantly demented but did not seem obviously acutely ill in any way. Vital signs were unremarkable. The patient's physical exam was also unremarkable. His abdomen is entirely benign, his lungs are clear. He seemed demented but did not seem acutely toxic or ill otherwise. The patient's workup in the emergency room is similarly unremarkable. He has a normal white count of 7000 with a stable hemoglobin and an unremarkable differential with 69% neutrophils, 21% lymphocytes, and 8% monocytes. His metabolic panel shows a creatinine of 1.53 and a BUN of 29. This is not significantly different from a metabolic panel 3 months ago. His lactate was elevated at 2.8 but it was not my impression that this was a reflection of sepsis. The patient has a normal white count and differential. He has a normal CRP of 0.17. He is on metformin which I think is a more likely explanation for an elevated lactate in this patient. The patient's troponin and proBNP are normal. His CRP is only 1.7. EKG shows a paced rhythm similar to previous EKGs. Chest x-ray showed no acute abnormality. CT of the head shows no acute findings. Urinalysis does not suggest a UTI. Abdomen is benign. The patient seemed to be resting peacefully in the emergency department. He seemed fatigued but was arousable with stimulation. Overall his clinical status seemed benign. His evaluation was complicated by the fact that no family members were present. Ultimately after many hours the patient's vxqwnbvj-xy-mmq called. She said that she was unable to come to the hospital tonight. Her phone number is [phone]. She says that she will be able to come to the hospital tomorrow to help with any decision-making for the patient. I have ordered the patient's carbidopa as well as some of his other regular medications. He was also given 500 mL of normal saline. He will be kept in the emergency room overnight for evaluation by physical therapy in the morning to see if he is able to ambulate well enough to go home. I think case management should also be involved. The patient will therefore be designated as physician observation and kept in the emergency room overnight. I have ordered a case management consult in a physical therapy consult. I have ordered his Parkinson's medications. The patient's dekplrpv-ui-ppk says they should be available tomorrow to help any management decisions or take the patient home if that seems appropriate. Lab Data 08/11/23 18:18 08/11/23 18:14 Labs: Lab Results 08/11/23 08/11/23 08/11/23 Range/Units 18:14 18:18 18:19 WBC 7.0 (4.8-10.8) X10*3/uL RBC 4.06 L (4.60-5.80) X10*6/uL Hgb 13.3 L (14.0-18.0) g/dl Hct 38.6 L (42.0-52.0) % MCV 95.1 (80.0-98.0) fL MCH 32.8 (27.0-33.0) pg MCHC 34.5 (31.0-36.0) g/dl RDW 12.7 (11.0-16.0) % Plt Count 144 L (160-400) X10*3/uL MPV 10.5 (9.4-12.4) fL Immature Gran % (Auto) 0.6 H (0.0-0.4) % Neut % (Auto) 69.5 (45-73) % Lymph % (Auto) 20.9 (20-40) % [place] % (Auto) 8.0 (2-11) % Eos % (Auto) 0.6 (0-4) % Baso % (Auto) 0.4 (0-2) % Lymph # (Auto) 1.5 (1.2-4.9) X10*3/uL [place] # (Auto) 0.6 (0.1-1.2) X10*3/uL Eos # (Auto) 0.0 (0.0-0.4) X10*3/uL Baso # (Auto) 0.0 (0.0-0.2) X10*3/uL Abs Immat Gran (auto) 0.04 H (0.00-0.03) X10*3/uL Absolute Neuts (auto) 4.9 (2.0-8.3) x10*3/uL Absolute Nucleated RBC 0.000 (0.0-0.012) X10*3/uL Nucleated RBC % (auto) 0.0 (0.0-0.2) /100WBC VBG pH 7.37 (7.32-7.43) VBG pCO2 42 mmHg VBG pO2 38 mmHg VBG HCO3 24 (22-26) mmol/L VBG O2 Saturation 61.0 % VBG Base Excess -0.4 mmol/L Sodium 139 (135-145) mmol/L Potassium 3.9 (3.3-5.1) mmol/L Chloride 105 (96-108) mmol/L Carbon Dioxide 22 (22-29) mmol/L Anion Gap 16 (12-20) BUN 29 H (9-16) mg/dL Creatinine 1.53 H (0.5-1.4) mg/dL Estim Creat Clear Calc 33.6 Estimated GFR 44 Random Glucose 145 H (60-115) mg/dL Lactic Acid 2.8 H* (0.5-2.0) mmol/L Lactic Acid F/U @ 2Hr (0.5-2.0) mmol/L Calcium 10.6 H D (8.4-10.2) mg/dL Magnesium 1.5 L (1.6-2.6) mg/dL Total Bilirubin 0.5 (0.0-1.0) mg/dL Direct Bilirubin 0.2 (0.0-0.5) mg/dL AST 27 (5-37) U/L ALT 14 (0-40) U/L Alkaline Phosphatase 48 (39-117) U/L Troponin I High Sens 15.9 D (<3.5-35.0) ng/L C-Reactive Protein 0.17 (< or = 0.50) mg/dL B-Natriuretic Peptide 60 (<100) pg/mL Total Protein 7.6 (6.5-8.0) g/dL Albumin 4.5 (3.5-5.0) g/dL Urine Color Urine Appearance Urine pH (5.0-9.0) Ur Specific [place] (1.005-1.025) Urine Protein (Neg-Trace) mg/dL Urine Glucose (UA) (Negative) mg/dL Urine Ketones (Negative) mg/dL Urine Blood (Negative) Urine Nitrite (Negative) Ur Leukocyte Esterase (Negative) Urine RBC (0-2) /HPF Urine WBC (0-5) /HPF Ur Squamous Epith Cells (0-2) /HPF Urine Bacteria (None Seen) Hyaline Casts (0-2) /LPF Ethyl Alcohol < 10 mg/dL Influenza Type A (PCR) (Negative) Influenza Type B (PCR) (Negative) RSV RNA Qual (PCR) (Negative) SARS-CoV-2 RNA (RT-PCR) (Negative) 08/11/23 08/11/23 08/11/23 Range/Units 18:40 19:23 23:16 WBC (4.8-10.8) X10*3/uL RBC (4.60-5.80) X10*6/uL Hgb (14.0-18.0) g/dl Hct (42.0-52.0) % MCV (80.0-98.0) fL MCH (27.0-33.0) pg MCHC (31.0-36.0) g/dl RDW (11.0-16.0) % Plt Count (160-400) X10*3/uL MPV (9.4-12.4) fL Immature Gran % (Auto) (0.0-0.4) % Neut % (Auto) (45-73) % Lymph % (Auto) (20-40) % [place] % (Auto) (2-11) % Eos % (Auto) (0-4) % Baso % (Auto) (0-2) % Lymph # (Auto) (1.2-4.9) X10*3/uL [place] # (Auto) (0.1-1.2) X10*3/uL Eos # (Auto) (0.0-0.4) X10*3/uL Baso # (Auto) (0.0-0.2) X10*3/uL Abs Immat Gran (auto) (0.00-0.03) X10*3/uL Absolute Neuts (auto) (2.0-8.3) x10*3/uL Absolute Nucleated RBC (0.0-0.012) X10*3/uL Nucleated RBC % (auto) (0.0-0.2) /100WBC VBG pH (7.32-7.43) VBG pCO2 mmHg VBG pO2 mmHg VBG HCO3 (22-26) mmol/L VBG O2 Saturation % VBG Base Excess mmol/L Sodium (135-145) mmol/L Potassium (3.3-5.1) mmol/L Chloride (96-108) mmol/L Carbon Dioxide (22-29) mmol/L Anion Gap (12-20) BUN (9-16) mg/dL Creatinine (0.5-1.4) mg/dL Estim Creat Clear Calc Estimated GFR Random Glucose (60-115) mg/dL Lactic Acid (0.5-2.0) mmol/L Lactic Acid F/U @ 2Hr 1.9 (0.5-2.0) mmol/L Calcium (8.4-10.2) mg/dL Magnesium (1.6-2.6) mg/dL Total Bilirubin (0.0-1.0) mg/dL Direct Bilirubin (0.0-0.5) mg/dL AST (5-37) U/L ALT (0-40) U/L Alkaline Phosphatase (39-117) U/L Troponin I High Sens (<3.5-35.0) ng/L C-Reactive Protein (< or = 0.50) mg/dL B-Natriuretic Peptide (<100) pg/mL Total Protein (6.5-8.0) g/dL Albumin (3.5-5.0) g/dL Urine Color Yellow Urine Appearance Clear Urine pH 5.5 (5.0-9.0) Ur Specific [place] 1.025 (1.005-1.025) Urine Protein Negative (Neg-Trace) mg/dL Urine Glucose (UA) >=1000 H (Negative) mg/dL Urine Ketones Negative (Negative) mg/dL Urine Blood Negative (Negative) Urine Nitrite Negative (Negative) Ur Leukocyte Esterase Negative (Negative) Urine RBC 0-2 (0-2) /HPF Urine WBC 0-5 (0-5) /HPF Ur Squamous Epith Cells 0-2 (0-2) /HPF Urine Bacteria None Seen (None Seen) Hyaline Casts 0-2 (0-2) /LPF Ethyl Alcohol mg/dL Influenza Type A (PCR) NEGATIVE (Negative) Influenza Type B (PCR) NEGATIVE (Negative) RSV RNA Qual (PCR) NEGATIVE (Negative) SARS-CoV-2 RNA (RT-PCR) NEGATIVE (Negative) Independent Interpretation I performed an independent interpretation of an: EKG Interpretation: EKG at 19:07 shows an AV dual paced rhythm with occasional ventricular paced complexes. No significant change from previous. Discharge Plan Discharge Clinical Impression: Fatigue, Parkinson's disease Patient Disposition: Still a Patient Prescriptions: No Action (DME) lancets [FreeStyle Lancets] 28 gauge misc See Rx Instructions .ROUTE .MEDSUPPLY Qty: 100 11RF Rx Instructions: Use 1 lancet once a day (DME) adult pull ups Large See Rx Instructions .Route .MEDSUPPLY Qty: 100 0RF Rx Instructions: As directed (DME) Goodnites Bed Mats 2.6 X 2.9 feet pad See Rx Instructions .Route Qty: 36 12RF Rx Instructions: As directed (DME) blood pressure test kit-large Kit See Rx Instructions .Route Qty: 1 0RF Rx Instructions: As directed (DME) weight scale See Rx Instructions .Route .MEDSUPPLY Qty: 1 0RF Rx Instructions: As directed (DME) FreeStyle Test Strip See Rx Instructions .ROUTE .MEDSUPPLY Qty: 50 11RF Rx Instructions: Use 1 test strip once a day metformin 1,000 mg tablet 1,000 mg PO BID 90 Days Qty: 180 1RF metoprolol succinate 50 mg tablet extended release 24 hr 50 mg PO DAILY Qty: 90 3RF omeprazole 20 mg capsule,delayed release(DR/EC) 20 mg PO DAILY@0630 90 Days Qty: 90 1RF mirtazapine 15 mg tablet 15 mg PO DAILY 90 Days Qty: 90 1RF lisinopril 10 mg tablet 10 mg PO DAILY 90 Days Qty: 90 0RF Hold Instructions: Resume on 11/22/22. aripiprazole 15 mg tablet 15 mg PO DAILY 90 Days Qty: 90 0RF pioglitazone 45 mg tablet 45 mg PO DAILY 90 Days Qty: 90 1RF furosemide 20 mg tablet 20 mg PO QAM Qty: 30 0RF Eliquis 5 mg tablet 5 mg PO BID 30 Days Qty: 60 5RF Rx Instructions: Blood thinner for stroke risk reduction with atrial fibrillation carbidopa-levodopa 25-100 mg tablet 2 tab PO TID@0900,1200,2100 gabapentin 300 mg capsule 300 mg PO BID PRN (Reason: Pain) ropinirole 0.25 mg tablet 0.25 mg PO TID (DME) BLOOD PRESSURE MONITOR See Rx Instructions .Route .MEDSUPPLY Qty: 1 0RF Rx Instructions: As directed (DME) COMPRESSION SOCKS (knee high) - MEDIUM strength medium 20 mmHg See Rx Instructions .Route .MEDSUPPLY Qty: 2 0RF Rx Instructions: As directed calcium carbonate-vitamin D3 600 mg-10 mcg (400 unit) tablet 1 tab PO BID 90 Days Qty: 180 1RF simvastatin 40 mg tablet 40 mg PO BEDTIME 90 Days Qty: 90 1RF Jardiance 10 mg tablet 10 mg PO DAILY 90 Days Qty: 90 1RF Print Language: Armenian
--- NOTE | 2023-08-11 18:00 | ECG_ITS ---
Test Reason : ARRYTHMIA Blood Pressure : / mmHG Vent. Rate : 068 BPM Atrial Rate : 068 BPM P-R Int : 176 ms QRS Dur : 188 ms QT Int : 460 ms P-R-T Axes : 017 -44 118 degrees QTc Int : 489 ms AV dual-paced rhythm with occasional ventricular-paced complexes Abnormal ECG When compared with ECG of 09-MAR-2023 18:15, No significant change was found Referred By: Da Hoyos Electronically Signed By:FREDY VALDEZ
[2023-08-11 18:25] LABS: VBG Base Excess -0.4 mmol/L; VBG HCO3 24 mmol/L (22-26); VBG pCO2 42 mmHg; VBG pH 7.37 (7.32-7.43); VBG pO2 38 mmHg
[2023-08-11 18:26] LABS: Venous Blood Gas Refer to POC result
[2023-08-11 18:37] LABS: Lactic Acid 2.8 mmol/L (0.5-2.0)
[2023-08-11 18:42] LABS: Alanine Aminotransferase 14 U/L (0-40); Albumin Level 4.5 g/dL (3.5-5.0); Alkaline Phosphatase 48 U/L (39-117); Anion Gap 16 (12-20); Aspartate Amino Transferase 27 U/L (5-37); Bilirubin Direct 0.2 mg/dL (0.0-0.5); Bilirubin Total 0.5 mg/dL (0.0-1.0); Blood Urea Nitrogen 29 mg/dL (9-16); C Reactive Protein 0.17 mg/dL (< or = 0.50); Calcium 10.6 mg/dL (8.4-10.2); Carbon Dioxide 22 mmol/L (22-29); Chloride 105 mmol/L (96-108); Creatinine Clr Calc Pharmacy 33.6; Estimated Glomerular Filt Rate 44; Ethanol < 10 mg/dL; Glucose Random 145 mg/dL (60-115); Magnesium 1.5 mg/dL (1.6-2.6); Potassium 3.9 mmol/L (3.3-5.1); Sodium 139 mmol/L (135-145); Total Protein 7.6 g/dL (6.5-8.0)
[2023-08-11 18:44] LABS: B Type Natriuretic Peptide 60 pg/mL (<100)
[2023-08-11 18:45] LABS: MANUAL DIFF FLAG NO
[2023-08-11 18:46] LABS: Troponin-I High Sensitivity 15.9 ng/L (<3.5-35.0)
[2023-08-11 18:55] LABS: Basophils Percent Auto 0.4 % (0-2); Eosinophils Percent Auto 0.6 % (0-4); Hematocrit 38.6 % (42.0-52.0); Hemoglobin 13.3 g/dl (14.0-18.0); Imm Gran Abs Auto 0.04 X10*3/uL (0.00-0.03); Imm Gran Pct Auto 0.6 % (0.0-0.4); Lymphocytes Absolute Auto 1.5 X10*3/uL (1.2-4.9); Lymphocytes Percent Auto 20.9 % (20-40); Mean Corpuscular HGB Conc 34.5 g/dl (31.0-36.0); Mean Corpuscular Hemoglobin 32.8 pg (27.0-33.0); Mean Corpuscular Volume 95.1 fL (80.0-98.0); Mean Platelet Volume 10.5 fL (9.4-12.4); Monocytes Absolute Auto 0.6 X10*3/uL (0.1-1.2); Neutrophils Absolute Auto 4.9 x10*3/uL (2.0-8.3); Neutrophils Percent Auto 69.5 % (45-73); Platelet Count 144 X10*3/uL (160-400); Red Blood Count 4.06 X10*6/uL (4.60-5.80); Red Cell Distribution Width 12.7 % (11.0-16.0)
[2023-08-11 19:02] VITALS: BP 169/78; PULSE 61; RESP 25; TEMP 36.7; O2SAT 95
[2023-08-11 19:24] LABS: Influenza A PCR NEGATIVE (Negative); Influenza B PCR NEGATIVE (Negative); Resp Syncy Virus RNA Qual PCR NEGATIVE (Negative); SARS COV2 PCR INHOUSE NEGATIVE (Negative)
[2023-08-11 19:28] VITALS: BP 113/57; PULSE 66; RESP 15; TEMP 36.8; O2SAT 99
[2023-08-11 19:37] LABS: Appearance Urine Clear; Color Urine Yellow; Glucose Urine UA >=1000 mg/dL (Negative); Leukocyte Esterase Urine Negative (Negative); Nitrite Urine Negative (Negative); PH 5.5 (5.0-9.0); Specific Gravity - Urine 1.025 (1.005-1.025); UMIC TRIGGER UACC YES; Urine Blood Negative (Negative); Urine Ketones Negative (Negative); Urine Protein Negative (Neg-Trace)
[2023-08-11 20:21] LABS: Reflex Lactate? Lactic Acid Added
[2023-08-11 20:21] LABS: Bacteria Urine None Seen (None Seen); Hyaline Casts Urine 0-2 /LPF (0-2); RBC Urine 0-2 /HPF (0-2); Squamous Epithelial Cell Urine 0-2 /HPF (0-2); WBC Urine 0-5 /HPF (0-5)
--- NOTE | 2023-08-11 21:13 | MHC.CM.ED ---
Addendum entered by Allyson Ibrahim 08/11/23 21:26: Provider called the [phone] number. It went to voice mail. The mailbox was full and he was unable to leave a message. Pt will remain in ED. Original Note: Dr. Hoyos stated patient contact number for [facility] Pittman was out of service. Review of old records only has [phone], which is out of service. HCP has same phone number. CM called [facility] requesting any contact information they may have that called the ambulance for this patient. Contact number from [facility] [phone]. This phone number given to provider.
[2023-08-11] MEDS: Carbidopa/Levodopa 25/100 TABLET 2 TAB PO (21:31)
[2023-08-11] MEDS: 0.9 % Sodium Chloride 500 ML IV (21:33)
[2023-08-11 22:44] VITALS: BP 127/66; PULSE 65; RESP 14; TEMP 36.5; O2SAT 98
[2023-08-11 23:33] LABS: ~Lactic Acid-LAB USE ONLY 1.9 mmol/L (0.5-2.0)
[2023-08-12] VITALS (7 sets, daily range): BP systolic 101–149; BP diastolic 50–69; PULSE 62–70; RESP 12–18; TEMP 36.1–36.6; O2SAT 9–98
[2023-08-12] MEDS: Gabapentin 300 MG CAPSULE PO (04:37)
[2023-08-12] MEDS: rOPINIRole HCL 0.25 MG TABLET PO ×4 (04:38→20:43)
--- NOTE | 2023-08-12 05:58 | PC.NURSE ---
Report provided to Jazlyn SANCHEZ from [facility]. Plan is for patient to be relocated to pending PT eval. He is resting comfortably with eyes closed, respirations even and unlabored, skin remains warm and dry without distress noted.
--- NOTE | 2023-08-12 06:49 | PC.NURSE ---
Patient arrived to overflow at 06:35 from main ED, pending PT/cm eval. Pt is Maori speaking, weaver hand used at bedside. Pt is A&Ox3, unclear of situation. Reoriented to situation; oriented to bed, call germain, safety measures. Breathing is even and unlabored without distress on RA. +pp/cms. VSS. Bed alarm on and high falls measures in place. Handoff report given to oncoming RN.
[2023-08-12 08:18] LABS: Glucose, Whole Blood 107 mg/dL (60-115)
--- NOTE | 2023-08-12 09:20 | PC.NURSE ---
PT IS A/O X 2 NO SOB/KYRIE NOTED SPEAKS IN FULL SENTENCES. PT DENIES ANY PAIN/DISC. PYHSICAL THERAPY AT BEDSIDE. PT AWARE OF PLAN OF CARE. WILL CONTINUE TO MONITOR.
[2023-08-12] MEDS: Carbidopa/Levodopa 25/100 TABLET 2 TAB PO ×3 (09:22→20:43)
--- NOTE | 2023-08-12 09:50 | PC.NURSE ---
PT'S SISTER IN LAW (LILLIAN CURRAN, ) HAD A SHORT VISIT WITH THE PT. PT'S BROTHER PHONE # [phone].
[2023-08-12 11:30] LABS: Glucose, Whole Blood 125 mg/dL (60-115)
--- NOTE | 2023-08-12 12:41 | MHC.CM.ED ---
Received case management consult overnight. Patient came to the ER due to increased confusion. Physical therapy eval completed. Short term rehab is recommended. Attempted to meet with patient in regards to discharge planning. Patient has a history of dementia and is not able to participate in d/c planning. Patient's ztnwzxzm-[id number], Niki can be reached via telephone at [phone]. Patient's son, Zain VILLASENOR, can be reached via telephone at [phone]. Spoke with both Niki and Zain VILLASENOR via telephone. Patient lives with them, is active with [facility], has [employer] hours through [facility] and goes to adult day care. PCP verified. Copy of HCP verified to be on file. Patient has been to [facility] in the past. Family requesting referral to [facility]. Referral made via [facility]. [facility] is able to offer a bed and is in the process of obtaining insurance auth. Continue to monitor for d/c needs.
[2023-08-12 16:50] LABS: Glucose, Whole Blood 129 mg/dL (60-115)
--- NOTE | 2023-08-12 16:56 | MHC.EDTECH ---
PT output 700cc
--- NOTE | 2023-08-12 21:52 | MHC.CM.ED ---
Primary RN updated on plan of care. [facility] pending insurance auth. [facility].
--- NOTE | 2023-08-12 22:00 | PHA.MEDREC ---
Pharmacy Consult ? Medication Reconciliation Pharmacy has reviewed the medication reconciliation complete by nursing.
[2023-08-12] MEDS: LORazepam 1 MG TABLET PO (22:08)
[2023-08-12] MEDS: Apixaban 5 MG TABLET PO (22:12)
[2023-08-12] MEDS: metFORMIN HCl 1,000 MG TABLET 1000 MG PO (22:12)
[2023-08-12] MEDS: Atorvastatin Calcium 20 MG TABLET PO (22:12)
--- NOTE | 2023-08-12 22:47 | PC.NURSE ---
Patient alert and oriented x 3. Patient c/o pain in legs tigered Kristen ALLEN ordered medications. Patient fell asleep but has been sleeping since 3pm when I got here. Patient wakes right up if you touch him. Patient voids in the urinal and rings appropriately. Patient takes pills whole with water or sabrina shaji. Will continue with plan of care.
--- NOTE | 2023-08-13 04:38 | MHC.EDTECH ---
PT RESTING IN BED RESPIRATIONS EVEN AND UNLABORED CALL LIGHT WITHIN REACH PLAN OF CARE ONGOING
[2023-08-13 05:51] VITALS: BP 108/59; PULSE 65; RESP 17; TEMP 36.1; O2SAT 94
[2023-08-13] MEDS: Omeprazole 20 MG CAPSULE.DR PO (05:53)
--- NOTE | 2023-08-13 06:40 | PC.NURSE ---
Customer Success Advocate assumed care of the patient at 23:30. Pt seen in ED overflow for PT/CM. Pt is A&Ox2; has pmhx of dementia and parkinsons . Denies pain. Pt sleeping in bed majority of shift. Breathing is even and unlabored without distress. Pt offers no acute complaints. Assisted with urinal to void. Purposeful hourly rounding, bed alarm on and safety measures in place.?
[2023-08-13 09:04] LABS: Glucose, Whole Blood 157 mg/dL (60-115)
--- NOTE | 2023-08-13 09:47 | MHC.CM.PN ---
EMR REVIEWED, [facility] STILL AWAITING AUTH FOR PT, [facility] PROVIDED W/CM CONTACT NUMBER AND WILL CONT TO FOLLOW FOR AUTH.
[2023-08-13] MEDS: Apixaban 5 MG TABLET PO ×2 (10:14→20:47)
[2023-08-13] MEDS: lisinopriL 10 MG TABLET PO (10:14)
[2023-08-13] MEDS: metFORMIN HCl 1,000 MG TABLET 1000 MG PO ×2 (10:14→20:46)
[2023-08-13] MEDS: rOPINIRole HCL 0.25 MG TABLET PO ×3 (10:14→20:46)
[2023-08-13] MEDS: Furosemide 20 MG TABLET PO (10:15)
[2023-08-13] MEDS: Empagliflozin 10 MG TABLET PO (10:15)
[2023-08-13] MEDS: Mirtazapine 15 MG TABLET PO (10:15)
[2023-08-13] MEDS: Carbidopa/Levodopa 25/100 TABLET 2 TAB PO ×3 (10:16→20:46)
[2023-08-13] MEDS: Calcium + Vitamin D 250 MG TABLET 500 MG PO ×2 (10:16→20:46)
[2023-08-13] MEDS: ARIPiprazole 15 MG TABLET PO (11:46)
[2023-08-13] MEDS: Pioglitazone HCL 45 MG TABLET PO (11:46)
[2023-08-13 12:06] LABS: Glucose, Whole Blood 119 mg/dL (60-115)
[2023-08-13 15:45] VITALS: BP 101/48; PULSE 69; RESP 18; TEMP 36.1; O2SAT 95
[2023-08-13 16:27] LABS: Glucose, Whole Blood 82 mg/dL (60-115)
[2023-08-13] MEDS: Atorvastatin Calcium 20 MG TABLET PO (20:46)
[2023-08-13 20:56] LABS: Glucose, Whole Blood 125 mg/dL (60-115)
[2023-08-13 21:39] VITALS: BP 107/53; PULSE 67; RESP 18; TEMP 36.1; O2SAT 96
--- NOTE | 2023-08-13 22:48 | PC.NURSE ---
Patient is alert and oriented x2, place and person, uses a call germain appropriately. Patient urinates in a urinal with 1 assist. Patient medicated per MAR. Bed alarm engaged, call germain in patient's reach. Plan of care ongoing.
[2023-08-14 05:32] VITALS: BP 125/68; PULSE 69; RESP 16; TEMP 36.7; O2SAT 96
[2023-08-14] MEDS: Omeprazole 20 MG CAPSULE.DR PO (05:37)
[2023-08-14 08:05] LABS: Glucose, Whole Blood 148 mg/dL (60-115)
--- NOTE | 2023-08-14 08:34 | PC.NURSE ---
Called pharmacy to have ricky and lyndsey brought to overflow
[2023-08-14] MEDS: Carbidopa/Levodopa 25/100 TABLET 2 TAB PO ×3 (09:01→21:10)
[2023-08-14] MEDS: rOPINIRole HCL 0.25 MG TABLET PO ×3 (09:01→21:10)
[2023-08-14] MEDS: Calcium + Vitamin D 250 MG TABLET 500 MG PO ×2 (09:01→21:10)
[2023-08-14] MEDS: Apixaban 5 MG TABLET PO ×2 (09:01→21:09)
[2023-08-14] MEDS: lisinopriL 10 MG TABLET PO (09:01)
[2023-08-14] MEDS: metFORMIN HCl 1,000 MG TABLET 1000 MG PO (09:02)
[2023-08-14] MEDS: Empagliflozin 10 MG TABLET PO (09:02)
[2023-08-14] MEDS: Furosemide 20 MG TABLET PO (09:02)
[2023-08-14] MEDS: Acetaminophen 325 MG TABLET 975 MG PO ×2 (09:22→17:32)
[2023-08-14] MEDS: Pioglitazone HCL 45 MG TABLET PO (09:22)
[2023-08-14] MEDS: ARIPiprazole 15 MG TABLET PO (09:22)
[2023-08-14] MEDS: Metoprolol Succinate ER 50 MG TAB.ER.24H PO (09:26)
--- NOTE | 2023-08-14 09:28 | PC.NURSE ---
Metformin 500mg held d/t already giving metformin 1000mg this AM
[2023-08-14] MEDS: Mirtazapine 15 MG TABLET PO (09:37)
--- NOTE | 2023-08-14 10:00 | PC.NURSE ---
Patient is A&O, moaning in pain, reports 10/10 bilateral feet pain. TIFFANY Vee this AM for prn pain med. Patient medicated with tylenol with positive response, patient no longer moaning in pain/reports 5/10 pain that is tolerable for patient. Patient using urinal with assistance, respirations even and unlabored, vss.
--- NOTE | 2023-08-14 10:03 | MHC.CM.ED ---
Patient remains in ER overflow. Will transfer to [facility] when insurance auth is obtained. Continue to monitor for d/c needs.
--- NOTE | 2023-08-14 11:39 | PC.NURSE ---
bed bath given,, patient repositioned, morning care.
[2023-08-14 11:58] LABS: Glucose, Whole Blood 133 mg/dL (60-115)
[2023-08-14 14:00] VITALS: BP 94/53; PULSE 69; RESP 18; TEMP 36.7; O2SAT 97
--- NOTE | 2023-08-14 14:05 | PC.NURSE ---
PT'S SON IS AT BEDSIDE, HE SAYS HE IS GOING HOME TO [place] HIS HEARING AIDES AND COME BACK LATER THIS EVENING. PT RESTING QUIETLY AT THIS TIME, NO APPARENT DISTRESS, VSS.
[2023-08-14 16:25] LABS: Glucose, Whole Blood 141 mg/dL (60-115)
[2023-08-14 21:00] VITALS: BP 119/70; PULSE 68; RESP 12; TEMP 36.2; O2SAT 99
[2023-08-14] MEDS: metFORMIN HCl 500 MG TABLET PO (21:10)
[2023-08-14] MEDS: Atorvastatin Calcium 20 MG TABLET PO (21:12)
[2023-08-14 21:14] LABS: Glucose, Whole Blood 115 mg/dL (60-115)
--- NOTE | 2023-08-14 21:14 | PC.NURSE ---
Assumed care of this patient at 1900, patient intermittently grouning aloud, repositioned in bed x 2, pm meds given per mar, patient resting quietly on hospital bed at this time.
[2023-08-15 05:23] VITALS: BP 108/63; PULSE 69; RESP 18; TEMP 36.3; O2SAT 93
--- NOTE | 2023-08-15 05:35 | PC.NURSE ---
Assumed care of patient at 23:30. Pt seen in ED overflow awaiting PT/CM, came in / for increased confusion and foul smelling odor. Pt is primarily Burundian speaking, japanese interpreter used. A&Ox1-2. Drowsy, slept for majority of sports book writer's care, appropriately arousable to voice. +pp/cms. pt rolls self side to side in bed. Breathing is even and unlabored without distress on RA. Voids using urinal with assistance. No distress or acute issues. Bed bath provided and pt changed into fresh hospital gown this morning. Bed low and locked, alarm on. Patient visible from nurses station. Will continue to monitor patient's safety and comfort for the remainder of sports book writer's scheduled care.
[2023-08-15] MEDS: Omeprazole 20 MG CAPSULE.DR PO (05:46)
[2023-08-15] MEDS: Acetaminophen 325 MG TABLET 975 MG PO (06:19)
[2023-08-15 07:35] LABS: Glucose, Whole Blood 94 mg/dL (60-115)
--- NOTE | 2023-08-15 08:00 | PC.NURSE ---
PT A/O X 3 NO SOB/KYRIE NOTED SPEAKS IN FULL SENTENCES. PT ATE 90% OF BREAKFAST. PT C/O R LEG CRAMP/PAIN 11/18. PT WAS MED X 1 WITH TYLENOL PRIOR TO THIS SHIFT. WILL FOLLOW UP WITH MD/JAMES. NO EDEMA NOTED. PT AWARE OF PLAN OF CARE. WILL CONTINUE TO MONITOR.
[2023-08-15 08:04] VITALS: BP 115/59; PULSE 65; RESP 16; TEMP 36.5; O2SAT 98
[2023-08-15] MEDS: rOPINIRole HCL 0.25 MG TABLET PO (08:18)
[2023-08-15] MEDS: Apixaban 5 MG TABLET PO (08:18)
[2023-08-15] MEDS: metFORMIN HCl 500 MG TABLET PO (08:18)
[2023-08-15] MEDS: Furosemide 20 MG TABLET PO (08:18)
[2023-08-15] MEDS: lisinopriL 10 MG TABLET PO (08:18)
[2023-08-15] MEDS: Metoprolol Succinate ER 50 MG TAB.ER.24H PO (08:19)
[2023-08-15] MEDS: Calcium + Vitamin D 250 MG TABLET 500 MG PO (08:19)
[2023-08-15] MEDS: Empagliflozin 10 MG TABLET PO (08:19)
[2023-08-15] MEDS: Mirtazapine 15 MG TABLET PO (08:19)
[2023-08-15] MEDS: Carbidopa/Levodopa 25/100 TABLET 2 TAB PO (08:20)
[2023-08-15] MEDS: ARIPiprazole 15 MG TABLET PO (08:20)
[2023-08-15] MEDS: Pioglitazone HCL 45 MG TABLET PO (08:20)
--- NOTE | 2023-08-15 08:34 | MHC.CM.ED ---
Patient remains in ER overflow. [facility] has obtained insurance auth. Patient can leave at 10am. Katy JIMENEZ booked. Med nec with chart. Patient, [id number] Nadege Prince RN and Minda ALLEN aware. Continue to monitor for d/c needs.
--- NOTE | 2023-08-15 10:00 | PC.NURSE ---
[facility] CALLED ([phone]) TO GIVE REPORT, THIS RN WAS TOLD THAT THE RN WAS IN A MORNING MEETING. MESSAGE LEFT WITH SPECIALTY DEPARTMENT SUPERVISOR FOR A RETURN CALL.
[2023-08-15 10:15] VITALS: BP 115/59; PULSE 65; RESP 16; TEMP 36.5; O2SAT 98
--- NOTE | 2023-08-15 10:15 | PC.NURSE ---
RN TO EMS REPORT GIVEN. PT AWARE OF PLAN OF CARE FOR TRANSFER TO [facility]IA EMS.
--- NOTE | 2023-08-15 10:32 | PC.NURSE ---
2ND ATTEMPT TO GIVE RN TO RN REPORT TO [facility] ([phone]). THIS RN LEFT MESSAGE AGAIN WITH THE GENERAL DUTY NURSE.
--- NOTE | 2023-08-15 11:14 | PC.NURSE ---
RN TO RN REPORT GIVEN TO KELI ([facility], [phone]).
== END 2023-08-15 10:20 | disposition skilled nursing facility (03) ==
PROVIDERS: Emergency Provider Emergency Medicine; PCP Internal Medicine
DX: I49.9 Cardiac arrhythmia, unspecified (principal); R53.83 Other fatigue; R41.82 Altered mental status, unspecified; R26.81 Unsteadiness on feet; R06.02 Shortness of breath; R60.0 Localized edema; R51.9 Headache, unspecified; R11.0 Nausea; M25.50 Pain in unspecified joint; Z87.891 Personal history of nicotine dependence; Z51.81 Encounter for therapeutic drug level monitoring; Z03.818 Encounter for observation for suspected exposure to other biological agents ruled out; Z79.84 Long term (current) use of oral hypoglycemic drugs; Z79.899 Other long term (current) drug therapy
CPT/HCPCS: 0241U; 70450; 71045; 80048; 80076; 80307; 81001; 81003; 82803; 82947; 83605; 83735; 83880; 84484; 85025; 86140; 87040; 93005; 96360; 96361; 97161; 99285

== ENCOUNTER → 2023-08-11 18:00 | Outpatient (BNV) | payer OTHER, SELFPAY | PROVIDERS: Emergency Provider Emergency Medicine; PCP Internal Medicine; Visit Provider Internal Medicine | DX: R94.31 Abnormal electrocardiogram [ECG] [EKG] (principal) | CPT/HCPCS: 93010 ==

== ENCOUNTER 2023-09-12 13:43 | Outpatient (AMB) | payer OTHER, SELFPAY ==
--- NOTE | 2023-09-12 14:54 | MHC.OFFVIS ---
Vital Signs 09/12/23 14:55 Height 5 ft 3 in Weight 172 lb 13.478 oz BMI 30.6 BP 108/52 L Blood Pressure Location Rt brachial Position Sitting Pulse 68 Pulse Source Pulse Oximeter Intake Visit Reasons: 6 mth /w/ [facility] Speech And Language Assistant Required: No Roller Stitcher: Roller Stitcher Present Allergies shellfish derived Allergy (Mild, Verified 09/12/23 14:59) swollen face shellfish Allergy (Intermediate, Uncoded 09/12/23 14:59) rash, itch Seafood Allergy (Mild, Uncoded 09/12/23 14:59) SWELLING Medication List - Last Reconciled 09/12/23 by KATE TaylorC [adult pull ups As directed] apixaban (Eliquis) 5 mg PO BID 30 days aripiprazole 15 mg PO DAILY 90 days [BLOOD PRESSURE MONITOR As directed] blood pressure test kit-large As directed blood sugar diagnostic (FreeStyle Test strips) Use 1 test strip once a day calcium carbonate-vitamin D3 600 mg-10 mcg (400 unit) 1 tab PO BID 90 days carbidopa-levodopa 25-100 mg 2 tabs PO TID@0900,1200,2100 [COMPRESSION SOCKS (knee high) - MEDIUM strength As directed] empagliflozin (Jardiance) 10 mg PO DAILY 90 days furosemide 20 mg PO QAM lancets (FreeStyle Lancets) Use 1 lancet once a day lisinopril 10 mg PO DAILY 90 days metformin 1,000 mg PO BID 90 days metoprolol succinate ER 50 mg PO DAILY mirtazapine 15 mg PO DAILY 90 days omeprazole 20 mg PO DAILY@0630 90 days pioglitazone 45 mg PO DAILY 90 days ropinirole 0.25 mg PO TID simvastatin 40 mg PO BEDTIME 90 days underpads (Goodnites Bed Mats) As directed [weight scale As directed] HPI HPI 6 mth /w/ [facility] ck: Details: Zain is an 82-year-old male with past medical history of hypertension, hyperlipidemia, diabetes, 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 Today he reports he has been doing well with no concerning symptoms. He denies any chest discomfort, shortness of breath, palpitations, presyncope, syncope, falls. No PND, orthopnea or edema. He does only light physical activity. His daughter is present. [facility] Medical History (Updated 09/12/23 @ 17:31 by Ann Shannon NP-C) Heart block AV third degree ABRIL (acute kidney injury) SVT (supraventricular tachycardia) Respiratory failure with hypoxia Pacemaker Encounter for interrogation of cardiac pacemaker AV block, 3rd degree Physical exam Bradycardia Obesity (BMI 30-39.9) Normal colonoscopy (~06/18/11) BETHANY (generalized anxiety disorder) Mild major depression, single episode Hearing loss GERD (gastroesophageal reflux disease) Essential hypertension Unsteady gait Diabetes mellitus Dry cough DMII (diabetes mellitus, type 2) Parkinson disease Dyslipidemia Surgical History History of pacemaker Family History Mother No problems noted. Father No problems noted. Family/Other Substance use disorder Social History Household Members: Family Household Members Other:: son Housing: Apartment Do you presently have visiting nurse or other home services: Yes Alcohol intake: former Patient Tobacco Use Status: Former Tobacco user Tobacco use type: Cigarette e-Cigarette/Vaping Use: Former Use Second Hand Smoke Exposure: No service: No Current occupational status: retired Cognitive needs: Yes Hearing needs: No Vision needs: Yes Review of Systems Const All systems reviewed & are unremarkable except as noted in HPI and below ENT Denies dizziness Card Denies chest pain, Denies chest pain at rest, Denies chest pain with activity, Denies rapid heart rate, Denies pedal edema, Denies edema, Denies leg edema, Denies lightheadedness, Denies palpitations, Denies dyspnea, Denies dyspnea on exertion and Denies orthopnea Resp Denies cough, Denies dyspnea and Denies dyspnea on exertion GI Denies hematochezia and Denies change in stool character Musc Denies abnormal gait, Denies limited range of motion, Denies muscle cramps, Denies muscle weakness, Denies numbness, Denies radiating pain into limb, Denies stiffness and Denies tingling Neuro Denies abnormal gait, Denies dizziness, Denies numbness and Denies tingling Endo Denies palpitations Physical Exam Vital Signs: Last Vital Signs Pulse 68 09/12/23 14:55 BP 108/52 L 09/12/23 14:55 BMI result Body Mass Index 30.6 Const General: cooperative, healthy appearing, comfortable and no acute distress Orientation/consciousness: patient oriented x3 Neck Neck: Yes normal visual inspection and Yes no JVD Carotids: normal carotid upstroke Resp Effort & Inspection: normal respiratory effort Auscultation: clear to auscultation bilaterally, no crackles, no rales, no rhonchi and no wheezes Cardio Jugular venous distension: no JVD Rate: regular rate Rhythm: regular rhythm Heart sounds: S1 normal heart sound present, S2 normal heart sound present, no murmurs and no rubs Neuro General: patient oriented x3 Extrem General: Yes normal to inspection, No no pedal edema and No calf tenderness Psych Appearance: grossly normal Mental Status: mental status grossly normal Speech and movement: Normal speech and movement present Assessment & Plan Assessment & Plan (1) Heart block AV third degree: Code(s): I44.2 - Atrioventricular block, complete Category: Medical Plan: [facility] dual-chamber pacemaker in place for complete heart block. He did require lead revision x2 initially. Pacemaker site benign. Pacemaker Interrogation completed today shows device is functioning normally. Battery 9.2 years, normal atrial and ventricular thresholds, V pacing greater than 99%. Unable to bill for but is interrogation due to printer issues and unable to scan report at this time. He has remote monitoring in use. Next office interrogation will be due in 6 months, sooner if needed. (2) Essential hypertension: Code(s): I10 - Essential (primary) hypertension Category: Medical Plan: Blood pressure on the low side at 108/52, asymptomatic. No med changes made (3) Atrial fibrillation: Code(s): I48.91 - Unspecified atrial fibrillation Category: Medical Plan: Remote monitoring showing new finding of paroxysmal atrial fibrillation June 2023. Longest episode 3 hours 23 minutes with peak V rate 96 beats per minute. Continues on metoprolol XL 50 mg daily. Was started on Eliquis for anticoagulation. No bleeding issues reported. Labs done 08/11/2023 showed hematocrit 38.6. Creatinine 1.53. Typically his creatinine is lower. At this time will continue on Eliquis at 5 mg b.i.d. will have him recheck labs in the near future. Diagnosis of AFib reviewed. Plan Time spent on chart review, documentation, interview and assessment Coding Level of Care Code Est Pt Level 4 (36634) Diagnoses Heart block AV third degree I44.2 Essential hypertension I10 Atrial fibrillation I48.91 Time Spent (min) 28
[2023-09-12 14:55] VITALS: BP 108/52; PULSE 68; BMI 30.6
== END 2023-09-12 15:37 | disposition home or self-care (01) ==
LOC: HO.HCS 13:43
PROVIDERS: PCP Internal Medicine; Visit Provider Nurse Practitioner Family
DX: I44.2 Atrioventricular block, complete (principal); I10 Essential (primary) hypertension; I48.91 Unspecified atrial fibrillation
CPT/HCPCS: 99214

== ENCOUNTER → 2023-09-12 13:43 | Outpatient (BNVA) | payer OTHER, SELFPAY | PROVIDERS: PCP Internal Medicine; Visit Provider Nurse Practitioner Family | DX: I44.2 Atrioventricular block, complete (principal); I10 Essential (primary) hypertension; I47.10 Supraventricular tachycardia, unspecified; I48.91 Unspecified atrial fibrillation; Z45.018 Encounter for adjustment and management of other part of cardiac pacemaker | CPT/HCPCS: 99212 ==

== ENCOUNTER 2023-09-21 13:41 | Outpatient (AMB) | payer OTHER, SELFPAY ==
[2023-09-21 13:59] VITALS: BP 112/64; BMI 29.6
--- NOTE | 2023-09-21 13:59 | MHC.PC.OV ---
Vital Signs 09/21/23 13:59 Height 5 ft 3 in Weight 167 lb BMI 29.6 BP 112/64 Blood Pressure Location Lt brachial Position Sitting Intake Visit Reasons: [facility] 08/28/ DM Intake Note: patient here for [facility] follow up disch 08/28 Jailor Required: No Accompanied by: Daughter and granddaughter Allergies shellfish derived Allergy (Mild, Verified 09/21/23 14:14) swollen face shellfish Allergy (Intermediate, Uncoded 09/21/23 14:14) rash, itch Seafood Allergy (Mild, Uncoded 09/21/23 14:14) SWELLING Medication List - Last Reconciled 09/21/23 by Yolanda Vu MD [adult pull ups As directed] apixaban (Eliquis) 5 mg PO BID 30 days aripiprazole 15 mg PO DAILY 90 days [BLOOD PRESSURE MONITOR As directed] blood pressure test kit-large As directed blood sugar diagnostic (FreeStyle Test strips) Use 1 test strip once a day calcium carbonate-vitamin D3 600 mg-10 mcg (400 unit) 1 tab PO BID 90 days carbidopa-levodopa 25-100 mg 2 tabs PO TID@0900,1200,2100 [COMPRESSION SOCKS (knee high) - MEDIUM strength As directed] empagliflozin (Jardiance) 10 mg PO DAILY 90 days furosemide 20 mg PO QAM lancets (FreeStyle Lancets) Use 1 lancet once a day lisinopril 10 mg PO DAILY 90 days metformin 1,000 mg PO BID 90 days metoprolol succinate ER 50 mg PO DAILY mirtazapine 15 mg PO DAILY 90 days omeprazole 20 mg PO DAILY@0630 90 days pioglitazone 45 mg PO DAILY 90 days ropinirole 0.25 mg PO TID simvastatin 40 mg PO BEDTIME 90 days underpads (Goodnites Bed Mats) As directed [weight scale As directed] Tobacco use date assessed: 05/23/23 Fall risk assessment: No Falls in past year Last assessed Fall Risk: 09/21/23 Dental Screening Dental Screen Date: 05/23/23 HPI HPI Comments History of Present Illness Details This is an 82-year-old male with atrial fibrillation, diabetes mellitus type 2, Parkinson's disease and mild major depression that comes today for follow-up on his conditions. On chronic anticoagulation for atrial fibrillation. A1c within goal. Has Parkinson's disease with tremors and will be referred to Neurology. Has mild depression stable with medications and follows with psychiatry. He is accompanied by daughter and granddaughter and they complain that he sleeps the whole day. I will change mirtazapine to bedtime. He walks with a walker for gait stability. He was recently discharged from recall rehab but we do not have the papers. [facility] Medical History (Updated 09/21/23 @ 17:52 by Yolanda Vu MD) Type 2 diabetes mellitus with unspecified complications CHF exacerbation Heart block AV third degree ABRIL (acute kidney injury) SVT (supraventricular tachycardia) Respiratory failure with hypoxia Pacemaker Encounter for interrogation of cardiac pacemaker AV block, 3rd degree Physical exam Bradycardia Obesity (BMI 30-39.9) Normal colonoscopy (~06/18/11) BETHANY (generalized anxiety disorder) Mild major depression, single episode Hearing loss GERD (gastroesophageal reflux disease) Essential hypertension Unsteady gait Diabetes mellitus Dry cough DMII (diabetes mellitus, type 2) Parkinson disease Dyslipidemia Surgical History History of pacemaker Family History Mother No problems noted. Father No problems noted. Family/Other Substance use disorder Social History Household Members: Family Household Members Other:: son Housing: Apartment Do you presently have visiting nurse or other home services: Yes Alcohol intake: former Patient Tobacco Use Status: Former Tobacco user Tobacco use type: Cigarette e-Cigarette/Vaping Use: Former Use Second Hand Smoke Exposure: No service: No Current occupational status: retired Cognitive needs: Yes Hearing needs: No Vision needs: Yes Questionnaire Thrive Questionnaire Date Thrive assessed: 05/23/23 BETHANY-7 AMB Questionnaire BETHANY-7 Date BETHANY - 7 assessed: 05/23/23 Source: Developed by Drs. Raz Fraser, Jackelyn Rea, Wilner Cox and colleagues, with an educational delilah from [employer]. Review of Systems Const All systems reviewed & are unremarkable except as noted in HPI and below Eyes Reports no additional complaints, Denies change in vision and Denies other visual disturbances Card Denies chest pain at rest, Denies chest pain with activity, Denies edema, Denies irregular heart rhythm, Denies claudication, Denies dyspnea, Denies dyspnea on exertion, Denies orthopnea, Denies paroxysmal nocturnal dyspnea and Denies slow heart rate Resp Denies cough, Denies dyspnea and Denies dyspnea on exertion Neuro Reports tremor(s) Physical exam (Primary Care) Vital Signs: Last Vital Signs BP 112/64 09/21/23 13:59 BMI result Body Mass Index 29.6 Tobacco/Smoking Status: Tobacco use Status Tobacco use date assessed 05/23/23 09/21/23 14:00 Patient Tobacco Use Status Former Tobacco user 09/21/23 14:00 Tobacco use type Cigarette 09/21/23 14:00 e-Cigarette/Vaping Use Former Use 09/21/23 14:00 Thrive Assessment: Date of Thrive Assessment Date Thrive assessed 05/23/23 09/21/23 14:00 Const Orientation/consciousness: patient oriented x3 Resp Effort & Inspection: normal respiratory effort Auscultation: clear to auscultation bilaterally Cardio Jugular venous distension: no JVD Rate: regular rate Rhythm: regular rhythm Heart sounds: S1 normal heart sound present and S2 normal heart sound present Neuro General: patient oriented x3 Gait exam (Neuro): Assisted gait required Gait assisted method: walker Motor exam (neuro): Tremors during motor activity present Extrem General: Yes full ROM Results AMB Hemoglobin A1c AMB Hemoglobin A1c 6.7 % Last Edit by CHLOE Malloy on 09/21/23 14:09 Results Reviewed Results Reviewed: Laboratory Last Values Hgb A1c (Clinic) 6.7 % (4.0-6.0) H 09/21/23 13:55 Assessment and Plan Assessment & Plan (1) Atrial fibrillation: Code(s): I48.91 - Unspecified atrial fibrillation Qualifiers: Atrial fibrillation type: unspecified Qualified Code(s): I48.91 - Unspecified atrial fibrillation Plan: Continue metoprolol and Eliquis. The goal is heart rate control. Follow-up with Cardiology. (2) Parkinson disease: Code(s): G20 - Parkinson's disease Qualifiers: Dyskinesia presence: unspecified whether dyskinesia Fluctuating manifestations: unspecified whether manifestations fluctuate Qualified Code(s): G20.A1 - Parkinson's disease without dyskinesia, without mention of fluctuations Plan: Continue carbidopa-levodopa. Referred to neurology. (3) Diabetes mellitus: Code(s): E11.9 - Type 2 diabetes mellitus without complications Qualifiers: Diabetes mellitus type: type 2 Diabetes mellitus assisted insulin use: without assisted use Diabetes mellitus complication status: without complication Qualified Code(s): E11.9 - Type 2 diabetes mellitus without complications Plan: Continue Jardiance, metformin and Actos. A1c goal is equal or less than 7%. (4) Mild major depression, single episode: Code(s): F32.0 - Major depressive disorder, single episode, mild Plan: Continue Abilify. Follow-up with psychiatry. Orders: Orders AMB Hemoglobin A1c Today E11.9 - Type 2 diabetes mellitus without complications Complete Blood Count Auto Diff Today D64.9 - Anemia, unspecified T Spot TB Today Z11.1 - Encounter for screening for respiratory tuberculosis IRON PROFILE Today D64.9 - Anemia, unspecified NT-proBNP Today I50.9 - Heart failure, unspecified Referrals Neurology Referral G20 - Parkinson's disease Medications: Changed From mirtazapine 15 mg PO DAILY 90 days 90 tabs 1RF To mirtazapine 15 mg PO BEDTIME 90 tabs 1RF 90 days Coding Level of Care Code Est Pt Level 4 (22586) Complex EM visit Add On G2211 Diagnoses Atrial fibrillation, unspecified type I48.91 Atrial fibrillation type: unspecified Parkinson's disease, unspecified whether dyskinesia present, unspecified whether manifestations fluctuate G20.A1 Dyskinesia presence: unspecified whether dyskinesia Fluctuating manifestations: unspecified whether manifestations fluctuate Type 2 diabetes mellitus without complication, without long-term current use of insulin E11.9 Diabetes mellitus type: type 2 Diabetes mellitus intermodal customer service insulin use: without intermodal customer service use Diabetes mellitus complication status: without complication Mild major depression, single episode F32.0 Time Spent (min) 22
== END 2023-09-21 14:27 | disposition home or self-care (01) ==
PROVIDERS: PCP Internal Medicine; Visit Provider Internal Medicine
DX: I48.91 Unspecified atrial fibrillation (principal); G20.A1 Parkinson's disease without dyskinesia, without mention of fluctuations; E11.9 Type 2 diabetes mellitus without complications; F32.0 Major depressive disorder, single episode, mild
CPT/HCPCS: 83036; 99214; G2211

== ENCOUNTER → 2023-11-21 23:59 | Outpatient (BNV) | payer OTHER, SELFPAY ==
--- NOTE | 2023-11-27 19:00 | A.OFFVIS_ITS ---
Intake Visit Reasons: Remote device check -[facility] Allergies shellfish derived Allergy (Mild, Verified 09/21/23 14:14) swollen face shellfish Allergy (Intermediate, Uncoded 09/21/23 14:14) rash, itch Seafood Allergy (Mild, Uncoded 09/21/23 14:14) SWELLING [facility] Medical History (Updated 09/21/23 @ 17:52 by Yolanda Vu MD) Type 2 diabetes mellitus with unspecified complications CHF exacerbation Heart block AV third degree ABRIL (acute kidney injury) SVT (supraventricular tachycardia) Respiratory failure with hypoxia Pacemaker Encounter for interrogation of cardiac pacemaker AV block, 3rd degree Physical exam Bradycardia Obesity (BMI 30-39.9) Normal colonoscopy (~06/18/11) BETHANY (generalized anxiety disorder) Mild major depression, single episode Hearing loss GERD (gastroesophageal reflux disease) Essential hypertension Unsteady gait Diabetes mellitus Dry cough DMII (diabetes mellitus, type 2) Parkinson disease Dyslipidemia Surgical History History of pacemaker Family History Mother No problems noted. Father No problems noted. Family/Other Substance use disorder Social History Household Members: Family Household Members Other:: son Housing: Apartment Do you presently have visiting nurse or other home services: Yes Alcohol intake: former Patient Tobacco Use Status: Former Tobacco user Tobacco use type: Cigarette e-Cigarette/Vaping Use: Former Use Second Hand Smoke Exposure: No service: No Current occupational status: retired Cognitive needs: Yes Hearing needs: No Vision needs: Yes Office Procedures Cardiac Device Check Cardiac Device Check Details: Date of service- 11/21/2023 ; Battery life >8 years; normal lead parameters; AP 70%; MACHINE ASSEMBLER FOR PULLER OVER >99 %; no significant arrhythmias. Overall normal device function. [id number] Cardiac Device Interrogation, pacemaker Procedure code (CPT) selection complete Assessment & Plan Assessment & Plan (1) Heart block AV third degree: Code(s): I44.2 - Atrioventricular block, complete Category: Medical (2) Atrial fibrillation: Code(s): I48.91 - Unspecified atrial fibrillation Category: Medical Qualifiers: Atrial fibrillation type: unspecified Qualified Code(s): I48.91 - Unspecified atrial fibrillation Plan x Coding Level of Care Code Procedure Only Diagnoses Heart block AV third degree I44.2 Atrial fibrillation, unspecified type I48.91 Atrial fibrillation type: unspecified CPT Codes Cardiac Device Check - Cardiac Device 12: [id number] Cardiac Device Interrogation, pacemaker ([id number])
== END ==
PROVIDERS: PCP Internal Medicine; Visit Provider Internal Medicine
DX: I44.2 Atrioventricular block, complete (principal); I48.91 Unspecified atrial fibrillation; Z95.0 Presence of cardiac pacemaker
CPT/HCPCS: 93294

== ENCOUNTER 2023-11-22 12:04 | Outpatient (REF) | payer OTHER, SELFPAY ==
[2023-11-22 14:40] LABS: MANUAL DIFF FLAG NO
[2023-11-22 14:46] LABS: Basophils Percent Auto 0.5 % (0-2); Eosinophils Percent Auto 0.5 % (0-4); Hematocrit 39.5 % (42.0-52.0); Hemoglobin 13.4 g/dl (14.0-18.0); Imm Gran Abs Auto 0.03 X10*3/uL (0.00-0.03); Imm Gran Pct Auto 0.5 % (0.0-0.4); Lymphocytes Absolute Auto 1.5 X10*3/uL (1.2-4.9); Lymphocytes Percent Auto 25.6 % (20-40); Mean Corpuscular HGB Conc 33.9 g/dl (31.0-36.0); Mean Corpuscular Hemoglobin 31.8 pg (27.0-33.0); Mean Corpuscular Volume 93.8 fL (80.0-98.0); Mean Platelet Volume 11.5 fL (9.4-12.4); Monocytes Absolute Auto 0.4 X10*3/uL (0.1-1.2); Monocytes Percent Auto 7.2 % (2-11); Neutrophils Absolute Auto 3.7 x10*3/uL (2.0-8.3); Neutrophils Percent Auto 65.7 % (45-73); Platelet Count 155 X10*3/uL (160-400); Red Blood Count 4.21 X10*6/uL (4.60-5.80); White Blood Count 5.7 X10*3/uL (4.8-10.8)
[2023-11-22 15:10] LABS: Creatinine Urine 36.84 mg/dL; Microalbum/Creatinine Ratio Ur 24.4 ug/mg cr (<30)
[2023-11-22 15:24] LABS: Alanine Aminotransferase 9 U/L (0-40); Albumin Level 4.6 g/dL (3.5-5.0); Alkaline Phosphatase 43 U/L (39-117); Anion Gap 14 (12-20); Aspartate Amino Transferase 14 U/L (5-37); Bilirubin Total 0.6 mg/dL (0.0-1.0); Blood Urea Nitrogen 22 mg/dL (9-16); Calcium 9.8 mg/dL (8.4-10.2); Carbon Dioxide 27 mmol/L (22-29); Chloride 102 mmol/L (96-108); Cholesterol 122 mg/dL (<200); Estimated Glomerular Filt Rate 53; Glucose Fasting 143 mg/dL (60-99); HDL Cholesterol 48 mg/dL (>40); Iron 123 mcg/dL (45-160); LDL Cholesterol Calculated 52 mg/dL (<100); Percent Iron Saturation 47 % (15-50); Potassium 4.3 mmol/L (3.3-5.1); Sodium 139 mmol/L (135-145); Total Iron Binding Capacity 260 mcg/dL (228-428); Total Protein 7.2 g/dL (6.5-8.0); Triglycerides 111 mg/dL (<150); Unsaturated Iron Binding 137 ug/dL; Vitamin D 25-OH Total 39.7 ng/mL (>30)
[2023-11-22 16:29] LABS: Vitamin B12 224 pg/mL (200-900)
[2023-11-24 22:09] LABS: TS Negative Control Passed; TS Panel A 0; TS Panel B 1; TS Positive Control Passed; TSpotTB Negative (Negative)
[2023-11-27 22:33] LABS: NT-proBNP 354 pg/mL (<450)
== END 2023-11-22 12:05 | disposition home or self-care (01) ==
LOC: HO.HKASLDS 12:04
PROVIDERS: Visit Provider Internal Medicine
DX: D64.9 Anemia, unspecified (principal); Z11.1 Encounter for screening for respiratory tuberculosis; I50.9 Heart failure, unspecified; I44.2 Atrioventricular block, complete; E78.5 Hyperlipidemia, unspecified; E11.9 Type 2 diabetes mellitus without complications; E55.9 Vitamin D deficiency, unspecified; E53.8 Deficiency of other specified B group vitamins
CPT/HCPCS: 36415; 80053; 80061; 82043; 82306; 82570; 82607; 82746; 83540; 83880; 85025; 86481

== ENCOUNTER → 2024-02-20 23:59 | Outpatient (BNV) | payer OTHER, SELFPAY ==
--- NOTE | 2024-02-22 09:48 | MHC.OFFVIS ---
Intake Visit Reasons: Remote device check -[facility] Allergies shellfish derived Allergy (Mild, Verified 09/21/23 14:14) swollen face shellfish Allergy (Intermediate, Uncoded 09/21/23 14:14) rash, itch Seafood Allergy (Mild, Uncoded 09/21/23 14:14) SWELLING [facility] Medical History (Updated 09/21/23 @ 17:52 by Yolanda Vu MD) Type 2 diabetes mellitus with unspecified complications CHF exacerbation Heart block AV third degree ABRIL (acute kidney injury) SVT (supraventricular tachycardia) Respiratory failure with hypoxia Pacemaker Encounter for interrogation of cardiac pacemaker AV block, 3rd degree Physical exam Bradycardia Obesity (BMI 30-39.9) Normal colonoscopy (~06/18/11) BETHANY (generalized anxiety disorder) Mild major depression, single episode Hearing loss GERD (gastroesophageal reflux disease) Essential hypertension Unsteady gait Diabetes mellitus Dry cough DMII (diabetes mellitus, type 2) Parkinson disease Dyslipidemia Surgical History History of pacemaker Family History Mother No problems noted. Father No problems noted. Family/Other Substance use disorder Social History Household Members: Family Household Members Other:: son Housing: Apartment Do you presently have visiting nurse or other home services: Yes Alcohol intake: former Patient Tobacco Use Status: Former Tobacco user Tobacco use type: Cigarette e-Cigarette/Vaping Use: Former Use Second Hand Smoke Exposure: No service: No Current occupational status: retired Cognitive needs: Yes Hearing needs: No Vision needs: Yes Office Procedures Cardiac Device Check Cardiac Device Check Details: Date of service- 02/20/2024 ; Battery life >8 years; normal lead parameters; AP 67%; PHILATELIC CONSULTANT 95%; no significant arrhythmias. Overall normal device function. [id number] Cardiac Device Interrogation, pacemaker Procedure code (CPT) selection complete Assessment & Plan Assessment & Plan (1) Pacemaker: Code(s): Z95.0 - Presence of cardiac pacemaker Category: Medical (2) Heart block: Code(s): I45.9 - Conduction disorder, unspecified Category: Medical (3) Bradycardia: Code(s): R00.1 - Bradycardia, unspecified Category: Medical Plan x Coding Level of Care Code Procedure Only Diagnoses Pacemaker Z95.0 Heart block I45.9 Bradycardia R00.1 CPT Codes Cardiac Device Check - Cardiac Device 12: [id number] Cardiac Device Interrogation, pacemaker ([id number])
== END ==
PROVIDERS: PCP Internal Medicine; Visit Provider Internal Medicine
DX: I45.9 Conduction disorder, unspecified (principal); R00.1 Bradycardia, unspecified; Z95.0 Presence of cardiac pacemaker
CPT/HCPCS: 93294

== ENCOUNTER 2024-04-09 08:33 | Outpatient (AMB) | payer OTHER, SELFPAY ==
--- NOTE | 2024-04-09 08:35 | A.OFFVIS_ITS ---
Vital Signs 04/09/24 08:36 Height 5 ft 3 in BP 122/72 Blood Pressure Location Lt brachial Position Sitting Pulse 67 Pulse Source Pulse Oximeter Intake Visit Reasons: 6 month f/u [facility] 03/12/24 Outside Machinist Required: Yes Allergies shellfish derived Allergy (Mild, Verified 04/09/24 08:42) swollen face shellfish Allergy (Intermediate, Uncoded 04/09/24 08:42) rash, itch Seafood Allergy (Mild, Uncoded 04/09/24 08:42) SWELLING Medication List - Last Reconciled 04/09/24 by KATE TaylorC [adult pull ups As directed] apixaban (Eliquis) 5 mg PO BID 30 days aripiprazole 15 mg PO DAILY 90 days [BLOOD PRESSURE MONITOR As directed] blood pressure test kit-large As directed blood sugar diagnostic (FreeStyle Test strips) Use 1 test strip once a day calcium carbonate-vitamin D3 600 mg-10 mcg (400 unit) 1 tab PO BID 90 days carbidopa-levodopa 25-100 mg 2 tabs PO TID@0900,1200,2100 [COMPRESSION SOCKS (knee high) - MEDIUM strength As directed] empagliflozin (Jardiance) 10 mg PO DAILY 90 days furosemide 20 mg PO QAM lancets (FreeStyle Lancets) Use 1 lancet once a day lisinopril 10 mg PO DAILY 90 days metformin 1,000 mg PO BID 90 days metoprolol succinate ER 50 mg PO DAILY mirtazapine 15 mg PO BEDTIME 90 days omeprazole 20 mg PO DAILY@0630 90 days pioglitazone 45 mg PO DAILY ropinirole 0.25 mg PO TID simvastatin 40 mg PO BEDTIME 90 days underpads (Goodnites Bed Mats) As directed [weight scale As directed] HPI HPI 6 month f/u [facility] 03/12/24: Details: Zain is an 83-year-old male with past medical history of hypertension, hyperlipidemia, diabetes, paroxysmal atrial fibrillation, 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 Today he presents on a EMS transport stretcher from a [facility] facility. He is [place]-speaking and appears to have some degree dementia. Certified science interpreter was used. He denies having any recent issues with chest discomfort or shortness of breath, heart palpitations, lightheadedness. No bleeding issues known. He admits to having some cramps in his calves. He says he can walk a few steps with a walker. He takes his meds as prescribed. [facility] Medical History Type 2 diabetes mellitus with unspecified complications CHF exacerbation Heart block AV third degree ABRIL (acute kidney injury) SVT (supraventricular tachycardia) Respiratory failure with hypoxia Pacemaker Encounter for interrogation of cardiac pacemaker AV block, 3rd degree Physical exam Bradycardia Obesity (BMI 30-39.9) Normal colonoscopy (~06/18/11) BETHANY (generalized anxiety disorder) Mild major depression, single episode Hearing loss GERD (gastroesophageal reflux disease) Essential hypertension Unsteady gait Diabetes mellitus Dry cough DMII (diabetes mellitus, type 2) Parkinson disease Dyslipidemia Surgical History History of pacemaker Family History Mother No problems noted. Father No problems noted. Family/Other Substance use disorder Social History Household Members: Family Household Members Other:: son Housing: Apartment Do you presently have visiting nurse or other home services: Yes Alcohol intake: former Patient Tobacco Use Status: Former Tobacco user Tobacco use type: Cigarette e-Cigarette/Vaping Use: Former Use Second Hand Smoke Exposure: No service: No Current occupational status: retired Cognitive needs: Yes Hearing needs: No Vision needs: Yes Review of Systems Const All systems reviewed & are unremarkable except as noted in HPI and below ENT Denies dizziness Card Denies chest pain, Denies chest pain at rest, Denies chest pain with activity, Denies rapid heart rate, Denies lightheadedness, Denies palpitations and Denies dyspnea Resp Denies dyspnea Musc Reports abnormal gait, Reports muscle cramps and Reports muscle weakness Neuro Reports abnormal gait and Denies dizziness Endo Denies palpitations Physical Exam Vital Signs: Last Vital Signs Pulse 67 04/09/24 08:36 BP 122/72 04/09/24 08:36 Const Other: Somewhat frail elderly male lying on ambulance stretcher. General: comfortable and no acute distress Orientation/consciousness: patient oriented x3 Neck Neck: Yes normal visual inspection Resp Effort & Inspection: normal respiratory effort Auscultation: clear to auscultation bilaterally, no rales, no rhonchi and no wheezes Cardio Rate: regular rate Rhythm: regular rhythm Heart sounds: S1 normal heart sound present, S2 normal heart sound present, no murmurs and no rubs Peripheral pulses: Peripheral pulses 2+ throughout Neuro General: patient oriented x3 Extrem General: Yes normal to inspection and No no pedal edema Psych Appearance: grossly normal Mental Status: mental status grossly normal Speech and movement: Normal speech and movement present Office Procedures Cardiac Device Check Cardiac Device Check Details: [facility] dual-chamber pacemaker interrogation today, battery 8.2-8.5 years atrial threshold 0.5 volts at 0.4 milliseconds, ventricular threshold 0.625 volts at 0.4 milliseconds, DDDR mode, low rate 65, a paced 63%, V paced 95%, brief atrial tachycardia, lasting seconds. 22535-AX Cardiac Device Check, pacemaker dual lead Procedure code (CPT) selection complete Assessment & Plan Assessment & Plan (1) Pacemaker: Code(s): Z95.0 - Presence of cardiac pacemaker Category: Medical Plan: [facility] dual-chamber pacemaker in place. Interrogation today shows device is functioning normally. Battery 8.2-8.5 years. Remote monitoring in use. Next office interrogation planned for 1 year from now. Pacer site in the right upper chest is benign. (2) Heart block AV third degree: Code(s): I44.2 - Atrioventricular block, complete Category: Medical Plan: Pacemaker (3) Atrial fibrillation: Code(s): I48.91 - Unspecified atrial fibrillation Category: Medical Qualifiers: Atrial fibrillation type: unspecified Qualified Code(s): I48.91 - Unspecified atrial fibrillation Plan: History of paroxysmal atrial fibrillation. Device interrogation today shows no recent episodes of PAF. He does have brief episodes of atrial tachycardia, lasting seconds. He is on metoprolol for heart rate control and Eliquis for anticoagulation. Current Eliquis dose is 5 mg b.i.d. which is appropriate for his last known creatinine and weight. If his weight drops below 60 kg his dose should be reduced down to 2.5 mg b.i.d. kidney function should be checked twice yearly. No med changes made today. (4) Essential hypertension: Code(s): I10 - Essential (primary) hypertension Category: Medical Plan: History of hypertension. Currently well controlled. Blood pressure 122/72. Continue metoprolol, lisinopril, Lasix. Plan Time spent on chart review, documentation, interview and assessment Coding Level of Care Code Est Pt Level 4 (81024) Complex EM visit Add On G2211 Diagnoses Pacemaker Z95.0 Heart block AV third degree I44.2 Atrial fibrillation, unspecified type I48.91 Atrial fibrillation type: unspecified Essential hypertension I10 CPT Codes Cardiac Device Check - Cardiac Device 2: [id number] Cardiac Device Check, pacemaker dual lead ([id number]) Time Spent (min) 30
[2024-04-09 08:36] VITALS: BP 122/72; PULSE 67
== END 2024-04-09 09:44 | disposition home or self-care (01) ==
LOC: HO.HCS 08:33
PROVIDERS: PCP Internal Medicine; Visit Provider Nurse Practitioner Family
DX: I44.2 Atrioventricular block, complete (principal); Z95.0 Presence of cardiac pacemaker; I48.91 Unspecified atrial fibrillation; I10 Essential (primary) hypertension
CPT/HCPCS: 93280; 99214; G2211

== ENCOUNTER → 2024-04-09 08:33 | Outpatient (BNVA) | payer OTHER, SELFPAY | PROVIDERS: PCP Internal Medicine; Visit Provider Nurse Practitioner Family | DX: I48.91 Unspecified atrial fibrillation (principal); I10 Essential (primary) hypertension; I44.2 Atrioventricular block, complete; Z45.018 Encounter for adjustment and management of other part of cardiac pacemaker | CPT/HCPCS: 93280; 99212 ==

== ENCOUNTER 2024-11-01 17:19 | Emergency (ER) | payer OTHER, SELFPAY ==
--- NOTE | ~2024-11-01 | CT_ITS ---
CLINICAL HISTORY: fall with headstrike CT head without contrast COMPARISON: CT/[place]/SR - CT HEAD WITHOUT IV CONTRAST - 08/11/23 23:27 EDT FINDINGS: Global cerebral volume loss and chronic microvascular ischemic changes. No acute intracranial hemorrhage, extra-axial fluid collection, mass effect, or midline shift. Ventricular system and basilar cisterns are patent. Campbell-white matter differentiation is maintained. No gross orbital abnormality. No suspicious or acute bone lesion. Mastoid air cells and paranasal sinuses are predominantly clear. IMPRESSION: 1. No acute intracranial abnormality. 2. Global cerebral volume loss and chronic microvascular ischemic changes. This document has been electronically signed by: Pasquale Ojeda MD on 11/01/2024 19:46:21
--- NOTE | ~2024-11-01 | XR_ITS ---
CLINICAL HISTORY: weakness 1 view chest x-ray Comparison: [place]/SR - XR CHEST 2 VIEWS - 08/11/23 18:40 EDT Findings: Right chest wall dual lead cardiac pacing device. The lungs are clear. Normal size heart. No acute fracture. IMPRESSION: 1. No acute findings. This document has been electronically signed by: Pasquale Ojeda MD on 11/01/2024 19:27:40
--- NOTE | ~2024-11-01 | CT_ITS ---
CLINICAL HISTORY: fall with headstrike CT cervical spine without contrast Comparison: None Findings: Cervical vertebral body heights maintained. No traumatic listhesis, subluxation, or dislocation demonstrated. No acute fracture identified. No suspicious lytic or blastic osseous lesion. No acute prevertebral or paraspinous soft tissue finding. Visualized portions of the lung apices are clear. IMPRESSION: 1. No CT evidence of acute traumatic cervical spine injury. This document has been electronically signed by: Pasquale Ojeda MD on 11/01/2024 19:46:06
[2024-11-01 17:27] VITALS: BP 140/66; PULSE 85; O2SAT 99
--- NOTE | 2024-11-01 17:38 | ECG_ITS ---
Test Reason : FALL Blood Pressure : */* mmHG Vent. Rate : 71 BPM Atrial Rate : 71 BPM P-R Int : 166 ms QRS Dur : 176 ms QT Int : 468 ms P-R-T Axes : 63 -49 110 degrees QTcB Int : 508 ms Atrial-sensed ventricular-paced rhythm with occasional Premature ventricular complexes Abnormal ECG When compared with ECG of 11-Aug-2023 19:07, Premature ventricular complexes are now Present Vent. rate has increased by 3 bpm Referred By: Vinicius Reyes Electronically Signed By: Ag Sullivan
--- NOTE | 2024-11-01 17:38 | ED.GENADULT ---
HPI - General Adult General Chief complaint: Fall Stated complaint: unwit fall, -thinners, +c-collar Time Seen by Provider: 11/01/24 17:30 Source: EMS, RN notes reviewed and old records reviewed Mode of arrival: EMS Limitations: language barrier (german speaking) History of Present Illness ED Provider: Amy Colvin PA-C HPI narrative: 84-year-old male with medical history of T2DM, CHF, pacemaker, AFib on Eliquis, GERD, HTN, HLD, Parkinson's disease, presents to the ED by EMS due to unwitnessed fall. Patient poor historian, can not tell me what happened today, does not know how he fell or how long he was down for. Patient unable to ask questions with elastic yarn twister present. [facility] stated patient is oriented to self only, but is able to answer questions when asked, the nurse stated he does not walk on his own but always needs assistance. Patient was walking alone today which is how the fall occurred. MD complaint: unwitnessed fall Related Data Home Medications ?Medication ?Instructions ?Recorded ?Confirmed carbidopa 25 mg-levodopa 100 mg 2 tab PO TID@0900,1200,2100 12/17/20 04/09/24 tablet ropinirole 0.25 mg tablet 0.25 mg PO TID 08/16/22 04/09/24 Previous Rx's ?Medication ?Instructions ?Recorded lancets 28 gauge (FreeStyle #100 ea 06/03/20 Lancets) BLOOD PRESSURE MONITOR #1 ea 12/30/20 COMPRESSION SOCKS (knee high) - #2 ea 12/30/20 MEDIUM strength adult pull ups #100 ea 08/19/22 blood pressure test kit-large #1 08/19/22 underpads 2.6 X 2.9 feet #36 ea 08/19/22 (Goodnites Bed Mats) weight scale #1 ea 08/19/22 blood sugar diagnostic (FreeStyle #50 ea 09/11/22 Test strips) apixaban 5 mg tablet (Eliquis) 5 mg PO BID 30 days #60 tabs 08/11/23 furosemide 20 mg tablet 20 mg PO QAM #30 tabs 09/28/23 empagliflozin 10 mg tablet 10 mg PO DAILY 90 days #90 tabs 11/13/23 (Jardiance) simvastatin 40 mg tablet 40 mg PO BEDTIME 90 days #90 tabs 11/13/23 calcium 600 mg (as 1 tab PO BID 90 days #180 tabs 01/25/24 carbonate)-vitamin D3 10 mcg (400 unit) tablet lisinopril 10 mg tablet 10 mg PO DAILY 90 days #90 tabs 01/25/24 pioglitazone 45 mg tablet 45 mg PO DAILY #90 tabs 01/25/24 aripiprazole 15 mg tablet 15 mg PO DAILY 90 days #90 tabs 02/12/24 metformin 1,000 mg tablet 1,000 mg PO BID 90 days #180 tabs 02/15/24 mirtazapine 15 mg tablet 15 mg PO BEDTIME 90 days #90 tabs 02/29/24 metoprolol succinate 50 mg 50 mg PO DAILY #90 tabs 04/02/24 tablet,extended release 24 hr omeprazole 20 mg capsule,delayed 20 mg PO DAILY@0630 90 days #90 04/22/24 release caps Allergies Allergy/AdvReac Type Severity Reaction Status Date / Time shellfish derived Allergy Mild swollen Verified 11/01/24 17:48 face shellfish Allergy Intermediate rash, itch Uncoded 04/09/24 08:42 Seafood Allergy Mild SWELLING Uncoded 04/09/24 08:42 Review of Systems Review of Systems: Unable to complete accurate ROS as patient is unable to answer questions pertaining to his physical well-being. Yes all other systems are reviewed and are negative PMFSH Past Medical History Attestation statement: The following information was validated with the patient. Source: old records reviewed and nursing notes reviewed Medical History Type 2 diabetes mellitus with unspecified complications CHF exacerbation Heart block AV third degree ABRIL (acute kidney injury) SVT (supraventricular tachycardia) Respiratory failure with hypoxia Pacemaker Encounter for interrogation of cardiac pacemaker AV block, 3rd degree Physical exam Bradycardia Obesity (BMI 30-39.9) Normal colonoscopy (~06/18/11) BETHANY (generalized anxiety disorder) Mild major depression, single episode Hearing loss GERD (gastroesophageal reflux disease) Essential hypertension Unsteady gait Diabetes mellitus Dry cough DMII (diabetes mellitus, type 2) Parkinson disease Dyslipidemia Surgical History History of pacemaker Family History Family History Mother No problems noted. Father No problems noted. Family/Other Substance use disorder Social History Social History Household Members: Family Household Members Other:: son Housing: Apartment Do you presently have visiting nurse or other home services: Yes Alcohol intake: former Patient Tobacco Use Status: Former Tobacco user Tobacco use type: Cigarette e-Cigarette/Vaping Use: Former Use Second Hand Smoke Exposure: No Advance Directives: No Advance Directives Information Provided: No service: No Current occupational status: retired Cognitive needs: Yes Hearing needs: No Vision needs: Yes Physical Exam ED Vital Signs: Vital Signs - 24 hr 11/01/24 17:47 11/01/24 19:23 11/01/24 20:37 Temperature 97.4 F 97.0 F 97.9 F Pulse Rate 78 71 80 Respiratory Rate 25 H 15 21 H Blood Pressure 145/70 H 156/66 H 157/79 H Pulse Oximetry 97 97 99 Oxygen Delivery Method Room Air Room Air Room Air 11/01/24 22:47 Temperature 97.5 F Pulse Rate 79 Respiratory Rate 18 Blood Pressure 131/87 Pulse Oximetry 98 Oxygen Delivery Method Room Air BMI result Body Mass Index 18.2 GENERAL APPEARANCE: ?AxO to self only, frail appearing, non toxic appearing. HEENT: ?NC, AT. MMM. EOMI, clear conjunctiva, oropharynx clear. NECK: ?C collar in place, cannot answer if he is experiencing cervical tenderness. HEART:? Normal rate and regular rhythm, normal S1/S2, no m/r/g LUNGS:? CTAB, moving air well. No crackles or wheezes are heard. ABDOMEN: ?Soft, nontender, nondistended with good bowel sounds heard. BACK: No CVAT, no obvious deformity. EXTREMITIES: ?Without cyanosis, clubbing or edema. NEUROLOGICAL: ?Patient is alert but will not follow commands for neuro exam. Skin: ?Warm and dry without any rash. Medical Decision Making Medical Decision Making MDM Narrative: 84-year-old male with medical history of T2DM, CHF, pacemaker, AFib on Eliquis, GERD, HTN, HLD, Parkinson's disease, presents to the ED by EMS due to unwitnessed fall. Patient poor historian, can not tell me what happened today, does not know how he fell or how long he was down for. Patient unable to ask questions with elastic yarn twister present. I called [facility] who stated patient is oriented to self only, but is able to answer questions when asked, the nurse stated he does not walk on his own but always needs assistance. Patient was walking alone today which is how the fall occurred. Vital signs stable, patient tachypnec at 25 breaths per minute without hypoxia, afebrile. EKG shows an atrial sensed ventricular paced rhythm with occasional PVCs. No ST elevation/depression. Initial troponin 17.4, 2nd troponin 16.1- troponins flat with decrease- less likely ACS Labs without leukocytosis, H and H stable. BNP less than 100. CPK 149- less likely rhabdomyolysis UA reveals greater than a 1000 urine glucose, 1+ leukocyte esterase, 6-10 urine WBCs, 1+ urine bacteria these findings along with [facility] nurse stating patient with increased altered mental status will treat with 7 day course of 100mg BID macrobid. Course 21:18- CT cervical spine negative for fracture, CT head brain negative for fracture or intracranial abnormalities. CXR without cardiomegaly or acute findings. 22:34- UA reveals greater than a 1000 urine glucose, 1+ leukocyte esterase, 6-10 WBCs, 1+ urine bacteria. Patient without recent urinary catheterization, afebrile, no leukocytosis, not concern for infectious urine at this time. UA sent for reflex microscopy, patient resides at SNF with 24 hour care we will call SNF if microscopy is positive with bacteria. Patient remains hemodynamically stable, O2 sat 99% on room air. I believe fall occurred today due to mechanical reasons. Nursing staff at [facility] states patient should not be ambulating alone and ambulates with 1 on 1 assistance. Patient was found to be ambulating alone when fall occurred. Differential Diagnosis Differential Diagnoses: The differential diagnosis associated with the presentation includes ACS ICH Skull fracture Cervical spine fracture Rhabdomyolysis Electrolyte abnormality UTI Admission/Observation Consideration of admission/observation: Escalation of care including admission/observation considered Lab Data MDM Lab Attestation statement: I reviewed the patient's lab results. 11/01/24 18:14 11/01/24 18:14 Labs: Lab Results 07/24/25 07/24/25 07/24/25 Range/Units 18:14 20:19 21:18 WBC 5.3 (4.8-10.8) X10*3/uL RBC 3.65 L (4.60-5.80) X10*6/uL Hgb 12.1 L (14.0-18.0) g/dl Hct 36.1 L (42.0-52.0) % MCV 98.9 H (80.0-98.0) fL MCH 33.2 H (27.0-33.0) pg MCHC 33.5 (31.0-36.0) g/dl RDW 13.2 (11.0-16.0) % Plt Count 92 L D (160-400) X10*3/uL MPV 11.1 (9.4-12.4) fL Immature Gran % (Auto) 0.4 (0.0-0.4) % Neut % (Auto) 70.6 (45-73) % Lymph % (Auto) 19.9 L (20-40) % Braxton % (Auto) 7.7 (2-11) % Eos % (Auto) 0.8 (0-4) % Baso % (Auto) 0.6 (0-2) % Lymph # (Auto) 1.1 L (1.2-4.9) X10*3/uL Braxton # (Auto) 0.4 (0.1-1.2) X10*3/uL Eos # (Auto) 0.0 (0.0-0.4) X10*3/uL Baso # (Auto) 0.0 (0.0-0.2) X10*3/uL Abs Immat Gran (auto) 0.02 (0.00-0.03) X10*3/uL Absolute Neuts (auto) 3.8 (2.0-8.3) x10*3/uL Absolute Nucleated RBC 0.000 (0.0-0.012) X10*3/uL Nucleated RBC % (auto) 0.0 (0.0-0.2) /100WBC Smear Tech's Comments VERIFIED Sodium 139 (135-145) mmol/L Potassium 4.4 (3.3-5.1) mmol/L Chloride 104 (96-108) mmol/L Carbon Dioxide 26 (22-29) mmol/L Anion Gap 13 (12-20) BUN 25 H (9-16) mg/dL Creatinine 1.12 (0.5-1.4) mg/dL Estim Creat Clear Calc 39.7 Estimated GFR > 60 Random Glucose 105 (60-115) mg/dL Calcium 9.0 D (8.4-10.2) mg/dL Magnesium 1.8 (1.6-2.6) mg/dL Total Bilirubin 0.3 (0.0-1.0) mg/dL AST 21 (5-37) U/L ALT 6 (0-40) U/L Alkaline Phosphatase 47 (39-117) U/L Total Creatine Kinase 149 (38-174) U/L Troponin I High Sens 17.4 16.1 (<3.5-35.0) ng/L B-Natriuretic Peptide 49 (<100) pg/mL Total Protein 6.5 (6.5-8.0) g/dL Albumin 4.2 (3.5-5.0) g/dL Urine Color Yellow Urine Appearance Clear Urine pH 6.0 (5.0-9.0) Ur Specific Eldridge 1.020 (1.005-1.025) Urine Protein Negative (Neg-Trace) mg/dL Urine Glucose (UA) >=1000 H (Negative) mg/dL Urine Ketones Negative (Negative) mg/dL Urine Blood Negative (Negative) Urine Nitrite Negative (Negative) Ur Leukocyte Esterase Small (1+) H (Negative) Urine RBC 0-2 (0-2) /HPF Urine WBC 6-10 H (0-5) /HPF Ur Squamous Epith Cells 0-2 (0-2) /HPF Urine Bacteria 1+ (None Seen) Hyaline Casts 0-2 (0-2) /LPF Independent Interpretation I performed an independent interpretation of an: EKG Interpretation: I independently interpreted the EKG Vent. Rate : 71 BPM Atrial Rate : 71 BPM P-R Int : 166 ms QRS Dur : 176 ms QT Int : 468 ms P-R-T Axes : 63 -49 110 degrees QTcB Int : 508 ms Atrial-sensed ventricular-paced rhythm with occasional Premature ventricular complexes Abnormal ECG When compared with ECG of 11-Aug-2023 19:07, Premature ventricular complexes are now Present CXR- without cardiomegaly, without pleural effusions, without pulmonary edema, without infiltrates or opacities, I agree with the radiologist's impression CT head/brain- without fracture, without ICH, I agree with the radiologist's impression CT Cspine- without cervical fracture, I agree with the radiologist's impression Radiology Impression Discussion of test interpretation with radiology: I have reviewed the radiologist's reading. Radiologist Impression: CXR Findings: Right chest wall dual lead cardiac pacing device. The lungs are clear. Normal size heart. No acute fracture. IMPRESSION: 1. No acute findings. This document has been electronically signed by: Pasquale Ojeda MD on 11/01/2024 19:27:40 Dictated By: Pasquale Ojeda MD Signed By: <Electronically signed by Pasquale Ojeda MD in OV> 11/01/[address] brain/head FINDINGS: Global cerebral volume loss and chronic microvascular ischemic changes. No acute intracranial hemorrhage, extra-axial fluid collection, mass effect, or midline shift. Ventricular system and basilar cisterns are patent. Campbell-white matter differentiation is maintained. No gross orbital abnormality. No suspicious or acute bone lesion. Mastoid air cells and paranasal sinuses are predominantly clear. IMPRESSION: 1. No acute intracranial abnormality. 2. Global cerebral volume loss and chronic microvascular ischemic changes. This document has been electronically signed by: Pasquale Ojeda MD on 11/01/2024 19:46:21 Dictated By: Pasquale Ojeda MD Signed By: <Electronically signed by Pasquale Ojeda MD in [place]> 11/01/241946 CT Cspine Findings: Cervical vertebral body heights maintained. No traumatic listhesis, subluxation, or dislocation demonstrated. No acute fracture identified. No suspicious lytic or blastic osseous lesion. No acute prevertebral or paraspinous soft tissue finding. Visualized portions of the lung apices are clear. IMPRESSION: 1. No CT evidence of acute traumatic cervical spine injury. This document has been electronically signed by: Pasquale Ojdea MD on 11/01/2024 19:46:06 Dictated By: Pasquale Ojeda MD Signed By: <Electronically signed by Pasquale Ojeda MD in OV> 11/01/241946 Independent Historian Clinical information obtained from an independent historian. History obtained from or confirmed by: EMS and Other ([facility] [place] staff) External Record Review External record reviewed: Inpatient record, Office record and Outpatient record Prescription Management I considered prescription management with: Antibiotic I considered antibiotic treatment for UA findings, patient without recent catheterization, afebrile, without leukocytosis on labs. We will await UA for microscopy results to evaluate if antibiotic therapy is needed. Chronic Conditions Patient?s care impacted by: Other (AFib on Eliquis, Parkinson's disease, type 2 diabetes, HTN) Discharge Plan Discharge Clinical Impression: Fall Patient Disposition: [facility] SN[facility] Instructions: Fall Prevention for Older Adults (ED) Additional Instructions: You were evaluated in the ED today after unwitnessed fall. Your labs were negative for infectious process. Your EKG was non concerning for acute cardiac processes. CT head/brain was negative for intracranial hemorrhage, CT C-spine was negative for cervical fracture. Your chest x-ray revealed a pacemaker, within normal heart silhouette, and no acute cardiopulmonary findings. Vital signs were stable throughout your stay in the department. The urinary analysis showed minimal bacteria, I do not believe that you need antibiotic treatment at this time. However your urine is being evaluated for specific bacteria, if this is positive you will be called and treatment initiated. Please follow up with PCP to ensure improvement. Please return to the emergency department if you experience nausea, vomiting, headaches, chest pain, shortness of breath, fever or any new/worsening/concerning symptoms Prescriptions: No Action (DME) lancets [FreeStyle Lancets] 28 gauge misc See Rx Instructions .ROUTE .MEDSUPPLY Qty: 100 11RF Rx Instructions: Use 1 lancet once a day (DME) adult pull ups Large See Rx Instructions .Route .MEDSUPPLY Qty: 100 0RF Rx Instructions: As directed (DME) Goodnites Bed Mats 2.6 X 2.9 feet pad See Rx Instructions .Route Qty: 36 12RF Rx Instructions: As directed (DME) blood pressure test kit-large Kit See Rx Instructions .Route Qty: 1 0RF Rx Instructions: As directed (DME) weight scale See Rx Instructions .Route .MEDSUPPLY Qty: 1 0RF Rx Instructions: As directed (DME) FreeStyle Test Strip See Rx Instructions .ROUTE .MEDSUPPLY Qty: 50 11RF Rx Instructions: Use 1 test strip once a day Eliquis 5 mg tablet 5 mg PO BID 30 Days Qty: 60 5RF Rx Instructions: Blood thinner for stroke risk reduction with atrial fibrillation furosemide 20 mg tablet 20 mg PO QAM Qty: 30 11RF simvastatin 40 mg tablet 40 mg PO BEDTIME 90 Days Qty: 90 1RF Jardiance 10 mg tablet 10 mg PO DAILY 90 Days Qty: 90 1RF calcium carbonate-vitamin D3 600 mg-10 mcg (400 unit) tablet 1 tab PO BID 90 Days Qty: 180 1RF lisinopril 10 mg tablet 10 mg PO DAILY 90 Days Qty: 90 0RF pioglitazone 45 mg tablet 45 mg PO DAILY Qty: 90 0RF aripiprazole 15 mg tablet 15 mg PO DAILY 90 Days Qty: 90 0RF metformin 1,000 mg tablet 1,000 mg PO BID 90 Days Qty: 180 1RF mirtazapine 15 mg tablet 15 mg PO BEDTIME 90 Days Qty: 90 1RF metoprolol succinate 50 mg tablet extended release 24 hr 50 mg PO DAILY Qty: 90 3RF omeprazole 20 mg capsule,delayed release(DR/EC) 20 mg PO DAILY@0630 90 Days Qty: 90 0RF carbidopa-levodopa 25-100 mg tablet 2 tab PO TID@0900,1200,2100 ropinirole 0.25 mg tablet 0.25 mg PO TID (DME) BLOOD PRESSURE MONITOR See Rx Instructions .Route .MEDSUPPLY Qty: 1 0RF Rx Instructions: As directed (DME) COMPRESSION SOCKS (knee high) - MEDIUM strength medium 20 mmHg See Rx Instructions .Route .MEDSUPPLY Qty: 2 0RF Rx Instructions: As directed Print Language: Kazakh
[2024-11-01 17:47] VITALS: BP 145/70; PULSE 78; RESP 25; TEMP 36.3; O2SAT 97; BMI 18.2
[2024-11-01 18:37] LABS: Alanine Aminotransferase 6 U/L (0-40); Albumin Level 4.2 g/dL (3.5-5.0); Alkaline Phosphatase 47 U/L (39-117); Anion Gap 13 (12-20); Aspartate Amino Transferase 21 U/L (5-37); Blood Urea Nitrogen 25 mg/dL (9-16); Calcium 9.0 mg/dL (8.4-10.2); Carbon Dioxide 26 mmol/L (22-29); Chloride 104 mmol/L (96-108); Creatinine Clr Calc Pharmacy 39.7; Estimated Glomerular Filt Rate > 60; Magnesium 1.8 mg/dL (1.6-2.6); Potassium 4.4 mmol/L (3.3-5.1); Sodium 139 mmol/L (135-145); Total Protein 6.5 g/dL (6.5-8.0)
[2024-11-01 18:42] LABS: B Type Natriuretic Peptide 49 pg/mL (<100)
[2024-11-01 18:44] LABS: Troponin-I High Sensitivity 17.4 ng/L (<3.5-35.0)
[2024-11-01 18:52] LABS: Hematocrit 36.1 % (42.0-52.0); Hemoglobin 12.1 g/dl (14.0-18.0); Imm Gran Abs Auto 0.02 X10*3/uL (0.00-0.03); Imm Gran Pct Auto 0.4 % (0.0-0.4); Lymphocytes Absolute Auto 1.1 X10*3/uL (1.2-4.9); MANUAL DIFF FLAG SCAN; Mean Corpuscular HGB Conc 33.5 g/dl (31.0-36.0); Mean Corpuscular Hemoglobin 33.2 pg (27.0-33.0); Mean Corpuscular Volume 98.9 fL (80.0-98.0); NRBC Abs Auto 0.000 X10*3/uL (0.0-0.012); NRBC Pct Auto 0.0 /100WBC (0.0-0.2); PLT CLUMP 1; Red Blood Count 3.65 X10*6/uL (4.60-5.80); SCAN SMEAR FLAG 1
[2024-11-01 19:05] LABS: White Blood Count 5.3 X10*3/uL (4.8-10.8)
[2024-11-01 19:23] VITALS: BP 156/66; PULSE 71; RESP 15; TEMP 36.1; O2SAT 97
[2024-11-01 19:35] LABS: Platelet Count 92 X10*3/uL (160-400)
--- NOTE | 2024-11-01 20:24 | PC.NURSE ---
straight cath done per Vinicius ALLEN Verbal, pt tolerated well. ua sent to lab.
[2024-11-01 20:36] LABS: Appearance Urine Clear; Glucose Urine UA >=1000 mg/dL (Negative); PH 6.0 (5.0-9.0); Specific Gravity - Urine 1.020 (1.005-1.025); UMIC TRIGGER UACC YES
[2024-11-01 20:37] VITALS: BP 157/79; PULSE 80; RESP 21; TEMP 36.6; O2SAT 99
[2024-11-01 20:41] LABS: UACC Culture Trigger YES
[2024-11-01 21:43] LABS: Troponin-I High Sensitivity 16.1 ng/L (<3.5-35.0)
--- NOTE | 2024-11-01 22:13 | PC.NURSE ---
report given to Princess SANCHEZ at [facility] awaiting d/c.
[2024-11-01 22:47] VITALS: BP 131/87; PULSE 79; RESP 18; TEMP 36.4; O2SAT 98
[2024-11-01 23:20] VITALS: BP 131/87; PULSE 79; RESP 18; TEMP 36.4; O2SAT 98
== END 2024-11-01 23:20 | disposition skilled nursing facility (03) ==
PROVIDERS: Emergency Provider Internal Medicine
DX: R41.82 Altered mental status, unspecified (principal); Z91.81 History of falling; R06.82 Tachypnea, not elsewhere classified; E11.9 Type 2 diabetes mellitus without complications; I10 Essential (primary) hypertension; I48.91 Unspecified atrial fibrillation; G20.A1 Parkinson's disease without dyskinesia, without mention of fluctuations; Z95.0 Presence of cardiac pacemaker; Z79.01 Long term (current) use of anticoagulants; Z79.02 Long term (current) use of antithrombotics/antiplatelets; Z79.84 Long term (current) use of oral hypoglycemic drugs; Z79.899 Other long term (current) drug therapy; R53.1 Weakness
CPT/HCPCS: 36415; 51701; 70450; 71045; 72125; 80053; 81001; 82550; 83735; 83880; 84484; 85025; 87086; 87088; 87186; 93005; 99284; 99285

== ENCOUNTER → 2024-11-01 17:38 | Outpatient (BNV) | payer OTHER, SELFPAY | PROVIDERS: Emergency Provider Internal Medicine; Visit Provider Radiology Diagnostic Radiology | DX: M54.2 Cervicalgia (principal); S09.90XA Unspecified injury of head, initial encounter; R53.1 Weakness | CPT/HCPCS: 70450; 71045; 72125 ==

== ENCOUNTER → 2024-11-01 17:38 | Outpatient (BNV) | payer OTHER, SELFPAY | PROVIDERS: Emergency Provider Internal Medicine; Visit Provider Internal Medicine Cardiovascular Disease | DX: I49.3 Ventricular premature depolarization (principal) | CPT/HCPCS: 93010 ==

== ENCOUNTER 2024-11-07 18:04 | Emergency (ER) | payer OTHER, SELFPAY ==
--- NOTE | ~2024-11-07 | CT_ITS ---
CLINICAL HISTORY: fall CT head without contrast. COMPARISON: CT head dated 11/01/24 at 19:01 EDT FINDINGS: The visualized paranasal sinuses are clear. The mastoid air cells are clear. No calvarial fracture. Atherosclerotic intracranial vasculature. No evidence for mass or mass effect. No intracranial hemorrhage or abnormal extra-axial fluid collection. The ventricles are proportional with the degree of moderate global cerebral volume loss without evidence of hydrocephalus. Basilar cisterns are patent. There are periventricular areas of low attenuation compatible with mild white matter small vessel disease. Posterior fossa appears unremarkable. IMPRESSION: 1. No acute intracranial findings. This document has been electronically signed by: Kavon Mcleod MD on 11/07/2024 19:02:02
--- NOTE | ~2024-11-07 | CT_ITS ---
CLINICAL HISTORY: fall CT cervical spine without contrast. COMPARISON: CT cervical spine dated 11/01/24 at 19:01 EDT FINDINGS: Normal vertebral body alignment. Vertebral body heights are maintained. No evidence of acute vertebral body injury. Nuchal ligament ossification present. Skull base and intracranial structures appear normal. Calcified plaque present at the carotid bulbs bilaterally. C2-C3: Uncovertebral joint hypertrophy. Moderate bilateral neural foraminal narrowing. C3-C4: Anterior marginal osteophytes. Posterior disc osteophyte complex. Uncovertebral joint hypertrophy. Severe bilateral neural foraminal narrowing. C4-C5: Uncovertebral joint hypertrophy. Severe bilateral neural foraminal narrowing. C5-C6: Anterior marginal osteophytes. Loss of disc space height. Posterior disc osteophyte complex. Uncovertebral joint hypertrophy. Severe bilateral neural foraminal narrowing. C6-C7: Anterior marginal osteophytes. Loss of disc space height. Uncovertebral joint hypertrophy. Moderate bilateral neural foraminal narrowing. IMPRESSION: 1. No evidence of acute injury to the cervical spine. 2. Moderate to advanced multilevel cervical spondylosis. This document has been electronically signed by: Kavon Mcleod MD on 11/07/2024 19:31:00
[2024-11-07 18:13] VITALS: BP 138/62; PULSE 78; O2SAT 94
--- NOTE | 2024-11-07 18:16 | PC.NURSE ---
This RN alerted MD to come assess pt d/t decline in condition, MD ordered dry head and C-Spine at this time. Pt brought straight to CT at this time. Primary nurse aware.
[2024-11-07 18:22] VITALS: BP 150/67; PULSE 70; RESP 16; TEMP 36.9; BMI 20.3
[2024-11-07 18:30] VITALS: BP 150/67; PULSE 70; RESP 16; TEMP 36.9
--- NOTE | 2024-11-07 18:31 | ED.FALL ---
HPI - Fall General Chief Complaint: Altered Mental Status Stated Complaint: Fall w HS, unk LOC, - thinners, pinpoint/nonreacti Time Seen by Provider: 11/07/24 18:11 Source: EMS Mode of arrival: EMS History of Present Illness ED Provider: HPI Narrative: Patient is 84 years old with history of hypertension hyperlipidemia diabetes paroxysmal atrial fibrillation , diabetes high-degree block with pacemaker placement on Eliquis comes here as staff found him on the floor at 17:30 fall was unwitnessed patient has been falling multiple times this is the 4th time patient fell in last 1 week patient does not superficial abrasion on the knee came in the collar oriented times 1-2 Related Data Home Medications ?Medication ?Instructions ?Recorded ?Confirmed carbidopa 25 mg-levodopa 100 mg 2 tab PO TID@0900,1200,2100 12/17/20 04/09/24 tablet ropinirole 0.25 mg tablet 0.25 mg PO TID 08/16/22 04/09/24 Previous Rx's ?Medication ?Instructions ?Recorded lancets 28 gauge (FreeStyle #100 ea 06/03/20 Lancets) BLOOD PRESSURE MONITOR #1 ea 12/30/20 COMPRESSION SOCKS (knee high) - #2 ea 12/30/20 MEDIUM strength adult pull ups #100 ea 08/19/22 blood pressure test kit-large #1 ea 08/19/22 underpads 2.6 X 2.9 feet #36 ea 08/19/22 (Goodnites Bed Mats) weight scale #1 ea 08/19/22 blood sugar diagnostic (FreeStyle #50 ea 09/11/22 Test strips) apixaban 5 mg tablet (Eliquis) 5 mg PO BID 30 days #60 tabs 08/11/23 furosemide 20 mg tablet 20 mg PO QAM #30 tabs 09/28/23 empagliflozin 10 mg tablet 10 mg PO DAILY 90 days #90 tabs 11/13/23 (Jardiance) simvastatin 40 mg tablet 40 mg PO BEDTIME 90 days #90 tabs 11/13/23 calcium 600 mg (as 1 tab PO BID 90 days #180 tabs 01/25/24 carbonate)-vitamin D3 10 mcg (400 unit) tablet lisinopril 10 mg tablet 10 mg PO DAILY 90 days #90 tabs 01/25/24 pioglitazone 45 mg tablet 45 mg PO DAILY #90 tabs 01/25/24 aripiprazole 15 mg tablet 15 mg PO DAILY 90 days #90 tabs 02/12/24 metformin 1,000 mg tablet 1,000 mg PO BID 90 days #180 tabs 02/15/24 mirtazapine 15 mg tablet 15 mg PO BEDTIME 90 days #90 tabs 02/29/24 metoprolol succinate 50 mg 50 mg PO DAILY #90 tabs 04/02/24 tablet,extended release 24 hr omeprazole 20 mg capsule,delayed 20 mg PO DAILY@0630 90 days #90 04/22/24 release caps Allergies Allergy/AdvReac Type Severity Reaction Status Date / Time shellfish derived Allergy Mild swollen Verified 11/07/24 18:24 face shellfish Allergy Intermediate rash, itch Uncoded 11/07/24 18:24 Seafood Allergy Mild SWELLING Uncoded 11/07/24 18:24 Review of Systems Review of Systems: Yes all other systems are reviewed and are negative PMFSH Past Medical History Medical History Type 2 diabetes mellitus with unspecified complications CHF exacerbation Heart block AV third degree ABRIL (acute kidney injury) SVT (supraventricular tachycardia) Respiratory failure with hypoxia Pacemaker Encounter for interrogation of cardiac pacemaker AV block, 3rd degree Physical exam Bradycardia Obesity (BMI 30-39.9) Normal colonoscopy (~06/18/11) BETHANY (generalized anxiety disorder) Mild major depression, single episode Hearing loss GERD (gastroesophageal reflux disease) Essential hypertension Unsteady gait Diabetes mellitus Dry cough DMII (diabetes mellitus, type 2) Parkinson disease Dyslipidemia Surgical History History of pacemaker Family History Family History Mother No problems noted. Father No problems noted. Family/Other Substance use disorder Social History Social History Household Members: Family Household Members Other:: son Housing: Apartment Do you presently have visiting nurse or other home services: Yes Alcohol intake: former Patient Tobacco Use Status: Former Tobacco user Tobacco use type: Cigarette e-Cigarette/Vaping Use: Former Use Second Hand Smoke Exposure: No Advance Directives: Yes Advance Directives on File: Yes Advance Directives Date on File: 11/02/24 Do you have a plan to hurt others: No Plan service: No Current occupational status: retired Cognitive needs: Yes Hearing needs: No Vision needs: Yes Physical Exam Vital Signs: Vital Signs: Last Vital Signs Temp 97.8 F 11/08/24 00:05 Pulse 81 11/08/24 00:05 Resp 16 11/08/24 00:05 BP 132/70 11/08/24 00:05 Pulse Ox 98 11/08/24 00:05 O2 Del Method Room Air 11/08/24 00:05 BMI result Body Mass Index 20.3 Appearance: Alert. Oriented X1-2. No acute distress. Eyes: PERRLA, No Nystagmus ENT: Pharynx normal. Oral Mucosa moist Neck: Normal inspection. Neck supple. CVS: Normal heart rate and rhythm. Pulses normal. Respiratory: No respiratory distress. Equal air entry bilateral, no wheezing/rales/rhonchi Abdomen: Soft and nontender. Bowel sounds are present, no mass palpable, no CVA tenderness Skin: Skin warm and dry. Normal skin color. Normal skin turgor. Extremities: No lower extremity edema. No calf tenderness Neuro: Oriented X 1-3. No motor deficit. 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 comes from [facility] after the mechanical fall patient has been falling multiple times per [facility] staff workup negative at this time labs are stable patient will be sent back to [facility] advised to discuss with guide domestic tour to stop Eliquis because of the frequent fall workup showed UA patient has been treated with Macrobid already for UTI culture grew Enterococcus faecalis which is sensitive to Macrobid Differential Diagnosis Differential Diagnoses: The differential diagnosis associated with the presentation includes Admission/Observation Consideration of admission/observation: Escalation of care including admission/observation considered Lab Data [facility] Lab Attestation statement: I reviewed the patient's lab results. 11/07/24 19:20 11/07/24 19:20 Labs: Lab Results 11/07/24 11/07/24 Range/Units 19:20 21:23 WBC 5.2 (4.8-10.8) X10*3/uL RBC 3.92 L (4.60-5.80) X10*6/uL Hgb 13.1 L (14.0-18.0) g/dl Hct 37.4 L (42.0-52.0) % MCV 95.4 (80.0-98.0) fL MCH 33.4 H (27.0-33.0) pg MCHC 35.0 (31.0-36.0) g/dl RDW 12.8 (11.0-16.0) % Plt Count 191 D (160-400) X10*3/uL MPV 9.6 (9.4-12.4) fL Immature Gran % (Auto) 0.2 (0.0-0.4) % Neut % (Auto) 65.0 (45-73) % Lymph % (Auto) 23.3 (20-40) % [place] % (Auto) 10.3 (2-11) % Eos % (Auto) 0.6 (0-4) % Baso % (Auto) 0.6 (0-2) % Lymph # (Auto) 1.2 (1.2-4.9) X10*3/uL [place] # (Auto) 0.5 (0.1-1.2) X10*3/uL Eos # (Auto) 0.0 (0.0-0.4) X10*3/uL Baso # (Auto) 0.0 (0.0-0.2) X10*3/uL Abs Immat Gran (auto) 0.01 (0.00-0.03) X10*3/uL Absolute Neuts (auto) 3.4 (2.0-8.3) x10*3/uL Absolute Nucleated RBC 0.000 (0.0-0.012) X10*3/uL Nucleated RBC % (auto) 0.0 (0.0-0.2) /100WBC Sodium 141 (135-145) mmol/L Potassium 4.2 (3.3-5.1) mmol/L Chloride 103 (96-108) mmol/L Carbon Dioxide 24 (22-29) mmol/L Anion Gap 18 (12-20) BUN 30 H (9-16) mg/dL Creatinine 1.33 (0.5-1.4) mg/dL Estim Creat Clear Calc 34.1 Estimated GFR 51 Random Glucose 96 (60-115) mg/dL Calcium 9.3 (8.4-10.2) mg/dL Magnesium 1.8 (1.6-2.6) mg/dL Total Bilirubin 0.6 (0.0-1.0) mg/dL AST 35 (5-37) U/L ALT 28 (0-40) U/L Alkaline Phosphatase 54 (39-117) U/L Troponin I High Sens 19.1 (<3.5-35.0) ng/L Total Protein 7.1 (6.5-8.0) g/dL Albumin 4.5 (3.5-5.0) g/dL Urine Color Yellow Urine Appearance Cloudy Urine pH 5.0 (5.0-9.0) Ur Specific [place] 1.020 (1.005-1.025) Urine Protein Trace (Neg-Trace) mg/dL Urine Glucose (UA) >=1000 H (Negative) mg/dL Urine Ketones 15 (Negative) mg/dL Urine Blood Negative (Negative) Urine Nitrite Negative (Negative) Ur Leukocyte Esterase Large (3+) H (Negative) Urine RBC 0-2 (0-2) /HPF Urine WBC >50 H (0-5) /HPF Ur Squamous Epith Cells 0-2 (0-2) /HPF Calcium Oxalate Crystal Present Urine Bacteria 4+ (None Seen) Hyaline Casts 3-5 (0-2) /LPF Independent Interpretation I performed an independent interpretation of an: EKG and CT Scan Interpretation: Paced rhythm with ventricular rate of 66 beats per minute interventricular conduction defect no acute ST-T changes no acute ischemia Radiology Impression Discussion of test interpretation with radiology: I have reviewed the radiologist's reading. Discharge Plan Discharge Clinical Impression: Fall Patient Disposition: Xfer LTC Transfer Details: Patient's workup is negative essentially with CT scan of the head and C-spine negative advised to stop Eliquis because of frequent falls after discussing with PCP/guide domestic tour Instructions: Fall Prevention for Older Adults (ED) Additional Instructions: Care and cautions as advised See guide domestic tour/PCP regarding frequent falls and to stop the Eliquis further risk of head injury Prescriptions: No Action (DME) lancets [FreeStyle Lancets] 28 gauge misc See Rx Instructions .ROUTE .MEDSUPPLY Qty: 100 11RF Rx Instructions: Use 1 lancet once a day (DME) adult pull ups Large See Rx Instructions .Route .MEDSUPPLY Qty: 100 0RF Rx Instructions: As directed (DME) Goodnites Bed Mats 2.6 X 2.9 feet pad See Rx Instructions .Route Qty: 36 12RF Rx Instructions: As directed (DME) blood pressure test kit-large Kit See Rx Instructions .Route Qty: 1 0RF Rx Instructions: As directed (DME) weight scale See Rx Instructions .Route .MEDSUPPLY Qty: 1 0RF Rx Instructions: As directed (DME) FreeStyle Test Strip See Rx Instructions .ROUTE .MEDSUPPLY Qty: 50 11RF Rx Instructions: Use 1 test strip once a day Eliquis 5 mg tablet 5 mg PO BID 30 Days Qty: 60 5RF Rx Instructions: Blood thinner for stroke risk reduction with atrial fibrillation furosemide 20 mg tablet 20 mg PO QAM Qty: 30 11RF simvastatin 40 mg tablet 40 mg PO BEDTIME 90 Days Qty: 90 1RF Jardiance 10 mg tablet 10 mg PO DAILY 90 Days Qty: 90 1RF calcium carbonate-vitamin D3 600 mg-10 mcg (400 unit) tablet 1 tab PO BID 90 Days Qty: 180 1RF lisinopril 10 mg tablet 10 mg PO DAILY 90 Days Qty: 90 0RF pioglitazone 45 mg tablet 45 mg PO DAILY Qty: 90 0RF aripiprazole 15 mg tablet 15 mg PO DAILY 90 Days Qty: 90 0RF metformin 1,000 mg tablet 1,000 mg PO BID 90 Days Qty: 180 1RF mirtazapine 15 mg tablet 15 mg PO BEDTIME 90 Days Qty: 90 1RF metoprolol succinate 50 mg tablet extended release 24 hr 50 mg PO DAILY Qty: 90 3RF omeprazole 20 mg capsule,delayed release(DR/EC) 20 mg PO DAILY@0630 90 Days Qty: 90 0RF carbidopa-levodopa 25-100 mg tablet 2 tab PO TID@0900,1200,2100 ropinirole 0.25 mg tablet 0.25 mg PO TID (DME) BLOOD PRESSURE MONITOR See Rx Instructions .Route .MEDSUPPLY Qty: 1 0RF Rx Instructions: As directed (DME) COMPRESSION SOCKS (knee high) - MEDIUM strength medium 20 mmHg See Rx Instructions .Route .MEDSULOWELL Qty: 2 0RF Rx Instructions: As directed Interventions: ED Discharge Assessment Last Done: 11/08/24 00:05 Discharge Date/Time: 11/08/24 00:15 Print Language: [place]
[2024-11-07 19:24] LABS: MANUAL DIFF FLAG NO
[2024-11-07 19:25] LABS: Hematocrit 37.4 % (42.0-52.0); Hemoglobin 13.1 g/dl (14.0-18.0); Imm Gran Abs Auto 0.01 X10*3/uL (0.00-0.03); Imm Gran Pct Auto 0.2 % (0.0-0.4); Lymphocytes Absolute Auto 1.2 X10*3/uL (1.2-4.9); Mean Corpuscular HGB Conc 35.0 g/dl (31.0-36.0); Mean Corpuscular Hemoglobin 33.4 pg (27.0-33.0); Mean Corpuscular Volume 95.4 fL (80.0-98.0); NRBC Abs Auto 0.000 X10*3/uL (0.0-0.012); NRBC Pct Auto 0.0 /100WBC (0.0-0.2); Platelet Count 191 X10*3/uL (160-400); Red Blood Count 3.92 X10*6/uL (4.60-5.80); White Blood Count 5.2 X10*3/uL (4.8-10.8)
[2024-11-07 19:44] LABS: Alanine Aminotransferase 28 U/L (0-40); Albumin Level 4.5 g/dL (3.5-5.0); Alkaline Phosphatase 54 U/L (39-117); Anion Gap 18 (12-20); Blood Urea Nitrogen 30 mg/dL (9-16); Calcium 9.3 mg/dL (8.4-10.2); Carbon Dioxide 24 mmol/L (22-29); Chloride 103 mmol/L (96-108); Creatinine Clr Calc Pharmacy 34.1; Estimated Glomerular Filt Rate 51; Magnesium 1.8 mg/dL (1.6-2.6); Potassium 4.2 mmol/L (3.3-5.1); Sodium 141 mmol/L (135-145); Total Protein 7.1 g/dL (6.5-8.0)
[2024-11-07 19:48] LABS: Troponin-I High Sensitivity 19.1 ng/L (<3.5-35.0)
[2024-11-07 19:54] LABS: Aspartate Amino Transferase 35 U/L (5-37)
[2024-11-07 19:55] VITALS: BP 170/80; PULSE 70; RESP 14; TEMP 36.4; O2SAT 99
[2024-11-07 21:10] VITALS: BP 128/69; PULSE 66; RESP 13; O2SAT 97
[2024-11-07 21:35] LABS: Appearance Urine Cloudy; Glucose Urine UA >=1000 mg/dL (Negative); PH 5.0 (5.0-9.0); Specific Gravity - Urine 1.020 (1.005-1.025); UMIC TRIGGER UACC YES
[2024-11-07 21:57] LABS: UACC Culture Trigger YES
[2024-11-07 22:30] VITALS: BP 135/61; PULSE 64; RESP 10; O2SAT 95
--- NOTE | 2024-11-07 23:47 | ECG_ITS ---
Test Reason : A FIB Blood Pressure : */* mmHG Vent. Rate : 66 BPM Atrial Rate : 66 BPM P-R Int : 132 ms QRS Dur : 182 ms QT Int : 480 ms P-R-T Axes : 29 -56 106 degrees QTcB Int : 503 ms Atrial-sensed ventricular-paced rhythm Abnormal ECG When compared with ECG of 01-Nov-2024 17:45, Premature ventricular complexes are no longer Present Vent. rate has decreased by 5 bpm Referred By: Michael Mustafa Electronically Signed By: ZACKERY OLMOS MD
[2024-11-08] VITALS: BP 132/70; PULSE 81; RESP 16; TEMP 36.6; O2SAT 98
[2024-11-08 00:05] VITALS: BP 132/70; PULSE 81; RESP 16; TEMP 36.6; O2SAT 98
--- NOTE | 2024-11-08 00:31 | PC.NURSE ---
Attempted to care nurse to nurse report to [place] [facility], no answer. Report given to ambulance personnel.
== END 2024-11-08 00:15 ==
PROVIDERS: Emergency Provider Internal Medicine; PCP Family Medicine
DX: I48.91 Unspecified atrial fibrillation (principal); I10 Essential (primary) hypertension; E11.9 Type 2 diabetes mellitus without complications; E78.5 Hyperlipidemia, unspecified; Z91.81 History of falling; Z79.01 Long term (current) use of anticoagulants; Z79.899 Other long term (current) drug therapy; Z95.0 Presence of cardiac pacemaker; Z87.440 Personal history of urinary (tract) infections
CPT/HCPCS: 36415; 51701; 70450; 72125; 80053; 81001; 83735; 84484; 85025; 87086; 87088; 87186; 93005; 99284; 99285

== ENCOUNTER → 2024-11-07 18:12 | Outpatient (BNV) | payer OTHER, SELFPAY | PROVIDERS: Emergency Provider Internal Medicine; PCP Family Medicine; Visit Provider Radiology Diagnostic Radiology | DX: M47.812 Spondylosis without myelopathy or radiculopathy, cervical region (principal); R51.9 Headache, unspecified | CPT/HCPCS: 70450; 72125 ==

== ENCOUNTER → 2024-11-07 23:47 | Outpatient (BNV) | payer OTHER, SELFPAY | PROVIDERS: Emergency Provider Internal Medicine; PCP Family Medicine; Visit Provider Internal Medicine Cardiovascular Disease | DX: R94.31 Abnormal electrocardiogram [ECG] [EKG] (principal); Z95.0 Presence of cardiac pacemaker | CPT/HCPCS: 93010 ==